=== PATIENT | male | born 1965 | race Caucasian/White ===

== ENCOUNTER 2023-09-19 08:53 | Outpatient (OUT) | payer OTHER, SELFPAY ==
--- NOTE | 2023-09-19 08:55 | XR_ITS ---
The [address] [address] Patient Name: BLANCA HAYDEN MRN: [id number] date: 1965 Sex: M Assigned Patient Location: [facility] Current Patient Location: Accession/Order Number: [id number] Exam Date: 09/19/2023 09:03 Report Date: 09/20/2023 09:55 At the request of: ELIDA KIM Procedure: XR chest 2V EXAMINATION: XR chest 2V HISTORY: Cough R05.9 COMPARISON: No relevant comparison available. FINDINGS: LUNGS: Trace amount of stranding within the right and left lung bases. VASCULATURE: No increased pulmonary vasculature. PLEURA: No pneumothorax, effusion, or pleural thickening. CARDIAC: No cardiomegaly or cardiac silhouette abnormality. MEDIASTINUM: No visible mass or adenopathy. BONES: No fracture or visible bone lesion. OTHER: Negative. XR/XR chest 2V IMPRESSION: 1. Trace amount of bibasilar infiltrates versus atelectasis. No prior studies for comparison. Electronically authenticated by: ALYSSA EASTON Date: 09/20/2023 09:55
== END 2023-09-19 08:54 | disposition home or self-care (01) ==
LOC: RAD 08:53
PROVIDERS: PCP Internal Medicine; Visit Provider Internal Medicine
DX: R05.9 Cough, unspecified (principal)
CPT/HCPCS: 71046

== ENCOUNTER 2023-11-03 14:01 | Outpatient (OUT) | payer OTHER, SELFPAY ==
--- NOTE | 2023-11-03 14:02 | CT_ITS ---
[address] [address] Patient Name: BLANCA HAYDEN MRN: [id number] date: 1965 Sex: M Assigned Patient Location: [facility] Current Patient Location: Accession/Order Number: [id number] Exam Date: 11/03/2023 14:08 Report Date: 11/07/2023 10:11 At the request of: ELIDA KIM Procedure: CT chest w con EXAMINATION: CT chest w con HISTORY: Cough, Wheezing COMPARISON: XR chest 09/19/2023 TECHNIQUE: Multi-planar CT images were obtained without and/or with IV contrast as indicated by examination type. Axial, Coronal, and Sagittal images. Dose reduction techniques were achieved by using automated exposure control and/or adjustment of mA and/or kV according to patient size and/or use of iterative reconstruction technique. FINDINGS: LUNGS: 4 mm nodule within anterior segment of left upper lobe. Calcified granuloma within left posterior costophrenic angle. A few tiny nonspecific nodules scattered within the lungs. No acute infiltrates. PLEURA: No mass, effusion, or pneumothorax. VASCULATURE: No abnormality. DENIS: Multiple calcified left hilar lymph nodes suggestive chronic granulomatous disease. MEDIASTINUM: No mass or adenopathy. CARDIAC: No enlargement or pericardial thickening.. Coronary artery calcifications: AORTA: No aneurysm or dissection. CHEST WALL: No mass or axillary adenopathy. BONES: No bone lesion or fracture. LIMITED ABDOMEN: Multiple stones within noninflamed gallbladder. Limited images of the upper abdomen. OTHER: Negative. CT/CT chest w con IMPRESSION: 1. No pulmonary infiltrates or acute/suspicious findings to account for patient's symptoms. 2. A few tiny calcified and noncalcified nodules; nonspecific but conjunction with calcified hilar lymph nodes favouring chronic granulomatous disease. Electronically authenticated by: ALYSSA EASTON Date: 11/07/2023 10:11
[2023-11-03] MEDS: ALBUTEROL SULFATE 2.5 MG/3 ML VIAL NEB IH (14:33)
--- NOTE | 2023-11-03 14:34 | RESP.RT ---
PFT done. Pt had a syncopal episode during FVC maneuver and during last DLCO maneuver. Only one FVC done, pt did not fall and recovered without incident. Pt went to [facility] scan without incident and returned to [facility]. Pt's physician was called, episode reported, and agreed to not doing any post testing procedures. When pt returned to [facility], he was a little dyspneic so HHN was given without post testing. Pt dyspnea was relieved and he went home.
--- NOTE | 2023-11-03 14:47 | RT_ITS ---
The [facility] Test Date: 2023-11-03 Pat Name: BLANCA HAYDEN Department: Room: - Gender: Male [employer] Operator: Varinder Fuentes RRT : 1965 Requested By: ELIDA KIM Order Number: [id number] Reading MD: ELIDA KIM Interpretive Statements The FVC, FEV1, FEV1/FVC ratio and NBH25-92% are reduced indicating airway obstruction. It is impossible to adequately evaluate the flow volume loop due to excessive variablity such as might be produced by coughing. The MVV is reduced. The FVC is reduced relative to the SVC indicating air trapping. The increased airway resistance and decreased specific conductance indicate a central airway disease. The TLC, RV, FRC and RV/TLC ratio are all increased indicating overinflation and air trapping. The diffusing capacity is high for the measured volume. Maldistribution of ventilation is indicated by the difference between the alveolar volume and the total lung capacity. Spirometry: FVC decreased - 41% FEV1 decreased - 25% FEV1/FVC decreased - 46 (actual) FEF 25-75 decreased - 8% MVV decreased - 33% Volumes: TLC increased - 127% RV/TLC - increased DLCO - normal Impression: Severe obstructive defect present. Increased lung volumes and RV/TLC consistent with hyperinflation. Testing was not performed after bronchodilator due to patient adverse symptoms when performing test. Flow Volume loop consistent with airflow limitations. Electronically Signed On 11-03-2023 18:46:42 EDT by ELIDA KIM
== END 2023-11-03 14:02 | disposition home or self-care (01) ==
LOC: CARD 14:01
PROVIDERS: PCP Internal Medicine; Visit Provider Internal Medicine
DX: R05.9 Cough, unspecified (principal); R06.2 Wheezing; R06.09 Other forms of dyspnea
CPT/HCPCS: 71260; 94060; 94726; 94729; Q9967

== ENCOUNTER 2024-05-15 07:34 | Outpatient (RCR) | payer OTHER, SELFPAY ==
[2024-05-07 12:41] LABS: Basophils Percent Auto 0.4 % (0.2-2.0); Eosinophils Absolute Auto 0.1 10^3/uL (0.0-0.7); Eosinophils Percent Auto 2.6 % (0.9-7.0); Hemoglobin 19.6 g/dL (14.0-18.0); Immature Granulocytes Abs Auto 0.02 10^3/uL (0.00-0.03); Immature Granulocytes Pct Auto 0.4 % (0.0-0.5); Lymphocytes Absolute Auto 1.2 10^3/uL (1.2-3.8); Lymphocytes Percent Auto 25.8 % (20.5-60.0); Mean Corpuscular HGB Conc 33.8 g/dL (29.9-35.2); Mean Corpuscular Volume 94.8 fL (80.0-94.0); Mean Platelet Volume 9.6 fL (9.5-13.5); Monocytes Absolute Auto 0.9 10^3/uL (0.3-0.8); Neutrophils Absolute Auto 2.4 10^3/uL (1.4-6.5); Neutrophils Percent Auto 50.8 % (43.0-75.0); Platelet Count 125 10^3/uL (150-450); Red Blood Count 6.12 10^6/uL (4.70-6.10); Red Cell Distribution Width 13.4 % (11.0-15.0); White Blood Count 4.7 10^3/uL (4.0-11.0)
[2024-05-07 12:52] LABS: Alanine Aminotransferase 41 U/L (16-63); Albumin Globulin Ratio 0.9; Albumin Level 3.4 g/dL (3.4-5.0); Alkaline Phosphatase 61 U/L (46-116); Anion Gap 7.4; Aspartate Amino Transferase 31 U/L (15-37); BUN Creatinine Ratio 9.9; Bilirubin Total 0.7 mg/dL (0.2-1.0); Calcium 8.9 mg/dL (8.5-10.1); Carbon Dioxide 32.7 mmol/L (21.0-32.0); Chloride 102 mmol/L (98-107); Estimated GFR (African America >60 (>=60 mL/min/1.73m^2); Estimated GFR (Non-African Ame 56 (>=60 mL/min/1.73m^2); Globulin 3.9 g/dL; Glucose 83 mg/dL (74-106); Potassium 4.1 mmol/L (3.5-5.1); Sodium 138 mmol/L (136-145); Total Protein 7.3 g/dL (6.4-8.2)
[2024-05-07 12:57] LABS: Percent Iron Saturation 20.1 %
[2024-05-08 15:08] LABS: Erythropoietin (EPO), Serum 8.8 mIU/mL (2.6-18.5)
[2024-05-15 08:02] VITALS: BP 138/79; PULSE 96; TEMP 36.6; O2SAT 96
--- NOTE | 2024-05-15 08:18 | PC.NURSE ---
0800 Arrival amb for therapeutic phlebotomy. procedure explained to patient, verbalizes understanding, vs obtained. #16 ga catheter inserted RACF, excellent blood return, connected to dry collection bag with Zola blood collection monitor in use. 0805 Tolerating phelbotomy without any issues, drinking liquids. 0815 500 ml removed. Catheter removed, pressure applied followed by cotton ball and coban, tolerated well. vs obtained. denies any light headedness.
[2024-05-15 08:22] VITALS: BP 126/76; PULSE 111; TEMP 36.6; O2SAT 94
[2024-05-15 08:28] VITALS: BP 129/76; PULSE 108; TEMP 36.6; O2SAT 94
--- NOTE | 2024-05-15 08:30 | PC.NURSE ---
0828 patient up ambulated around department, denies lightheadedness or any other complaints - otherthdagmar has a head cold and he took cold and cough medicationn this morning. Released ambulatory
== END 2024-05-15 13:24 | disposition home or self-care (01) ==
LOC: HEMC 07:34
PROVIDERS: PCP Internal Medicine; Visit Provider Internal Medicine Hematology & Oncology
DX: D45 Polycythemia vera (principal)
CPT/HCPCS: 36415; 80053; 82668; 82728; 83540; 83550; 85025; 99195; G0463

== ENCOUNTER 2024-05-16 08:45 | Outpatient (OUT) | payer OTHER, SELFPAY ==
--- NOTE | 2024-05-16 | ECG_ITS ---
The [facility] Test Date: 2024-05-16 Pat Name: BLANCA HAYDEN Department: Room: - Gender: Male [employer]: : 1965 Requested By: ELIDA KIM Order Number: [id number] Reading MD: ELIDA KIM Measurements Intervals Loyal Rate: 107 P: 59 RI: 140 QRS: 25 QRSD: 100 T: 0 QT: 328 QTc: 438 Interpretive Statements SINUS TACHYCARDIA NONSPECIFIC T-WAVE ABNORMALITY ABNORMAL RHYTHM ECG No previous ECG available for comparison Electronically Signed On 05-16-2024 18:01:22 EST by ELIDA KIM
--- OUTSIDE RECORDS SUMMARY | 2024-05-16 08:48 | XMS_ITS | CCD ---
Author Organization [facility] CliniSyct Care Team Providers Care Secretary Book Keeper Name Role Phone VAN KIM Primary Care Physician Sami ANDERSON Attending Unavailable Van Kim Unavailable DR VAN KIM Consulting Unavailable JUDY, DR MARRERO Primary Care Unavailable REQUEST, NONE LISTED Attending Unavaila ble REQUEST, NONE LISTED Admitting Unavaila ble Allergies Allergy Classification Reported Allergen(s) Allergy Type Date of Onset Reaction(s) Facility (1 source) No Known Medication Allergies; Translations: [No Known Medication Allergies] Propensity to adverse reactions (disorder) [facility] Repository (1 source) patient allergy list reviewed by nurse or physicia Propensity to adverse reactions 7 Comment:Done [employer] Other Medications Current Medications Medication Drug Class(es) Dates Sig (Normalized) Sig (Original) albuterol 0.83 mg/ml inhalation solution (10 sources) beta2-Adrenergic Agonist Start: 04-17-2024 take 1 puff(s) by inhalation every six hours as needed for wheezing Albuterol Sulfate 90 mcg/actuation HFA aerosol inhaler Active 2 PUFF INHALATION Every 6 hours as needed for shortness of breath or wheezing 8.5 April 17, 2024 9:43am Start: 11-07-2023 End: 04-17-2024 take 2.5 mg by inhalation every six hours as needed for wheezing Albuterol Sulfate 2.5 mg /3 mL (0.083 %) solution for nebulization Active 2.5 MG INHALATION Every 6 hours as needed for shortness of breath or wheezing 75 April 17, 2024 9:44am Start: 10-12-2023 End: 04-17-2024 take 2 puff(s) by inhalation four times daily as needed for wheezing Albuterol Sulfate 90 mcg/actuation HFA aerosol inhaler Discontinued 0 .ROUTE .COMPLEX 8.5 October 12, 2023 6:04am April 17, 2024 9:44am INHALE 2 PUFFS 4 TIMES DAILY NEEDED FOR SHORTNESS OF BREATH OR WHEEZING FOR 30 DAYS Start: 09-20-2023 End: 10-12-2023 take 1 puff(s) by inhalation four times daily as needed for wheezing Albuterol Sulfate 90 mcg/actuation HFA aerosol inhaler Discontinued 2 PUFF INHALATION Four times daily as needed for shortness of breath or wheezing 8.5 September 19, 2023 11:00pm October 12, 2023 6:04am 120 actuat budesonide 0.16 mg/actuat / formoterol fumarate 0.0045 mg/actuat metered dose inhaler (1 source) Corticosteroid, beta2-Adrenergic Agonist Start: 04-17-2024 take 1 puff(s) by inhalation every twelve hours Budesonide-Formoterol 160-4.5 mcg/actuation HFA aerosol inhaler Active 2 PUFF INHALATION Every 12 hours 10.2 April 17, 2024 12:00am hydrocortisone 25 mg/ml topical cream (6 sources) Corticosteroid Start: 07-28-2022 Hydrocortisone 2.5 % 1 application Externally twice daily for 10 days July, Active Hydrocortisone A cetate 25 MG 1 suppository Rectal twice daily for 12 days Active Inhalational Spacing Device (Aerochamber Mv) spacer (3 sources) Start: 09-20-2023 Inhalational S pacing Device (Aerochamber Mv) spacer Active 0 .Route September 19, 2023 11:00pm Use with MDI Start: 09-20-2023 Inhalational S pacing Device (Aerochamber Mv) spacer Active 0 .Route September 20, 2023 12:00am Use with MDI [place] (No Known Home Meds) (1 source) Start: 09-18-2023 [place] (No Kn own Home Meds) Active September 18, 2023 12:00am Completed/Discontinued Medications Medication Drug Class(es) Dates Sig (Normalized) Sig (Original) azithromycin 250 mg oral tablet (6 sources) Macrolide Antimicrobial Start: 05-29-2023 End: 09-18-2023 Azithromycin 250 mg tablet Discontinued 250 MG PO As Directed 6 May 28, 2023 11:00pm September 18, 2023 1:28pm Start: 02-20-2023 Azithromycin 2 50 MG as directed Orally daily for 5 days Feb, Active doxycycline hyclate 100 mg oral capsule (8 sources) Tetracycline-class Drug Start: 09-20-2023 End: 04-17-2024 take 1 capsule by mouth twice daily Doxycycline Hyclate 100 mg capsule Discontinued 100 MG PO Twice daily September 19, 2023 11:00pm April 17, 2024 9:21am Start: 06-20-2023 End: 09-18-2023 take 1 capsule by mouth twice daily Doxycycline Hyclate 100 mg capsule Discontinued 100 MG PO Twice daily 14 June 19, 2023 11:00pm September 18, 2023 1:28pm Fluticasone Propion-Salmeterol (2 sources) Corticosteroid, beta2-Adrenergic Agonist Start: 11-03-2023 End: 04-17-2024 Fluticasone Propion-Salmeterol (Wixela Inhub) 500-50 mcg/dose blister with device Discontinued 1 INH INHALATION Every 12 hours 60 November 03, 2023 5:31pm April 17, 2024 9:21am Start: 11-03-2023 Fluticasone Pr opion-Salmeterol (Wixela Inhub) 500-50 mcg/dose blister with device Active 1 INH INHALATION Every 12 hours 60 November 03, 2023 6:31pm Fluticasone Propion-Salmeter ol (Wixela Inhub) 500-50 mcg/dose blister with device (2 sources) Start: 11-03-2023 End: 11-03-2023 Fluticasone Propion-Salmeter ol (Wixela Inhub) 500-50 mcg/dose blister with device Discontinued 1 INH INHALATION Every 12 hours 60 November 02, 2023 11:00pm November 03, 2023 5:31pm Start: 11-03-2023 End: 11-03-2023 Fluticasone Propion-Salmeter ol (Wixela Inhub) 500-50 mcg/dose blister with device Discontinued 1 INH INHALATION Every 12 hours 60 November 03, 2023 12:00am November 03, 2023 6:31pm Problems Active Problems Problem Classification Problem Date Documented Da te Episodic/Chronic Acute bronchitis (4 sources) Acute bronchitis due to other specified organisms; Translations: [Acute bronchitis] Episodic Calculus of urinary tract (2 sources) Kidney stone; Translations: [Ureteric stone] 06-21-2021 Episodic Chronic obstructive pulmonary disease and bronchiectasis (4 sources) Acute exacerbation of chronic obstructive airways disease; Translations: [Chronic obstructive pulmonary disease with (acute) exacerbation] 11-05-2023 Chronic Genitourinary symptoms and ill-defined conditions (1 source) Nocturia Episodic Hemorrhoids (2 sources) Perianal venous thrombosis; Translations: [Residual hemorrhoidal skin tags] Episodic Hyperplasia of prostate (16 sources) Benign prostatic hypertrophy with outflow obstruction; Translations: [Lower urinary tract symptoms due to benign prostatic hypertrophy] Onset: 02-13-2017 06-21-2021 Chronic Other hematologic conditions (2 sources) Erythrocytosis; Translations: [Secondary polycythemia] 11-05-2023 Episodic Other hematologic conditions (2 sources) Secondary polycythemia; 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 vera] 11-07-2023 Episodic Other lower respiratory disease (8 sources) Cough; Translations: [Cough] 09-18-2023 Episodic Other lower respiratory disease (2 sources) Dyspnea on exertion; Translations: [Other forms of dyspnea] 10-20-2023 Episodic Other lower respiratory disease (2 sources) Wheezing; Translations: [Wheezing] 10-20-2023 Episodic Other lower respiratory disease (2 sources) Other forms of dyspnea; Translations: [Other respiratory abnormalities] 10-20-2023 Episodic Other lower respiratory disease (2 sources) Wheezing; Translations: [Wheezing] 10-20-2023 Episodic Other nutritional; endocrine; and metabolic disorders (3 sources) Simple obesity ; Translations: [Other obesity due to excess calories] Chronic Other nutritional; endocrine; and metabolic disorders (8 sources) Obesity; Translations: [Other obesity due to excess calories] 05-29-2023 Chronic Other nutritional; endocrine; and metabolic disorders (4 sources) Body mass index 30+ - obesity; Translations: [Body mass index (BMI) 31.0-31.9, adult] Onset: 02-13-2017 Chronic Other nutritional; endocrine; and metabolic disorders (1 source) Other obesity due to excess calories Chronic Other nutritional; endocrine; and metabolic disorders (1 source) Body mass index (BMI) 31.0-31.9, adult Chronic Other nutritional; endocrine; and metabolic disorders (1 source) Obesity caused by energy imbalance; Translations: [Other obesity due to excess calories] 05-29-2023 Chronic Other nutritional; endocrine; and metabolic disorders (5 sources) Obesity, unspecified; Translations: [Obesity, unspecified] 05-29-2023 Chronic Other screening for suspected conditions (not mental disorders or infectious disease) (11 sources) Encounter for screening for malignant neoplasm of prostate; Translations: [Patient encounter status] Episodic Syncope (1 source) Syncope; Translations: [Syncope and collapse] 11-07-2023 Episodic Past or Other Problems Problem Classification Problem Date Documented Da te Episodic/Chronic Other connective tissue disease (6 sources) Plantar fascial fibromatosis; Translations: [Plantar fascial fibromatosis] Onset: 03-25-2015 05-29-2023 Episodic Other hematologic conditions (1 source) Secondary polycythemia; Translations: [Secondary polycythemia] Onset: 02-13-2017 Resolved: 06-23-2021 Episodic Results Test Name Value Interpretation Reference Range Facil ity CBC AUTO DIFFon 08-02-2022 BASO # 0.1 103/ul Normal 0.0-0.1 [facility] Comment on above: Performed By: #### D ATCBC #### [facility] [address] [place] [address] Dr. Henok Aleman Basophils/100 WBC (Bld) 1.3 % Normal 0.2-2.0 [facility] Comment on above: Performed By: #### D ATCBC #### [facility] [address] [place] [address] Dr. Henok Aleman EO # 0.4 103/ul Normal 0.0-0.7 [facility] Comment on above: Performed By: #### D ATCBC #### [facility] [address] [place] [address] Dr. Henok Aleman Eosinophils/100 WBC (Bld) 5.9 % Normal 0.9-7.0 [facility] Comment on above: Performed By: #### D ATCBC #### [facility] [address] [place] [address] Dr. Henok Aleman Erythrocyte distribution width (RBC) [Ratio] 13.3 % Normal 11.0-15.0 [facility] Comment on above: Performed By: #### D ATCBC #### [facility] [address] [place] [address] Dr. Henok Aleman Hematocrit (Bld) [Volume fraction] 55.3 % Critically high 42.0-54.0 [facility] Comment on above: Performed By: #### D ATCBC #### [facility] [address] [place] [address] Dr. Henok Aleman Hemoglobin (Bld) [Mass/Vol] 18.5 g/dL Critically high 14.0-18.0 [facility] Comment on above: Performed By: #### D ATCBC #### [facility] [address] [place] [address] Dr. Henok Aleman IG # 0.08 10e3/ul Critically high 0.00-0.03 [facility] Comment on above: Performed By: #### D ATCBC #### [facility] [address] [place] [address] Dr. Henok Aleman IG % 1.3 % Critically high 0.0-0.5 [facility] Comment on above: Performed By: #### D ATCBC #### [facility] [address] [place] [address] Dr. Henok Aleman LYMPH # 2.4 103/ul Normal 1.2-3.8 [facility] Comment on above: Performed By: #### D ATCBC #### [facility] [address] [place] [address] Dr. Henok Aleman Lymphocytes/100 WBC (Bld) 36.7 % Normal 20.5-60.0 [facility] Comment on above: Performed By: #### D ATCBC #### [facility] [address] [place] [address] Dr. Henok Aleman MCH (RBC) [Entitic mass] 31.3 pg Normal 25.9-34.0 [facility] Comment on above: Performed By: #### D ATCBC #### [facility] [address] [place] [address] Dr. Henok Aleman MCHC (RBC) [Mass/Vol] 33.5 g/dL Normal 29.9-35.2 [facility] Comment on above: Performed By: #### D ATCBC #### [facility] [address] [place] [address] Dr. Henok Aleman MCV (RBC) [Entitic vol] 93.4 fL Normal 80.0-94.0 [facility] Comment on above: Performed By: #### D ATCBC #### [facility] [address] [place] [address] Dr. Henok Aleman MONO # 0.6 103/ul Normal 0.3-0.8 [facility] Comment on above: Performed By: #### D ATCBC #### [facility] [address] [place] [address] Dr. Henok Aleman Monocytes/100 WBC (Bld) 9.8 % Normal 1.7-12.0 [facility] Comment on above: Performed By: #### D ATCBC #### [facility] [address] [place] [address] Dr. Henok Aleman NEUT # 2.9 103/ul Normal 1.4-6.5 [facility] Comment on above: Performed By: #### D ATCBC #### [facility] [address] [place] [address] Dr. Henok Aleman Neutrophils/100 WBC (Bld) 45.0 % Normal 43.0-75.0 [facility] Comment on above: Performed By: #### D ATCBC #### [facility] [address] [place] [address] Dr. Henok Aleman Platelet mean volume (Bld) [Entitic vol] 9.7 fL Normal 9.5-13.5 [facility] Comment on above: Performed By: #### D ATCBC #### [facility] [address] [place] [address] Dr. Henok Aleman PLT 167 103/ul Normal 150-450 [facility] Comment on above: Performed By: #### D ATCBC #### [facility] [address] [place] [address] Dr. Henok Aleman RBC 5.92 106/ul Normal 4.70-6.10 [facility] Comment on above: Performed By: #### D ATCBC #### [facility] [address] [place] [address] Dr. Henok Aleman WBC 6.4 103/ul Normal 4.0-11.0 [facility] Comment on above: Performed By: #### D ATCBC #### [facility] [address] [place] [address] Dr. Henok Aleman DEBBI- BMP WITH LIPIDon 2022 Anion gap [Moles/Vol] 10.8 mmol/L Normal [facility] Comment on above: Performed By: #### D ATBMP, DATPSA #### [facility] [address] [place] [address] Dr. Henok Aleman Calcium [Mass/Vol] 9.1 mg/dL Normal 8.5-10.1 [facility] Comment on above: Performed By: #### D ATBMP, DATPSA #### [facility] [address] [place] [address] Dr. Henok Aleman Chloride [Moles/Vol] 104 mmol/L Normal 98-107 [facility] Comment on above: Performed By: #### D ATBMP, DATPSA #### [facility] [address] [place] [address] Dr. Henok Aleman Cholesterol [Mass/Vol] 148 mg/dL Normal <=200 [facility] Comment on above: Performed By: #### D ATBMP, DATPSA #### [facility] [address] [place] [address] Dr. Henok Aleman Cholesterol in HDL [Mass/Vol] 39 mg/dL Critically low 40-60 [facility] Comment on above: Performed By: #### D ATBMP, DATPSA #### [facility] [address] [place] [address] Dr. Henok Aleman Cholesterol in LDL [Mass/Vol] 87.2 mg/dL Normal [facility] Comment on above: Performed By: #### D ATBMP, DATPSA #### [facility] [address] [address] [address] Henok Aleman CO2 [Moles/Vol] 30.6 mmol/L Normal 21.0-32.0 [facility] Comment on above: Performed By: #### D ATBMP, DATPSA #### [facility] [address] [address] [address] Henok Aleman Creatinine [Mass/Vol] 1.08 mg/dL Normal 0.70-1.30 [facility] Comment on above: Performed By: #### D ATBMP, DATPSA #### [facility] [address] [address] [address] Henok Aleman EGFR-AF MOSOTHO >60 Normal >=60 [facility] Comment on above: Performed By: #### D ATBMP, DATPSA #### [facility] [address] [place] [address] Dr. Henok Aleman EGFR-NON AF [place] >60 Normal >=60 [facility] Comment on above: Performed By: #### D ATBMP, DATPSA #### [facility] [address] [address] [address] Henok Aleman Glucose [Mass/Vol] 97 mg/dL Normal 74-106 [facility] Comment on above: Performed By: #### D ATBMP, DATPSA #### [facility] [address] [address] [address] Henok Aleman HDL NORMAL > or = 60 mg/dl - LO W CARDIOVASCULAR RISK <40 mg/dl - HIGH CARDIOVASCULAR RISK Normal [facility] Comment on above: Performed By: #### D ATBMP, DATPSA #### [facility] [address] [address] [address] Henok Aleman LDL CALC NORMAL SEE BELOW Normal [facility] Comment on above: Result Comment: <100 mg/dl OPTIMAL 100 - 129 mg/dl NEAR OR ABOVE OPTIMAL 130 - 159 mg/dl BORDERLINE HIGH 160 - 189 mg/dl HIGH >190 mg/dl VERY HIGH Performed By: #### D ATBMP, DATPSA #### [facility] [address] [address] [address] Henok Aleman Potassium [Moles/Vol] 4.4 mmol/L Normal 3.5-5.1 [facility] Comment on above: Performed By: #### D ATP, DATPSA #### [facility] [address] [address] [address] Henok Aleman Sodium [Moles/Vol] 141 mmol/L Normal 136-145 [facility] Comment on above: Performed By: #### D ATP, DATPSA #### [facility] [address] [address] [address] Henok Aleman Triglyceride [Mass/Vol] 109 mg/dL Normal <=150 [facility] Comment on above: Performed By: #### D ATP, DATPSA #### [facility] [address] [place] [address] Dr. Henok Aleman Urea nitrogen [Mass/Vol] 14.0 mg/dL Normal 7.0-18.0 [facility] Comment on above: Performed By: #### D [facility], DATPSA #### [facility] [address] [place] [address] Dr. Henok Aleman Urea nitrogen/Creatinine [Mass ratio] 13.0 mg/mg Normal [facility] Comment on above: Performed By: #### D ATP, DATPSA #### [facility] [address] [place] [address] Dr. Henok Aleman VLDL CALC 21.8 mg/dL Normal [facility] Comment on above: Performed By: #### D [facility], DATPSA #### [facility] [address] [place] [address] Dr. Henok Aleman Coding Summary.on 07-01-2021 Coding Summary. CD:[id number] h0bWw+PGhlYWQ+YK9KEGM hT17uqMHpdS6YU5eIVP8J QIPESBWJLC8CFX0bfSB7O QjoP0ClqdCq DtbloNVfXT08NRa0OEK5y RwgHVzfqJ9uuBKbH9j8Lc ZtKY77fY49RAzqXOKeWwH 3LjZpbjsgbWFy Y4kiOdDokZQmEtr+PHRhY mxlIHdpZHRoPScxMDAlJy YjgYqpOX7xUc6ySOSbXVW vbGxhcHNlOiBj v4xzOHKyNZcnSR2yxYsgX 8PtpDF2LRSdq4w3Ou33xJ I+INAtHBU1jMkrVZtjk75 8BsHib9omBRN7 sSTaZErzJOZ1F54za0L5J KClIOIiJII7lYN9iO1umC qvieorF8ZyyRUaNjB7UXO 7pKTyrI7mrIdm logztR6iCjm+Y04GQW6YJ PPISF4VWjo7L2NqSuszaI I+IN18IYTsTG00lGWtrVV vr1tnyWt1KdUc UUVeUYW1xHieUDlje2LwC AMmC39ooPQkz6L8FKHaxO gtaVAjXrYtqQW0tT9qOJs zbxxgh2rthabr Ugcnx0ozdv28mE72E61pY VauOKAnOAR5GAFwESNdgL mirl5fqU4zZz4+GXccs5v et3zuvVj0KgJq JFYarbJmnIrkWAC1x8ZjM u23D2ZazQczm2FvQwd1wj 38pXYqs4D7dVZ7VDofNAU iaJ1lUScxWsF8 YDUzAiOreM10iJFaCKsqO v0ydPhanVlfVE6wOZNtpt lrUPCtpS5zGKDzeZSktUv jUA1yKXPksquw h233CoBhIFO7ZLXkbJIgO 0JitH5vJxXkSYQiXWWvX6 UheUHdDPrtA997VBhqWvU 7IOEvlaZyH7Km JAEcfLayLiR9d3U8Oc8Uv 7FijxogGAD3GGjeJBU0Mj D4LdPwFlJ9M9VmDjy2KRG usMkfJW2cO7Yl MNNdzctwtjlrgCN9XUCgU NMqgC02mQRuFDlhPu2gq9 E7u480CLTbOSYarM98Dw8 udDogMTBwdCBU jQ0antzkx9dugqeyZlBaR WQxHVr9DFe7ZFIpeYuxQf OeWAC9UlE7JHO7rSLuxY4 blLiaqftbdI4k Oyc+Q07ftJ0kSBL3XJV1m izvGYYcmcImJX10MD98M4 RyPjwvdGFibGU+PGRpdiB amBgzJG7aBzOz y0rxq8AgSMggG9ZjRJSzP PvcPnt9YMZiLJD7lDK2xQ 8tFCZfZZabs5M0gGG7I5E vjuHptq0hp2ux ZNHuPPmhX60lwZFmr1K6X WQdcRX4REDplEnoGcCfbB 93Oyc+RSQqjVibe1OwWws xv3ixf7xqyDs9 OlKdGXMdfxNltTsdBVO3z 2NxZg57H75eVBdeIKCrNO RzLRKjAQHygFfcjt9lqM0 wIi8+PGNvbCB3 fRY8sK3zMLLyVmH6XHpeV 479ExHerAVlEipmq1uyd9 zrnAa1AsXyGIYesvSjiGd rGFS2f9IhGh45 T62eAAjhPYEmGFSsCBWuC JZrqBcnuw7zlX3wEp5+PC 1dn1yfcb58wG45cCY+PHR hQGR1lEjoHDjp HQQwxL1qYVeoGkD6MYUpE vSeaP97qGXyLVcjLn4kaT xkuWywSN7sONVyrmkyu56 0MzRqd3ltJQDm hSYtRVeuTHD8J90pf8D1T PFzTAZeAHM8xCF0fL5yrD lnbjogbGVmdDsgdmVydGl mGMfxOKkxC188 IHRvcDsnPlBhdGllbnQgT jQzNDz2T1KjYsz5VOMjgD ilQH1wqWPfRZwjMf6ifFp lqDqdLS6bJOZe slxxs288BrNmr4jtYLZrt XGmZNleDPO3H04hm5N1JN QuUUAmQFE4dLV2qD4syDg nbjogbGVmdDsg upJotGzhEQfsDUyeS379K HRvcDsnPkJpcnRoIERhdG X0BI29AM79wOHnm7D6jOP 1R8CaTNEizrli oclmyQM2VNPvEYAxpT91I n4qqUndTo5cGRRwIYI2PD XcjKSwJ1RczC7eVtUzOKU tQGBdX7PppNHb VRfyL938JBocWeP5YVMxw xGaW6KdLDTfkFdhIgI6e9 E2Xa4KH9C6RG98XV41tDP bv5H8dEN0T2Ci RKAjdwulhzffpRH2BNQkE KKnyE79Ir4faOtpOw9iGE XcCMX7DVVjbYPrG3ZdjL7 yOiAjMDAwMDAw P4AcmKVjWKroK729YXzoR rN3SBFdlqMyX3FqNMNnfC glFwU7l4S5Et4MEGi9MI8 8GJ61kVSmt4H8 iNX7B4FjYXByspwwfhjol SG1UJYsCTNxpH98Mp1oqW rtUp6iTHLvNOO6CHGjtJR kS3GsqY1sWzQy JQOwEBScP2AvlXNeHUjvE 874XYbiTnE8KXGrnzAsY2 LdFLBcmDcyMvE3g1W9Yx7 VXBSsGL06YZA0 nLC9RI92YJ73D6CqVzbrk GFibGU+PHRhYmxlIHdpZH RoPScxMDAlJyBzdHlsZT0 tMc2bPHDyLXSk hGclmCBkRhAmu9ugBGKhI RqfBV2cbDemQ8CnfAZ7ER Pgq8j4Af99E25aL4YypZW +WEFsoNM1wAH2 wJ2wUtNyYaR8VOjoQ954Y pChwIRfBzjzs2lbd7wwcA f4UzJ7NOZlvfRpxJasUUX 5c2KkMn85N02v IHdpZHRoPSIxNSUiIHZhb Wdvts1iqZ0nKz3+PGNvbC N9oZK8bQ2tNxSpDxO5FTn yX423LvBmdUFp Zjzhw9caj1trcBa9AcXlH KIasvEtuNxiDLM0a7BwWi 69L4CqvMyse4BlHgf9kp7 6xQCbp0K9fZV2 Z8GrHLWgzrybyBJhpClpP C3jGSKcfelcUXYtkT0dWL PqF5z7KzQaOxF7URppC2H iohP9DKUndGPc QTjlHVF0E71tu0B0TOZlE LDfDQI2lVZ5wS0boVbahj ogbGVmdDsgdmVydGljYWw pWLkhX398CNMm cIpoGBYipR4aTQLfmNHml EoeQY2pPQIytuysSi3CA4 NMRVIsIEdFUkFSRCBTPC9 7BB35wTOcg0W0 iND1W8UxLCElzjxxymqfk WE0LTUaIGFsaR74gSGnBX szUc5uw2I6a199ZXHaGDE acO95Be6uvNaf WZRduEICrK6dzsgwv0hkq dxpGoOgXWHwLRw1QZv1TJ WmuVgmXeUqOPT0DzN2OIM 4aMZzgY8fuEkj framuC5nFkf+MDIvMTYvM Ce4JnjtmFH+ETBqBWL6zE tqBLqoFXYhkN7zVMSnQ8s 8HvTvZxS9HMzo Z7XqTZCczoiuLi66bF0qK dOuFqQ4CAseU2UmlvN5UD ZluATsOStyWZX2D26qe3U 8GKEaSDXqCGN3 qDA0hL6nkJmuiihlpWXfr DsgdmVydGljYWwtYWxpZ2 87IHJngKgkBsR0XErdIAO jIE82WI34sQHb w0G8hXI9F9DtVLBoucugx nxurBU4FNIlOOGgmM15dT GtHYftSh1nm6S2y761ROX jZBZipC94Xu3l cJfjMNYdqFFBvR5digmtb 6gtmhvnFyFyVCKlPGr0RM g4INRugPbiKrElGWF5MyR 0POC7rMZkgJ6q xXverniquJ7qHdh+TWFsZ TwvdGQ+MRWjQTW3jTvdTG qxIXPwyB7eOGSsS2b2PyB dIxP7DCzbS2Zw XFZznlgwPg07gW8tApQbJ eQ9TIuyS1UvabR7NNNzcU TwJGhiBKM9N62zl8C0PZS tXAQeXKC2uZY3 eK3gmYffkqfqkVScuTfdl wJecPgnHSwsGAipV519NV YavZleJcjdJhCPic2aNU1 mZjwvdGQ+PC90 kg43L0VhKwfiGmi5NXPsY ML5tME1lU2pMSGcKYksm9 R2lKL1B1TlxbLkir9lc8y fPJSqBOoxV07d mAWbl2I7HNLmvAW9ZUEcl DzwLzQcrV89Ven+PGNvbG krq6ObKgtju8wge0cyaDa 9IjMwJSIgdmFs nZcnUXB6v6DjIo06M23aN HdpZHRoPSIzMCUiIHZhbG kaum6gqS0eOm8+PGNvbCB 5bSN1gH6zAnJx UdP5WZinO129ItIhpITzH cpsq2gdy0fjrOy4IhFhEG XplcKwuFrxAOC0c3MuTq9 3C3MnzLgpd8Ry Dyd2iu70yLJhz6E6vKW1R 3BhZGRpbmctbGVmdDogMC 3tHLRzuhwcHLTueC9jYEH dZ2h2QdDjDnW2 TZymI3KajeA4DVMupLYoL QVugPTSqA3xjitxk4fygu qzWvRkQKDlHNf2QPw4YWD saWduOiBsZWZ0 FlH9NAD7zXNzmL1beBeds mflgN5zXwl+KGd4k2zxlD AxRU9rmQM5CB13EX25jNI hg7S0aBI4B1Wv MCIsdhwcvdzyaGF5SQPjP LOqxD48Nw0xlPjrLc1qIA IhFYF6WZBrzQCjE6TggK4 yOiAjMDAwMDAw O7PrpSNtITapG363LPlnF oD7RJOwczImE6XlOLGamM aiMuJ9q2J1Qh4MOB39KA0 0VM99kFKda8U8 eMG0G3ZuTHAafcllontet UZ8YPMvDRNpkA49Lm5awA iuYo7nDOWtBPM4NWImpGD eU1KxtK8mZuYc ECFeMXApS7HsvLNkWPtmA 027PRsiTrF6PVTwxzYuM4 MoCTKoyZhgRaO1c2W7Ly5 XIu11TG34GL83 vWHdq0G7oOS2E7RkJLHjk efzbuajaOW8RHHdWVIshX 76Ux0ttUydZa6fVRNbKQI 6VHBndOPhW4Do wY8oZeZgEDJaVMFcL4Drg FViYZtjM092LOghSaO4HT JiarTeD7GtRPPmvKvmMwT 5d7N3Ag3FPHuu dwb4D7CaEojvkAD+PC90Y WBrKO13cAFqiGGce1eijE c4CkFmMLEqPUR4lPkqPUx bv9KgRLTwX83d bGFw (more content not included)... Normal [facility] Vital Signs Date Time Vital Sign Value Performing Clinician Facility 04-17-2024 09:21-0500 Body height 175.26 cm [facility] 04-17-2024 09:21-0500 Body mass index (BMI) [Ratio] 30.4 kg/m2 [facility] 04-17-2024 09:21-0500 Body weight 93.66 kg [facility] 04-17-2024 09:21-0500 Diastolic blood pressure 86 mm[Hg] [facility] 04-17-2024 09:21-0500 Heart rate 109 /min [facility] 04-17-2024 09:21-0500 Respiratory rate 12 /min [facility] 04-17-2024 09:21-0500 Systolic blood pressure 136 mm[Hg] [facility] 11-07-2023 14:18-0400 Body height 175.26 cm [facility] 11-07-2023 14:18-0400 Body mass index (BMI) [Ratio] 30.6 kg/m2 [facility] 11-07-2023 14:18-0400 Body weight 94.06 kg [facility] 11-07-2023 14:18-0400 Diastolic blood pressure 86 mm[Hg] [facility] 11-07-2023 14:18-0400 Heart rate 105 /min [facility] 11-07-2023 14:18-0400 Respiratory rate 12 /min [facility] 11-07-2023 14:18-0400 Systolic blood pressure 132 mm[Hg] [facility] 10-20-2023 10:41-0400 Body height 175.26 cm [facility] 10-20-2023 10:41-0400 Body mass index (BMI) [Ratio] 30.2 kg/m2 [facility] 10-20-2023 10:41-0400 Body weight 93.04 kg [facility] 10-20-2023 10:41-0400 Diastolic blood pressure 90 mm[Hg] [facility] 10-20-2023 10:41-0400 Heart rate 99 /min [facility] 10-20-2023 10:41-0400 Respiratory rate 12 /min [facility] 10-20-2023 10:41-0400 Systolic blood pressure 156 mm[Hg] [facility] 09-18-2023 14:31-0400 Body height 175.26 cm [facility] 09-18-2023 14:31-0400 Body mass index (BMI) [Ratio] 31.3 kg/m2 [facility] 09-18-2023 14:31-0400 Body weight 96.27 kg [facility] 09-18-2023 14:31-0400 Diastolic blood pressure 87 mm[Hg] [facility] 09-18-2023 14:31-0400 Heart rate 81 /min [facility] 09-18-2023 14:31-0400 Respiratory rate 12 /min [facility] 09-18-2023 14:31-0400 Systolic blood pressure 139 mm[Hg] [facility] 05-29-2023 12:57-0400 Body height 175.26 cm [facility] 05-29-2023 12:57-0400 Body mass index (BMI) [Ratio] 31 kg/m2 [facility] 05-29-2023 12:57-0400 Body weight 95.25 kg [facility] 09-14-2022 11:00-0400 Body height 175.26 cm Van Ball Other [facility] [employer] Other 09-14-2022 11:00-0400 Body mass index (BMI) [Ratio] 31.16 kg/m2 Van Ball Other [employer] [facility] [employer] Other 09-14-2022 11:00-0400 Body weight 95.71 kg Van Ball Other [employer] [facility] [employer] Other 09-14-2022 11:00-0400 Diastolic blood pressure 84 mm[Hg] Van Ball Other [employer] [facility] [employer] Other 09-14-2022 11:00-0400 Respiratory rate 12 /min Van Ball Other [employer] Other 09-14-2022 11:00-0400 Systolic blood pressure 113 mm[Hg] Van Ball Other [employer] Other 07-28-2022 11:45-0400 Body height 175.26 cm Van Ball Other [employer] Other 07-28-2022 11:45-0400 Body mass index (BMI) [Ratio] 31.13 kg/m2 Van Ball Other [employer] Other 07-28-2022 11:45-0400 Body weight 95.62 kg Van Ball Other [employer] Other 07-28-2022 11:45-0400 Diastolic blood pressure 92 mm[Hg] Van Ball Other [employer] Other 07-28-2022 11:45-0400 Respiratory rate 12 /min Van Ball Other [employer] Other 07-28-2022 11:45-0400 Systolic blood pressure 131 mm[Hg] Van Ball Other [employer] Other Encounters Encounter Date Encounter Type Care Provider Facility Start: 04-17-2024 End: 04-17-[address] [facility] Work Phone: Start: 04-17-2024 End: 04-17-2024 Patient encounter procedure [facility] Work Phone: Start: 11-07-2023 End: 11-07-[address] [facility] Work Phone: Start: 11-07-2023 End: 11-07-2023 Patient encounter procedure [facility] Work Phone: Start: 10-20-2023 End: 10-20-[address] [facility] Work Phone: Start: 10-20-2023 End: 10-20-2023 Patient encounter procedure [facility] Work Phone: Start: 09-18-2023 End: 09-18-[address] [facility] Work Phone: Start: 09-18-2023 End: 09-18-2023 Encounter for general adult medical examination without abnormal findings [facility] Start: 09-18-2023 End: 09-18-2023 Patient encounter procedure [facility] Work Phone: Start: 06-20-2023 End: 06-20-[address] [facility] Work Phone: Start: 06-20-2023 End: 06-20-2023 Patient encounter procedure [facility] Work Phone: Start: 05-29-2023 End: 05-29-2023 Patient encounter procedure [facility] Work Phone: Start: 02-20-2023 End: 02-20-2023 ambulatory Van Kim Other [employer] Other Start: 02-20-2023 Office outpatient vi sit 15 minutes Van Kim [facility] Start: 09-14-2022 End: 09-14-2022 ambulatory Van Kim Other [employer] Other Start: 09-14-2022 Encounter for genera l adult medical examination without abnormal findings Van Kim [facility] Start: 09-14-2022 Periodic preventive med est patient 40-64yrs Van Kim [facility] Start: 08-02-2022 End: 08-03-[address] VAN KIM Facility:[facility] Start: 07-28-2022 End: 07-28-2022 ambulatory Van Kim Other [employer] Other Start: 07-28-2022 Office outpatient vi sit 15 minutes Van Kim [facility] Start: 06-24-2022 End: 06-25-2022 ambulatory Sami ANDERSON Facility:[facility] Start: 06-24-2022 End: 06-24-2022 Patient encounter procedure Sami ANDERSON [facility] Start: 05-07-2019 Adult health examination Van Kim Other [employer] Other Procedures Date Procedure Procedure Detail Performing Clinician Start: 08-02-[address] LICEA [place] Comment on above: Performed By: #### D ATBMP, DATPSA #### [facility] [address] [place] [address] Dr. Henok Aleman Start: 02-07-2020 Cystoscopy Sami HUNT Start: 05-06-2016 General examination of patient Van Kim Other Start: 05-06-2016 Screening for malign ant neoplasm of colon Van Kim Other Plan of Treatment Date Care Activity Detail Author Comprehensive metabo lic 2000 panel - Serum or Plasma [facility] enter CT Chest W contrast IV [facility] Erythropoietin (EPO) [Units/volume] in Serum or Plasma [facility] enter XR Chest 2 Views [facility] Immunizations Immunization Date Immunization Notes Care Provider Fa umair 01-27-2016 tetanus and diphther ia toxoids, adsorbed, preservative free, for adult use (5 Lf of tetanus toxoid and 2 Lf of diphtheria toxoid) Van Kim Other [facility] NEGATED: Highlighted row has not occurred!01-10-2020 influenza virus vaccine, unspecified formulation Sami ANDERSON [facility] Payers Date Payer Category Payer Unknown [id number] 1965 Unknown [id number] 1958 Self-pay Unknown [id number] Unknown [id number] Social History Date Type Detail Facility Start: 01-10-2020 Tobacco smoking status Never s moked tobacco (finding) [facility] Tobacco smoking status Never [facility] Sex Assigned At Male [facility] Start: 1965 Sex Assigned At Male [facility] Tobacco smoking stat [facility] Unknown if ever smoked [facility] Work Phone: Start: 04-17-2024 Sex Male (finding) [facility] Clinical Notes 07-28-2022 to 02-20-2023 Note Date & Type Note Facility 02-20-2023 Evaluation note Encounter Date Diagnosis Assessment Notes Feb, Acute bronchitis due to other specified organisms (ICD-10 - J20.8) Instructed to use Robitussin or Mucinex for cough, saline or Flonase NS for congestion, Tylenol for pain and fever. [employer] Other 06-28-2023 Evaluation note* Encounter Date Diagnosis Assessment Notes Treatment Notes Treatment Clinical Notes Aug, Wellness examination (ICD-10 - Z00.00) Healthy diet and exercise. Reviewed age-appropriate preventive testing recommended. Aug, Screening PSA (prostate specific antigen) (ICD-10 - Z12.5) Aug, Nocturia (ICD-10 - R35.1) Aug, Benign prostatic hyperplasia with lower urinary tract symptoms (ICD-10 - N40.1) Symptoms tolerable Yearly DANNI and PSA Aug, Bleeding external hemorrhoids (ICD-10 - K64.4) Symptoms/bleeding has resolved. High fiber diet, avoid straining [employer] Other 05-11-2023 Evaluation note* Encounter Date Diagnosis Assessment Notes Treatment Notes Treatment Clinical Notes July, Thrombosed external hemorrhoid (ICD-10 - K64.5) Soak in warm water daily. AVoid straining, increase fiber/fluids in diet. Start Anusol HC supp/cream Recheck in week w/ CBC July, Other obesity due to excess calories (ICD-10 - E66.09) This patient has been instructed on a low-fat, high-fiber diet. They are instructed to reduce calories, portion sizes and snacks. It is recommended that they exercise for 30 minutes, 3-5 times weekly. July, Body mass index [BMI] 31.0-31.9, adult (ICD-10 - Z68.31) [employer] Other Evaluation + Plan note No data available for this section [facility] evaluation note* Diagnosis Onset Date Resolution Status Obesity acute Acute bronchitis due to other specified organisms noneactive Acute bronchitis due to other specified organisms noneactive [facility] Work Phone: Evaluation note* Diagnosis Onset Date Resolution Status Acute bronchitis due to other specified organisms noneactive Benign prostatic hyperplasia with lower urinary tract symptoms acute Coughing acute Screening for colon cancer a cute Screening PSA (prostate specific antigen) noneactive Wellness examination noneact dixie [facility] Work Phone: Evaluation note* Diagnosis Onset Date Resolution Status Benign prostatic hyperplasia with lower urinary tract symptoms acute Coughing acute Obesity acute Screening for colon cancer a cute Screening PSA (prostate specific antigen) noneactive Wellness examination noneact dixie Obesity acute [facility] Work Phone: Evaluation note* Diagnosis Onset Date Resolution Status Benign prostatic hyperplasia with lower urinary tract symptoms acute Coughing acute Obesity acute Screening for colon cancer a cute Screening PSA (prostate specific antigen) noneactive Wellness examination noneact dixie Coughing acute HURST (dyspnea on exertion) ac junito Obesity acute Wheezing acute Chronic obstructive pulmonar y disease with (acute) exacerbation acute Polycythemia acute [facility] Work Phone: Evaluation note* Diagnosis Onset Date Resolution Status Admit Date Chronic obstructive pulmonar y disease with (acute) exacerbation acute April 17 9:10am HURST (dyspnea on exertion) acute April 17, 2024 9:10am Polycythemia acute March 9:10am Wheezing acute April 17, 2024 9:10am [facility] Work Phone: History general Narrative - Reported* Type Description Date Medical History Benign prostatic hyp erplasia with lower urinary tract symptoms Medical History Obesity due to excess calories Surgical History Open reduction and i nternal fixation (ORIF) - right ankle Hospitalization History see surgical history [employer] Other Hospital Discharge instructions No data available for this section [facility] progress note No data available for this section [facility] Summary Purpose Family History Relationship Condition Age at Onset Recorded Date/T jared father Diabetes mellitus Unknown Advance Directives Advance Directive Response Recorded Date/ Time Advance Directives No April 13, 2023 4:39pm Advance Directive Response Recorded Date/ Time Advance Directives No April 13, 2023 3:39pm Chief Complaint and Reason for Visit Chief Complaint productive cough, co ngestion - COVID NEGATIVE [phone] chest cold COVID - Reason for Visit Obesity Acute bronchitis due to other specified organisms Acute bronchitis due to other specified organisms Chief Complaint [phone] chest c old COVID - Wellness Reason for Visit Acute bronchitis due to other specified organisms Benign prostatic hyperplasia with lower urinary tract symptoms Coughing Screening for colon cancer Screening PSA (prostate specific antigen) Wellness examination Chief Complaint Wellness recheck blood pressure Reason for Visit Benign prostatic hyp erplasia with lower urinary tract symptoms Coughing Obesity Screening for colon cancer Screening PSA (prostate specific antigen) Wellness examination Obesity Chief Complaint Wellness recheck blood pressure follow up Reason for Visit Benign prostatic hyp erplasia with lower urinary tract symptoms Coughing Obesity Screening for colon cancer Screening PSA (prostate specific antigen) Wellness examination Coughing HURST (dyspnea on exertion) Obesity Wheezing Chronic obstructive pulmonary disease with (acute) exacerbation Polycythemia Chief Complaint Admit Date wheezing April 17, 2024 9 :10am Reason for Visit Admit Date Chronic obstructive pulmonar y disease with (acute) exacerbation April 17, 2024 9:10am HURST (dyspnea on exertion) April 17, 2024 9:10am Polycythemia April 17, 2024 9 :10am Wheezing April 17, 2024 9 :10am Additional Source Comments Patient Care team informatio n (unrecognized section and content) Team Status: Active Member Role Status Dates Van Kim , DO Primary Care Provider Active Team Status: Inactive Member Role Status Dates Van Judy , DO Primary Care Provide r, Attending Provider Active Start: May 29, 2023 End: May 29, 2023 Team Status: Inactive Member Role Status Dates Van Judy , DO Primary Care Provide r, Attending Provider Active Start: June 20, 2023 End: June 20, 2023 Team Status: Inactive Member Role Status Dates Van Judy , DO Primary Care Provide r, Attending Provider Active Start: September 18, 2023 End: September 18, 2023 Team Status: Inactive Member Role Status Dates Van Judy , DO Primary Care Provide r, Attending Provider Active Start: October 20, 2023 End: October 20, 2023 Team Status: Inactive Member Role Status Dates Van Judy , DO Primary Care Provide r, Attending Provider Active Start: November 07, 2023 End: November 07, 2023 Team Status: Inactive Member Role Status Dates Van Kim , DO Primary Care Provide r, Attending Provider Active Start: April 17, 2024 End: April 17, 2024 (unrecognized sect ion and content) No Status Records FoundNo Status Records Found INFORMATION SOURCE (unrecogn ized section and content) DATE CREATED AUTHOR 06/26/2022 [facility] DATE CREATED AUTHOR AUTHOR'S ORGANIZ ATION 08/03/2022 [facility] REASON FOR VISIT (unrecogniz ed section and content) [facility] [phone] Goals (unrecognized section and content) Goals may be documented in a n alternate section FOR RECORDS PERTAINING TO PATIENTS WHO ARE OR HAVE BEEN ENROLLED IN A CHEMICAL DEPENDENCY/SUBSTANCEABUSE PROGRAM, SOME INFORMATION MAY BE OMITTED. This clinical summary was aggregated from multiple sources. Caution should be exercised in using it in the provision of clinical care. This summary normalizes information from multiple sources, and as a consequence, information in this document may materially change the coding, format and clinical context of patient data. In addition, data may be omitted in some cases. CLINICAL DECISIONS SHOULD BE BASED ON THE PRIMARY CLINICAL RECORDS. [facility] [employer] [facility]. provides no warranty or guarantee of the accuracy or completeness of information in this document.
--- NOTE | 2024-05-16 09:00 | CA_ITS ---
Patient Name: BLANCA HAYDEN MR#: [id number] : 1965 Exam Date: 05/16/2024 Ordering Doctor: DR Van Méndez D.O. ECHOCARDIOGRAM REPORT PROCEDURE: CA ECHO W/ CON INDICATIONS: Dyspnea on exertion, syncope, polycythemia COMPARISON: None. DESCRIPTION: COMPLETE ECHOCARDIOGRAM Real-time transthoracic echocardiography with 2D, M-mode, spectral and color flow Doppler performed. QUALITY: Technical quality was good. LEFT VENTRICLE: Normal chamber size. Normal left ventricular wall thickness. LV EF: Global left ventricular systolic function is hyperdynamic; visually estimated ejection fraction 65 to 70%. No significant wall motion abnormalities. DIASTOLIC: Grade I diastolic dysfunction. ATRIAL SEPTUM: The interatrial septum appears hypermobile; visually appears intact. LEFT ATRIUM: Normal chamber size. RIGHT ATRIUM: Normal chamber size. RIGHT VENTRICLE: Normal chamber size. Normal right ventricular systolic function. TRICUSPID VALVE: Normal mobility and thickness. No stenosis with no regurgitation. Unable to assess right-sided pressures due to lack of measurable tricuspid regurgitation. MITRAL VALVE: Normal mobility and thickness. No evidence of mitral valve stenosis. There is no mitral annular calcification. No mitral regurgitation. AORTIC VALVE: Normal trileaflet appearance. No visible sclerosis. Normal leaflet mobility. No evidence of aortic valve stenosis. No aortic regurgitation. AORTIC ROOT: Normal diameter and appearance. Ascending aorta is normal in size. PULMONIC VALVE: Normal thickness and mobility. No stenosis. No regurgitation. PERICARDIUM: No evidence of pericardial effusion. IVC: Collapses with inspirations. IVC is normal in size. CONCLUSION: 1. Global left ventricular systolic function is hyperdynamic; visually estimated ejection fraction 65 to 70% 2. Normal right ventricular size and systolic function 3. Normal diastolic function 4. The left atrium is normal in size 5. Unable to assess right-sided pressures due to lack of measurable tricuspid regurgitation 6. No significant valvular abnormalities Adult Echocardiography Procedure Report Left Ventricle LVEDD (3.7 - 5.6 cm): 4.50 cm LVESD (2.2 - 4.0 cm): 3.18 cm LVIVS thickness (0.6 - 1.2 cm): 1.21 cm LVPW thickness (0.5 - 1.0 cm): 1.03 cm e': 0.12 m/s E - e': 2.94 LVOT Max Gradient: 4.81 mm[Hg] LVOT Area (cm2): 1.10 m/s Peak Velocity (LVOT): 1.10 m/s Mean Velocity (LVOT): 0.68 m/s LVOT Diameter 2.16 cm Left Atrium LA Volume Index (2D A2C): 35.05 ml/m2 Left Atrium Systolic Dimension: 3.79 cm Mitral Valve MV E to A Ratio: 0.42 Mitral Valve A-Wave Peak Velocity: 0.86 m/s Mitral Valve E-Wave Peak Velocity: 0.36 m/s Right Ventricle Aorta AO Root Diam: 3.95 cm Ascending Ao Diam: 3.15 cm Aortic Valve AoV Area (Peak Mao): 3.16 cm2, 3.16 cm2 AoV Area (VTI): 3.28 cm2, 3.28 cm2 Peak Velocity(Antegrade Flow): 1.27 m/s Peak Gradient(Antegrade Flow): 6.49 mm[Hg] Mean Velocity(Antegrade Flow): 0.83 m/s Mean Gradient(Antegrade Flow): 3.33 mm[Hg] Velocity Time Integral: 22.17 cm Tricuspid Valve Pulmonic Valve Mean Gradient: 2.16 mm[Hg] Mean Velocity: 0.67 m/s Peak Velocity: 1.11 m/s, 0.94 m/s Peak Gradient: 3.50 mm[Hg], 4.93 mm[Hg] Right Atrium Right Atrium Systolic Pressure: 66.65 ml, 66.65 ml Dictated by: Eda Gay M.D. on 05/16/2024 at 13:37 Approved by: Eda Gay M.D. on 05/16/2024 at 13:40
[2024-05-16] MEDS: SULFUR HEXAFLUORIDE MICROSPHR 25 MG/5 ML VIAL 15 MG IV (10:44)
== END 2024-05-16 08:46 | disposition home or self-care (01) ==
LOC: CARD 08:45
PROVIDERS: PCP Internal Medicine; Visit Provider Internal Medicine
DX: R06.09 Other forms of dyspnea (principal); R55 Syncope and collapse; D75.1 Secondary polycythemia; R01.1 Cardiac murmur, unspecified; R00.0 Tachycardia, unspecified
CPT/HCPCS: 93005; C8929; Q9950

== ENCOUNTER 2024-05-28 07:41 | Outpatient (RCR) | payer OTHER, SELFPAY ==
--- OUTSIDE RECORDS SUMMARY | 2024-05-29 10:58 | XMS_ITS | CCD ---
Author Organization [facility] CliniSypr Care Team Providers Care [employer] Supervisor Name Role Phone VAN KIM Primary Care [...] Medication Allergies] Propensity to adverse reactions (disorder) [facility] (1 source) patient allergy list reviewed by nurse or physicia Propensity to adverse reactions 7 Comment:Done [employer] Other Medications Current Medications Medication Drug Class(es) [...] September 20, 2023 12:00am Use with [facility] Durbin (No Known Home Meds) (1 source) Start: 09-18-2023 [place]in (No Kn own Home Meds) Active September [...] 08-02-2022 BASO # 0.1 103/ul Normal 0.0-0.1 [facility] Comment on above: Performed By: #### D ATCBC #### [facility] [address] [place] [address] Dr. Henok Aleman Basophils/100 WBC (Bld) 1.3 % Normal 0.2-2.0 [facility] Comment on above: Performed By: #### D ATCBC #### [facility] [address] [place] [address] Dr. Henok Aleman EO # 0.4 103/ul Normal 0.0-0.7 [facility] Comment on above: Performed By: #### D ATCBC #### [facility] [address] [place] [address] Dr. Henok Aleman Eosinophils/100 WBC (Bld) 5.9 % Normal 0.9-7.0 [facility] Comment on above: Performed By: #### D ATCBC #### [facility] [address] [place] [address] Dr. Henok Aleman Erythrocyte distribution width (RBC) [Ratio] 13.3 % Normal 11.0-15.0 [facility] Comment on above: Performed By: #### D ATCBC #### [facility] [address] [place] [address] Dr. Henok Aleman Hematocrit (Bld) [Volume fraction] 55.3 % Critically high 42.0-54.0 [facility] Comment on above: Performed By: #### D ATCBC #### [facility] [address] [place] [address] Dr. Henok Aleman Hemoglobin (Bld) [Mass/Vol] 18.5 g/dL Critically high 14.0-18.0 [facility] Comment on above: Performed By: #### D ATCBC #### [facility] [address] [place] [address] Dr. Henok Almean IG # 0.08 10e3/ul Critically high 0.00-0.03 [facility] Comment on above: Performed By: #### D ATCBC #### [facility] [address] [place] [address] Dr. Henok Aleman IG % 1.3 % Critically high 0.0-0.5 [facility] Comment on above: Performed By: #### D ATCBC #### [facility] [address] [place] [address] Dr. Henok Aleman LYMPH # 2.4 103/ul Normal 1.2-3.8 [facility] Comment on above: Performed By: #### D ATCBC #### [facility] [address] [place] [address] Dr. Henok Aleman Lymphocytes/100 WBC (Bld) 36.7 % Normal 20.5-60.0 [facility] Comment on above: Performed By: #### D ATCBC #### [facility] [address] [place] [address] Dr. Henok Aleman MCH (RBC) [Entitic mass] 31.3 pg Normal 25.9-34.0 [facility] Comment on above: Performed By: #### D ATCBC #### [facility] [address] [place] [address] Dr. Henok Aleman MCHC (RBC) [Mass/Vol] 33.5 g/dL Normal 29.9-35.2 [facility] Comment on above: Performed By: #### D ATCBC #### [facility] [address] [place] [address] Dr. Henok Aleman MCV (RBC) [Entitic vol] 93.4 fL Normal 80.0-94.0 [facility] Comment on above: Performed By: #### D ATCBC #### [facility] [address] [place] [address] Dr. Henok Aleman MONO # 0.6 103/ul Normal 0.3-0.8 [facility] Comment on above: Performed By: #### D ATCBC #### [facility] [address] [place] [address] Dr. Henok Aleman Monocytes/100 WBC (Bld) 9.8 % Normal 1.7-12.0 [facility] Comment on above: Performed By: #### D ATCBC #### [facility] [address] [place] [address] Dr. Henok Aleman NEUT # 2.9 103/ul Normal 1.4-6.5 [facility] Comment on above: Performed By: #### D ATCBC #### [facility] [address] [place] [address] Dr. Henok Aleman Neutrophils/100 WBC (Bld) 45.0 % Normal 43.0-75.0 [facility] Comment on above: Performed By: #### D ATCBC #### [facility] [address] [place] [address] Dr. Henok Aleman Platelet mean volume (Bld) [Entitic vol] 9.7 fL Normal 9.5-13.5 [facility] Comment on above: Performed By: #### D ATCBC #### [facility] [address] [place] [address] Dr. Henok Aleman PLT 167 103/ul Normal 150-450 [facility] Comment on above: Performed By: #### D ATCBC #### [facility] [address] [place] [address] Dr. Henok Aleman RBC 5.92 106/ul Normal 4.70-6.10 [facility] Comment on above: Performed By: #### D ATCBC #### [facility] [address] [place] [address] Dr. Henok Aleman WBC 6.4 103/ul Normal 4.0-11.0 [facility] Comment on above: Performed By: #### D ATCBC #### [facility] [address] [place] [address] Dr. Henok Aleman DEBBI- BMP WITH LIPIDon 2022 Anion gap [Moles/Vol] 10.8 mmol/L Normal [facility] Comment on above: Performed By: #### D ATBMP, DATPSA #### [facility] [address] [place] [address] Dr. Henok Aleman Calcium [Mass/Vol] 9.1 mg/dL Normal 8.5-10.1 [facility] Comment on above: Performed By: #### D ATBMP, DATPSA #### [facility] [address] [place] [address] Dr. Henok Aleman Chloride [Moles/Vol] 104 mmol/L Normal 98-107 [facility] Comment on above: Performed By: #### D ATBMP, DATPSA #### [facility] [address] [place] [address] Dr. Henok Aleman Cholesterol [Mass/Vol] 148 mg/dL Normal <=200 [facility] Comment on above: Performed By: #### D ATBMP, DATPSA #### [facility] [address] [place] [address] Dr. Henok Aleman Cholesterol in HDL [Mass/Vol] 39 mg/dL Critically low 40-60 [facility] Comment on above: Performed By: #### D ATBMP, DATPSA #### [facility] [address] [place] [address] Dr. Henok Aleman Cholesterol in LDL [Mass/Vol] 87.2 mg/dL Normal [facility] Comment on above: Performed By: #### D ATBMP, DATPSA #### [facility] [address] [address] [address] Henok Aleman CO2 [Moles/Vol] 30.6 mmol/L Normal 21.0-32.0 [facility] Comment on above: Performed By: #### D ATBMP, DATPSA #### [facility] [address] [address] [address] Henok Aleman Creatinine [Mass/Vol] 1.08 mg/dL Normal 0.70-1.30 [facility] Comment on above: Performed By: #### D ATBMP, DATPSA #### [facility] [address] [address] [address] Henok Aleman EGFR-AF SINGAPOREAN >60 Normal >=60 [facility] Comment on above: Performed By: #### D ATBMP, DATPSA #### [facility] [address] [place] [address] Dr. Henok Aleman EGFR-NON AF SINGAPOREAN >60 Normal >=60 [facility] Comment on above: Performed By: #### D ATBMP, DATPSA #### [facility] [address] [address] [address] Henok Aleman Glucose [Mass/Vol] 97 mg/dL Normal 74-106 [facility] Comment on above: Performed By: #### D ATBMP, DATPSA #### [facility] [address] [address] [address] Henok Aleman HDL NORMAL > or = 60 mg/dl - LO W CARDIOVASCULAR RISK <40 mg/dl - HIGH CARDIOVASCULAR RISK Normal [facility] Comment on above: Performed By: #### D ATBMP, DATPSA #### [facility] [address] [address] [address] Henok Aleman LDL CALC NORMAL SEE BELOW Normal [facility] Comment on above: Result Comment: <100 mg/dl OPTIMAL 100 - 129 mg/dl NEAR OR ABOVE OPTIMAL 130 - 159 mg/dl BORDERLINE HIGH 160 - 189 mg/dl HIGH >190 mg/dl VERY HIGH Performed By: #### D ATBMP, DATPSA #### [facility] [address] [address] [address] Henok Aleman Potassium [Moles/Vol] 4.4 mmol/L Normal 3.5-5.1 [facility] Comment on above: Performed By: #### D ATP, DATPSA #### [facility] [address] [address] [address] Henok Aleman Sodium [Moles/Vol] 141 mmol/L Normal 136-145 [facility] Comment on above: Performed By: #### D ATP, DATPSA #### [facility] [address] [address] [address] Henok Aleman Triglyceride [Mass/Vol] 109 mg/dL Normal <=150 [facility] Comment on above: Performed By: #### D ATP, DATPSA #### [facility] [address] [place] [address] Dr. Henok Aleman Urea nitrogen [Mass/Vol] 14.0 mg/dL Normal 7.0-18.0 [facility] Comment on above: Performed By: #### [facility] DAT[facility] #### [facility] [address] [place] [address] Dr. Henok Aleman Urea nitrogen/Creatinine [Mass ratio] 13.0 mg/mg Normal [facility] Comment on above: Performed By: #### D ATP, DATPSA #### [facility] [address] [place] [address] Dr. Henok Aleman VLDL CALC 21.8 mg/dL Normal [facility] Comment on above: Performed By: #### D [facility] DAT[facility] #### [facility] [address] [place] [address] Dr. Henok Aleman Coding Summary.on 07-01-2021 Coding Summary. CD:[id number] h0bWw+PGhlYWQ+PZ7AXZP fX03duOSswJ7PV8iEOY5I UWCVTBHTNX5FDQ7icML6L JsnM0DmujBj DsgxyXOxRB01QQq1WVL3k FhqYOsbrX9loSIeT6n8Wh KsVI75tZ29XBziQLQpWcU 3LjZpbjsgbWFy Q4fsFuJtxBPrJes+PHRhY mxlIHdpZHRoPScxMDAlJy ImuNskDB6gOi8dNCOnZSO vbGxhcHNlOiBj z7hpVUXfBUeyGE9jqSrjO 5SugUS9KEDex8z9Eu11zV I+ECWoEEP7kPapHUtwj83 4GpRjg9moITV8 uNNvMGxqFOZ3T90aa4I3X CEuINFbMFC9gNC8uE7qrD ceetrnR5YjmHXeWhH4TJV 4bJOwiN0axAax ynwwqR3hApu+E36AIH9HM GJRDP0IMsg4X3LfJugtrL I+OR24EKGuOB93jUZiuRG fv3eajAk4AiZu STOgKFY6sRhjKVdgs9CcT GWlC90ljKDgo6S3OMVaiY rgdILtGuJzxZS0nR7sULq azlkls2yqbast Whxbo8vhgn80kZ59P34kQ KqzPVIjUPY1ZOAaZLJajZ fcnv8wrJ4xSd9+CYaxw3d jf8riaCk1EdJk JSWqgsNpvNlsPKI7j6AaH u07G3BxeKrex5ZaQnb4dw 03dRUuz3S2jOR5ZWbmOSH uuQ9bQJzfJrU7 CQEwVdUzkX09tRTfIKrqO r6qzXpqwEekQL9gGOPkgs hxUGFkeF5nVPPpaRKjnUq xYK1uTGJndtks r469ZnXoHCL4JXQqeTAsK 4MqhX6nKeFwFMPoOVEcK9 UcnPZbBDtjI749YCjpDjR 1GAFtxgEpS2Lu LIAxtUixLeP9t4R1Da6Nn 1FykkotUNR2RLikFFB9Jk Z5TbMgLoL3Y2SyVzq0ZVW arPbpIE3aH1Ah ZSAagyoihhirkPL5TFFfL UJbwR18aUFzAJpdBv0na0 N4b658ZJKoVGXexU34Gs1 udDogMTBwdCBU sW3ofslqj8zbrmbjJeWoH GChWCr1AEt1MHMxeKsnOy VrDCK9HgF0KDJ0aOKxrD7 lzHzdllfnaX4h Oyc+X02uvT2hZYH9PGX7j yurBFHsjbFxMT86KH71L8 RyPjwvdGFibGU+PGRpdiB ekFnbLM1vIjPz m6dpv3EiXYpaW3CkKMJyL BfjZfs2FAJgNMD1nJG8oY 8zNQHiPGvcr5G2vLI0A5D xdhDyuj0ub5sa OAYrWXxiL09gaSLlf0J1N LGkcHP4XQWrwVqcXfFlzW 93Oyc+ZNCrcMyqi8HyMyz ky1mha0itvSv8 MqDuHCFvrdRaiPlrJIJ5q 0HcAy16L26jQWvxPMIeUC AlXFKwQVPooBndkz6ffC1 wIi8+PGNvbCB3 yLW8xG9pQQEwHaE4FXzoP 653GuIoiLXjJxayr2zko5 sztWs1QfHqFHZaxyVnyLe nHBQ7l9MtUp48 T83sTBcqNQRbYBCjTAZcI EMbjQjjkl2vlF8kCm1+PC 3cj4ptvx93oN88wYC+PHR jSXL4dVusEOcp TDHjqF6ySEuvZhC0RNKoY wSgnA63tLHrCSyyJh5iiC nuhGmpUN0oAZBvbbhur44 3NmAzw7kmJFIc iCQxBXnlAZP3P13yc8I3X HQgLCSmZQQ4eIS9hH1yhP lnbjogbGVmdDsgdmVydGl bZCgcYOjkL952 IHRvcDsnPlBhdGllbnQgT pUiCGe6V3PjWyj3GZMdzT qzBZ9qeZQfYYcqLl2loCn kuXsoQM7iTIYv cposb570HcDcl6jlZGHdy LPfKXssPFX8N46ou2O1PT TpMLNpAWV4pGV6tX8olNs nbjogbGVmdDsg tvPgwTxeCHlpERltR047I HRvcDsnPkJpcnRoIERhdG C8LF63FY43oLGec4P8tMF 7U5ZuJCKpqbul awtgjKJ0TARkLZOmoB95C v7flGtxXi8iBELgOMX5EJ PsvOVaG2KbzE9aUpAjAJD mKDQeM8LgyIOx PGtdZ184MWniRdI2FQMes rXmL4MkCLUtmPhrNvH1s4 L3Mp7DK2H1KH80KD90cZO qm4U7qYB9P2Ow CMEoxosvfkspqQT5KDTlF SRprX72Zp3erHciBp8yEU MqMGA2UHTjnYTfI5OolH1 yOiAjMDAwMDAw M4LmrEEwLVoqU940BZorX mZ9WWSzjvHgG2FwWCQfdN sjEoA4h9S9Uu9TQMb8FA7 7UF09fBZdr7W6 wGE7L6FpFMQloeevchxxx IC1OQWcWNNnxE49Bf2asQ rrHq9cZIZlVLX5ODYczLX lP1QuiG5yBvRv MPKnBVNpD8JbiTGuHJlcQ 939GNouMaS8LSKsauCtL5 DzLHNjwEfrBqO9p5G6Qd3 KFQHnFS97ZMD4 gYJ5EE33GP19E4SvHziue GFibGU+PHRhYmxlIHdpZH RoPScxMDAlJyBzdHlsZT0 wSh5wKIZiEWOd gMvkrCUaHzSsm8lgIPTqM BuvRQ8fwNquD1FyxUB3LX Olk9h9Xt40Y60iA1SczHF +SXXqoOP7cQF2 yD2hToIgVhA3SKkuC289L fBenQOtQcfen4bxb0wjwH p8OwW6NXDfgnOevDuuTLA 0v7GgUm55O71v IHdpZHRoPSIxNSUiIHZhb Pemzz0izD4eAf7+PGNvbC B7rTK9bV6bRoGcNuP7TRt rK505DgWjlWGq Omora5zab0eauVm3TxAdV VCztgJbwOblERR4t6UjMo 34S3StvWtst3LtLoe2ga1 5tMMfw4D6mDA9 Y6PfXEOhjupjxCRueNlcG D3jPMSyrozuLFNxpD4wHM HnJ0v1MsRgTyL1BGwbI8A aziP2JWQzfSSa TKlnEVQ1Y41ag3B5NOLfO ERsHFV8vBI4eV2bzVdkao ogbGVmdDsgdmVydGljYWw xLLiaO796VJDw tGfzAZOwoO7zBSPusHOjl YtpXX9gTSLvtdpbPx6XN8 NMRVIsIEdFUkFSRCBTPC9 1WO83hCFyx7B4 cDG7T6PzHFVdeeibdntfs DW1TIAaHJYpyX64tCAjJH zwRq7uu2J1c429XEMfYXU joX65Zh6xbArz MNEupFEFhA1wejbxs5bmf grdEvBtSQBxZCc8GOn7QH DbtVtfLvPlCVK3QmU1ARM 5uXEczV1edZkt ipjggD5sKhw+MDIvMTYvM Jj4VdiuyMF+HRZyISV4mO bbYDmqEQNlzX8zABEvZ2s 3HmPgUpE9MJfm E1YeNVFnklxtDm66qM7xV nDfRuC3USbyP2GifwO3NT RczPWxHKlqUTH1M23dg7L 2DTQyKWUaWIM7 jNK8bM0bdWffapcdyIRar DsgdmVydGljYWwtYWxpZ2 37PSBecLqkLoZ0PIjuYMZ aTQ49OF38zQCl d9S7dBC3W5FkVPUzrimos skiwYH5RWDxFUHzkO30wW FhHTycAp2pb9V8t355HZD hRRDfgR33Tw1g uPffGVNlqXPPyS1ivujqy 9exdtenNdNpHMHuQZm5VZ w1XGPihAliPbQuSRG3CmC 9XTC1lDTxwJ2u dFizsfqwzO8tUzv+TWFsZ TwvdGQ+DVBlJLH9hKahXM qbLAZvuD5dYAPrL6d2PiP rGiR7PAfdI0Fz MKOimpkfQk42jI0fIeRpM lX4TXbyE0VaaaZ9HVTwaC FbDCzwXGO9D51wk5O1RVS tJWYbWCU8kRT3 wB0qcReryjitpLBkxGwhu mEtaTbxNElxVDmzB924EZ WcrLgsDqyeSqWWao9lSE1 mZjwvdGQ+PC90 jm58H8VwHgkkJrd3PEQhP TK2bUW7nM2aLZAwGRgjq7 B7jPD1T3CkwrSnkb5lq8h kFECaUIubB88u pAEtk9H0QTBcyAA6MFIml ZywJbQehZ78Gci+PGNvbG lzh3EwIssvu3ozn8cosBq 9IjMwJSIgdmFs wIgiHFW2x3KfGz43C81wW HdpZHRoPSIzMCUiIHZhbG doxn4hcZ6yRg7+PGNvbCB 7fNP1jH4hSyJm CbV4KSypJ642CvAxgUVnQ yirm8ngh4hnqJa2QfRqIZ SfufNfmQtxXRJ7r6NgAc2 8Y7GvuRauu9Ty Cgr4jn85ePJsi6O7zPB6V 3BhZGRpbmctbGVmdDogMC 2yGPJtbbzdROUhjF6kRSW eK4o6ReLaLhE1 HQwgK0AccwR2PAIrkDFmW FRurWSIzD5cvlkqk4ibqm hoArRiKQNkHAj1QDh9GYL saWduOiBsZWZ0 HoV8HLH2wKRsjV8ncKjcs duggD0oEkc+QBj1n2fbbE KoMY8gnIX1KG10LI85kMO lb3W2aXY6R9Zi SZSyqzmtirhmbNM0XYNzO FVqxI09Uj0xiEnoEq5vPX NqRSC0SHJaaRBpZ3KueK4 yOiAjMDAwMDAw H3SdnNDaULxdA887QVudQ uN8SZNjzoCxC8QbPNMinX pqAhK4m2C7Yv9YCL99HO8 8FJ56qVHeh7J6 uUW0S0ErVJCdgdcoovagf IN4BCPbKZNsxU56Ua7stT kuZb8lVOEoMPV0PHFqsVW yK1CioC8vQpFb IJVzPCVnT8JuhIDnVMhxA 304LFgoXkY6SJVxedQcU3 CwWKBnkZxaHcF1y4S9Qg6 BCf40SU39YN01 dCOkp0E5rPD7V0RuDDMgf glokukkjTE1NUGjKDYcuA 76Jj3puOcuSq7kNKQdARH 8SRBexLNoT2Eb xF5ySnJiGYHpMFKyV4Bzv HKuCFflQ349NNfeWzC8ZQ NeulXhS3DaVFMdpYrrNbC 3y6I8Go6UQUca xkw6T0XtJlwxwJY+PC90Y YRjSQ67dQIigTTca4cjtA f3LyUdFJNwTKQ1iTsmQYt cs6QvRMVrP83h bGFw (more content not included)... Normal [facility] Vital Signs Date Time Vital Sign Value Performing Clinician Facility 04-17-2024 09:21-0500 Body height 175.26 cm [facility] 04-17-2024 09:21-0500 Body mass index (BMI) [Ratio] 30.4 kg/m2 [facility] 04-17-2024 09:21-0500 Body weight 93.66 kg [facility] 04-17-2024 09:21-0500 Diastolic blood pressure 86 mm[Hg] [facility] 04-17-2024 09:21-0500 Heart rate 109 /min [facility] 04-17-2024 09:21-0500 Respiratory rate 12 /min [facility] 04-17-2024 09:21-0500 Systolic blood pressure 136 mm[Hg] [facility] 11-07-2023 14:18-0400 Body height 175.26 cm [facility] 11-07-2023 14:18-0400 Body mass index (BMI) [Ratio] 30.6 kg/m2 [facility] 11-07-2023 14:18-0400 Body weight 94.06 kg [facility] 11-07-2023 14:18-0400 Diastolic blood pressure 86 mm[Hg] [facility] 11-07-2023 14:18-0400 Heart rate 105 /min [facility] 11-07-2023 14:18-0400 Respiratory rate 12 /min [facility] 11-07-2023 14:18-0400 Systolic blood pressure 132 mm[Hg] [facility] 10-20-2023 10:41-0400 Body height 175.26 cm [facility] 10-20-2023 10:41-0400 Body mass index (BMI) [Ratio] 30.2 kg/m2 [facility] 10-20-2023 10:41-0400 Body weight 93.04 kg [facility] 10-20-2023 10:41-0400 Diastolic blood pressure 90 mm[Hg] [facility] 10-20-2023 10:41-0400 Heart rate 99 /min [facility] 10-20-2023 10:41-0400 Respiratory rate 12 /min [facility] 10-20-2023 10:41-0400 Systolic blood pressure 156 mm[Hg] [facility] 09-18-2023 14:31-0400 Body height 175.26 cm [facility] 09-18-2023 14:31-0400 Body mass index (BMI) [Ratio] 31.3 kg/m2 [facility] 09-18-2023 14:31-0400 Body weight 96.27 kg [facility] 09-18-2023 14:31-0400 Diastolic blood pressure 87 mm[Hg] [facility] 09-18-2023 14:31-0400 Heart rate 81 /min [facility] 09-18-2023 14:31-0400 Respiratory rate 12 /min [facility] 09-18-2023 14:31-0400 Systolic blood pressure 139 mm[Hg] [facility] 05-29-2023 12:57-0400 Body height 175.26 cm [facility] 05-29-2023 12:57-0400 Body mass index (BMI) [Ratio] 31 kg/m2 [facility] 05-29-2023 12:57-0400 Body weight 95.25 kg [facility] 09-14-2022 11:00-0400 Body height 175.26 cm Van Ball Other [facility] [employer] Other 09-14-2022 11:00-0400 Body mass index (BMI) [Ratio] 31.16 kg/m2 Van Ball Other [facility] [employer] Other 09-14-2022 11:00-0400 Body weight 95.71 kg Van Ball Other [facility] [employer] Other 09-14-2022 11:00-0400 Diastolic blood pressure 84 mm[Hg] Van Ball Other [facility] [employer] Other 09-14-2022 11:00-0400 Respiratory rate 12 /min Van Ball Other [employer] Other 09-14-2022 11:00-0400 Systolic blood pressure 113 mm[Hg] Van Ball Other [employer] Other 07-28-2022 11:45-0400 Body height 175.26 cm Van Ball Other [employer] Other 07-28-2022 11:45-0400 Body mass index (BMI) [Ratio] 31.13 kg/m2 Van Ball Other [employer] Other 07-28-2022 11:45-0400 Body weight 95.62 kg Van Ball Other [employer] Other 07-28-2022 11:45-0400 Diastolic blood pressure 92 mm[Hg] Van Ball Other [employer] Other 07-28-2022 11:45-0400 Respiratory rate 12 /min Van Ball Other [employer] Other 07-28-2022 11:45-0400 Systolic blood pressure 131 mm[Hg] Van Ball Other [employer] Other Encounters Encounter Date Encounter Type Care Provider Facility Start: 04-17-2024 End: 04-17-[address] [facility] Work Phone: Start: 04-17-2024 End: 04-17-2024 Patient encounter procedure [facility] Work Phone: Start: 11-07-2023 End: 11-07-[address] [facility] Work Phone: Start: 11-07-2023 End: 11-07-2023 Patient encounter procedure [facility] Work Phone: Start: 10-20-2023 End: 10-20-[address] [facility] Work Phone: Start: 10-20-2023 End: 10-20-2023 Patient encounter procedure [facility] Work Phone: Start: 09-18-2023 End: 09-18-[address] [facility] Work Phone: Start: 09-18-2023 End: 09-18-2023 Encounter for general adult medical examination without abnormal findings [facility] Start: 09-18-2023 End: 09-18-2023 Patient encounter procedure [facility] Work Phone: Start: 06-20-2023 End: 06-20-[address] [facility] Work Phone: Start: 06-20-2023 End: 06-20-2023 Patient encounter procedure [facility] Work Phone: Start: 05-29-2023 End: 05-29-2023 Patient encounter procedure [facility] Work Phone: Start: 02-20-2023 End: 02-20-2023 ambulatory Van Kim Other [employer] Other Start: 02-20-2023 Office outpatient vi sit 15 minutes Van Kim [facility] Start: 09-14-2022 End: 09-14-2022 ambulatory Van Kim Other [employer] Other Start: 09-14-2022 Encounter for genera l adult medical examination without abnormal findings Van Kim [facility] Start: 09-14-2022 Periodic preventive med est patient 40-64yrs Van Kim [facility] Start: 08-02-2022 End: 08-03-[address] VAN KIM Facility:[facility] Start: 07-28-2022 End: 07-28-2022 ambulatory Van Kim Other [employer] Other Start: 07-28-2022 Office outpatient vi sit 15 minutes Van [facility] Start: 06-24-2022 End: 06-25-2022 ambulatory Sami ANDERSON Facility:[facility] Start: 06-24-2022 End: 06-24-2022 Patient encounter procedure Sami ANDERSON [facility] Start: 05-07-2019 Adult health examination Van Kim Other [employer] Other Procedures Date Procedure Procedure Detail Performing Clinician Start: 08-02-[address] LICEA IN [place] Comment on above: Performed By: #### D ATBMP, DATPSA #### [facility] [address] [place] [address] Dr. Henok Aleman Start: 02-07-2020 Cystoscopy Sami HUNT Start: 05-06-2016 General examination of patient Van Kim Other Start: 05-06-2016 Screening for malign ant neoplasm of colon Van Kim Other Plan of Treatment Date Care Activity Detail Author Comprehensive metabo lic 2000 panel - Serum or Plasma [facility] enter CT Chest W contrast IV [facility] Erythropoietin (EPO) [Units/volume] in Serum or Plasma [facility] enter XR Chest 2 Views [facility] Immunizations Immunization Date Immunization Notes Care Provider Fa umair 01-27-2016 tetanus and diphther ia toxoids, adsorbed, preservative free, for adult use (5 Lf of tetanus toxoid and 2 Lf of diphtheria toxoid) Van Kim Other [facility] NEGATED: Highlighted row has not occurred!01-10-2020 influenza virus vaccine, unspecified formulation Sami ANDERSON [facility] Payers Date Payer Category Payer Unknown [id number] 1965 Unknown [id number] 1958 Self-pay Unknown [id number] [id number] Unknown [id number] Social History Date Type Detail Facility Start: 01-10-2020 Tobacco smoking status Never s moked tobacco (finding) [facility] Tobacco smoking status Never [facility] Sex Assigned At Male [facility] Start: 1965 Sex Assigned At Male [facility] Tobacco smoking stat [facility] Unknown if ever smoked [facility] Work Phone: Start: 04-17-2024 Sex Male (finding) [facility] Clinical Notes 07-28-2022 to 02-20-2023 Note Date & Type Note Facility 02-20-2023 Evaluation note Encounter Date Diagnosis Assessment Notes Feb, Acute bronchitis due to other specified organisms (ICD-10 - J20.8) Instructed to use Robitussin or Mucinex for cough, saline or Flonase NS for congestion, Tylenol for pain and fever. [employer] Other 06-28-2023 Evaluation note* Encounter Date Diagnosis [...] has resolved. High fiber diet, avoid straining [employer] Other 05-11-2023 Evaluation note* Encounter Date Diagnosis [...] index [BMI] 31.0-31.9, adult (ICD-10 - Z68.31) [employer] Other Evaluation + Plan note No data available for this section [facility] evaluation note* Diagnosis Onset Date Resolution Status Obesity acute Acute bronchitis due to other specified organisms noneactive Acute bronchitis due to other specified organisms noneactive [facility] Work Phone: Evaluation note* Diagnosis Onset Date Resolution Status Acute bronchitis due to other specified organisms noneactive Benign prostatic hyperplasia with lower urinary tract symptoms acute Coughing acute Screening for colon cancer a cute Screening PSA (prostate specific antigen) noneactive Wellness examination noneact dixie [facility] Work Phone: Evaluation note* Diagnosis Onset Date Resolution Status Benign prostatic hyperplasia with lower urinary tract symptoms acute Coughing acute Obesity acute Screening for colon cancer a cute Screening PSA (prostate specific antigen) noneactive Wellness examination noneact dixie Obesity acute [facility] Work Phone: Evaluation note* Diagnosis Onset Date Resolution Status Benign prostatic hyperplasia with lower urinary tract symptoms acute Coughing acute Obesity acute Screening for colon cancer a cute Screening PSA (prostate specific antigen) noneactive Wellness examination noneact dixie Coughing acute HURST (dyspnea on exertion) ac [place]incon Obesity acute Wheezing acute Chronic obstructive pulmonar y disease with (acute) exacerbation acute Polycythemia acute [facility] Work Phone: Evaluation note* Diagnosis Onset Date Resolution Status Admit Date Chronic obstructive pulmonar y disease with (acute) exacerbation acute April 17 9:10am HURST (dyspnea on exertion) acute April 17, 2024 9:10am Polycythemia acute March 9:10am Wheezing acute April 17, 2024 9:10am [facility] Work Phone: History general Narrative - Reported* Type Description Date Medical History Benign prostatic hyp erplasia with lower urinary tract symptoms Medical History Obesity due to excess calories Surgical History Open reduction and i nternal fixation (ORIF) - right ankle Hospitalization History see surgical history [employer] Other Hospital Discharge instructions No data available for this section [facility] progress note No data available for this section [facility] Summary Purpose Family History Relationship Condition Age at Onset Recorded Date/T jared father Diabetes mellitus Unknown Advance Directives Advance Directive Response Recorded Date/ Time Advance Directives No April 13, 2023 4:39pm Advance Directive Response Recorded Date/ Time Advance Directives No April 13, 2023 3:39pm Chief Complaint and Reason for Visit Chief Complaint productive cough, co ngestion - COVID NEGATIVE [phone] chest cold COVID - Reason for Visit Obesity Acute bronchitis due to other specified organisms Acute bronchitis due to other specified organisms Chief Complaint [phone] chest c old COVID - Wellness Reason [...] and content) DATE CREATED AUTHOR 06/26/2022 [facility] DATE CREATED AUTHOR AUTHOR'S ORGANIZ ATION 08/03/2022 [facility] REASON FOR VISIT (unrecogniz ed section and content) [facility] [phone] Goals (unrecognized section and content) Goals may [...] BE BASED ON THE PRIMARY CLINICAL RECORDS. [facility] provides no warranty or guarantee of the accuracy or completeness of information in this document.
--- OUTSIDE RECORDS SUMMARY | 2024-05-29 11:00 | XMS_ITS | CCD ---
Author Organization [facility] Care Team Providers Care Biomedical Field Service Engineer Name Role Phone VAN KIM Primary Care [...] Medication Allergies] Propensity to adverse reactions (disorder) [facility] Repository (1 source) patient allergy list reviewed by nurse or physicia Propensity to adverse reactions 7 Comment:Done [employer] Other Medications Current Medications Medication Drug Class(es) [...] September 20, 2023 12:00am Use with MDI Dumas (No Known Home Meds) (1 source) Start: 09-18-2023 Dumas (No Kn own Home Meds) Active September [...] 08-02-2022 BASO # 0.1 103/ul Normal 0.0-0.1 [facility] Comment on above: Performed By: #### D ATCBC #### [facility] [address] [place] [address] Dr. Henok Aleman Basophils/100 WBC (Bld) 1.3 % Normal 0.2-2.0 [facility] Comment on above: Performed By: #### D ATCBC #### [facility] [address] [place] [address] Dr. Henok Aleman EO # 0.4 103/ul Normal 0.0-0.7 [facility] Comment on above: Performed By: #### D ATCBC #### [facility] [address] [place] [address] Dr. Henok Aleman Eosinophils/100 WBC (Bld) 5.9 % Normal 0.9-7.0 [facility] Comment on above: Performed By: #### D ATCBC #### [facility] [address] [place] [address] Dr. Henok Aleman Erythrocyte distribution width (RBC) [Ratio] 13.3 % Normal 11.0-15.0 [facility] Comment on above: Performed By: #### D ATCBC #### [facility] [address] [place] [address] Dr. Henok Aleman Hematocrit (Bld) [Volume fraction] 55.3 % Critically high 42.0-54.0 [facility] Comment on above: Performed By: #### D ATCBC #### [facility] [address] [place] [address] Dr. Henok Aleman Hemoglobin (Bld) [Mass/Vol] 18.5 g/dL Critically high 14.0-18.0 [facility] Comment on above: Performed By: #### D ATCBC #### [facility] [address] [place] [address] Dr. Henok Aleman IG # 0.08 10e3/ul Critically high 0.00-0.03 [facility] Comment on above: Performed By: #### D ATCBC #### [facility] [address] [place] [address] Dr. Henok Aleman IG % 1.3 % Critically high 0.0-0.5 [facility] Comment on above: Performed By: #### D ATCBC #### [facility] [address] [place] [address] Dr. Henok Aleman LYMPH # 2.4 103/ul Normal 1.2-3.8 [facility] Comment on above: Performed By: #### D ATCBC #### [facility] [address] [place] [address] Dr. Henok Aleman Lymphocytes/100 WBC (Bld) 36.7 % Normal 20.5-60.0 [facility] Comment on above: Performed By: #### D ATCBC #### [facility] [address] [place] [address] Dr. Henok Aleman MCH (RBC) [Entitic mass] 31.3 pg Normal 25.9-34.0 [facility] Comment on above: Performed By: #### D ATCBC #### [facility] [address] [place] [address] Dr. Henok Aleman MCHC (RBC) [Mass/Vol] 33.5 g/dL Normal 29.9-35.2 [facility] Comment on above: Performed By: #### D ATCBC #### [facility] [address] [place] [address] Dr. Henok Aleman MCV (RBC) [Entitic vol] 93.4 fL Normal 80.0-94.0 [facility] Comment on above: Performed By: #### D ATCBC #### [facility] [address] [place] [address] Dr. Henok Aleman MONO # 0.6 103/ul Normal 0.3-0.8 [facility] Comment on above: Performed By: #### D ATCBC #### [facility] [address] [place] [address] Dr. Henok Aleman Monocytes/100 WBC (Bld) 9.8 % Normal 1.7-12.0 [facility] Comment on above: Performed By: #### D ATCBC #### [facility] [address] [place] [address] Dr. Henok Aleman NEUT # 2.9 103/ul Normal 1.4-6.5 [facility] Comment on above: Performed By: #### D ATCBC #### [facility] [address] [place] [address] Dr. Henok Aleman Neutrophils/100 WBC (Bld) 45.0 % Normal 43.0-75.0 [facility] Comment on above: Performed By: #### D ATCBC #### [facility] [address] [place] [address] Dr. Henok Aleman Platelet mean volume (Bld) [Entitic vol] 9.7 fL Normal 9.5-13.5 [facility] Comment on above: Performed By: #### D ATCBC #### [facility] [address] [place] [address] Dr. Henok Aleman PLT 167 103/ul Normal 150-450 [facility] Comment on above: Performed By: #### D ATCBC #### [facility] [address] [place] [address] Dr. Henok Aleman RBC 5.92 106/ul Normal 4.70-6.10 [facility] Comment on above: Performed By: #### D ATCBC #### [facility] [address] [place] [address] Dr. Henok Aleman WBC 6.4 103/ul Normal 4.0-11.0 [facility] Comment on above: Performed By: #### D ATCBC #### [facility] [address] [place] [address] Dr. Henok Aleman DEBBI- BMP WITH LIPIDon 2022 Anion gap [Moles/Vol] 10.8 mmol/L Normal [facility] Comment on above: Performed By: #### D ATBMP, DATPSA #### [facility] [address] [place] [address] Dr. Henok Aleman Calcium [Mass/Vol] 9.1 mg/dL Normal 8.5-10.1 [facility] Comment on above: Performed By: #### D ATBMP, DATPSA #### [facility] [address] [place] [address] Dr. Henok Aleman Chloride [Moles/Vol] 104 mmol/L Normal 98-107 [facility] Comment on above: Performed By: #### D ATBMP, DATPSA #### [facility] [address] [place] [address] Dr. Henok Aleman Cholesterol [Mass/Vol] 148 mg/dL Normal <=200 [facility] Comment on above: Performed By: #### D ATBMP, DATPSA #### [facility] [address] [place] [address] Dr. Henok Aleman Cholesterol in HDL [Mass/Vol] 39 mg/dL Critically low 40-60 [facility] Comment on above: Performed By: #### D ATBMP, DATPSA #### [facility] [address] [place] [address] Dr. Henok Aleman Cholesterol in LDL [Mass/Vol] 87.2 mg/dL Normal [facility] Comment on above: Performed By: #### D ATBMP, DATPSA #### [facility] [address] [address] [address] Henok Aleman CO2 [Moles/Vol] 30.6 mmol/L Normal 21.0-32.0 [facility] Comment on above: Performed By: #### D ATBMP, DATPSA #### [facility] [address] [address] [address] Henok Aleman Creatinine [Mass/Vol] 1.08 mg/dL Normal 0.70-1.30 [facility] Comment on above: Performed By: #### D ATBMP, DATPSA #### [facility] [address] [address] [address] Henok Aleman EGFR-AF [place]LANDER >60 Normal >=60 [facility] Comment on above: Performed By: #### D ATBMP, DATPSA #### [facility] [address] [place] [address] Dr. Henok Aleman EGFR-NON AF [place]ER >60 Normal >=60 [facility] Comment on above: Performed By: #### D ATBMP, DATPSA #### [facility] [address] [address] [address] Henok Aleman Glucose [Mass/Vol] 97 mg/dL Normal 74-106 [facility] Comment on above: Performed By: #### D ATBMP, DATPSA #### [facility] [address] [address] [address] Henok Aleman HDL NORMAL > or = 60 mg/dl - LO W CARDIOVASCULAR RISK <40 mg/dl - HIGH CARDIOVASCULAR RISK Normal [facility] Comment on above: Performed By: #### D ATBMP, DATPSA #### [facility] [address] [address] [address] Henok Aleman LDL CALC NORMAL SEE BELOW Normal [facility] Comment on above: Result Comment: <100 mg/dl OPTIMAL 100 - 129 mg/dl NEAR OR ABOVE OPTIMAL 130 - 159 mg/dl BORDERLINE HIGH 160 - 189 mg/dl HIGH >190 mg/dl VERY HIGH Performed By: #### D ATBMP, DATPSA #### [facility] [address] [address] [address] Henok Aleman Potassium [Moles/Vol] 4.4 mmol/L Normal 3.5-5.1 [facility] Comment on above: Performed By: #### D ATP, DATPSA #### [facility] [address] [address] [address] Henok Aleman Sodium [Moles/Vol] 141 mmol/L Normal 136-145 [facility] Comment on above: Performed By: #### D ATP, DATPSA #### [facility] [address] [address] [address] Henok Aleman Triglyceride [Mass/Vol] 109 mg/dL Normal <=150 [facility] Comment on above: Performed By: #### D ATP, DATPSA #### [facility] [address] [place] [address] Dr. Henok Aleman Urea nitrogen [Mass/Vol] 14.0 mg/dL Normal 7.0-18.0 [facility] Comment on above: Performed By: #### [facility] #### [facility] [address] [place] [address] Dr. Henok Aleman Urea nitrogen/Creatinine [Mass ratio] 13.0 mg/mg Normal [facility] Comment on above: Performed By: #### D ATP, DATPSA #### [facility] [address] [place] [address] Dr. Henok Aleman VLDL CALC 21.8 mg/dL Normal [facility] Comment on above: Performed By: #### [facility] #### [facility] [address] [place] [address] Dr. Henok Aleman Coding Summary.on 07-01-2021 Coding Summary. CD:[id number] G h0bWw+PGhlYWQ+QA6ISMG vM11ztATyrJ1LO2mAXG1V FWDYWHSYWI3QEA0xcJA8X QmwX8FyfcIh OjapvMSqCZ86IBc1PUA5h LyiKJubqZ1moRTbJ7v7Pa AcTZ05uA93WXkqVRPjEqI 3LjZpbjsgbWFy J0rsXtBrcZCfUyh+PHRhY mxlIHdpZHRoPScxMDAlJy RrxQdeYQ6tPx9zIRYqOLR vbGxhcHNlOiBj t9zoHSZfWRxdRJ7bkVwyW 1HbhKJ4HIPyk6m6Wg67vJ I+TACtNWS5uSvtHLyjq98 9AmXgs4nvZPH6 dYEfCVqdKTP3W13rr7E9V JFfMMSuPYU5nSO6mQ0rcB hjiugcC3FmmAUnTgA5PBQ 2wEWzgJ8nhIll ydhurJ1nPgv+Q38KCQ9UN CGKRA7OLvs3H4TuIekdgN I+QY17DPNpAE96uTAioPY wy7fzrQa4RyTp LPIkPKM9xHsuCFgju3OtI VRxE68cmDHoc5I1AMXsoP htcDMpIrUcxRW7dF3aZIm sbaigp6qaudrg Vvkos0vxqq84uS85U06zP OkwFKXaKNM1PRDrSGDqjT fzns2noH3gHy1+ABdiw4x ub3uupRm9OeVa GAXbgjSjnKsdTVJ3d9HjO s99O8UzsUvbz8ZqNkt3vf 34iCBhe7J0bQE1SBjsKVG gnB4nFBkiRdL4 IYCpOvMzrG72bEQsLQrqS t8boOvefCseQQ8hAFLgmx ewSEYypG4rWATruKBggYj vPW1rQJJupmkv h725GcLaZFW5BLMswCXsI 3GqxJ2dKaTnLFQtSMNcF9 LshZYbBJreQ007BPfdBjE 0GXKkplGuK9Ow IFQaqPzlZrN9f4C7Kk8By 3KxkiwhHES1HFarUFT1Zp F1WcMkGjN4U1NcVjl7CWG lmZydAQ8xQ5Iv IKOdujiwrgmsmXZ6XILjY IFvoH41bIFrHVphIk8xh9 N9h752WVGqFVWsyO54Yg9 udDogMTBwdCBU iX7wyejjq8cinfsfUhOuY TCcRUv0BMq2PKTswKxdUv VxYVO9FvY3RDX6jXRhsG6 dlCukojgnnM7o Oyc+I15ypF1sSUP4HDB9c izqUPYmblUqBW30IJ86A4 RyPjwvdGFibGU+PGRpdiB xkHfoJO9kHnYh v9yks3IaXRosV3VeOWSiE UjeQnn0NJTmSWJ6tHG4rQ 5lXBXdQZxnr5F6zJS5A6P kvdTbug5pn8ma PWPqQAaoW44bvQPwy8A1X LAerME9QUWxfGbsGgWtnS 93Oyc+VJQjcLuck3BwVmi cg7nlh8ukrUu6 WrCiIGUwegBtnKqaQNI4x 0ZwKh65P27iZYvhXYNoDL VuZOQaHYUrfXwbzm6afD4 wIi8+PGNvbCB3 pYA0fZ0uQLLfBtJ4GBukO 732TgOjhIDbOtwfw4fwd7 teuDg2ZtNnRZMecpTtsJd ePTB6l5PiCh77 Q05zSSwnXWQiUQNgVVBdM SNhlSwzvd4yrD2uVj6+PC 7kp2onvz29cC29tZC+PHR bHHN4tFlhKOkl GNLheD3nNJqfErJ3TXXvU sCtoW98dJMdPRgxVa5jzQ jilMgsRW3aSMBfukyen33 4WhHtz7tiVCYz hJOmFCegRKE9W98ed6N8B MDiGVHePCX6sLE1gI2txR lnbjogbGVmdDsgdmVydGl qIVgwRUhoG922 IHRvcDsnPlBhdGllbnQgT mZvCLs5F4EnPxh5EWHvzR viOI1yvMSiGYriDx6ptRa haChiNT0gIHDr qslxh061CoHta1ibHAYyr DJvJVkfWHE4I03hl4U6EN MeOOLxBLK0aMD0dB5swUa nbjogbGVmdDsg wmOhzOzvFDxnANjmC743D HRvcDsnPkJpcnRoIERhdG U7TV31SY35wGWwr6Q2dXR 8H0VgLLPjceok rqkbuVV8FUQwESBnlZ54Q s9koXmdRh9qPFVoEES3TH EhzXTmJ6HawC5lWpOlEHQ zRCPaB6LaqPQb OMqbI823WVfoDnW2UVGcl tDsY3XvEUOqvUuvRrE1r2 E0Kw8LA4T5YW53KE02kUV cv5E6eBX2W9Aa ZJOboimpzgysuFI7BHAcA TSaoQ66Wo3muQepAu3cBE ZzEDP6THVghZZvB2RqxO4 yOiAjMDAwMDAw R4LpjIEbRIajP685WUlaH mH4VYUbaqMgD1PtBXJfbT avOzI1j0Y9Xx5OAOg7HQ6 0UB42zVQjc3P8 xEM9R9DgCROcixsdcsnqy IN1WQIxBESctF24Ew1zzS dmZh3eUIMpGDV7ETSloGC mF4EzaM9xJwNk ZBXiLUZkX4XbnXKeXKebH 027KSxsUzC7ZZFjeeOaC9 HmJJPlaWrpTlI3v1I9Jk8 QFQIySS78FMS2 zMC6IG82OC89V2IhBmyic GFibGU+PHRhYmxlIHdpZH RoPScxMDAlJyBzdHlsZT0 zRy6bOXZeIVJf xIzbiCMnPnQeo1haZWHmC WflBK2chRnwT3YzmEK4DH Yqo1z9St08T46nP2WhgWD +AZEcnUR8nKC3 rC8zDqHgRtU1UGjiY577C aNfjEBqVmrfv7svj3ssdF k4ThZ1GWAytxTxfWrjOKJ 9s5OtLf73C25q IHdpZHRoPSIxNSUiIHZhb Zrhsx5eyO6qJa2+PGNvbC B5rYW6uN9hKtYcHkC4VOp yF522TqLnpCBb Wkvjk5yge5fwuHv7VjIqB TLeiiYfvIbtDIT5l6ZqWb 16S0HzbKilf6QcJby7qk6 3ySGln7Q1iLG4 W5QpACOzglqetOSkpLgiE J0iYSStkarnZZLidU0dRG YgE2u1DfBoKtL3BBxlQ4M frjL7BYRssOQn HEtiJHH3M92gr4W8NJPoS HLrIRT8hKT4cS8wtWphjg ogbGVmdDsgdmVydGljYWw wVYlsB898WHMn bNzhFKBypZ8vZOEndWKcm OldZI8mJJBzsmxiFy0QL8 NMRVIsIEdFUkFSRCBTPC9 0QL36jQVxi1B5 yAO3H2XyNAGuryjmmtkqo DS8OQKhBTCeeW52gWUyKX ntXp4lf9P2b597QBYlDAG usL21Np1jsLou GSEryHNDyQ3yyvltp0jyu tgyXmBiSUQoCOx0EUa5YS NzmNlsBxBcSEM6BrN7IKA 2aOElkX6yaJdc gcghtQ3lIat+MDIvMTYvM Jx1AjboaJG+VGJcPXI1tS twBFfrXZIfvN9eIJItY8r 6MiWuKjV9OIuj J3UzQXIqsapmQh52uM2jX iEzPpR2JAkuI6LdndS3JG NsxSTkNBycGSQ7S25ww0W 5NRZfDFKvGTT8 kMX6bV6xmRnaifwfcSByc DsgdmVydGljYWwtYWxpZ2 50OOHbwTxjOeL6EYidKLM oOX10SZ34xZAq e2D4gVJ5D8AqEEKfotzbc sndgWL7WVPlPLIjpR63cX FgTDnbZi8uy2Z8g600SEP aQOMtuQ89Or9k mYajNUZknALEwR7pcvhpk 1owjgspKmRlYLToSYl3EY k3URWksGyhZyGmWDB3PrU 6KPU5uRXlnA3o jJthrxeqzO7sLrn+TWFsZ TwvdGQ+IWLkXVZ7dXhjUC szDWZxsC6vWCDqY5e0FkB wYeF9DRwpB4Ei BFGodeygEt71rT1eIhNyB lS5GSfhI0VpwnB5PZMxlM AwWAgfGDO9A68ex4D0YWL bQCWlHJT3jQT1 rR1yrFtxfrskkCLhuPdzp cFvuYthOYvfOAykN518DJ XvjPmpOwyyOiKSqy8qAI9 mZjwvdGQ+PC90 od29G1UsDgmyGct5BTMdW SM0iWF6lD1xFMUgPRipq8 E4kRG3T1PzcvKnea6he7x zLSCqCCbfU73n yXZts6Y5YXBjwBF5DLLnu LnwGaWicI26Wyq+PGNvbG mit3YyGoyts1pje4pzhKj 9IjMwJSIgdmFs oMqsMJX3a6CuZp81Q04eU HdpZHRoPSIzMCUiIHZhbG idsf0tdQ1xGw6+PGNvbCB 8iMZ8qC5mBeRt VeJ9UFqjT407AbPptMRuU ihow9rfs2wcqPe0FfSuBC QgwgHreNsbCQP2d6DgJx1 4L4HzdXbim5Zn Pao6wa32vVJzi7R6mTO4G 3BhZGRpbmctbGVmdDogMC 3eIOAgorbcOWOyqE4hZIN gS8l8AmNhHwS4 LRczE7IvugY6TZYvaOYlZ SAwcVZYyA2agtiiy7mewf trZjAkMJUmLKg3OSr9PTZ saWduOiBsZWZ0 JaQ2UMQ3kNQxyC5dbXsla dnsiE2jCtk+BVu7y7ixlI TfTK5trUC2XD36HH98tDU kc0H2rWF5O0Ad EXAaigaiuyzleLD4PNNfJ BOafQ76Uq8ioLqlIq4uTJ FmWYG2QWHlbGRvP4DznG3 yOiAjMDAwMDAw O9JidBRiQSowN545PBjvS cM9QRMmguIkF8EnBFBdrY raWyR3k4L2Oq6BCH26FL3 0DX51iYPat4I4 dUI0K6WoJMVxiihetoerp HK6YVNsPRSudP77Mb7zmF uqQt4tUHBcHLC9INAufYT rY9AlaR9uPpNo OSElUAVgG6VkjHLhOQapZ 609EXmoLdK2LWGkvnPiG0 VnZDMvwIorVtF1p9M8Ap4 XUs32HY64NG31 aVEbk4U6pAV2V2FrJAFik ifjrzhefQZ4KVCeNLXdbW 49Qv6llVppNk6jMFFqUQS 1XVXvpDBxG8Rq sF7wGsLcPMCkTARvN8Mgq GUjMSeeK440BHhsSfW1AT RkonPcG2LxVVKiyXtxLgV 3e1H1Cr4GDJoq aqu3S1SsXysypBI+PC90Y SMkNW44gYDtcIPzg5rzbS d6HuImIMIqFHO3kIkdXWv sy3IbDYTcT34x bGFw (more content not included)... Normal [facility] Vital Signs Date Time Vital Sign Value Performing Clinician Facility 04-17-2024 09:21-0500 Body height 175.26 cm [facility] 04-17-2024 09:21-0500 Body mass index (BMI) [Ratio] 30.4 kg/m2 [facility] 04-17-2024 09:21-0500 Body weight 93.66 kg [facility] 04-17-2024 09:21-0500 Diastolic blood pressure 86 mm[Hg] [facility] 04-17-2024 09:21-0500 Heart rate 109 /min [facility] 04-17-2024 09:21-0500 Respiratory rate 12 /min [facility] 04-17-2024 09:21-0500 Systolic blood pressure 136 mm[Hg] [facility] 11-07-2023 14:18-0400 Body height 175.26 cm [facility] 11-07-2023 14:18-0400 Body mass index (BMI) [Ratio] 30.6 kg/m2 [facility] 11-07-2023 14:18-0400 Body weight 94.06 kg [facility] 11-07-2023 14:18-0400 Diastolic blood pressure 86 mm[Hg] [facility] 11-07-2023 14:18-0400 Heart rate 105 /min [facility] 11-07-2023 14:18-0400 Respiratory rate 12 /min [facility] 11-07-2023 14:18-0400 Systolic blood pressure 132 mm[Hg] [facility] 10-20-2023 10:41-0400 Body height 175.26 cm [facility] 10-20-2023 10:41-0400 Body mass index (BMI) [Ratio] 30.2 kg/m2 [facility] 10-20-2023 10:41-0400 Body weight 93.04 kg [facility] 10-20-2023 10:41-0400 Diastolic blood pressure 90 mm[Hg] [facility] 10-20-2023 10:41-0400 Heart rate 99 /min [facility] 10-20-2023 10:41-0400 Respiratory rate 12 /min [facility] 10-20-2023 10:41-0400 Systolic blood pressure 156 mm[Hg] [facility] 09-18-2023 14:31-0400 Body height 175.26 cm [facility] 09-18-2023 14:31-0400 Body mass index (BMI) [Ratio] 31.3 kg/m2 [facility] 09-18-2023 14:31-0400 Body weight 96.27 kg [facility] 09-18-2023 14:31-0400 Diastolic blood pressure 87 mm[Hg] [facility] 09-18-2023 14:31-0400 Heart rate 81 /min [facility] 09-18-2023 14:31-0400 Respiratory rate 12 /min [facility] 09-18-2023 14:31-0400 Systolic blood pressure 139 mm[Hg] [facility] 05-29-2023 12:57-0400 Body height 175.26 cm [facility] 05-29-2023 12:57-0400 Body mass index (BMI) [Ratio] 31 kg/m2 [facility] 05-29-2023 12:57-0400 Body weight 95.25 kg [facility] 09-14-2022 11:00-0400 Body height 175.26 cm [facility] Other [facility] Other 09-14-2022 11:00-0400 Body mass index (BMI) [Ratio] 31.16 kg/m2 [facility] Ball Other [facility] Other 09-14-2022 11:00-0400 Body weight 95.71 kg Van Ball Other [facility] Other 09-14-2022 11:00-0400 Diastolic blood pressure 84 mm[Hg] [facility] Ball Other [facility] Other 09-14-2022 11:00-0400 Respiratory rate 12 /min Van Ball Other [facility] Other 09-14-2022 11:00-0400 Systolic blood pressure 113 mm[Hg] Van Ball Other [facility] Other 07-28-2022 11:45-0400 Body height 175.26 cm Van Ball Other [facility] Other 07-28-2022 11:45-0400 Body mass index (BMI) [Ratio] 31.13 kg/m2 Van Ball Other [facility] Other 07-28-2022 11:45-0400 Body weight 95.62 kg Van Ball Other [facility] Other 07-28-2022 11:45-0400 Diastolic blood pressure 92 mm[Hg] Van Ball Other [facility] Other 07-28-2022 11:45-0400 Respiratory rate 12 /min Van Ball Other [facility] Other 07-28-2022 11:45-0400 Systolic blood pressure 131 mm[Hg] Van Ball Other [facility] Other Encounters Encounter Date Encounter Type Care Provider Facility Start: 04-17-2024 End: 04-17-2024 ambulatory [facility] Work Phone: Start: 04-17-2024 End: 04-17-2024 Patient encounter procedure [facility] Work Phone: Start: 11-07-2023 End: 11-07-2023 ambulatory [facility] Work Phone: Start: 11-07-2023 End: 11-07-2023 Patient encounter procedure [facility] Work Phone: Start: 10-20-2023 End: 10-20-2023 ambulatory [facility] Work Phone: Start: 10-20-2023 End: 10-20-2023 Patient encounter procedure [facility] Work Phone: Start: 09-18-2023 End: 09-18-2023 ambulatory [facility] Work Phone: Start: 09-18-2023 End: 09-18-2023 Encounter for general adult medical examination without abnormal findings [facility] Start: 09-18-2023 End: 09-18-2023 Patient encounter procedure [facility] Work Phone: Start: 06-20-2023 End: 06-20-2023 ambulatory [facility] Work Phone: Start: 06-20-2023 End: 06-20-2023 Patient encounter procedure [facility] Work Phone: Start: 05-29-2023 End: 05-29-2023 Patient encounter procedure [facility] Work Phone: Start: 02-20-2023 End: 02-20-2023 ambulatory Van Kim Other [facility] Other Start: 02-20-2023 Office outpatient vi sit 15 minutes Van Kim [facility] Start: 09-14-2022 End: 09-14-2022 ambulatory Van Kim Other [facility] Other Start: 09-14-2022 Encounter for genera l adult medical examination without abnormal findings Van Kim [facility] Start: 09-14-2022 Periodic preventive med est patient 40-64yrs Van Kim [facility] Start: 08-02-2022 End: 08-03-[address] VAN KIM Facility:[facility] Start: 07-28-2022 End: 07-28-2022 ambulatory Van Kim Other [facility] Other Start: 07-28-2022 Office outpatient vi sit 15 minutes Van Kim [facility] Start: 06-24-2022 End: 06-25-2022 ambulatory Sami ANDERSON Facility:[facility] Start: 06-24-2022 End: 06-24-2022 Patient encounter procedure Sami ANDERSON [facility] Start: 05-07-2019 Adult health examination Van Kim Other [facility] Other Procedures Date Procedure Procedure Detail Performing Clinician Start: 08-02-[address] LICEA IN [place] Comment on above: Performed By: #### D ATBMP, DATPSA #### [facility] [address] [place] [address] Dr. Henok Aleman Start: 02-07-2020 Cystoscopy Sami HUNT Start: 05-06-2016 General examination of patient Van Kim Other Start: 05-06-2016 Screening for malign ant neoplasm of colon Van Kim Other Plan of Treatment Date Care Activity Detail Author Comprehensive metabo lic 2000 panel - Serum or Plasma [facility] enter CT Chest W contrast IV [facility] Erythropoietin (EPO) [Units/volume] in Serum or Plasma [facility] enter XR Chest [address] [facility] Immunizations Immunization Date Immunization Notes Care Provider Fa umair 01-27-2016 tetanus and diphther ia toxoids, adsorbed, preservative free, for adult use (5 Lf of tetanus toxoid and 2 Lf of diphtheria toxoid) Van Kim Other [facility] NEGATED: Highlighted row has not occurred!01-10-2020 influenza virus vaccine, unspecified formulation Sami ANDERSON [facility] Payers Date Payer Category Payer Unknown [id number] 1965 Unknown [id number] 1958 Self-pay Unknown [id number] Unknown [id number] Social History Date Type Detail Facility Start: 01-10-2020 Tobacco smoking status Never s moked tobacco (finding) [facility] Tobacco smoking status Never [facility] Sex Assigned At Male [facility] Start: 1965 Sex Assigned At Male [facility] Tobacco smoking stat [facility] Unknown if ever smoked [facility] Work Phone: Start: 04-17-2024 Sex Male (finding) [facility] Clinical Notes 07-28-2022 to 02-20-2023 Note Date & Type Note Facility 02-20-2023 Evaluation note Encounter Date Diagnosis Assessment Notes Feb, Acute bronchitis due to other specified organisms (ICD-10 - J20.8) Instructed to use Robitussin or Mucinex for cough, saline or Flonase NS for congestion, Tylenol for pain and fever. [facility] Other 06-28-2023 Evaluation note* Encounter Date Diagnosis [...] has resolved. High fiber diet, avoid straining [facility] Other 05-11-2023 Evaluation note* Encounter Date Diagnosis [...] index [BMI] 31.0-31.9, adult (ICD-10 - Z68.31) [facility] Other Evaluation + Plan note No data available for this section [facility] evaluation note* Diagnosis Onset Date Resolution Status Obesity acute Acute bronchitis due to other specified organisms noneactive Acute bronchitis due to other specified organisms noneactive [facility] Work Phone: Evaluation note* Diagnosis Onset Date Resolution Status Acute bronchitis due to other specified organisms noneactive Benign prostatic hyperplasia with lower urinary tract symptoms acute Coughing acute Screening for colon cancer a cute Screening PSA (prostate specific antigen) noneactive Wellness examination noneact dixie [facility] Work Phone: Evaluation note* Diagnosis Onset Date Resolution Status Benign prostatic hyperplasia with lower urinary tract symptoms acute Coughing acute Obesity acute Screening for colon cancer a cute Screening PSA (prostate specific antigen) noneactive Wellness examination noneact dixie Obesity acute [facility] Work Phone: Evaluation note* Diagnosis Onset Date Resolution Status Benign prostatic hyperplasia with lower urinary tract symptoms acute Coughing acute Obesity acute Screening for colon cancer a cute Screening PSA (prostate specific antigen) noneactive Wellness examination noneact dixie Coughing acute HURST (dyspnea on exertion) [place] Obesity acute Wheezing acute Chronic obstructive pulmonar y disease with (acute) exacerbation acute Polycythemia acute [facility] Work Phone: Evaluation note* Diagnosis Onset Date Resolution Status Admit Date Chronic obstructive pulmonar y disease with (acute) exacerbation acute April 17 9:10am HURST (dyspnea on exertion) acute April 17, 2024 9:10am Polycythemia acute March 9:10am Wheezing acute April 17, 2024 9:10am [facility] Work Phone: History general Narrative - Reported* Type Description Date Medical History Benign prostatic hyp erplasia with lower urinary tract symptoms Medical History Obesity due to excess calories Surgical History Open reduction and i nternal fixation (ORIF) - right ankle Hospitalization History see surgical history [facility] Discharge instructions No data available for this section [facility] progress note No data available for this section [facility] Summary Purpose Family History Relationship Condition Age at Onset Recorded Date/T jared father Diabetes mellitus Unknown Advance Directives Advance Directive Response Recorded Date/ Time Advance Directives No April 13, 2023 4:39pm Advance Directive Response Recorded Date/ Time Advance Directives No April 13, 2023 3:39pm Chief Complaint and Reason for Visit Chief Complaint productive cough, co ngestion - COVID NEGATIVE [phone] chest cold COVID - Reason for Visit Obesity Acute bronchitis due to other specified organisms Acute bronchitis due to other specified organisms Chief Complaint [phone] chest c old COVID - Wellness Reason [...] and content) DATE CREATED AUTHOR 06/26/2022 [facility] DATE CREATED AUTHOR AUTHOR'S ORGANIZ ATION 08/03/2022 [facility] REASON FOR VISIT (unrecogniz ed section and content) [facility] [phone] Goals (unrecognized section and content) Goals may [...] BE BASED ON THE PRIMARY CLINICAL RECORDS. [facility] provides no warranty or guarantee of the accuracy or completeness of information in this document.
== END 2024-06-17 23:59 | disposition home or self-care (01) ==
LOC: HEMC 07:41
PROVIDERS: PCP Internal Medicine; Visit Provider Internal Medicine Hematology & Oncology
DX: D45 Polycythemia vera (principal); J45.909 Unspecified asthma, uncomplicated
CPT/HCPCS: G0463

== ENCOUNTER 2024-06-03 13:32 | Outpatient (OUT) | payer OTHER, SELFPAY ==
--- OUTSIDE RECORDS SUMMARY | 2024-06-03 13:44 | XMS_ITS | CCD ---
Author Organization [facility] CliniSyil Care Team Providers Care Information Technology Data Analyst Name Role Phone VAN KIM Primary Care [...] Medication Allergies] Propensity to adverse reactions (disorder) [facility] Repository (1 source) patient allergy list reviewed by nurse or physicia Propensity to adverse reactions 7 Comment:Done [employer] Other Medications Current Medications Medication Drug Class(es) [...] September 20, 2023 12:00am Use with MDI Marvell (No Known Home Meds) (1 source) Start: 09-18-2023 Marvell (No Kn own Home Meds) Active September [...] 08-02-2022 BASO # 0.1 103/ul Normal 0.0-0.1 [facility] Comment on above: Performed By: #### D ATCBC #### [facility] [address] [place] [address] Dr. Henok Aleman Basophils/100 WBC (Bld) 1.3 % Normal 0.2-2.0 [facility] Comment on above: Performed By: #### D ATCBC #### [facility] [address] [place] [address] Dr. Henok Aleman EO # 0.4 103/ul Normal 0.0-0.7 [facility] Comment on above: Performed By: #### D ATCBC #### [facility] [address] [place] [address] Dr. Henok Aleman Eosinophils/100 WBC (Bld) 5.9 % Normal 0.9-7.0 [facility] Comment on above: Performed By: #### D ATCBC #### [facility] [address] [place] [address] Dr. Henok Aleman Erythrocyte distribution width (RBC) [Ratio] 13.3 % Normal 11.0-15.0 [facility] Comment on above: Performed By: #### D ATCBC #### [facility] [address] [place] [address] Dr. Henok Aleman Hematocrit (Bld) [Volume fraction] 55.3 % Critically high 42.0-54.0 [facility] Comment on above: Performed By: #### D ATCBC #### [facility] [address] [place] [address] Dr. Henok Aleman Hemoglobin (Bld) [Mass/Vol] 18.5 g/dL Critically high 14.0-18.0 [facility] Comment on above: Performed By: #### D ATCBC #### [facility] [address] [place] [address] Dr. Henok Aleman IG # 0.08 10e3/ul Critically high 0.00-0.03 [facility] Comment on above: Performed By: #### D ATCBC #### [facility] [address] [place] [address] Dr. Henok Aleman IG % 1.3 % Critically high 0.0-0.[address] [facility] Comment on above: Performed By: #### D ATCBC #### [facility] [address] [place] [address] Dr. Henok Aleman LYMPH # 2.4 103/ul Normal 1.2-3.8 [facility] Comment on above: Performed By: #### D ATCBC #### [facility] [address] [place] [address] Dr. Henok Aleman Lymphocytes/100 WBC (Bld) 36.7 % Normal 20.5-60.0 [facility] Comment on above: Performed By: #### D ATCBC #### [facility] [address] [place] [address] Dr. Henok Aleman MCH (RBC) [Entitic mass] 31.3 pg Normal 25.9-34.0 [facility] Comment on above: Performed By: #### D ATCBC #### [facility] [address] [place] [address] Dr. Henok Aleman MCHC (RBC) [Mass/Vol] 33.5 g/dL Normal 29.9-35.2 [facility] Comment on above: Performed By: #### D ATCBC #### [facility] [address] [place] [address] Dr. Henok Aleman MCV (RBC) [Entitic vol] 93.4 fL Normal 80.0-94.0 [facility] Comment on above: Performed By: #### D ATCBC #### [facility] [address] [place] [address] Dr. Henok Aleman MONO # 0.6 103/ul Normal 0.3-0.8 [facility] Comment on above: Performed By: #### D ATCBC #### [facility] [address] [place] [address] Dr. Henok Aleman Monocytes/100 WBC (Bld) 9.8 % Normal 1.7-12.0 [facility] Comment on above: Performed By: #### D ATCBC #### [facility] [address] [place] [address] Dr. Henok Aleman NEUT # 2.9 103/ul Normal 1.4-6.5 [facility] Comment on above: Performed By: #### D ATCBC #### [facility] [address] [place] [address] Dr. Henok Aleman Neutrophils/100 WBC (Bld) 45.0 % Normal 43.0-75.0 [facility] Comment on above: Performed By: #### D ATCBC #### [facility] [address] [place] [address] Dr. Henok Aleman Platelet mean volume (Bld) [Entitic vol] 9.7 fL Normal 9.5-13.5 [facility] Comment on above: Performed By: #### D ATCBC #### [facility] [address] [place] [address] Dr. Henok Aleman PLT 167 103/ul Normal 150-450 [facility] Comment on above: Performed By: #### D ATCBC #### [facility] [address] [place] [address] Dr. Henok Aleman RBC 5.92 106/ul Normal 4.70-6.10 [facility] Comment on above: Performed By: #### D ATCBC #### [facility] [address] [place] [address] Dr. Henok Aleman WBC 6.4 103/ul Normal 4.0-11.0 [facility] Comment on above: Performed By: #### D ATCBC #### [facility] [address] [place] [address] Dr. Henok Aleman DEBBI- BMP WITH LIPIDon 2022 Anion gap [Moles/Vol] 10.8 mmol/L Normal [facility] Comment on above: Performed By: #### D ATBMP, DATPSA #### [facility] [address] [place] [address] Dr. Henok Aleman Calcium [Mass/Vol] 9.1 mg/dL Normal 8.5-10.1 [facility] Comment on above: Performed By: #### D ATBMP, DATPSA #### [facility] [address] [place] [address] Dr. Henok Aleman Chloride [Moles/Vol] 104 mmol/L Normal 98-107 [facility] Comment on above: Performed By: #### D ATBMP, DATPSA #### [facility] [address] [place] [address] Dr. Henok Aleman Cholesterol [Mass/Vol] 148 mg/dL Normal <=200 [facility] Comment on above: Performed By: #### D ATBMP, DATPSA #### [facility] [address] [place] [address] Dr. Henok Aleman Cholesterol in HDL [Mass/Vol] 39 mg/dL Critically low 40-60 [facility] Comment on above: Performed By: #### D ATBMP, DATPSA #### [facility] [address] [place] [address] Dr. eHnok Aleman Cholesterol in LDL [Mass/Vol] 87.2 mg/dL Normal [facility] Comment on above: Performed By: #### D ATBMP, DATPSA #### [facility] [address] [address] [address] Henok Aleman CO2 [Moles/Vol] 30.6 mmol/L Normal 21.0-32.0 [facility] Comment on above: Performed By: #### D ATBMP, DATPSA #### [facility] [address] [address] [address] Henok Aleman Creatinine [Mass/Vol] 1.08 mg/dL Normal 0.70-1.30 [facility] Comment on above: Performed By: #### D ATBMP, DATPSA #### [facility] [address] [address] [address] Henok Aleman EGFR-AF BELARUSIAN >60 Normal >=60 [facility] Comment on above: Performed By: #### D ATBMP, DATPSA #### [facility] [address] [place] [address] Dr. Henok Aleman EGFR-NON AF BELARUSIAN >60 Normal >=60 [facility] Comment on above: Performed By: #### D ATBMP, DATPSA #### [facility] [address] [address] [address] Henok Aleman Glucose [Mass/Vol] 97 mg/dL Normal 74-106 [facility] Comment on above: Performed By: #### D ATBMP, DATPSA #### [facility] [address] [address] [address] Henok Aleman HDL NORMAL > or = 60 mg/dl - LO W CARDIOVASCULAR RISK <40 mg/dl - HIGH CARDIOVASCULAR RISK Normal [facility] Comment on above: Performed By: #### D ATBMP, DATPSA #### [facility] [address] [address] [address] Henok Aleman LDL CALC NORMAL SEE BELOW Normal [facility] Comment on above: Result Comment: <100 mg/dl OPTIMAL 100 - 129 mg/dl NEAR OR ABOVE OPTIMAL 130 - 159 mg/dl BORDERLINE HIGH 160 - 189 mg/dl HIGH >190 mg/dl VERY HIGH Performed By: #### D ATBMP, DATPSA #### [facility] [address] [address] [address] Henok Aleman Potassium [Moles/Vol] 4.4 mmol/L Normal 3.5-5.1 [facility] Comment on above: Performed By: #### D ATP, DATPSA #### [facility] [address] [address] [address] Henok Aleman Sodium [Moles/Vol] 141 mmol/L Normal 136-145 [facility] Comment on above: Performed By: #### D ATP, DATPSA #### [facility] [address] [address] [address] Henok Aleman Triglyceride [Mass/Vol] 109 mg/dL Normal <=150 [facility] Comment on above: Performed By: #### D ATP, DATPSA #### [facility] [address] [place] [address] Dr. Henok Aleman Urea nitrogen [Mass/Vol] 14.0 mg/dL Normal 7.0-18.0 [facility] Comment on above: Performed By: #### [facility] #### [facility] [address] [place] [address] Dr. Henok Aleman Urea nitrogen/Creatinine [Mass ratio] 13.0 mg/mg Normal [facility] Comment on above: Performed By: #### D ATP, DATPSA #### [facility] [address] [place] [address] Dr. Henok Aleman VLDL CALC 21.8 mg/dL Normal [facility] Comment on above: Performed By: #### [facility] #### [facility] [address] [place] [address] Dr. Henok Aleman Coding Summary.on 07-01-2021 Coding Summary. CD:[id number] G h0bWw+PGhlYWQ+WS4QVCD tZ56bdXOqnL3ST1rJZF1P WSYAKHCBDQ2AWF3ixSC0P DotK9VubbIx XvnshNNrYX86JPu4TYD9z RgmMCghrU9tvFDdV9t8Hl CuEM99xQ94PQiiYZXaBqA 3LjZpbjsgbWFy W4jhIeBhjVEfPuv+PHRhY mxlIHdpZHRoPScxMDAlJy WqgPubYZ7bQf0yVPNnHXT vbGxhcHNlOiBj t1asKCZbOWvoRZ3alSpnW 6HbzRO7FMBto4i2Mt14aI I+QRAuNXN5cHbcGOtya65 6EoVpu2shMVC8 vYShTQadTHW7K29kk2Z3V VXvJSMeREJ0zEP7jZ3kzG nbmfyeP3FddYRoUgA8SXS 3tGAerY4hkTrq kocmuL8gTnd+X01FKO2IB JPCKF8BDkt2I1PeIxxcrM I+BM97CIRqHJ13jTHupMD zv2nqwVs8JgOc ZBZdRZO5bSckGFjjd1UjH RQpW07xaRGnz5O0IRStuY jjrIGxYtFmtKE2wY0qVGv rabblu1lzmzrr Ghtew8hvls56nK57D26bK SumRCGwFBP9IQIrUFNinR gihc0lsU8fIp4+OZurd6x xa8nbvSv7ZlXf KLWfjtRcdQgeQUA8a7OwF g30V5MnxIogd8WwLyo1rd 37lYEwx8B1dEO0HLidFRL xkI8hXAmgRyB5 BJWlJcTkfK38rVXsMTpnZ h1vfXwqoYawCD7nWSDknw jsDNXtvA1cKOTgiKGatPi jEJ7uGPDmduld r951PqMmSDM0BOComADvJ 8PvaY6nDpFaTVQfPIXsE0 SohHYhRGohV986AOxjNsK 5HOErzrIhZ1Av MLEpnXdaCqK2u9Y7Nz4Xa 1AyoorfBQS5VKknKPV6Rt N5AwGtYaI8W4VsUlv0XWY khJvsVC9nC2Py GLSatwhbhqyurUK8BJTvN VEhzL32iDEnUGwaPq3zu6 N7t315EUZzNEJzsM16Qg6 udDogMTBwdCBU fV7ufttdw8vcqiquPgStO WUxPCh3HTw9VZEhkKlrEz QhPJD6HfJ1HNT5eZBpgY6 scUeirgagyX3d Oyc+U52pqS9cWQU5VKL8t jdqAAVdvtNhNN24HF17C6 RyPjwvdGFibGU+PGRpdiB nvYiiKE5cZpLn x3xul9YxWIljX2TaXHAaV DpnTlg1DREdTJT7dMS3nR 1iTQUbPZltp9S2rVN7Q3T gasRacs4dq8cx REOfDLpyT12zySWcz9U8Z CSdoJZ4SBFzzJxzHnEfkG 93Oyc+QWCxsFugq0OaDtp dj6rpp7ktbEa2 FbInEWWgfyGqsEcvEXU7y 3HyFf24Z64wJAluQVQfFY ShKPKkSQEttHamqw2mpS4 wIi8+PGNvbCB3 rHR4iN5gCXXcGpU6KBtoJ 074ObRhvPAcNdjzl1fdx1 fwrMp9FoKwUTRdkzHavUe eLGY6m1WpBh16 V27eMCmdQSBxNXDzDLBaK PRopOszxw0hlJ8yYv5+PC 8lg3ozrz37hG42fCF+PHR uQOQ7yFszSIng ZTDppU2iKLndVeJ3JDByL nBiaE21sNBfHLxcQu9lqF jegZxnZZ7xNLEnixqfr49 5JmRjd3ceRNAo zJCsLRcsYRJ0H80cx2G1Q USqHIBuKGV0pXZ7gT8cyN lnbjogbGVmdDsgdmVydGl jMZatRShbE603 IHRvcDsnPlBhdGllbnQgT zKyRDo8D6HwQoy4FJYghF neBV8jdGCuJMdwIa0szMf tbOphUY4sRDWn yfoup626NyMjf8ugFPLal ZWmGNrkTVC2Z07wi6K2JB VrAJGtUNL0lAV1zS1fmXi nbjogbGVmdDsg qtXrqTkkMNumIXcwX455Q HRvcDsnPkJpcnRoIERhdG B5FO71GW22tYEev9D9pOS 2Z4EsFHXulahx qefpqPW2ZHQpDTIfkS80H x7hcGsbXu0kJUDpMSY0BX RvpNMoD3MngV0lZeDkNFR cAAGuT2XvrQEg LAskB123OLljEmQ7WJSsm dVlB5ZbKAMexTkoRoC9a3 E8Dk4VM8B3JS32ZD81cES hv4Y7kLC6K1Bt OXGmhcnuyfrrePL4FNLjD WLgeL34Gg9ghQhlGh1gXO NdRGF6RFFqqGRwP8SlpR7 yOiAjMDAwMDAw H8RiwBSrIJfuQ636EAukX jF8TUMbcrVwS6TkMSGkkN kcOqP7o3N8Dz1BMTl4DO1 2HG41wXKrs0F1 cHN3K0TfELWyckvsokcwx WM8IBGvJGMwrO98Tr9aoH jfYr7uYRNrDHO1FYQzxYM wY4RvvZ3pMoFb MVKlVEWdX9FewLCdZPtnA 916UKmaWxS0LHPdbvOqY6 ZsAJPrcFxzJeI0h6Q7Iz1 MLXPkAT71FXW7 zLU3HH51MV31Z3PdXyhbl GFibGU+PHRhYmxlIHdpZH RoPScxMDAlJyBzdHlsZT0 aEq9nKBYkYVNh kHrqtOYdDaNeb4urFFAgI SwsAC3rmSwiZ3WleJJ4UE Fbh1p5Po83E15uO9EabHT +IYUswOD2vIS3 lN0xJqQbXnW8HNyaW934Q iXmwLEcClyvh3rnu7vfyV v6YcJ9OVUacrEfoVlyHQG 7u8OoBx33K45z IHdpZHRoPSIxNSUiIHZhb Ownuy5swL2zIt6+PGNvbC G5kJY0fS8dWyVdVnB9XOt jJ905EyFegWGy Sapqp6cjp9mgjDe2LaOyB MZkjcPyhJgsXHN3m3TgNf 96S3VosHhcm6TdUxt7et6 8mWIyy1V5uHN8 T8IsBNZxgfiwvCEaoDxbR A3xDMNhrgzdSMUvuJ6yUI RnU0n2ByBgSvF2BOboA8M eagW6KPClzSYu PMpwFNA2P19cv1H4MMFlY SFbVFU2gJV8uJ3fqBadzc ogbGVmdDsgdmVydGljYWw cCZecM447UPKm xItiBMPogO9lZWDonEXzy OoeEQ5nASUzuyjwOa3CN6 NMRVIsIEdFUkFSRCBTPC9 6FE22wRAcc0O9 sHQ6B7QrDNNwgsjdttbwk WT7QEXsQMWqtC05mFHuVG dwYz7ia5X8v376ICNaLTX ykQ00Yn7rrHvj PNIgbFBVxB1klniur4ztf uoyBoAuOWFlVEm2YKx2FS DojPivFpHhQXU2RaV8HSR 4mHXloW3ntIni jrvwzC7vKok+MDIvMTYvM Sm5EtjywEN+PAMbEGW4uN fsVPcjDNQraD1dOQIyL5a 9QyKvTsR2GJrk S5NlQZKqtfgoAz28qQ3nT gDmGzY1QHcqD2EwrrP5MR TggDNcXMoaLIE4L50us9J 9OCEtROSuRZT2 rPA1nA8vtAkirsnjrULna DsgdmVydGljYWwtYWxpZ2 32GDIkcSpoVtF6FRfsSGG lLK23GK58iIIr a3W0uQC9X9GjWMKbyecyg ilnuNM2DBBdRREqgM56dP WwLTluWh9vu1G6g103IQQ yNKHjaI39Ww0r jTdsDUDxhOEZeC8wepbbl 8cvnoigFkAiIHIiNLc7NK t8GDTgwUkbAzAzVPA6DuI 7HAI8yBHbzL2f eJupnywceM1wIjq+TWFsZ TwvdGQ+TVRtWAV0yNyhJL thLYIzyO3eUYDhJ0y4MeL tBfF4OHpvP3Ud TUQdqrrhPx78lL0xXtYaQ iM7BCqqV6TvoeY7DSNwxN YcAFlrBMR4A32uv5O4ZSF bAKDsFRC8cMF7 dG1enPzxffwogHPvgGgms dBrzTdwBFzbAGwpU342YZ AxjQgfUukmTsGHcw8qXI9 mZjwvdGQ+PC90 zq70W6RgQhqaIaa3TJWjJ HZ4vOX2yK0jOWMfDTxim5 T2qJZ6A6RoobUqzx9ik4t cCAUaOPloJ48f cEQfy8M8OFTwbCT2MESmc WrtSoMtrO08Opq+PGNvbG irk2QqAwnyc4fiw5adbRw 9IjMwJSIgdmFs gAneWAI7w9GlSo87R78vU HdpZHRoPSIzMCUiIHZhbG qqmi3ypZ2jVm7+PGNvbCB 9jRD1iM9dFiYa HkC7EXgxN912FsLsaYJyB jwyf5syf8iytTr7BpCqPI NuefVglKogZEJ9c7AiLt8 1N0TtwQesa0Ed Bcd8tb97aKNxw5A8nZV2Q 3BhZGRpbmctbGVmdDogMC 8tUYXustuqLEOoxF5bZRF kX8u2ZzKnEgF9 XLexX0YihbA5IRGytIGmA ZBerQPSfS6bjkiub4pyni pjKwKpUMXkBUo7LVe1LRB saWduOiBsZWZ0 MoU7NGK2gPUmdH5flEety bzctH1tOcl+SEp6f9bovV QfRK6vfRY1CL78OM18pME qa4R0jTJ7Q7Uy MFIjyikoobreqDB9UEOxO POdzC38Xx3rgDzhMu7fKQ BzCWS1WDTjoSOcE6UvpW9 yOiAjMDAwMDAw E3FelSUbFHpiF164PTzhU tY1RKFsosUtZ0UrNJDndW myDhS7c4Q0Jw8KXA09PT9 1XL42aSImj2V4 xSE4I2HwUTNazrrldsqux QV8SLXzWQYhpO66Tq1onI zyJk0hYDCtCJP9NYOjtFL wE5CzsC0qAsCo CXGgQNWmK5VkrPNsXKguR 567TRfoAhM0WKLvedKcQ6 QtLFVwrGkfYwG8c5P2Kw6 FMo42HJ77KV56 tYNto8K9oWJ9H1SgDKMqh dfpfroonJZ0FEIpMVCtqM 20Rn8kuHyyVl2pNJTiRDU 8XGQowESuL9Hy lW8nTfEtUJZgCPDmD0Bpd DKcLUbwJ166RKtaYzY7VJ QdrlMrN2UuRHKnpAenVqQ 5k1T5Ov1XZKpp csr4B4MnGzfujXP+PC90Y ZWtLE38iCXtoZTiw6bruT h1QjBwDOYlCFZ6kIbrRFm pm2ZpMKPeP45h bGFw (more content not included)... Normal [facility] Vital Signs Date Time Vital Sign Value Performing Clinician Facility 04-17-2024 09:21-0500 Body height 175.26 cm [facility] 04-17-2024 09:21-0500 Body mass index (BMI) [Ratio] 30.4 kg/m2 [facility] 04-17-2024 09:21-0500 Body weight 93.66 kg [facility] 04-17-2024 09:21-0500 Diastolic blood pressure 86 mm[Hg] [facility] 04-17-2024 09:21-0500 Heart rate 109 /min [facility] 04-17-2024 09:21-0500 Respiratory rate 12 /min [facility] 04-17-2024 09:21-0500 Systolic blood pressure 136 mm[Hg] [facility] 11-07-2023 14:18-0400 Body height 175.26 cm [facility] 11-07-2023 14:18-0400 Body mass index (BMI) [Ratio] 30.6 kg/m2 [facility] 11-07-2023 14:18-0400 Body weight 94.06 kg [facility] 11-07-2023 14:18-0400 Diastolic blood pressure 86 mm[Hg] [facility] 11-07-2023 14:18-0400 Heart rate 105 /min [facility] 11-07-2023 14:18-0400 Respiratory rate 12 /min [facility] 11-07-2023 14:18-0400 Systolic blood pressure 132 mm[Hg] [facility] 10-20-2023 10:41-0400 Body height 175.26 cm [facility] 10-20-2023 10:41-0400 Body mass index (BMI) [Ratio] 30.2 kg/m2 [facility] 10-20-2023 10:41-0400 Body weight 93.04 kg [facility] 10-20-2023 10:41-0400 Diastolic blood pressure 90 mm[Hg] [facility] 10-20-2023 10:41-0400 Heart rate 99 /min [facility] 10-20-2023 10:41-0400 Respiratory rate 12 /min [facility] 10-20-2023 10:41-0400 Systolic blood pressure 156 mm[Hg] [facility] 09-18-2023 14:31-0400 Body height 175.26 cm [facility] 09-18-2023 14:31-0400 Body mass index (BMI) [Ratio] 31.3 kg/m2 [facility] 09-18-2023 14:31-0400 Body weight 96.27 kg [facility] 09-18-2023 14:31-0400 Diastolic blood pressure 87 mm[Hg] [facility] 09-18-2023 14:31-0400 Heart rate 81 /min [facility] 09-18-2023 14:31-0400 Respiratory rate 12 /min [facility] 09-18-2023 14:31-0400 Systolic blood pressure 139 mm[Hg] [facility] 05-29-2023 12:57-0400 Body height 175.26 cm [facility] 05-29-2023 12:57-0400 Body mass index (BMI) [Ratio] 31 kg/m2 [facility] 05-29-2023 12:57-0400 Body weight 95.25 kg [facility] 09-14-2022 11:00-0400 Body height 175.26 cm Van Ball Other [facility] Other 09-14-2022 11:00-0400 Body mass index (BMI) [Ratio] 31.16 kg/m2 Van Ball Other [facility] [employer] Other 09-14-2022 11:00-0400 Body weight 95.71 kg Van Ball Other [facility] [employer] Other 09-14-2022 11:00-0400 Diastolic blood pressure 84 mm[Hg] Van Ball Other [facility] [employer] Other 09-14-2022 11:00-0400 Respiratory rate 12 /min Van Ball Other [facility] Other 09-14-2022 11:00-0400 Systolic blood pressure 113 mm[Hg] Van Ball Other [facility] Other 07-28-2022 11:45-0400 Body height 175.26 cm Van Ball Other [facility] Other 07-28-2022 11:45-0400 Body mass index (BMI) [Ratio] 31.13 kg/m2 Van Ball Other [facility] Other 07-28-2022 11:45-0400 Body weight 95.62 kg Van Ball Other [facility] Other 07-28-2022 11:45-0400 Diastolic blood pressure 92 mm[Hg] Van Ball Other [facility] Other 07-28-2022 11:45-0400 Respiratory rate 12 /min Van Ball Other [employer] Other 07-28-2022 11:45-0400 Systolic blood pressure 131 mm[Hg] Van Ball Other [employer] Other Encounters Encounter Date Encounter Type Care Provider Facility Start: 04-17-2024 End: 04-17-2024 ambulatory [facility] Work Phone: Start: 04-17-2024 End: 04-17-2024 Patient encounter procedure [facility] Work Phone: Start: 11-07-2023 End: 11-07-2023 ambulatory [facility] Work Phone: Start: 11-07-2023 End: 11-07-2023 Patient encounter procedure [facility] Work Phone: Start: 10-20-2023 End: 10-20-2023 ambulatory [facility] Work Phone: Start: 10-20-2023 End: 10-20-2023 Patient encounter procedure [facility] Work Phone: Start: 09-18-2023 End: 09-18-2023 ambulatory [facility] Work Phone: Start: 09-18-2023 End: 09-18-2023 Encounter for general adult medical examination without abnormal findings [facility] Start: 09-18-2023 End: 09-18-2023 Patient encounter procedure [facility] Work Phone: Start: 06-20-2023 End: 06-20-2023 ambulatory [facility] Work Phone: Start: 06-20-2023 End: 06-20-2023 Patient encounter procedure [facility] Work Phone: Start: 05-29-2023 End: 05-29-2023 Patient encounter procedure [facility] Work Phone: Start: 02-20-2023 End: 02-20-2023 ambulatory Van Kim Other [facility] Other Start: 02-20-2023 Office outpatient vi sit 15 minutes Van Kim [facility] Start: 09-14-2022 End: 09-14-2022 ambulatory Van Kim Other [facility] Other Start: 09-14-2022 Encounter for genera l adult medical examination without abnormal findings Van Kim [facility] Start: 09-14-2022 Periodic preventive med est patient 40-64yrs Van Kim [facility] Start: 08-02-2022 End: 08-03-[address] VAN KIM Facility:[facility] Start: 07-28-2022 End: 07-28-2022 ambulatory Van Kim Other [facility] Other Start: 07-28-2022 Office outpatient vi sit 15 minutes Van [facility] Start: 06-24-2022 End: 06-25-2022 ambulatory Sami ANDERSON Facility:[facility] Start: 06-24-2022 End: 06-24-2022 Patient encounter procedure Sami ANDERSON [facility] Start: 05-07-2019 Adult health examination Van Kim Other [facility] Other Procedures Date Procedure Procedure Detail Performing Clinician Start: 08-02-[address] LICEA [place] Comment on above: Performed By: #### D ATBMP, DATPSA #### [facility] [address] [place] [address] Dr. Henok Aleman Start: 02-07-2020 Cystoscopy Sami HUNT Start: 05-06-2016 General examination of patient Van Kim Other Start: 05-06-2016 Screening for malign ant neoplasm of colon Van Kim Other Plan of Treatment Date Care Activity Detail Author Comprehensive metabo lic 2000 panel - Serum or Plasma [facility] enter CT Chest W contrast IV [place] Erythropoietin (EPO) [Units/volume] in Serum or Plasma [facility] enter XR Chest 2 Views [facility] [place] Immunizations Immunization Date Immunization Notes Care Provider Fa umair 01-27-2016 tetanus and diphther ia toxoids, adsorbed, preservative free, for adult use (5 Lf of tetanus toxoid and 2 Lf of diphtheria toxoid) Van Kim Other [facility] NEGATED: Highlighted row has not occurred!01-10-2020 influenza virus vaccine, unspecified formulation Sami ANDERSON [facility] Payers Date Payer Category Payer Unknown [id number] 1965 Unknown [id number] 1958 Self-pay Unknown [id number] Unknown [id number] Social History Date Type Detail Facility Start: 01-10-2020 Tobacco smoking status Never s moked tobacco (finding) [facility] Tobacco smoking status Never [facility] Sex Assigned At Male [facility] Start: 1965 Sex Assigned At Male [facility] Tobacco smoking stat [facility] Unknown if ever smoked [facility] Work Phone: Start: 04-17-2024 Sex Male (finding) [facility] Clinical Notes 07-28-2022 to 02-20-2023 Note Date & Type Note Facility 02-20-2023 Evaluation note Encounter Date Diagnosis Assessment Notes Feb, Acute bronchitis due to other specified organisms (ICD-10 - J20.8) Instructed to use Robitussin or Mucinex for cough, saline or Flonase NS for congestion, Tylenol for pain and fever. [facility] Other 06-28-2023 Evaluation note* Encounter Date Diagnosis [...] has resolved. High fiber diet, avoid straining [facility] Other 05-11-2023 Evaluation note* Encounter Date Diagnosis [...] index [BMI] 31.0-31.9, adult (ICD-10 - Z68.31) [facility] Other Evaluation + Plan note No data available for this section [facility] evaluation note* Diagnosis Onset Date Resolution Status Obesity acute Acute bronchitis due to other specified organisms noneactive Acute bronchitis due to other specified organisms noneactive [facility] Work Phone: Evaluation note* Diagnosis Onset Date Resolution Status Acute bronchitis due to other specified organisms noneactive Benign prostatic hyperplasia with lower urinary tract symptoms acute Coughing acute Screening for colon cancer a cute Screening PSA (prostate specific antigen) noneactive Wellness examination noneact dix[facility] [facility] Work Phone: Evaluation note* Diagnosis Onset Date Resolution Status Benign prostatic hyperplasia with lower urinary tract symptoms acute Coughing acute Obesity acute Screening for colon cancer a cute Screening PSA (prostate specific antigen) noneactive Wellness examination noneact dixie Obesity acute [facility] Work Phone: Evaluation note* Diagnosis Onset Date Resolution Status Benign prostatic hyperplasia with lower urinary tract symptoms acute Coughing acute Obesity acute Screening for colon cancer a cute Screening PSA (prostate specific antigen) noneactive Wellness examination noneact dixie Coughing acute HURST (dyspnea on exertion) ac [place] Obesity acute Wheezing acute Chronic obstructive pulmonar y disease with (acute) exacerbation acute Polycythemia acute [facility] Work Phone: Evaluation note* Diagnosis Onset Date Resolution Status Admit Date Chronic obstructive pulmonar y disease with (acute) exacerbation acute April 17 9:10am UHRST (dyspnea on exertion) acute April 17, 2024 9:10am Polycythemia acute March 9:10am Wheezing acute April 17, 2024 9:10am [facility] Work Phone: History general Narrative - Reported* Type Description Date Medical History Benign prostatic hyp erplasia with lower urinary tract symptoms Medical History Obesity due to excess calories Surgical History Open reduction and i nternal fixation (ORIF) - right ankle Hospitalization History see surgical history [place] [facility] Discharge instructions No data available for this section [facility] progress note No data available for this section [facility] Summary Purpose Family History Relationship Condition Age at Onset Recorded Date/T jared father Diabetes mellitus Unknown Advance Directives Advance Directive Response Recorded Date/ Time Advance Directives No April 13, 2023 4:39pm Advance Directive Response Recorded Date/ Time Advance Directives No April 13, 2023 3:39pm Chief Complaint and Reason for Visit Chief Complaint productive cough, co ngestion - COVID NEGATIVE [phone] chest cold COVID - Reason for Visit Obesity Acute bronchitis due to other specified organisms Acute bronchitis due to other specified organisms Chief Complaint [phone] chest c old COVID - Wellness Reason [...] and content) DATE CREATED AUTHOR 06/26/2022 [facility] DATE CREATED AUTHOR AUTHOR'S ORGANIZ ATION 08/03/2022 [facility] REASON FOR VISIT (unrecogniz ed section and content) [facility] [phone] Goals (unrecognized section and content) Goals may [...] BE BASED ON THE PRIMARY CLINICAL RECORDS. [facility]. provides no warranty or guarantee of the accuracy or completeness of information in this document.
== END 2024-06-03 13:33 | disposition home or self-care (01) ==
LOC: LAB 13:33
PROVIDERS: PCP Internal Medicine; Visit Provider Internal Medicine Hematology & Oncology
DX: D45 Polycythemia vera (principal)
CPT/HCPCS: 36415

== ENCOUNTER 2024-06-24 07:32 | Outpatient (RCR) | payer OTHER, SELFPAY ==
[2024-06-18 10:59] LABS: Basophils Absolute Auto 0.1 10^3/uL (0.0-0.1); Basophils Percent Auto 0.8 % (0.2-2.0); Eosinophils Absolute Auto 0.3 10^3/uL (0.0-0.7); Hematocrit 55.7 % (42.0-54.0); Hemoglobin 18.9 g/dL (14.0-18.0); Immature Granulocytes Abs Auto 0.06 10^3/uL (0.00-0.03); Immature Granulocytes Pct Auto 0.9 % (0.0-0.5); Lymphocytes Absolute Auto 2.2 10^3/uL (1.2-3.8); Lymphocytes Percent Auto 33.6 % (20.5-60.0); Mean Corpuscular HGB Conc 33.9 g/dL (29.9-35.2); Mean Corpuscular Hemoglobin 32.2 pg (25.9-34.0); Mean Corpuscular Volume 94.9 fL (80.0-94.0); Mean Platelet Volume 9.7 fL (9.5-13.5); Monocytes Absolute Auto 0.6 10^3/uL (0.3-0.8); Monocytes Percent Auto 8.4 % (1.7-12.0); Neutrophils Absolute Auto 3.4 10^3/uL (1.4-6.5); Neutrophils Percent Auto 52.3 % (43.0-75.0); Platelet Count 168 10^3/uL (150-450); Red Blood Count 5.87 10^6/uL (4.70-6.10); Red Cell Distribution Width 13.5 % (11.0-15.0); White Blood Count 6.5 10^3/uL (4.0-11.0)
[2024-06-18 11:15] LABS: Alanine Aminotransferase 30 U/L (16-63); Albumin Globulin Ratio 0.9; Albumin Level 3.6 g/dL (3.4-5.0); Alkaline Phosphatase 66 U/L (46-116); Anion Gap 11.1; Aspartate Amino Transferase 16 U/L (15-37); BUN Creatinine Ratio 10.9; Bilirubin Total 0.9 mg/dL (0.2-1.0); C Reactive Protein <0.50 mg/dL (<=0.50); Calcium 9.4 mg/dL (8.5-10.1); Carbon Dioxide 32.3 mmol/L (21.0-32.0); Chloride 101 mmol/L (98-107); Estimated GFR (African America >60 (>=60 mL/min/1.73m^2); Estimated GFR (Non-African Ame >60 (>=60 mL/min/1.73m^2); Globulin 3.9 g/dL; Glucose 105 mg/dL (74-106); Potassium 4.4 mmol/L (3.5-5.1); Sodium 140 mmol/L (136-145); Total Protein 7.5 g/dL (6.4-8.2)
[2024-06-19 15:08] LABS: Erythropoietin (EPO), Serum 9.3 mIU/mL (2.6-18.5)
[2024-06-24 09:00] VITALS: BP 132/78; PULSE 67; TEMP 35.8; O2SAT 97
[2024-06-24 09:27] VITALS: BP 132/87; PULSE 84; TEMP 36.4; O2SAT 94
--- NOTE | 2024-06-24 09:27 | PC.NURSE ---
09 Explained Therapeutic Phlebotomy, patient verbalizes understanding. 904 LACF vein accessed with #14 Guage IV catheter, Therapeutic Phlebotomy began, tolerated venipuncture well. 914 500 ml of blood removed, tolerated well. Phlebotomy terminated, cotton ball applied, pressure held x 5 mins, coban applied to venipunture site, instructed to remove once he arrives home. VS obtained at end of phlebotomy, Given fluids to drink and ate pop tarts. 30 drank 325 ml of fluid ate pop tarts. denies any light headedness or any other symptoms. Had patient get up and ambulate around, denies light headedness, dizzyness or any other symptoms. 0935 Released ambulatory
== END 2024-07-17 23:59 | disposition home or self-care (01) ==
LOC: HEMC 07:32
PROVIDERS: PCP Internal Medicine; Visit Provider Internal Medicine Hematology & Oncology
DX: D45 Polycythemia vera (principal)
CPT/HCPCS: 36415; 80053; 82668; 82728; 83540; 83550; 85025; 85652; 86140; 99195; G0463

== ENCOUNTER 2024-07-02 08:31 | Outpatient (OUT) | payer OTHER, SELFPAY ==
--- NOTE | 2024-07-02 08:33 | CT_ITS ---
The [address] [address] Patient Name: BLANCA HAYDEN MRN: [id number] date: 1965 Sex: M Assigned Patient Location: CT Current Patient Location: CT Accession/Order Number: [id number] Exam Date: 07/02/2024 10:41 Report Date: 07/02/2024 10:55 At the request of: TOMER BYNUM MD Procedure: CT abdomen pelvis w con CT ABDOMEN AND PELVIS WITH CONTRAST CLINICAL DATA: Polycythemia vera. COMPARISON: 12/17/2020 Spiral images were obtained through the abdomen and pelvis following 100 mL of Omnipaque 300. This CT exam was performed using one or more following dose reduction techniques: Automated exposure control, adjustment of the mA and/or kV according to patient size, or use of iterative reconstruction technique. Limited cuts through the lung bases show atelectasis and/or scarring. There is a left lower lobe calcified granuloma. There is also a 5 mm nodule at the posterior lateral left costophrenic angle. This was also seen previously. There is decreased attenuation of the hepatic parenchyma which may be fatty infiltration. There are no intrahepatic masses. There are multiple stones within the gallbladder lumen. No biliary dilatation is seen. There are calcified splenic granulomas. The spleen is otherwise normal in size and attenuation. The pancreas and adrenal glands are within normal limits. There are symmetric bilateral renal nephrograms, without hydronephrosis. The abdominal aorta is normal caliber. There are few small lymph nodes. No ascites is seen. There is no dilated small bowel. There is mild stool along the colon. A tiny umbilical hernia is present containing a knuckle of nondistended small bowel. Subtle levoscoliotic curvature and degenerative changes are seen at the spine, greatest at the lumbosacral junction. Images through the pelvis show no dilated small bowel. No appendiceal inflammation is seen. There is stool at the distal colon. No diverticular disease is noted. The prostate is borderline prominent. The urinary bladder is not well-distended however no obvious abnormalities are seen. There are mildly patulous inguinal rings containing fat. There are small benign inguinal lymph nodes. No ascites is visualized. CT/CT abdomen pelvis w con IMPRESSION: CHOLELITHIASIS. FATTY LIVER. GRANULOMATOUS CHANGES. NO BOWEL OR URINARY TRACT OBSTRUCTION. UMBILICAL HERNIA CONTAINING A KNUCKLE OF NONDISTENDED SMALL BOWEL. NO OTHER ABNORMALITIES. Impression dictated by: Deepa Harris M.D.07/02/2024 10:55 AM Dictation Location: [place] [address] Electronically authenticated by: [id number] Date: 07/02/2024 10:55
--- OUTSIDE RECORDS SUMMARY | 2024-07-02 08:34 | XMS_ITS | CCD ---
Author Organization [facility] CliniSyde Care Team Providers Care Floor Care Specialist Name Role Phone VAN KIM Primary Care [...] Medication Allergies] Propensity to adverse reactions (disorder) [facility] Repository (1 source) patient allergy list reviewed by nurse or physicia Propensity to adverse reactions 7 Comment:Done [employer] Other Medications Current Medications Medication Drug Class(es) Dates Sig (Normalized) Sig (Original) albuterol 0.83 mg/ml inhalation solution (15 sources) beta2-Adrenergic Agonist Start: 04-17-2024 take 1 puff(s) by inhalation every six hours as needed for wheezing Albuterol Sulfate 90 mcg/actuation HFA aerosol inhaler Active 2 PUFF INHALATION Every 6 hours as needed for shortness of breath or wheezing 8.5 April 17, 2024 10:43am Start: 11-07-2023 End: 04-17-2024 take 2.5 mg by inhalation every six hours as needed for wheezing Albuterol Sulfate 2.5 mg /3 mL (0.083 %) solution for nebulization Active 2.5 MG INHALATION Every 6 hours as needed for shortness of breath or wheezing 75 April 17, 2024 10:44am Start: 10-12-2023 End: 04-17-2024 take 2 puff(s) by inhalation four times daily as needed for wheezing Albuterol Sulfate 90 mcg/actuation HFA aerosol inhaler Discontinued 0 .ROUTE .COMPLEX 8.5 October 12, 2023 7:04am April 17, 2024 10:44am INHALE 2 PUFFS 4 TIMES DAILY NEEDED FOR SHORTNESS OF BREATH OR WHEEZING FOR 30 DAYS Start: 09-20-2023 End: 10-12-2023 take 1 puff(s) by inhalation four times daily as needed for wheezing Albuterol Sulfate 90 mcg/actuation HFA aerosol inhaler Discontinued 2 PUFF INHALATION Four times daily as needed for shortness of breath or wheezing 8.5 September 20, 2023 12:00am October 12, 2023 7:04am 120 actuat budesonide 0.16 mg/actuat / formoterol fumarate 0.0045 mg/actuat metered dose inhaler (2 sources) Corticosteroid, beta2-Adrenergic Agonist Start: 04-17-2024 take 1 puff(s) by inhalation every twelve hours Budesonide-Formoterol 160-4.5 mcg/actuation HFA aerosol inhaler Active 2 PUFF INHALATION Every 12 hours 10.2 April 17, 2024 1:00am 24 hr dilTIAZem hydrochloride 120 mg extended release oral capsule (2 sources) Calcium Channel Ken Start: 05-16-2024 End: 05-28-2024 take 1 capsule by mouth once daily Diltiazem Hcl 120 mg capsule,extended release 24hr Active 120 MG PO Daily May 28, 2024 5:27pm hydrocortisone 25 mg/ml topical cream (6 sources) Corticosteroid Start: 07-28-2022 Hydrocortisone 2.5 % 1 application Externally twice daily for 10 days July, Active Hydrocortisone A cetate 25 MG 1 suppository Rectal twice daily for 12 days Active Inhalational Spacing Device (Aerochamber Mv) spacer (4 sources) Start: 09-20-2023 Inhalational S pacing Device (Aerochamber Mv) spacer Active 0 .Route September 19, 2023 11:00pm Use with MDI Start: 09-20-2023 Inhalational S pacing Device (Aerochamber Mv) spacer Active 0 .Route September 20, 2023 12:00am Use with MDI [place] (No Known Home Meds) (1 source) Start: 09-18-2023 [place] (No Kn own Home Meds) Active September 18, 2023 12:00am Completed/Discontinued Medications Medication Drug Class(es) Dates Sig (Normalized) Sig (Original) azithromycin 250 mg oral tablet (7 sources) Macrolide Antimicrobial Start: 05-29-2023 End: 09-18-2023 Azithromycin 250 mg tablet Discontinued 250 MG PO As Directed 6 May 29, 2023 12:00am September 18, 2023 2:28pm Start: 02-20-2023 Azithromycin 2 50 MG as directed Orally daily for 5 days Feb, Active doxycycline hyclate 100 mg oral capsule (10 sources) Tetracycline-class Drug Start: 09-20-2023 End: 04-17-2024 take 1 capsule by mouth twice daily Doxycycline Hyclate 100 mg capsule Discontinued 100 MG PO Twice daily September 20, 2023 12:00am April 17, 2024 10:21am Start: 06-20-2023 End: 09-18-2023 take 1 capsule by mouth twice daily Doxycycline Hyclate 100 mg capsule Discontinued 100 MG PO Twice daily 14 June 20, 2023 12:00am September 18, 2023 2:28pm Fluticasone Propion-Salmeterol (3 sources) Corticosteroid, beta2-Adrenergic Agonist Start: 11-03-2023 End: 04-17-2024 Fluticasone Propion-Salmeterol (Wixela Inhub) 500-50 mcg/dose blister with device Discontinued 1 INH INHALATION Every 12 hours 60 November 03, 2023 6:31pm April 17, 2024 10:21am Start: 11-03-2023 End: 04-17-2024 Fluticasone Propion-Salmeter ol (Wixela Inhub) 500-50 mcg/dose blister with device Discontinued 1 INH INHALATION Every 12 hours 60 November 03, 2023 5:31pm April 17, 2024 9:21am Start: 11-03-2023 Fluticasone Pr opion-Salmeterol (Wixela Inhub) 500-50 mcg/dose blister with device Active 1 INH INHALATION Every 12 hours 60 November 03, 2023 6:31pm Fluticasone Propion-Salmeter ol (Wixela Inhub) 500-50 mcg/dose blister with device (3 sources) Start: 11-03-2023 End: 11-03-2023 Fluticasone Propion-Salmeter ol (Wixela Inhub) 500-50 mcg/dose blister with device Discontinued 1 INH INHALATION Every 12 hours 60 30 November 02, 2023 11:00pm November 03, 2023 5:31pm Start: 11-03-2023 End: 11-03-2023 Fluticasone Propion-Salmeter ol (Wixela Inhub) 500-50 mcg/dose blister with device Discontinued 1 INH INHALATION Every 12 hours 60 30 November 03, 2023 12:00am November 03, 2023 6:31pm Problems Active Problems Problem Classification Problem Date Documented Da te Episodic/Chronic Acute bronchitis (4 sources) Acute bronchitis due to other specified organisms; Translations: [Acute bronchitis] Episodic Asthma (2 sources) Asthma; Translations: [Unspecified asthma, uncomplicated] 04-17-2024 Chronic Comment on above: PFT: FEV1 (25%), FVC (41%), FEV1/FVC 46, TLC 127%, DLCO normal - 10/2023 Calculus of urinary tract (2 sources) Kidney stone; Translations: [Ureteric stone] 06-21-2021 Episodic Cardiac dysrhythmias (2 sources) Tachycardia; Translations: [Tachycardia, unspecified] 05-16-2024 Episodic Comment on above: Echo: LVEF 65%, norm al RV size/function - 04/2024 Chronic obstructive pulmonary disease and bronchiectasis (4 sources) Acute exacerbation of chronic obstructive airways disease; Translations: [Chronic obstructive pulmonary disease with (acute) exacerbation] 11-05-2023 Chronic Genitourinary symptoms and ill-defined conditions (1 source) Nocturia Episodic Hemorrhoids (2 sources) Perianal venous thrombosis; Translations: [Residual hemorrhoidal skin tags] Episodic Hyperplasia of prostate (17 sources) Benign prostatic hypertrophy with outflow obstruction; Translations: [Lower urinary tract symptoms due to benign prostatic hypertrophy] Onset: 02-13-2017 06-21-2021 Chronic Other hematologic conditions (3 sources) Erythrocytosis; Translations: [Secondary polycythemia] 11-05-2023 Episodic Other hematologic conditions (4 sources) Secondary polycythemia; 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 vera] 11-07-2023 Episodic Other lower respiratory disease (8 sources) Cough; Translations: [Cough] 09-18-2023 Episodic Other lower respiratory disease (3 sources) Dyspnea on exertion; Translations: [Other forms of dyspnea] 10-20-2023 Episodic Other lower respiratory disease (3 sources) Wheezing; Translations: [Wheezing] 10-20-2023 Episodic Other lower respiratory disease (4 sources) Other forms of dyspnea; Translations: [Other respiratory abnormalities] 10-20-2023 Episodic Other lower respiratory disease (3 sources) Wheezing; Translations: [Wheezing] 10-20-2023 Episodic Other nutritional; endocrine; and metabolic disorders (3 sources) Simple obesity ; Translations: [Other obesity due to excess calories] Chronic Other nutritional; endocrine; and metabolic disorders (9 sources) Obesity; Translations: [Other obesity due to [...] Chronic Other nutritional; endocrine; and metabolic disorders (7 sources) Obesity, unspecified; Translations: [Obesity, unspecified] 05-29-2023 Chronic Other screening for suspected conditions (not mental disorders or infectious disease) (12 sources) Encounter for screening for malignant neoplasm of prostate; Translations: [Patient encounter status] Episodic Syncope (4 sources) Syncope; Translations: [Syncope and collapse] 11-07-2023 Episodic Past or Other Problems Problem Classification Problem Date Documented Da te Episodic/Chronic Other connective tissue disease (7 sources) Plantar fascial fibromatosis; Translations: [Plantar fascial fibromatosis] Onset: 03-25-2015 05-29-2023 Episodic Other hematologic conditions (1 source) Secondary polycythemia; Translations: [Secondary polycythemia] Onset: 02-13-2017 Resolved: 06-23-2021 Episodic Results Test Name Value Interpretation Reference Range Facility No Panel Informationon 06-03 Miscellaneous Test COMMENT . [facility] Comment on above: Test Ordered: [id number] Hered.Hemochromatosis, DNAHereditary Hemochromatosis Comment TG Reference Range: .Result:c.845G>A (p.Vxq468Chf) - Not Detectedc.187C>G (p.Bbv94Yix) - Not Detectedc.193A>T (p.Sry25Veo) - Not DetectedNot associated with increased risk to develop clinicalsymptoms of Hereditary Hemochromatosis. In symptomaticindividuals, other causes of iron overload should beevaluated. See Additional Information and Comments.Additional Clinical Information:Hereditary hemochromatosis (HFE related) is an autosomalrecessive iron storage disorder. Patients may have agenetic diagnosis of hereditary hemochromatosis and nevershow clinical symptoms. Clinical symptoms typically appearbetween 40 to 60 years in males and after menopause infemales. Signs and symptoms may include organ damage,primarily in the liver, risk for hepatocellularcarcinoma, diabetes, and heart disease due to ironaccumulation. Life expectancy may be decreased inindividuals who develop cirrhosis. Treatment forclinically symptomatic individuals may includetherapeutic phlebotomy. Liver transplant may be used totreat end stage liver failure. For preventive care,monitoring for iron overload is recommended for patientswho are homozygous for c.845G>A (p.Sfb908Ria) and have yetto experience clinical symptoms.Comments:The most common HFE variants associated with hereditaryhemochromatosis are c.845G>A (p.Yig069Gbc), c.187C>G(p.Kcp64Gxu), c.193A>T (p.Crr94Wjh). While patientshomozygous for c.845G>A (p.Gsz650Owl) are the most likelyto present clinical symptoms, less than 10% developclinically significant iron overload with tissue and organdamage.Genetic counseling is recommended to discuss the potentialclinical implications of positive results, as well asrecommendations for testing family members.Genetic Coordinators are available for health careproviders to discuss results at [phone] ([phone]).Test Details:Three variants analyzed:c.845G>A (p.Oeg202Jwz), commonly referred to as C282Yc.187C>G (p.Uwc66Njs), commonly referred to as H63Dc.193A>T (p.Kkv96Nmw), commonly referred to as M05IDcwzrre/Limitations:DNA Analysis of the HFE gene (NM_[id number]) was performedby PCR amplification followed by restriction enzymedigestion analyses. Results must be combined with clinicalinformation for the most accurate interpretation. Molecular-based testing is highly accurate, but as in any laboratorytest, diagnostic errors may occur. False positive or falsenegative results may occur for reasons that include geneticvariants, blood transfusions, bone marrow transplantation,somatic or tissue-specific mosaicism, mislabeled samples,or erroneous representation of family relationships.This test was developed and its performancecharacteristics determined by [employer]. It has not beencleared or approved by the Food and Drug Administration.References:Ike BR, Norman PC, Chapincito KV, Karthikeyan LW, Jamil ;[employer] for the [employer] Liver Diseases.Diagnosis and management of hemochromatosis: 2011 practiceguideline by the [place] Association for the Study ofLiver Diseases. Hepatology. 2011 Sep;54(1):328-43. doi:10.1002/hep.99400. PMID: 07281784; PMCID: [id number].Nory G, Sp P, Aruna DW, Rema H, Kimberly O,Diego S, Fernando I, David M, Raul S. [facility] best practiceguidelines for the molecular genetic diagnosis ofhereditary hemochromatosis (HH). Eur J Hum More. 2016Apr;24(4):479-95. doi: 10.1038/ejhg.2015.128. Epub 2014. PMID: 97233696; PMCID: FKA4540864.Reviewed by: [facility] TG Reference Range: .Technical Component performed at [employer] RTPProfessional Component performed by:[employer] Myra Gonzales, Ph.D., FACMGDirector, Molecular [address] MOHAMUD [id number] at: TG - [facility] [id number] [place], [place] [id number] Director: Bekah Curran [facility], Phone: [phone] at: - [facility] [id number] [place], [place] [id number] Director: Yaw Neal PhD, Phone: [phone] Basophils Auto (Bld) [#/Vol] on 05-07-2024 Basophils (Bld) [#/Vol] Automated basophil count 0.0-0.1 [facility] Basophils/100 WBC Auto (Bld) on 05-07-2024 Basophils/100 WBC (Bld) Automated basophil % 0.2-2.0 [facility] Eosinophils/100 WBC Auto (Bl d)on 05-07-2024 Eosinophils/100 WBC (Bld) Automated eosinophil % 0.9-7.0 [facility] Erythrocyte distribution wid th Auto (RBC) [Ratio]on 05-07-2024 Erythrocyte distribution width (RBC) [Ratio] Erythrocyte distribution width [Ratio] by Automated count 11.0-15.0 [facility] Estimated glomerular filtrat ion rate (GFR) non- Americanon 05-07-2024 GFR/1.73 sq M.predicted among non-blacks MDRD (S/P/Bld) [Vol rate/Area] Estimated glomerular filtration rate (GFR) non- Low >=60 mL/min/1.73 m 2 [facility] Globulin Calc (S) [Mass/Vol] on 05-07-2024 Globulin (S) [Mass/Vol] Serum globulin measurement by calculation (mass/volume) [facility] Hematocrit Auto (Bld) [Volum e fraction]on 05-07-2024 Hematocrit (Bld) [Volume fraction] Hematocrit [Volume Fraction] of Blood by Automated count High 42.0-54.0 [facility] Hemoglobin [Mass/volume] in Bloodon 05-07-2024 Hemoglobin (Bld) [Mass/Vol] Hemoglobin [Mass/volume] in Blood High 14.0-18.0 [facility] Iron binding capacity [Mass/ volume] in Serum or Plasmaon 05-07-2024 Iron binding capacity [Mass/Vol] Iron binding capacity [Mass/volume] in Serum or Plasma 250.0-450.0 [facility] Iron saturation [Mass Fracti on] in Serum or Plasmaon 05-07-2024 Iron saturation [Mass fraction] Iron saturation [Mass Fraction] in Serum or Plasma [facility] Laboratory - Chemistry and C hemistry - challengeon 05-07-2024 Albumin [Mass/Vol] 3.4 g/dL 3.4-5.0 [facility] ALP [Catalytic activity/Vol] 61 U/L 46-116 [facility] ALT [Catalytic activity/Vol] 41 U/L 16-63 [facility] AST [Catalytic activity/Vol] 31 U/L 15-37 [facility] Bilirubin [Mass/Vol] 0.7 mg/dL 0.2-1.0 [facility] Calcium [Mass/Vol] 8.9 mg/dL 8.5-10.1 [facility] Chloride [Moles/Vol] 102 mmol/L 98-107 [facility] CO2 [Moles/Vol] 32.7 mmol/L High 21.0-32.0 [facility] Creatinine [Mass/Vol] 1.31 mg/dL High 0.70-1.30 [facility] Ferritin [Mass/Vol] 569.0 ng/mL High 26.0-388.0 [facility] GFR/1.73 sq M.predicted MDRD (S/P/Bld) [Vol rate/Area] mL/min/{1.73_m2} >=60 mL/min/1.73 m 2 [facility] Glucose [Mass/Vol] 83 mg/dL 74-106 [facility] Iron [Mass/Vol] 57.0 ug/dL Low 65.0-175.0 [facility] Potassium [Moles/Vol] 4.1 mmol/L 3.5-5.1 [facility] Protein [Mass/Vol] 7.3 g/dL 6.4-8.2 [facility] Sodium [Moles/Vol] 138 mmol/L 136-145 [facility] Urea nitrogen [Mass/Vol] 13.0 mg/dL 7.0-18.0 [facility] Urea nitrogen/Creatinin e [Mass ratio] 9.9 mg/mg [facility] Laboratory - Hematology and Cell countson 05-07-2024 Immature granulocytes/100 WBC (Bld) 0.4 % 0.0-0.5 [facility] Leukocytes [#/volume] correc red for nucleated erythrocytes in Blood by Automated counon 05-07-2024 WBC corrected for nucl RBC Auto (Bld) [#/Vol] Leukocytes [#/volume] corrected for nucleated erythrocytes in Blood by Automated coun 4.0-11.0 [facility] Lymphocytes Auto (Bld) [#/Vo l]on 05-07-2024 Lymphocytes (Bld) [#/Vol] Lymphocytes [#/volume] in Blood by Automated count 1.2-3.8 [facility] Lymphocytes/100 WBC Auto (Bl d)on 05-07-2024 Lymphocytes/100 WBC (Bld) Lymphocytes/100 leukocytes in Blood by Automated count 20.5-60.0 [facility] MCH Auto (RBC) [Entitic mass ]on 05-07-2024 MCH (RBC) [Entitic mass] MCH [Entitic mass] by Automated count 25.9-34.0 [facility] MCHC Auto (RBC) [Mass/Vol]on 05-07-2024 MCHC (RBC) [Mass/Vol] MCHC [Mass/volume] by Automated count 29.9-35.2 [facility] MCV Auto (RBC) [Entitic vol] on 05-07-2024 MCV (RBC) [Entitic vol] MCV [Entitic volume] by Automated count High 80.0-94.0 [facility] Monocytes Auto (Bld) [#/Vol] on 05-07-2024 Monocytes (Bld) [#/Vol] Automated blood monocyte count High 0.3-0.8 [facility] Monocytes/100 WBC Auto (Bld) on 05-07-2024 Monocytes/100 WBC (Bld) Automated monocyte % High 1.7-12.0 [facility] Neutrophils Auto (Bld) [#/Vo l]on 05-07-2024 Neutrophils (Bld) [#/Vol] Neutrophils [#/volume] in Blood by Automated count 1.4-6.5 [facility] Neutrophils/100 WBC Auto (Bl d)on 05-07-2024 Neutrophils/100 WBC (Bld) Automated neutrophil % 43.0-75.0 [facility] No Panel Informationon 05-07 Eosinophils # (Auto) 0.1 10 3/uL 0.0-0.7 [facility] Immature Granulocyte # (Auto) 0.02 10 3/uL 0.00-0.03 [facility] Platelet mean volume Auto (B ld) [Entitic vol]on 05-07-2024 Platelet mean volume (Bld) [Entitic vol] Platelet mean volume [Entitic volume] in Blood by Automated count 9.5-13.5 [facility] Platelets Auto (Bld) [#/Vol] on 05-07-2024 Platelets (Bld) [#/Vol] Platelets [#/volume] in Blood by Automated count Low 150-450 [facility] RBC Auto (Bld) [#/Vol]on RBC (Bld) [#/Vol] Erythrocytes [#/volu me] in Blood by Automated count High 4.70-6.10 [facility] Serum or plasma albumin/glob ulin mass ratioon 05-07-2024 Albumin/Globulin [Mass ratio] Serum or plasma albumin/globulin mass ratio [facility] Serum or plasma anion gap de terminationon 05-07-2024 Anion gap [Moles/Vol] Serum or plasma anion gap determination [facility] Serum or plasma erythropoiet in (EPO) measurement (units/volume)on 05-07-2024 Erythropoietin (EPO) Qn Serum or plasma erythropoietin (EPO) measurement (units/volume) 2.6-18.5 [facility] Comment on above: SAIC UniC el DxI 800 Immunoassay SystemValues obtained with different assay methods or kits cannotbe used interchangeably. Results cannot be interpreted asabsolute evidence of the presence or absence of malignantdisease.Performed at: [address] [id number] Director: Yaw Neal PhD, Phone: [phone] Basophils Auto (Bld) [#/Vol] on 04-18-2024 Basophils (Bld) [#/Vol] Automated basophil count 0.0-0.1 [facility] Basophils/100 WBC Auto (Bld) on 04-18-2024 Basophils/100 WBC (Bld) Automated basophil % 0.2-2.0 [facility] Cholesterol in LDL Calc [Mas s/Vol]on 04-18-2024 Cholesterol in LDL [Mass/Vol] Cholesterol in LDL [Mass/volume] in Serum or Plasma by calculation [facility] Comment on above: <100 mg/dl [id number] 0-129 mg/dl NEAR OR ABOVE [id number] mg/dl BORDERLINE [id number] mg/dl HIGH>190 mg/dl VERY HIGH Cholesterol in VLDL Calc [Ma ss/Vol]on 04-18-2024 Cholesterol in VLDL [Mass/Vol] Cholesterol in VLDL [Mass/volume] in Serum or Plasma by calculation [facility] Eosinophils/100 WBC Auto (Bl d)on 04-18-2024 Eosinophils/100 WBC (Bld) Automated eosinophil % 0.9-7.0 [facility] Erythrocyte distribution wid th Auto (RBC) [Ratio]on 04-18-2024 Erythrocyte distribution width (RBC) [Ratio] Erythrocyte distribution width [Ratio] by Automated count 11.0-15.0 [facility] Estimated glomerular filtrat ion rate (GFR) non- Americanon 04-18-2024 GFR/1.73 sq M.predicted among non-blacks MDRD (S/P/Bld) [Vol rate/Area] Estimated glomerular filtration rate (GFR) non- >=60 mL/min/1.73 m 2 [facility] Globulin Calc (S) [Mass/Vol] on 04-18-2024 Globulin (S) [Mass/Vol] Serum globulin measurement by calculation (mass/volume) [facility] Hematocrit Auto (Bld) [Volum e fraction]on 04-18-2024 Hematocrit (Bld) [Volume fraction] Hematocrit [Volume Fraction] of Blood by Automated count High 42.0-54.0 [facility] Hemoglobin [Mass/volume] in Bloodon 04-18-2024 Hemoglobin (Bld) [Mass/Vol] Hemoglobin [Mass/volume] in Blood High 14.0-18.0 [facility] Laboratory - Chemistry and C hemistry - challengeon 04-18-2024 Albumin [Mass/Vol] 3.8 g/dL 3.4-5.0 [facility] ALP [Catalytic activity/Vol] 60 U/L 46-116 [facility] ALT [Catalytic activity/Vol] 26 U/L 16-63 [facility] AST [Catalytic activity/Vol] 20 U/L 15-37 [facility] Bilirubin [Mass/Vol] 1.2 mg/dL High 0.2-1.0 [facility] Calcium [Mass/Vol] 8.9 mg/dL 8.5-10.1 [facility] Chloride [Moles/Vol] 104 mmol/L 98-107 [facility] Cholesterol [Mass/Vol] 153 mg/dL <=200 [facility] Cholesterol in HDL [Mass/Vol] 42 mg/dL 40-60 [facility] Comment on above: > or =60 mg/dl - LOW CARDIOVASCULAR RISK<40 mg/dl - HIGH CARDIOVASCULAR RISK CO2 [Moles/Vol] 31.6 mmol/L 21.0-32.0 [facility] Creatinine [Mass/Vol] 1.24 mg/dL 0.70-1.30 [facility] GFR/1.73 sq M.predicted MDRD (S/P/Bld) [Vol rate/Area] mL/min/{1.73_m2} >=60 mL/min/1.73 m 2 [facility] Glucose [Mass/Vol] 99 mg/dL 74-106 [facility] Potassium [Moles/Vol] 4.3 mmol/L 3.5-5.1 [facility] Protein [Mass/Vol] 7.2 g/dL 6.4-8.2 [facility] Sodium [Moles/Vol] 141 mmol/L 136-145 [facility] Triglyceride [Mass/Vol] 125 mg/dL <=150 [facility] Urea nitrogen [Mass/Vol] 11.0 mg/dL 7.0-18.0 [facility] Urea nitrogen/Creatinin e [Mass ratio] 8.9 mg/mg [facility] Laboratory - Hematology and Cell countson 04-18-2024 Immature granulocytes/100 WBC (Bld) 0.7 % High 0.0-0.5 [facility] Leukocytes [#/volume] correc red for nucleated erythrocytes in Blood by Automated counon 04-18-2024 WBC corrected for nucl RBC Auto (Bld) [#/Vol] Leukocytes [#/volume] corrected for nucleated erythrocytes in Blood by Automated coun 4.0-11.0 [facility] Lymphocytes Auto (Bld) [#/Vo l]on 04-18-2024 Lymphocytes (Bld) [#/Vol] Lymphocytes [#/volume] in Blood by Automated count 1.2-3.8 [facility] Lymphocytes/100 WBC Auto (Bl d)on 04-18-2024 Lymphocytes/100 WBC (Bld) Lymphocytes/100 leukocytes in Blood by Automated count 20.5-60.0 [facility] MCH Auto (RBC) [Entitic mass ]on 04-18-2024 MCH (RBC) [Entitic mass] MCH [Entitic mass] by Automated count 25.9-34.0 [facility] MCHC Auto (RBC) [Mass/Vol]on 04-18-2024 MCHC (RBC) [Mass/Vol] MCHC [Mass/volume] by Automated count 29.9-35.2 [facility] MCV Auto (RBC) [Entitic vol] on 04-18-2024 MCV (RBC) [Entitic vol] MCV [Entitic volume] by Automated count High 80.0-94.0 [facility] Monocytes Auto (Bld) [#/Vol] on 04-18-2024 Monocytes (Bld) [#/Vol] Automated blood monocyte count 0.3-0.8 [facility] Monocytes/100 WBC Auto (Bld) on 04-18-2024 Monocytes/100 WBC (Bld) Automated monocyte % 1.7-12.0 [facility] Neutrophils Auto (Bld) [#/Vo l]on 04-18-2024 Neutrophils (Bld) [#/Vol] Neutrophils [#/volume] in Blood by Automated count 1.4-6.5 [facility] Neutrophils/100 WBC Auto (Bl d)on 04-18-2024 Neutrophils/100 WBC (Bld) Automated neutrophil % Low 43.0-75.0 [facility] No Panel Informationon 04-18 Eosinophils # (Auto) 0.5 10 3/uL 0.0-0.7 [facility] Immature Granulocyte # (Auto) 0.05 10 3/uL High 0.00-0.03 [facility] Nucleated Red Blood Cells/100 WBC 0 [facility] Platelet mean volume Auto (B ld) [Entitic vol]on 04-18-2024 Platelet mean volume (Bld) [Entitic vol] Platelet mean volume [Entitic volume] in Blood by Automated count 9.5-13.5 [facility] Platelets Auto (Bld) [#/Vol] on 04-18-2024 Platelets (Bld) [#/Vol] Platelets [#/volume] in Blood by Automated count 150-450 [facility] RBC Auto (Bld) [#/Vol]on RBC (Bld) [#/Vol] Erythrocytes [#/volu me] in Blood by Automated count High 4.70-6.10 [facility] Serum or plasma albumin/glob ulin mass ratioon 04-18-2024 Albumin/Globulin [Mass ratio] Serum or plasma albumin/globulin mass ratio [facility] Serum or plasma anion gap de terminationon 04-18-2024 Anion gap [Moles/Vol] Serum or plasma anion gap determination [facility] Serum or plasma total choles terol/high density lipoprotein (HDL) cholesterol mass jeromy 04-18-2024 Cholesterol.total/ Cholesterol in HDL [Mass ratio] Serum or plasma total cholesterol/high density lipoprotein (HDL) cholesterol mass rat [facility] Comment on above: 3.3 - 4.4 LOW RISK4. 4 - 7.1 AVERAGE RISK7.1 - 11.0 MODERATE RISK>11.0 HIGH RISK CBC AUTO DIFFon 08-02-2022 BASO # 0.1 103/ul Normal 0.0-0.1 [facility] Comment on above: Performed By: #### D ATCBC #### [facility] [address] [address] [address] Henok Aleman Basophils/100 WBC (Bld) 1.3 % Normal 0.2-2.0 [facility] Comment on above: Performed By: #### D ATCBC #### [facility] [address] [address] [address] Henok Aleman EO # 0.4 103/ul Normal 0.0-0.7 [facility] Comment on above: Performed By: #### D ATCBC #### [facility] [address] [place] [address] Dr. Henok Aleman Eosinophils/100 WBC (Bld) 5.9 % Normal 0.9-7.0 [facility] Comment on above: Performed By: #### D ATCBC #### [facility] [address] [place] [address] Dr. Henok Aleman Erythrocyte distribution width (RBC) [Ratio] 13.3 % Normal 11.0-15.0 [facility] Comment on above: Performed By: #### D ATCBC #### [facility] [address] [place] [address] Dr. Henok Aleman Hematocrit (Bld) [Volume fraction] 55.3 % Critically high 42.0-54.0 [facility] Comment on above: Performed By: #### D ATCBC #### [facility] [address] [place] [address] Dr. Henok Aleman Hemoglobin (Bld) [Mass/Vol] 18.5 g/dL Critically high 14.0-18.0 [facility] Comment on above: Performed By: #### D ATCBC #### [facility] [address] [place] [address] Dr. Henok Aleman IG # 0.08 10e3/ul Critically high 0.00-0.03 [facility] Comment on above: Performed By: #### D ATCBC #### [facility] [address] [place] [address] Dr. Henok Aleman IG % 1.3 % Critically high 0.0-0.5 [facility] Comment on above: Performed By: #### D ATCBC #### [facility] [address] [place] [address] Dr. Henok Aleman LYMPH # 2.4 103/ul Normal 1.2-3.8 [facility] Comment on above: Performed By: #### D ATCBC #### [facility] [address] [place] [address] Dr. Henok Aleman Lymphocytes/100 WBC (Bld) 36.7 % Normal 20.5-60.0 [facility] Comment on above: Performed By: #### D ATCBC #### [facility] [address] [place] [address] Dr. Henok Aleman MCH (RBC) [Entitic mass] 31.3 pg Normal 25.9-34.0 [facility] Comment on above: Performed By: #### D ATCBC #### [facility] [address] [place] [address] Dr. Henok Aleman MCHC (RBC) [Mass/Vol] 33.5 g/dL Normal 29.9-35.2 [facility] Comment on above: Performed By: #### D ATCBC #### [facility] [address] [place] [address] Dr. Henok Aleman MCV (RBC) [Entitic vol] 93.4 fL Normal 80.0-94.0 [facility] Comment on above: Performed By: #### D ATCBC #### [facility] [address] [place] [address] Dr. Henok Aleman MONO # 0.6 103/ul Normal 0.3-0.8 [facility] Comment on above: Performed By: #### D ATCBC #### [facility] [address] [place] [address] Dr. Henok Aleman Monocytes/100 WBC (Bld) 9.8 % Normal 1.7-12.0 [facility] Comment on above: Performed By: #### D ATCBC #### [facility] [address] [place] [address] Dr. Henok Aleman NEUT # 2.9 103/ul Normal 1.4-6.5 [facility] Comment on above: Performed By: #### D ATCBC #### [facility] [address] [place] [address] Dr. Henok Aleman Neutrophils/100 WBC (Bld) 45.0 % Normal 43.0-75.0 [facility] Comment on above: Performed By: #### D ATCBC #### [facility] [address] [place] [address] Dr. Henok Aleman Platelet mean volume (Bld) [Entitic vol] 9.7 fL Normal 9.5-13.5 [facility] Comment on above: Performed By: #### D ATCBC #### [facility] [address] [place] [address] Dr. Henok Aleman PLT 167 103/ul Normal 150-450 [facility] Comment on above: Performed By: #### D ATCBC #### [facility] [address] [place] [address] Dr. Henok Aleman RBC 5.92 106/ul Normal 4.70-6.10 [facility] Comment on above: Performed By: #### D ATCBC #### [facility] [address] [place] [address] Dr. Henok Aleman WBC 6.4 103/ul Normal 4.0-11.0 [facility] Comment on above: Performed By: #### D ATCBC #### [facility] [address] [place] [address] Dr. Henok Aleman DEBBI- BMP WITH LIPIDon 2022 Anion gap [Moles/Vol] 10.8 mmol/L Normal [facility] Comment on above: Performed By: #### D ATBMMerline DATPSA #### [facility] [address] [place] [address] Dr. Henok Aleman Calcium [Mass/Vol] 9.1 mg/dL Normal 8.5-10.1 [facility] Comment on above: Performed By: #### D ATBMP DATPSA #### [facility] [address] [place] [address] Dr. Henok Aleman Chloride [Moles/Vol] 104 mmol/L Normal 98-107 [facility] Comment on above: Performed By: #### D ATBMMerline DATPSA #### [facility] [address] [place] [address] Dr. Henok Aleman Cholesterol [Mass/Vol] 148 mg/dL Normal <=200 [facility] Comment on above: Performed By: #### D ATBMP DATPSA #### [facility] [address] [address] [address] Henok Aleman Cholesterol in HDL [Mass/Vol] 39 mg/dL Critically low 40-60 [facility] Comment on above: Performed By: #### D ATBMP, DATPSA #### [facility] [address] [place] [address] Dr. Henok Aleman Cholesterol in LDL [Mass/Vol] 87.2 mg/dL Normal [facility] Comment on above: Performed By: #### D ATBMP, DATPSA #### [facility] [address] [place] [address] Dr. Henok Aleman CO2 [Moles/Vol] 30.6 mmol/L Normal 21.0-32.0 [facility] Comment on above: Performed By: #### D ATBMP, DATPSA #### [facility] [address] [place] [address] Dr. Henok Aleman Creatinine [Mass/Vol] 1.08 mg/dL Normal 0.70-1.30 [facility] Comment on above: Performed By: #### D ATP, DATPSA #### [facility] [address] [place] [address] Dr. Henok Aleman EGFR-AF ARMENIAN >60 Normal >=60 [facility] Comment on above: Performed By: #### D ATP, DATPSA #### [facility] [address] [place] [address] Dr. Henok Aleman EGFR-NON AF ARMENIAN >60 Normal >=60 [facility] Comment on above: Performed By: #### D ATBMP, DATPSA #### [facility] [address] [place] [address] Dr. Henok Aleman Glucose [Mass/Vol] 97 mg/dL Normal 74-106 [facility] Comment on above: Performed By: #### D ATBMP, DATPSA #### [facility] [address] [place] [address] Dr. Henok Aleman HDL NORMAL > or = 60 mg/dl - LO W CARDIOVASCULAR RISK <40 mg/dl - HIGH CARDIOVASCULAR RISK Normal [facility] Comment on above: Performed By: #### D ATP, DATPSA #### [facility] [address] [address] [address] Henok Aleman LDL CALC NORMAL SEE BELOW Normal [facility] Comment on above: Result Comment: <100 mg/dl OPTIMAL 100 - 129 mg/dl NEAR OR ABOVE OPTIMAL 130 - 159 mg/dl BORDERLINE HIGH 160 - 189 mg/dl HIGH >190 mg/dl VERY HIGH Performed By: #### D ATP, DATPSA #### [facility] [address] [address] [address] Henok Aleman Potassium [Moles/Vol] 4.4 mmol/L Normal 3.5-5.1 [facility] Comment on above: Performed By: #### D [facility] DATPSA #### [facility] [address] [place] [address] Dr. Henok Aleman Sodium [Moles/Vol] 141 mmol/L Normal 136-145 [facility] Comment on above: Performed By: #### D ATMerline DATPSA #### [facility] [address] [place] [address] Dr. Henok Aleman Triglyceride [Mass/Vol] 109 mg/dL Normal <=150 [facility] Comment on above: Performed By: #### D [facility] DATPSA #### [facility] [address] [place] [address] Dr. Henok Aleman Urea nitrogen [Mass/Vol] 14.0 mg/dL Normal 7.0-18.0 [facility] Comment on above: Performed By: #### D ATMerline, DATPSA #### [facility] [address] [place] [address] Dr. Henok Aleman Urea nitrogen/Creatinin e [Mass ratio] 13.0 mg/mg Normal [facility] Comment on above: Performed By: #### D ATMerline, DATPSA #### [facility] [address] [place] [address] Dr. Henok Aleman VLDL CALC 21.8 mg/dL Normal [facility] Comment on above: Performed By: #### D ATP, DATPSA #### [facility] [address] [place] [address] Dr. Henok Aleman Coding Summary.on 07-01-2021 Coding Summary. CD:[id number] Gh0bWw+PG hlYWQ+[id number] SUI8CHHIRMXWBKV9YIZ9vxIN0VBkr J1HdajAw JmtuiNLoES91ITb0WHZ6lSrkMJbtv U2crZWhN3z8TsUfNK02vL46DFszES WdLmD9CbJdndftrWEc S6ugDiBzlGDpLfp+PHRhYmxlIHdpZ UAdYGytSLEoZbTioMskXC1uFt5bGQ VyLWNvbGxhcHNlOiBj g7npLROoBQhoKG1bxOyuW8KriTI1U PEnj7t9Gi78nGI+VBJvMCP6lZtpVK jqk257RbVgw4vbGYU0 nXMwSDwpRPU5Q31ae0K9CPIeFZDfB QH5aEX3bT2hkIqcvcsoJ1MmfFFnEy L2GFP4dYVcaF4okMlp rcofsE9vSwr+I70AGR8BLPKPCS4GA pr2Z1QhLbisfBZ+GC70QMXdPX04oY YmfVMhg8ktmGn2AlIw WTZtICM5nJqtIGftl7UrZTEaV85go ESus2V2IWNstYewiIItBpNpqQU6yQ 3aTAbjgrrhp0ljjzvw Lkmxr2inge41oE21Q90eXKjjWFHaF WT9CLPaHIRtiDkiwl6lyX2xHg4+ID tdk9wpm4ubxBu7AiBc NRPwatXznGetJKB9i5LcEr83W3Mie Ttrh9MtMpr8po08kJFlp4X3nZE2IY kjAMMopM8uWYnfYsI4 EDQzZlNccD72zDVeUKoaQl0fmWuct GddWD1dVLZpttkfEXYmhH0yUANbfS VuxGdiCG1aVBNnwrhj i443IrXfJUI7AQSrzMKhI4XiwJ2nT bYlSFHbDHSxG6EmkIVhHAvbZ145WK gdEcR7ENGoafRwU8Zu SNGqiLrsGsI5w0D5Ze8Yg9OjtbaiA XM2TZmlNJP1AbA2QmSuJhF2U7BrMk g0XOFdjShdTU4tP4Xj HGUsrozftqfiaQJ4WRRfBVWewG64z IVsFIomUh3qp1R6c702XJBvPKFsxH 25Cp2wwIriJIXbbHXS jU4kpqquq7fygtzaKpSjBUOuNNa2W Ml6DVSdlZziUlUzIGW3CeD2MFZ0pN QizS5bqGsqeuzsaR6b Oyc+Z94qvS7mXFR0APP9wopwMZDzw sKiQD44SD14O0JmIzirtIZatKD+PG KpycEywSbzQC6cMrNb y8zhx1ErQCdhB1SlNHLoKXfzQgo2X NTdXMY5oKS5uU7qAOIlGNnkr8Z3oX R7Z8BxxeOzxg2hx2je FBZaBAwxS79tuBGnc3T9JGFjqVN3K SKrkVadUzGmwQ09Qmw+PGNvbGdyb3 VnDyeri1uuj2blnDx9 IxEkYYIzwtBbiVczXIJ1l6GsCr99S 29sIHdpZHRoPSIxNSUiIHZhbGlnbj 3fbY5nGr0+PGNvbCB3 jTO4iO6uUGFjWvF2IZvmF289FcWdu WYcAmjky9zve9nsoFu8PgVbTNItll QwgHeeAFA6o9CwZq45 K66zQPrtCHGyLESvAKCaADSgoFznt k7obJ2kTa1+BG9yq7lmoy74cT08sK I+QFKoBVE9zQehUWwb TWYkkJ6bTKjfKsX2PTVyVjIqvS56i HDzUSbcLz9suAusyJhqRC4tBDHgyo lfc056HxHbv4gmEHLi mOAjPZgsJQB7I37ik4D3XZDxRQHpM QA4uTO7qD8tjPabahwkjPXvnHsmtd QbyAftWShrLMrqB658 KUBdoMosUgJxgHivcqDoNwStWPb3A 8YlMbf5PATlzJbeWN7mbKRuXUsnJu 2pjEntwQrdZK5gJSIj zmirw851TsChr5vtEQXdgRXrQHzuO ZZ5W58nl5D4DKIqAKUxJYJ6eTQ4eU 1hbGlnbjogbGVmdDsg sgHpfNllSAfqOZkkS695RWNtuCmsA eBdbyHuWGKnbOQ7QQ34SY04bXBba3 V0vPP1Z8NvXZWfygva qlofmKV3JBDmMOUekZ19Fi9anMqwK d7iTPBfEOQ1CRHouZMoF7QutG0nFd VtXJKqOYEyV0AlfWOt FVbfK072ZSfvCdM5TCEtitJpE3FvI TGpoMhpCkH7j5M7Kp0MZ9E5RN98XT 40aSFoj0F4eCY8D4Ti KJMaevbabqmcqWP4WUAdNTXkmO73J k7fxKgvAh2yKXByYKA3YSHuhPAiA0 FlqD9qVmXnOBVbJMLg E7EmoLLgKNneQ520PBxgVrR7YQKth jTtU2XwPQSuaKvdZhJ8s7X5La8JBS a3GA10VP77rLAjv1C6 xJQ4W0EtOBQyqcmuubntcES6MKPeO ENyaC55Ec9ftBhaHx2jDKLoEAE2LH WnkYQnD7SksM1fPjDe JRJsVRXhA5VjfYEkDEojY251GDzlE wI8PWDhxbCnP6DgQWZnxVmsLrE0g9 D8Iz3VDUUrEQ82ZNU5 oYP6FI53IR83Y5AaAaguqLNueBN+P HRhYmxlIHdpZHRoPScxMDAlJyBzdH fpVC6bDz8tGEQoJNIf bQhpmRBnJwKpa3goJFFcMDctIG1pt KvdU9TnhBH6EZJzv8a3Bg21E45dH1 JvdXA+ICFuhHG0zMV1 oM2zEkXnRwK2HAoxA606XtKbrLUjR wjoc0kvj7kfyPb8ArW7ORQtjgIhnV frTQE9y7OlCx00P93p VZegZZWtWFXwSZMnGYZrmMedka8pn G9wIi8+OPHhaLW9jGD7pJ8kKcPyUf K7GYzpZ698GsQyyFXe Pkorb2rxx3skgJq2RrXdRZEonsYqf OabTAD4s4FhVv94L0TkzWusa2ExFg e9wn09yRUmh2C7mTK2 J9IrXZQuyswqqDXkqYtwTZ3pNWRyz sfsSOLlaH4uXKOeX4w6BvZgBwI9QV wxC2EdxrM1LRVcjILf RAlzOPM8H93yr1Q3MXSdSJZlSQB3c WN9pT8yoIzgcsucaJHfcYtvgfJryN tdISyjZMypR236LAWq qZvjPUVazK1fRWKjsZXadYniKH3iV RJmmibfWd3GS3KMTCNiRUtCIiTBKH UJPV91BV18pYJik2N4 pZL5Y1KlUJGuorbgragpbJD1JRIoN FEfuI71yEFoZUkmSv9uu4Q2q157PH OeOKNesH40Ry6jpFlp FQTbgVTIbV1bgykdb3hkmekiDrYcS HRmJHl4AXx9HKWoqOolIzZyDUV7Qb O1LBB4aRGuvD5slQgb rdsnzB4zPzr+XAFbXTFxWIc5Kisce GQ+IPWuPTJ0tEnrIIgaFGTftZ8dSZ NuP7w2HeEaLkS3ISyn I9OpGYMreeovSn01hR8qZdMlVhY3Q KmwL5HsmwJ4CQSmbTFnZIynXFF2T7 5uv3X4JGMsKTUkLJU9 ySS1cA1pxDhfrtbkdGXjjByiwzAgw OjlOVgkNIogO554PFUcvZhrUrM9YW ztWFUkEV42IH25jWSs c8N1iLE9N0KmBSMjispnhcazjOL7W UAlXWIbaJ52xWWgZMvaVq2dd5N6b2 59MXPmNYQszM04Fd4v eGlbTNPkhLXHyR7vavyfi8avmfteZ qQaYYRrNIy5UTn6ARMjxUuhPsSwOE Q9EoR3XMT6yDPpwJ2k tXelwenlfR8uImd+TWFsZTwvdGQ+P PPoQVO0pMevGXfpKGLbtJ1sWLAoL0 b8HqFaIvC3VTlmZ9Ux PJDbvpheNm23cE2sQaKnHdJ8LVgbL 1VvteA1KFRvyLJfBRcsFWE2Z79cn9 Q4FOPkJYPqRWR6gBU3 qV1kzKreasamdZGrpCqacuMjxTpuZ UqpRTtwU625RVBayMmlNwikDiPIpt 1bGQ5eCpodbDT+PC90 si79O1WwCkakTvi7QRTkKLY4dSZ0l A6zNMGuBEltf5J5eKU2X7HdxqXqmw 7gl7jlETCiDSnvP49s rQUpx6B5KAAnrTN5YLMckXuvBhEdt G93Oyc+PHPdpJmdn8YuTplmv5tsi8 bspNa4VwLbQZJtivNy hDozHEA4a6WzYe11T44zMJyfUSAmI LWhFBKqUAXseTrmnf3anR5eSf2+PG DznDZ2jZE5xQ7tBjXw YbQ1GIhmZ338RuUkeKLdVuswj7kjk 2mrpTz2EpDvJEXewhPpxAhpTSZ6z0 OyJd24V6XgsTnoz4Nv Cxf3kz82rXBdv6L8xMS6S4QvSWHrr hauwNJtsXnvEJ7hTXJbysnaXCOsnI 2lZSKbZ9l4ZuDgTfL9 ZNlrP3LiziM4ZCQazGUwEFUtsDALt N5zaziqh6wonmupXuQvZCVyZLr9PU b8JWNumNckPrCyPFL8 SpX3WUF9gAVvkB7nxQoyhywzaB7dF yc+AFg1i1fowXXxAR8hjLW4BC54UB 61sNLcb0U0dKK4W0Lh SDUibglkoipidSN3RKJoDJRroR65O h8abQcdMl5qJJFwAIF1CWRwyQJdC0 QxgO3rGqPhCRRdCZPu M7InxKCrTPsdG469UAmiNeR7DGObi kIbD0FxEGDgkTkyEfO5v1P5Wy0OQE 47WJ48WP34hGOcz2W8 vXS4D2NdYXTczzjmnnysbEH7PFOwX XBsqP94Wt7ykQyoVf5yXJJaMNH8XQ FoqZFfG7CqdF6kFnYo OOYrXJTkO9FdsWPzPGnsD183QTowY iN9FAQdshVzI7ToJIFveLztQuG5u5 G5Lo6BOj00UU19TD65 tZPsa3Z3uSC8L4AsZFNlideoqmlid US4MZZjSXEbqI55Hw4wuKahFa0vFJ WhGMZ3FJSorRQoT5Mf fE5nZoBpUSVgZZOcK6ZltPOpLStpV 074HJtuSgC6IFNpbmUlO8FpPXYoqH woVrH9y1A4Wf0UQVya tbt2C1TlJcycbLZ+IO37RBHwPK37l IEhpSLif6vjhHq4EtEzSNUhSAO5dD peBIvki9IiOWOrZ00w bGFw (more content not included)... Normal [facility] Vital Signs Date Time Vital Sign Value Performing Clinician Facility 06-14-2024 09:15-0400 Body height 175.26 cm [facility] 06-14-2024 09:15-0400 Body mass index (BMI) [Ratio] 31.1 kg/m2 [facility] 06-14-2024 09:15-0400 Body weight 95.76 kg [facility] 06-14-2024 09:15-0400 Diastolic blood pressure 83 mm[Hg] [facility] 06-14-2024 09:15-0400 Heart rate 75 /min [facility] 06-14-2024 09:15-0400 Respiratory rate 12 /min [facility] 06-14-2024 09:15-0400 Systolic blood pressure 144 mm[Hg] [facility] 04-17-2024 09:21-0500 Body height 175.26 cm [facility] 04-17-2024 09:21-0500 Body mass index (BMI) [Ratio] 30.4 kg/m2 [facility] 04-17-2024 09:21-0500 Body weight 93.66 kg [facility] 04-17-2024 09:21-0500 Diastolic blood pressure 86 mm[Hg] [facility] 04-17-2024 09:21-0500 Heart rate 109 /min [facility] 04-17-2024 09:21-0500 Respiratory rate 12 /min [facility] 04-17-2024 09:21-0500 Systolic blood pressure 136 mm[Hg] [facility] 11-07-2023 14:18-0400 Body height 175.26 cm [facility] 11-07-2023 14:18-0400 Body mass index (BMI) [Ratio] 30.6 kg/m2 [facility] 11-07-2023 14:18-0400 Body weight 94.06 kg [facility] 11-07-2023 14:18-0400 Diastolic blood pressure 86 mm[Hg] [facility] 11-07-2023 14:18-0400 Heart rate 105 /min [facility] 11-07-2023 14:18-0400 Respiratory rate 12 /min [facility] 11-07-2023 14:18-0400 Systolic blood pressure 132 mm[Hg] [facility] 10-20-2023 10:41-0400 Body height 175.26 cm [facility] 10-20-2023 10:41-0400 Body mass index (BMI) [Ratio] 30.2 kg/m2 [facility] 10-20-2023 10:41-0400 Body weight 93.04 kg [facility] 10-20-2023 10:41-0400 Diastolic blood pressure 90 mm[Hg] [facility] 10-20-2023 10:41-0400 Heart rate 99 /min [facility] 10-20-2023 10:41-0400 Respiratory rate 12 /min [facility] 10-20-2023 10:41-0400 Systolic blood pressure 156 mm[Hg] [facility] 09-18-2023 14:31-0400 Body height 175.26 cm [facility] 09-18-2023 14:31-0400 Body mass index (BMI) [Ratio] 31.3 kg/m2 [facility] 09-18-2023 14:31-0400 Body weight 96.27 kg [facility] 09-18-2023 14:31-0400 Diastolic blood pressure 87 mm[Hg] [facility] 09-18-2023 14:31-0400 Heart rate 81 /min [facility] 09-18-2023 14:31-0400 Respiratory rate 12 /min [facility] 09-18-2023 14:31-0400 Systolic blood pressure 139 mm[Hg] [facility] 05-29-2023 12:57-0400 Body height 175.26 cm [facility] 05-29-2023 12:57-0400 Body mass index (BMI) [Ratio] 31 kg/m2 [facility] 05-29-2023 12:57-0400 Body weight 95.25 kg [facility] 09-14-2022 11:00-0400 Body height 175.26 cm Van Ball Other [facility] [employer] Other 09-14-2022 11:00-0400 Body mass index (BMI) [Ratio] 31.16 kg/m2 Van Ball Other [employer] Other 09-14-2022 11:00-0400 Body weight 95.71 kg Van Ball Other [employer] Other 09-14-2022 11:00-0400 Diastolic blood pressure 84 mm[Hg] Van Ball Other [employer] Other 09-14-2022 11:00-0400 Respiratory rate 12 /min Van Ball Other [employer] Other 09-14-2022 11:00-0400 Systolic blood pressure 113 mm[Hg] Van Ball Other [employer] Other 07-28-2022 11:45-0400 Body height 175.26 cm Van Ball Other [employer] Other 07-28-2022 11:45-0400 Body mass index (BMI) [Ratio] 31.13 kg/m2 Van Ball Other [employer] Other 07-28-2022 11:45-0400 Body weight 95.62 kg Van Ball Other [employer] Other 07-28-2022 11:45-0400 Diastolic blood pressure 92 mm[Hg] Van Kim Other [facility] [employer] Other 07-28-2022 11:45-0400 Respiratory rate 12 /min Van Kim Other [employer] Other 07-28-2022 11:45-0400 Systolic blood pressure 131 mm[Hg] Van Kim Other [facility] [employer] Other Encounters Encounter Date Encounter Type Care Provider Facility Start: 06-14-2024 End: 06-14-2024 ambulatory [facility] Work Phone: Start: 06-14-2024 End: 06-14-2024 Patient encounter procedure [facility] Physician [facility] Work Phone: Start: 06-03-2024 Non-patient / Non-visit [facility] Work Phone: Start: 05-16-2024 Non-patient / Non-visit [facility] Work Phone: Start: 05-07-2024 Non-patient / Non-visit [facility] Work Phone: Start: 04-18-2024 Non-patient / Non-visit [facility] Work Phone: Start: 04-17-2024 End: 04-17-2024 ambulatory [facility] Work Phone: Start: 04-17-2024 End: 04-17-2024 Patient encounter procedure [facility] Physician [facility] Work Phone: Start: 11-07-2023 End: 11-07-2023 ambulatory [facility] Work Phone: Start: 11-07-2023 End: 11-07-2023 Patient encounter procedure [facility] Physician [facility] Work Phone: Start: 10-20-2023 End: 10-20-2023 ambulatory [facility] Work Phone: Start: 10-20-2023 End: 10-20-2023 Patient encounter procedure [facility] Work Phone: Start: 09-18-2023 End: 09-18-2023 ambulatory [facility] Work Phone: Start: 09-18-2023 End: 09-18-2023 Encounter for general adult medical examination without abnormal findings [facility] Start: 09-18-2023 End: 09-18-2023 Patient encounter procedure [facility] Physician [facility] Work Phone: Start: 06-20-2023 End: 06-20-2023 ambulatory [facility] Work Phone: Start: 06-20-2023 End: 06-20-2023 Patient encounter procedure [facility] Physician [facility] Work Phone: Start: 05-29-2023 End: 05-29-2023 Patient encounter procedure [facility] Physician [facility] Work Phone: Start: 02-20-2023 End: 02-20-2023 ambulatory Van Kim Other [employer] Other Start: 02-20-2023 Office outpatient vi sit 15 minutes Van Kim [facility] Start: 09-14-2022 End: 09-14-2022 ambulatory Van Kim Other [employer] Other Start: 09-14-2022 Encounter for genera l adult medical examination without abnormal findings Van Kim [facility] Start: 09-14-2022 Periodic preventive med est patient 40-64yrs Van Kim [facility] Start: 08-02-2022 End: 08-03-[address] VAN KIM Facility:[facility] Start: 07-28-2022 End: 07-28-2022 ambulatory Van Kim Other [employer] Other Start: 07-28-2022 Office outpatient vi sit 15 minutes [facility] Start: 06-24-2022 End: 06-25-2022 ambulatory Sami ANDERSON Facility:[facility] Start: 06-24-2022 End: 06-24-2022 Patient encounter procedure Sami ANDERSON [facility] Start: 05-07-2019 Adult health examination Van Kim Other [employer] Other Procedures Date Procedure Procedure Detail Performing Clinician Start: 08-02-[address] LICEA [place] Comment on above: Performed By: #### D ATBMP, DATPSA #### [facility] [address] [place] [address] Dr. Henok Aleman Start: 02-07-2020 Cystoscopy Sami HUNT Start: 05-06-2016 General examination of patient Van Kim Other Start: 05-06-2016 Screening for malign ant neoplasm of colon Van Kim Other Plan of Treatment Date Care Activity Detail Author Comprehensive metabo lic 2000 panel - Serum or Plasma [facility] enter CT Chest W contrast IV [facility] EKG 12 channel panel [facility] Erythropoietin (EPO) [Units/volume] in Serum or Plasma [facility] enter XR Chest 2 Views [facility] Immunizations Immunization Date Immunization Notes Care Provider Hayden block 01-27-2016 tetanus and diphther ia toxoids, adsorbed, preservative free, for adult use (5 Lf of tetanus toxoid and 2 Lf of diphtheria toxoid) Van Kim Other [facility] NEGATED: Highlighted row has not occurred!01-10-2020 influenza virus vaccine, unspecified formulation Sami ANDERSON [facility] Payers Date Payer Category Payer Unknown [id number] 1965 Unknown [id number] 1958 Self-pay Unknown [id number] Unknown [id number] Social History Date Type Detail Facility Start: 01-10-2020 Tobacco smoking status Never s moked tobacco (finding) [facility] Tobacco smoking status Never [facility] Sex Assigned At Male [facility] Start: 1965 Sex Assigned At Male F [facility] if ever [facility] Work Phone: Start: 04-17-2024 End: 06-14-2024 Sex Male (finding) [facility] Clinical Notes 07-28-2022 to 04-17-2024 Note Date & Type Note Facility 04-17-2024 Evaluation note Diagnosis Onset Date Resolution HURST (dyspnea on exertion) acute April 17 9:10am Obesity acute April 17, 2024 9:10am Polycythemia acute March 9:10am Syncope acute April 17, 2024 9:10am Tachycardia acute April 17, 2024 9:10am Wheezing acute April 17, 2024 9:10am Asthma deleted April 17, 2024 9:10am HURST (dyspnea on exertion) acute June 14, 2024 8:58am Obesity acute June 14 8:58am Polycythemia acute June 14, 2024 8:58am Syncope acute June 14 8:58am [facility] Work Phone: [phone] 544-639212-04-2023 Evaluation note* Encounter Date Diagnosis Assessment Notes Treatment Notes Treatment Clinical Notes Feb, Acute bronchitis due to other specified organisms (ICD-10 - J20.8) Instructed to use Robitussin or Mucinex for cough, saline or Flonase NS for congestion, Tylenol for pain and fever. [employer] Other 06-28-2023 Evaluation note* Encounter Date Diagnosis [...] has resolved. High fiber diet, avoid straining [employer] Other 05-11-2023 Evaluation note* Encounter Date Diagnosis [...] index [BMI] 31.0-31.9, adult (ICD-10 - Z68.31) [employer] Other Evaluation + Plan note No data available for this section [facility] evaluation note* Diagnosis Onset Date Resolution Status Obesity acute Acute bronchitis due to other specified organisms noneactive Acute bronchitis due to other specified organisms noneactive [facility] Work Phone: Evaluation note* Diagnosis Onset Date Resolution Status Acute bronchitis due to other specified organisms noneactive Benign prostatic hyperplasia with lower urinary tract symptoms acute Coughing acute Screening for colon cancer a cute Screening PSA (prostate specific antigen) noneactive Wellness examination noneact dixie [facility] Work Phone: Evaluation note* Diagnosis Onset Date Resolution Status Benign prostatic hyperplasia with lower urinary tract symptoms acute Coughing acute Obesity acute Screening for colon cancer a cute Screening PSA (prostate specific antigen) noneactive Wellness examination noneact dixie Obesity acute [facility] Work Phone: Evaluation note* Diagnosis Onset Date Resolution Status Benign prostatic hyperplasia with lower urinary tract symptoms acute Coughing acute Obesity acute Screening for colon cancer a cute Screening PSA (prostate specific antigen) noneactive Wellness examination noneact dixie Coughing acute HURST (dyspnea on exertion) [place] Obesity acute Wheezing acute Chronic obstructive pulmonar y disease with (acute) exacerbation acute Polycythemia acute [facility] Work Phone: Evaluation note* Diagnosis Onset Date Resolution Status Admit Date Chronic obstructive pulmonar y disease with (acute) exacerbation acute April 17 9:10am HURST (dyspnea on exertion) acute April 17, 2024 9:10am Polycythemia acute March 9:10am Wheezing acute April 17, 2024 9:10am [facility] Work Phone: History general Narrative - Reported* Type Description Date Medical History Benign prostatic hyp erplasia with lower urinary tract symptoms Medical History Obesity due to excess calories Surgical History Open reduction and i nternal fixation (ORIF) - right ankle Hospitalization History see surgical history [employer] Other Hospital Discharge instructions No data available for this section [facility] progress note No data available for this section [facility] Summary Purpose Family History Relationship Condition Age at Onset Recorded Date/T jared father Diabetes mellitus Unknown Advance Directives Advance Directive Response Recorded Date/ Time Advance Directives No April 13, 2023 4:39pm Advance Directive Response Recorded Date/ Time Advance Directives No April 13, 2023 3:39pm Chief Complaint and Reason for Visit Chief Complaint productive cough, co ngestion - COVID NEGATIVE [phone] chest cold COVID - Reason for Visit Obesity Acute bronchitis due to other specified organisms Acute bronchitis due to other specified organisms Chief Complaint [phone] chest c old COVID - Wellness Reason [...] :10am Wheezing April 17, 2024 9 :10am Chief Complaint Admit Date wheezing April 17, 2024 9 :10am 1 mo f/u med change June 14, 2024 8:5 8am Reason for Visit Admit Date HURST (dyspnea on exertion) April 17, 2024 9:10am Obesity April 17, 2024 9 :10am Polycythemia April 17, 2024 9 :10am Syncope April 17, 2024 9 :10am Tachycardia April 17, 2024 9 :10am Wheezing April 17, 2024 9 :10am Asthma April 17, 2024 9 :10am HURST (dyspnea on exertion) June 14 8:58am Obesity June 14, 2024 8:5 8am Polycythemia June 14, 2024 8:5 8am Syncope June 14, 2024 8:5 8am Additional Source Comments Patient Care team informatio n (unrecognized section and content) Team Status: Active Member Role Status Dates Van Kim DO Primary Care Provider Active Team Status: Inactive Member Role Status Dates Van Kim DO Primary Care Provide r, Attending Provider [...] April 17, 2024 End: April 17, 2024 Team Status: Active Member Role Status Dates Van Kim , DO Primary Care Provide r, Attending Provider Active Start: April 18, 2024 Team Status: Active Member Role Status Dates Van Kim , DO Primary Care Provide r, Attending Provider Active Start: May 07, 2024 Team Status: Active Member Role Status Dates Van Kim , DO Primary Care Provide r, Attending Provider Active Start: May 16, 2024 Team Status: Active Member Role Status Dates Van Kim , DO Primary Care Provider Active Start: June 03, 2024 Bri Tay MD Attending Provider Active St art: June 03, 2024 Team Status: Inactive Member Role Status Dates Van Kim , DO Primary Care Provide r, Attending Provider Active Start: June 14, 2024 End: June 14, 2024 (unrecognized sect ion and content) No Status Records FoundNo Status Records Found INFORMATION SOURCE (unrecogn ized section and content) DATE CREATED AUTHOR 06/26/2022 [facility] DATE CREATED AUTHOR AUTHOR'S ORGANIZ ATION 08/03/2022 [facility] REASON FOR VISIT (unrecogniz ed section and content) [facility] [phone] Goals (unrecognized section and content) Goals may [...] BE BASED ON THE PRIMARY CLINICAL RECORDS. [employer] [facility]. provides no warranty or guarantee of the accuracy or completeness of information in this document.
== END 2024-07-02 08:32 | disposition home or self-care (01) ==
LOC: CT 08:31
PROVIDERS: PCP Internal Medicine; Visit Provider Internal Medicine Hematology & Oncology
DX: D45 Polycythemia vera (principal); K80.20 Calculus of gallbladder without cholecystitis without obstruction; K76.0 Fatty (change of) liver, not elsewhere classified; K42.9 Umbilical hernia without obstruction or gangrene
CPT/HCPCS: 74177; Q9967

== ENCOUNTER 2024-07-04 09:37 | Outpatient (OUT) | payer OTHER, SELFPAY ==
--- OUTSIDE RECORDS SUMMARY | 2024-07-04 09:43 | XMS_ITS | CCD ---
Author Organization [facility] CliniSyaz Care Team Providers Care Bridge Operator Name Role Phone VAN KIM Primary Care [...] Medication Allergies] Propensity to adverse reactions (disorder) [facility] Repository (1 source) patient allergy list reviewed by nurse or physicia Propensity to adverse reactions 7 Comment:Done ikeGPS Other Medications Current Medications Medication Drug Class(es) [...] September 20, 2023 12:00am Use with MDI [place] (No Known Home Meds) (1 source) Start: 09-18-2023 [place] (No Kn own Home Meds) Active September [...] Panel Informationon 06-03 Miscellaneous Test COMMENT . [facility] Comment on above: Test Ordered: [id number] Hered.Hemochromatosis, DNAHereditary Hemochromatosis Comment TG Reference Range: .Result:c.845G>A (p.Zee656Vfx) - Not Detectedc.187C>G (p.Yki14Gnj) - Not Detectedc.193A>T (p.Exp00Seu) - Not DetectedNot associated with increased risk [...] recommended for patientswho are homozygous for c.845G>A (p.Sie835Jgl) and have yetto experience clinical symptoms.Comments:The most common HFE variants associated with hereditaryhemochromatosis are c.845G>A (p.Hkf390Igj), c.187C>G(p.Vfd08Vtx), c.193A>T (p.Yzb90Lkn). While patientshomozygous for c.845G>A (p.Rfj686Ktn) are the most likelyto present clinical symptoms, less than 10% developclinically significant iron overload with tissue and organdamage.Genetic counseling is recommended to discuss the potentialclinical implications of positive results, as well asrecommendations for testing family members.Genetic Coordinators are available for health careproviders to discuss results at [phone] Details:Three variants analyzed:c.845G>A (p.Qae808Vdu), commonly referred to as C282Yc.187C>G (p.Vvb56Xcn), commonly referred to as H63Dc.193A>T (p.Inl90Yeq), commonly referred to as V18MWctfjfg/Limitations:DNA Analysis of the HFE gene (NM_[id number]) was [...] was developed and its performancecharacteristics determined by [employer]. It has not beencleared or approved by the Food and Drug Administration.References:Ike BR, Norman PC, [place] KV, Karthikeyan LW, Jamil ;[employer] [employer] Liver [employer].Diagnosis and management of hemochromatosis: 2011 practiceguideline by the [place] Association for the Study ofLiver Diseases. Hepatology. 2011 Sep;54(1):328-43. doi:10.1002/hep.26507. PMID: 12799898; PMCID: [id number].Nory G, Sp P, Aruna DW, Rema H, Kimberly O,Diego S, Fernando I, David M, Raul S. [facility] best practiceguidelines for the molecular genetic diagnosis ofhereditary hemochromatosis (HH). Eur J Hum More. 2016Apr;24(4):479-95. doi: 10.1038/ejhg.2015.128. Epub 2014. PMID: 23140766; PMCID: [id number].Reviewed by: [facility] TG Reference Range: .Technical Component performed at [facility] RTPProfessional Component performed by:Authy Myra Gonzales, Ph.D., FACMGDirector, Molecular Jswiloww818 Isiah MOHAMUD [id number] at: TG - [facility] [id number] [place], [place] [id number] Director: Bekah Curran [facility], Phone: [phone] at: - [facility] [id number] [place], [place] [id number] Director: Yaw Neal PhD, Phone: [phone] Basophils Auto (Bld) [#/Vol] on 05-07-2024 Basophils (Bld) [#/Vol] Automated basophil count 0.0-0.1 [facility] Basophils/100 WBC Auto (Bld) on 05-07-2024 Basophils/100 WBC (Bld) Automated basophil % 0.2-2.0 [facility] Eosinophils/100 WBC Auto (Bl d)on 05-07-2024 Eosinophils/100 WBC (Bld) Automated eosinophil % 0.9-7.0 [facility] Erythrocyte distribution wid th Auto (RBC) [Ratio]on 05-07-2024 Erythrocyte distribution width (RBC) [Ratio] Erythrocyte distribution width [Ratio] by Automated count 11.0-15.0 [facility] Estimated glomerular filtrat ion rate (GFR) non- Americanon 05-07-2024 GFR/1.73 sq M.predicted among non-blacks MDRD (S/P/Bld) [Vol rate/Area] Estimated glomerular filtration rate (GFR) non- Low >=60 mL/min/1.73 m 2 [facility] Globulin Calc (S) [Mass/Vol] on 05-07-2024 Globulin (S) [Mass/Vol] Serum globulin measurement by calculation (mass/volume) [facility] Hematocrit Auto (Bld) [Volum e fraction]on 05-07-2024 Hematocrit (Bld) [Volume fraction] Hematocrit [Volume Fraction] of Blood by Automated count High 42.0-54.0 [facility] Hemoglobin [Mass/volume] in Bloodon 05-07-2024 Hemoglobin (Bld) [Mass/Vol] Hemoglobin [Mass/volume] in Blood High 14.0-18.0 [facility] Iron binding capacity [Mass/ volume] in Serum or Plasmaon 05-07-2024 Iron binding capacity [Mass/Vol] Iron binding capacity [Mass/volume] in Serum or Plasma 250.0-450.0 [facility] Iron saturation [Mass Fracti on] in Serum or Plasmaon 05-07-2024 Iron saturation [Mass fraction] Iron saturation [Mass Fraction] in Serum or Plasma [facility] Laboratory - Chemistry and C hemistry - challengeon 05-07-2024 Albumin [Mass/Vol] 3.4 g/dL 3.4-5.0 [facility] ALP [Catalytic activity/Vol] 61 U/L 46-116 [facility] ALT [Catalytic activity/Vol] 41 U/L 16-63 [facility] AST [Catalytic activity/Vol] 31 U/L 15-37 [facility] Bilirubin [Mass/Vol] 0.7 mg/dL 0.2-1.0 [facility] Calcium [Mass/Vol] 8.9 mg/dL 8.5-10.1 [facility] Chloride [Moles/Vol] 102 mmol/L 98-107 [facility] CO2 [Moles/Vol] 32.7 mmol/L High 21.0-32.0 [facility] Creatinine [Mass/Vol] 1.31 mg/dL High 0.70-1.30 [facility] Ferritin [Mass/Vol] 569.0 ng/mL High 26.0-388.0 [facility] GFR/1.73 sq M.predicted MDRD (S/P/Bld) [Vol rate/Area] mL/min/{1.73_m2} >=60 mL/min/1.73 m 2 [facility] Glucose [Mass/Vol] 83 mg/dL 74-106 [facility] Iron [Mass/Vol] 57.0 ug/dL Low 65.0-175.0 [facility] Potassium [Moles/Vol] 4.1 mmol/L 3.5-5.1 [facility] Protein [Mass/Vol] 7.3 g/dL 6.4-8.2 [facility] Sodium [Moles/Vol] 138 mmol/L 136-145 [facility] Urea nitrogen [Mass/Vol] 13.0 mg/dL 7.0-18.0 [facility] Urea nitrogen/Creatinin e [Mass ratio] 9.9 mg/mg [facility] Laboratory - Hematology and Cell countson 05-07-2024 Immature granulocytes/100 WBC (Bld) 0.4 % 0.0-0.5 [facility] Leukocytes [#/volume] correc red for nucleated erythrocytes in Blood by Automated counon 05-07-2024 WBC corrected for nucl RBC Auto (Bld) [#/Vol] Leukocytes [#/volume] corrected for nucleated erythrocytes in Blood by Automated coun 4.0-11.0 [facility] Lymphocytes Auto (Bld) [#/Vo l]on 05-07-2024 Lymphocytes (Bld) [#/Vol] Lymphocytes [#/volume] in Blood by Automated count 1.2-3.8 [facility] Lymphocytes/100 WBC Auto (Bl d)on 05-07-2024 Lymphocytes/100 WBC (Bld) Lymphocytes/100 leukocytes in Blood by Automated count 20.5-60.0 [facility] MCH Auto (RBC) [Entitic mass ]on 05-07-2024 MCH (RBC) [Entitic mass] MCH [Entitic mass] by Automated count 25.9-34.0 [facility] MCHC Auto (RBC) [Mass/Vol]on 05-07-2024 MCHC (RBC) [Mass/Vol] MCHC [Mass/volume] by Automated count 29.9-35.2 [facility] MCV Auto (RBC) [Entitic vol] on 05-07-2024 MCV (RBC) [Entitic vol] MCV [Entitic volume] by Automated count High 80.0-94.0 [facility] Monocytes Auto (Bld) [#/Vol] on 05-07-2024 Monocytes (Bld) [#/Vol] Automated blood monocyte count High 0.3-0.8 [facility] Monocytes/100 WBC Auto (Bld) on 05-07-2024 Monocytes/100 WBC (Bld) Automated monocyte % High 1.7-12.0 [facility] Neutrophils Auto (Bld) [#/Vo l]on 05-07-2024 Neutrophils (Bld) [#/Vol] Neutrophils [#/volume] in Blood by Automated count 1.4-6.5 [facility] Neutrophils/100 WBC Auto (Bl d)on 05-07-2024 Neutrophils/100 WBC (Bld) Automated neutrophil % 43.0-75.0 [facility] No Panel Informationon 05-07 Eosinophils # (Auto) 0.1 10 3/uL 0.0-0.7 [facility] Immature Granulocyte # (Auto) 0.02 10 3/uL 0.00-0.03 [facility] Platelet mean volume Auto (B ld) [Entitic vol]on 05-07-2024 Platelet mean volume (Bld) [Entitic vol] Platelet mean volume [Entitic volume] in Blood by Automated count 9.5-13.5 [facility] Platelets Auto (Bld) [#/Vol] on 05-07-2024 Platelets (Bld) [#/Vol] Platelets [#/volume] in Blood by Automated count Low 150-450 [facility] RBC Auto (Bld) [#/Vol]on RBC (Bld) [#/Vol] Erythrocytes [#/volu me] in Blood by Automated count High 4.70-6.10 [facility] Serum or plasma albumin/glob ulin mass ratioon 05-07-2024 Albumin/Globulin [Mass ratio] Serum or plasma albumin/globulin mass ratio [facility] Serum or plasma anion gap de terminationon 05-07-2024 Anion gap [Moles/Vol] Serum or plasma anion gap determination [facility] Serum or plasma erythropoiet in (EPO) measurement (units/volume)on 05-07-2024 Erythropoietin (EPO) Qn Serum or plasma erythropoietin (EPO) measurement (units/volume) 2.6-18.5 [facility] Comment on above: [employer] DxI 800 Immunoassay SystemValues obtained with different assay methods or kits cannotbe used interchangeably. Results cannot be interpreted asabsolute evidence of the presence or absence of malignantdisease.Performed at: [address] [id number] Director: Yaw Neal PhD, Phone: [phone] Basophils Auto (Bld) [#/Vol] on 04-18-2024 Basophils (Bld) [#/Vol] Automated basophil count 0.0-0.1 [facility] Basophils/100 WBC Auto (Bld) on 04-18-2024 Basophils/100 WBC (Bld) Automated basophil % 0.2-2.0 [facility] Cholesterol in LDL Calc [Mas s/Vol]on 04-18-2024 Cholesterol in LDL [Mass/Vol] Cholesterol in LDL [Mass/volume] in Serum or Plasma by calculation [facility] Comment on above: <100 mg/dl [id number] 0-129 mg/dl NEAR OR ABOVE [id number] mg/dl BORDERLINE [id number] mg/dl HIGH>190 mg/dl VERY HIGH Cholesterol in VLDL Calc [Ma ss/Vol]on 04-18-2024 Cholesterol in VLDL [Mass/Vol] Cholesterol in VLDL [Mass/volume] in Serum or Plasma by calculation [facility] Eosinophils/100 WBC Auto (Bl d)on 04-18-2024 Eosinophils/100 WBC (Bld) Automated eosinophil % 0.9-7.0 [facility] Erythrocyte distribution wid th Auto (RBC) [Ratio]on 04-18-2024 Erythrocyte distribution width (RBC) [Ratio] Erythrocyte distribution width [Ratio] by Automated count 11.0-15.0 [facility] Estimated glomerular filtrat ion rate (GFR) non- Americanon 04-18-2024 GFR/1.73 sq M.predicted among non-blacks MDRD (S/P/Bld) [Vol rate/Area] Estimated glomerular filtration rate (GFR) non- >=60 mL/min/1.73 m 2 [facility] Globulin Calc (S) [Mass/Vol] on 04-18-2024 Globulin (S) [Mass/Vol] Serum globulin measurement by calculation (mass/volume) [facility] Hematocrit Auto (Bld) [Volum e fraction]on 04-18-2024 Hematocrit (Bld) [Volume fraction] Hematocrit [Volume Fraction] of Blood by Automated count High 42.0-54.0 [facility] Hemoglobin [Mass/volume] in Bloodon 04-18-2024 Hemoglobin (Bld) [Mass/Vol] Hemoglobin [Mass/volume] in Blood High 14.0-18.0 [facility] Laboratory - Chemistry and C hemistry - challengeon 04-18-2024 Albumin [Mass/Vol] 3.8 g/dL 3.4-5.0 [facility] ALP [Catalytic activity/Vol] 60 U/L 46-116 [facility] ALT [Catalytic activity/Vol] 26 U/L 16-63 [facility] AST [Catalytic activity/Vol] 20 U/L 15-37 [facility] Bilirubin [Mass/Vol] 1.2 mg/dL High 0.2-1.0 [facility] Calcium [Mass/Vol] 8.9 mg/dL 8.5-10.1 [facility] Chloride [Moles/Vol] 104 mmol/L 98-107 [facility] Cholesterol [Mass/Vol] 153 mg/dL <=200 [facility] Cholesterol in HDL [Mass/Vol] 42 mg/dL 40-60 [facility] Comment on above: > or =60 mg/dl - LOW CARDIOVASCULAR RISK<40 mg/dl - HIGH CARDIOVASCULAR RISK CO2 [Moles/Vol] 31.6 mmol/L 21.0-32.0 [facility] Creatinine [Mass/Vol] 1.24 mg/dL 0.70-1.30 [facility] GFR/1.73 sq M.predicted MDRD (S/P/Bld) [Vol rate/Area] mL/min/{1.73_m2} >=60 mL/min/1.73 m 2 [facility] Glucose [Mass/Vol] 99 mg/dL 74-106 [facility] Potassium [Moles/Vol] 4.3 mmol/L 3.5-5.1 [facility] Protein [Mass/Vol] 7.2 g/dL 6.4-8.2 [facility] Sodium [Moles/Vol] 141 mmol/L 136-145 [facility] Triglyceride [Mass/Vol] 125 mg/dL <=150 [facility] Urea nitrogen [Mass/Vol] 11.0 mg/dL 7.0-18.0 [facility] Urea nitrogen/Creatinin e [Mass ratio] 8.9 mg/mg [facility] Laboratory - Hematology and Cell countson 04-18-2024 Immature granulocytes/100 WBC (Bld) 0.7 % High 0.0-0.5 [facility] Leukocytes [#/volume] correc red for nucleated erythrocytes in Blood by Automated counon 04-18-2024 WBC corrected for nucl RBC Auto (Bld) [#/Vol] Leukocytes [#/volume] corrected for nucleated erythrocytes in Blood by Automated coun 4.0-11.0 [facility] Lymphocytes Auto (Bld) [#/Vo l]on 04-18-2024 Lymphocytes (Bld) [#/Vol] Lymphocytes [#/volume] in Blood by Automated count 1.2-3.8 [facility] Lymphocytes/100 WBC Auto (Bl d)on 04-18-2024 Lymphocytes/100 WBC (Bld) Lymphocytes/100 leukocytes in Blood by Automated count 20.5-60.0 [facility] MCH Auto (RBC) [Entitic mass ]on 04-18-2024 MCH (RBC) [Entitic mass] MCH [Entitic mass] by Automated count 25.9-34.0 [facility] MCHC Auto (RBC) [Mass/Vol]on 04-18-2024 MCHC (RBC) [Mass/Vol] MCHC [Mass/volume] by Automated count 29.9-35.2 [facility] MCV Auto (RBC) [Entitic vol] on 04-18-2024 MCV (RBC) [Entitic vol] MCV [Entitic volume] by Automated count High 80.0-94.0 [facility] Monocytes Auto (Bld) [#/Vol] on 04-18-2024 Monocytes (Bld) [#/Vol] Automated blood monocyte count 0.3-0.8 [facility] Monocytes/100 WBC Auto (Bld) on 04-18-2024 Monocytes/100 WBC (Bld) Automated monocyte % 1.7-12.0 [facility] Neutrophils Auto (Bld) [#/Vo l]on 04-18-2024 Neutrophils (Bld) [#/Vol] Neutrophils [#/volume] in Blood by Automated count 1.4-6.5 [facility] Neutrophils/100 WBC Auto (Bl d)on 04-18-2024 Neutrophils/100 WBC (Bld) Automated neutrophil % Low 43.0-75.0 [facility] No Panel Informationon 04-18 Eosinophils # (Auto) 0.5 10 3/uL 0.0-0.7 [facility] Immature Granulocyte # (Auto) 0.05 10 3/uL High 0.00-0.03 [facility] Nucleated Red Blood Cells/100 WBC 0 [facility] Platelet mean volume Auto (B ld) [Entitic vol]on 04-18-2024 Platelet mean volume (Bld) [Entitic vol] Platelet mean volume [Entitic volume] in Blood by Automated count 9.5-13.5 [facility] Platelets Auto (Bld) [#/Vol] on 04-18-2024 Platelets (Bld) [#/Vol] Platelets [#/volume] in Blood by Automated count 150-450 [facility] RBC Auto (Bld) [#/Vol]on RBC (Bld) [#/Vol] Erythrocytes [#/volu me] in Blood by Automated count High 4.70-6.10 [facility] Serum or plasma albumin/glob ulin mass ratioon 04-18-2024 Albumin/Globulin [Mass ratio] Serum or plasma albumin/globulin mass ratio [facility] Serum or plasma anion gap de terminationon 04-18-2024 Anion gap [Moles/Vol] Serum or plasma anion gap determination [facility] Serum or plasma total choles terol/high density lipoprotein (HDL) cholesterol mass jeromy 04-18-2024 Cholesterol.total/ Cholesterol in HDL [Mass ratio] Serum or plasma total cholesterol/high density lipoprotein (HDL) cholesterol mass rat [facility] Comment on above: 3.3 - 4.4 LOW RISK4. 4 - 7.1 AVERAGE RISK7.1 - 11.0 MODERATE RISK>11.0 HIGH RISK CBC AUTO DIFFon 08-02-2022 BASO # 0.1 103/ul Normal 0.0-0.1 [facility] Comment on above: Performed By: #### D ATCBC #### [facility] [address] [address] [address] Henok Aleman Basophils/100 WBC (Bld) 1.3 % Normal 0.2-2.0 [facility] Comment on above: Performed By: #### D ATCBC #### [facility] [address] [address] [address] Henok Aleman EO # 0.4 103/ul Normal 0.0-0.7 [facility] Comment on above: Performed By: #### D ATCBC #### [facility] [address] [place] [address] Dr. Henok Aleman Eosinophils/100 WBC (Bld) 5.9 % Normal 0.9-7.0 [facility] Comment on above: Performed By: #### D ATCBC #### [facility] [address] [place] [address] Dr. Henok Aleman Erythrocyte distribution width (RBC) [Ratio] 13.3 % Normal 11.0-15.0 [facility] Comment on above: Performed By: #### D ATCBC #### [facility] [address] [place] [address] Dr. Henok Aleman Hematocrit (Bld) [Volume fraction] 55.3 % Critically high 42.0-54.0 [facility] Comment on above: Performed By: #### D ATCBC #### [facility] [address] [place] [address] Dr. Henok Aleman Hemoglobin (Bld) [Mass/Vol] 18.5 g/dL Critically high 14.0-18.0 [facility] Comment on above: Performed By: #### D ATCBC #### [facility] [address] [place] [address] Dr. Henok Aleman IG # 0.08 10e3/ul Critically high 0.00-0.03 [facility] Comment on above: Performed By: #### D ATCBC #### [facility] [address] [place] [address] Dr. Henok Aleman IG % 1.3 % Critically high 0.0-0.5 [facility] Comment on above: Performed By: #### D ATCBC #### [facility] [address] [place] [address] Dr. Henok Aleman LYMPH # 2.4 103/ul Normal 1.2-3.8 [facility] Comment on above: Performed By: #### D ATCBC #### [facility] [address] [place] [address] Dr. Henok Aleman Lymphocytes/100 WBC (Bld) 36.7 % Normal 20.5-60.0 [facility] Comment on above: Performed By: #### D ATCBC #### [facility] [address] [place] [address] Dr. Henok Aleman MCH (RBC) [Entitic mass] 31.3 pg Normal 25.9-34.0 [facility] Comment on above: Performed By: #### D ATCBC #### [facility] [address] [place] [address] Dr. Henok Aleman MCHC (RBC) [Mass/Vol] 33.5 g/dL Normal 29.9-35.2 [facility] Comment on above: Performed By: #### D ATCBC #### [facility] [address] [place] [address] Dr. Henok Aleman MCV (RBC) [Entitic vol] 93.4 fL Normal 80.0-94.0 [facility] Comment on above: Performed By: #### D ATCBC #### [facility] [address] [place] [address] Dr. Henok Aleman MONO # 0.6 103/ul Normal 0.3-0.8 [facility] Comment on above: Performed By: #### D ATCBC #### [facility] [address] [place] [address] Dr. Henok Aleman Monocytes/100 WBC (Bld) 9.8 % Normal 1.7-12.0 [facility] Comment on above: Performed By: #### D ATCBC #### [facility] [address] [place] [address] Dr. Henok Aleman NEUT # 2.9 103/ul Normal 1.4-6.5 [facility] Comment on above: Performed By: #### D ATCBC #### [facility] [address] [place] [address] Dr. Henok Aleman Neutrophils/100 WBC (Bld) 45.0 % Normal 43.0-75.0 [facility] Comment on above: Performed By: #### D ATCBC #### [facility] [address] [place] [address] Dr. Henok Aleman Platelet mean volume (Bld) [Entitic vol] 9.7 fL Normal 9.5-13.5 [facility] Comment on above: Performed By: #### D ATCBC #### [facility] [address] [place] [address] Dr. Henok Aleman PLT 167 103/ul Normal 150-450 [facility] Comment on above: Performed By: #### D ATCBC #### [facility] [address] [place] [address] Dr. Henok Aleman RBC 5.92 106/ul Normal 4.70-6.10 [facility] Comment on above: Performed By: #### D ATCBC #### [facility] [address] [place] [address] Dr. Henok Aleman WBC 6.4 103/ul Normal 4.0-11.0 [facility] Comment on above: Performed By: #### D ATCBC #### [facility] [address] [place] [address] Dr. Henok Aleman DEBBI- BMP WITH LIPIDon 2022 Anion gap [Moles/Vol] 10.8 mmol/L Normal [facility] Comment on above: Performed By: #### D ATBMMerline DATPSA #### [facility] [address] [place] [address] Dr. Henok Aleman Calcium [Mass/Vol] 9.1 mg/dL Normal 8.5-10.1 [facility] Comment on above: Performed By: #### D ATBMP DATPSA #### [facility] [address] [place] [address] Dr. Henok Aleman Chloride [Moles/Vol] 104 mmol/L Normal 98-107 [facility] Comment on above: Performed By: #### D ATBMMerline DATPSA #### [facility] [address] [place] [address] Dr. Henok Aleman Cholesterol [Mass/Vol] 148 mg/dL Normal <=200 [facility] Comment on above: Performed By: #### D ATBMP DATPSA #### [facility] [address] [address] [address] Henok Aleman Cholesterol in HDL [Mass/Vol] 39 mg/dL Critically low 40-60 [facility] Comment on above: Performed By: #### D ATBMP, DATPSA #### [facility] [address] [place] [address] Dr. Henok Aleman Cholesterol in LDL [Mass/Vol] 87.2 mg/dL Normal [facility] Comment on above: Performed By: #### D ATBMP, DATPSA #### [facility] [address] [place] [address] Dr. Henok Aleman CO2 [Moles/Vol] 30.6 mmol/L Normal 21.0-32.0 [facility] Comment on above: Performed By: #### D ATBMP, DATPSA #### [facility] [address] [place] [address] Dr. Henok Aleman Creatinine [Mass/Vol] 1.08 mg/dL Normal 0.70-1.30 [facility] Comment on above: Performed By: #### D ATP, DATPSA #### [facility] [address] [place] [address] Dr. Henok Aleman EGFR-AF SUDANESE >60 Normal >=60 [facility] Comment on above: Performed By: #### D ATP, DATPSA #### [facility] [address] [place] [address] Dr. Henok Aleman EGFR-NON AF SUDANESE >60 Normal >=60 [facility] Comment on above: Performed By: #### D ATBMP, DATPSA #### [facility] [address] [place] [address] Dr. Henok Aleman Glucose [Mass/Vol] 97 mg/dL Normal 74-106 [facility] Comment on above: Performed By: #### D ATBMP, DATPSA #### [facility] [address] [place] [address] Dr. Henok Aleman HDL NORMAL > or = 60 mg/dl - LO W CARDIOVASCULAR RISK <40 mg/dl - HIGH CARDIOVASCULAR RISK Normal [facility] Comment on above: Performed By: #### D ATP, DATPSA #### [facility] [address] [address] [address] Henok Aleman LDL CALC NORMAL SEE BELOW Normal [facility] Comment on above: Result Comment: <100 mg/dl OPTIMAL 100 - 129 mg/dl NEAR OR ABOVE OPTIMAL 130 - 159 mg/dl BORDERLINE HIGH 160 - 189 mg/dl HIGH >190 mg/dl VERY HIGH Performed By: #### D ATP, DATPSA #### [facility] [address] [address] [address] Henok Aleman Potassium [Moles/Vol] 4.4 mmol/L Normal 3.5-5.1 [facility] Comment on above: Performed By: #### D [facility] DATPSA #### [facility] [address] [place] [address] Dr. Henok Aleman Sodium [Moles/Vol] 141 mmol/L Normal 136-145 [facility] Comment on above: Performed By: #### D ATMerline DATPSA #### [facility] [address] [place] [address] Dr. Henok Aleman Triglyceride [Mass/Vol] 109 mg/dL Normal <=150 [facility] Comment on above: Performed By: #### D [facility] DATPSA #### [facility] [address] [place] [address] Dr. Henok Aleman Urea nitrogen [Mass/Vol] 14.0 mg/dL Normal 7.0-18.0 [facility] Comment on above: Performed By: #### D ATMerline, DATPSA #### [facility] [address] [place] [address] Dr. Henok Aleman Urea nitrogen/Creatinin e [Mass ratio] 13.0 mg/mg Normal [facility] Comment on above: Performed By: #### D ATMerline, DATPSA #### [facility] [address] [place] [address] Dr. Henok Aleman VLDL CALC 21.8 mg/dL Normal [facility] Comment on above: Performed By: #### D ATP, DATPSA #### [facility] [address] [place] [address] Dr. Henok Aleman Coding Summary.on 07-01-2021 Coding Summary. [id number] Gh0bWw+PG hlYWQ+AQ2SJGJbC65wuJUbuA9BD5e UAY1UMBJHBQIHGF3QGM9uzHC9RTuz G0IfavHg YbbbgSFyNG63DEr1BVL7zWkzAWrnz Q4poEDeR0u6EoNdZW08pJ34COezFJ CyTqC4SlIlexjvoWXa Q5kiEfLshDYqUdq+PHRhYmxlIHdpZ TLzZAslAWAqWrSybEvqWR8gEz1rFZ VyLWNvbGxhcHNlOiBj d5dpVUIpNSgaVT6agYqcD1HeePJ8B TWgt1m7Ow96dZT+BWSmBKS7cOagEQ zdj752WyHux7efOBX0 bMHnOSmtKPD5O77lt5B2ITOdVUJdM AB2iNT9iH7tpZlunqvcN0AqdGRvCn C6VJR3eOStuN5esCtc esmdqG1bIun+Y32RQT5OCHQPGA0NW sf2K7PqSjvboJK+MM61XXNrOK88gS GvqYTta2lqoHb1MjYj WAHdTTC5dHcxHCrgw0UpEZTcC20tq LCbq5B9DSNwmTtamXJoRjGzvNI6vM 0aGKqejoabu8ymoswp Rgcrs7mlro28qN49A05aGJbaXGWzN XR6QIQaORGzqCdyca0iwG8tVz7+ID leg3eza6wusEy4WtHh SABpdyJnqEshRQB5f4ZgUh18E7Ztv Kmeq7KdLir1op03pIQaw9M4wXM3HP tqFILohA0eKNirBxJ4 RWRqIvYbwC98fIQdXBznCd1zkUdan HzmSX5pFPRfzudzPEFgkR0uOQMnlP FczGqtTY8gXMIlhzkm c460NoKyBMV6MXIrlOZjU4AscA3gR nZtZEHaNGQmY5IhfGGaTFxoM324RW beInV2EFStqtKnB6Py GZOrfSdhXmD1r5J3Gb8Qp4OzmcblJ VB4PMidSCC1WgR7BkRsDhQ7K4ElNl c2OOEuuKfqKZ0dM6Hl KMLzmkfdicbbpOX7KLIpWINmgI27m XTxFPteUk8cu5X6k924ECUpRDCtpP 64Ia2ygLdfOURhiINV bE8rnmjte2fqnmzoEzIkJQFcLFt0V Up7EGNsfWueBdRxFUL7HkY7FUI4hO JrbU0iiTvldhmbsI2u Oyc+P89fzM1zCCA2NVK2tnwiQGIjy oUfPG58QW96W4GxYdqckQRxjBL+PG JlwbJuyXxgZF5lDzQd j5bus2XaLAhxQ6ZmFMFpEXfiEfz1G WAxKKV4uDA9uL5hVXQrQFpjd8U1qC O3W0VufkVzog1ei6uc LOFjZLjtI84yjWXqc4R8LJUztFB2E FLprEpuHiQkbL90Wms+PGNvbGdyb3 XuTquzv7fce7etnBc1 LeVhVEDfjvRbbXngWTG1s2UrGj24R 29sIHdpZHRoPSIxNSUiIHZhbGlnbj 5qgB5dUi8+PGNvbCB3 mDP2uY4gRDPeFzD2UCzkS011PeCto WHqZyrqn3bqy4zjhSd0QlTbDUPzkx EbcNrnIAC8y7IeQf48 D66oMUjdZWCvJGPlSDAuXRPhtBdku f8cpA1wTt6+QJ7jd9zarq04cM34wB I+FHKtXDT6yIlxGGif DIMpqH4gRLgfRsC1GDGzNfEbkV78g SKoXGhzPg5weKqxzEbiLZ4pLTIegd zlh138AyZps7uxFVLk xOBqIFfwONT9D56eh1I3CQDnXUIyO UO7oBG4eY8vxPqtbeizlZCsuWrcsq NlxFdbXBooOQjaB697 TNWepYvjRyFauFsgnaLbBxMkYEl6C 0ZjSaa5RGOkhArgVH2dyMCsCImuCf 5uqCytrQqsMM1fQDVt zmzjd216IbPkr7daKNJsiPJoACjjJ SN1J19vj1J6ZUZvPHViIAG4gXX1sW 1hbGlnbjogbGVmdDsg mgZpeBteCFxnXKdpL312RZSdrMsoA iNzsfUbYOLndRM0UA42FX01vXUsf5 D2gDP0B6YtTVRxqibg kbzetIO7WLAjIJWboA11Uk9coImtP b6cHTIoVSL9DITpiTLxU2TaeD3rEo QfZUGuYOHnI8CgbLXw OHhiV025VWqcDkN4GRYjpsYlE9VwE LCccQyfDzD5r5R5Fd5UZ4T6CE07TI 05eNNzs3U8rOE4Y0Hs HLQcbthmlxcwuZG7YZVjEKZybQ22H y0fiDdwQc1eODOiVVE4IDRzuNUcU1 JveC0dYeKpXURwVCWo N6JtdIBfXFmiF316ICmtZpN4UKRcm lKkQ9WzXQUezZmoIlO6u5N0Pl3GFK s2LL51TF18bTXbe3F2 eCK3F8BvLQRsmwvfejvriRD6QMRgW QWttF09Uy2jfYheWx8kNSIpSZW0RD GwzGQjJ7KroK4uKwCr XAUaDVErB5EmsBQwWJleH458RQlcG kN4WGLhpmNyX9JdVLAkcPpyRmT0d2 H8Kx7ELNNpKA49YLY9 oNL9SD31EH10Z5BhEuxpbVCzzKX+P HRhYmxlIHdpZHRoPScxMDAlJyBzdH drML0xQg8pIPEfPOOk zDfdxLBfXiZuv5wzZDTbEAzpRW0rf KswO5MxpKZ4ZFXip6d4Kq18X69sL3 JvdXA+KNFyoHI2oOU9 zD3ySkEaTrL9NIhfN089NtGhsZIsQ byya9uvi8itgWi5CvU5XLVnmmAfwG iiSWU7o1VhBu34U84b USkzPBObGNGxWQXvZTYofZuzgk7is G9wIi8+ATQyyVT7vOR6vR4hSyBoQt W4ZSjkQ967GbXtrLRn Dkqos7wsb7rlyIg2XsPeQRJwdmKjo SktMCM9y9ZvRq99R3FaxOiqf5RqPu b0pa70nCEfu3O6tMQ2 A9AqVJWwlpifsQAgkVrnXX7fHSXfh aktUNFqnG1nAOCgH4j3LmXxBdK4CY woC3LcqjG6YARphJLp LWsoJMQ4W92lz4Y2RZTxGMAbRWJ2m TW8oW7apEwmyctvfZCraMlokjVeqV ztIVowHZjtZ214PBFl mGbtQDFwdR2oNORhkYOhtMuqTU9lB DGckgsbJe8WV2XMHFMhYXgIAwMTUV GKQN25CH30tTRcy7A4 pNO1C5CbVVBgfnnbbdsqdZT1AEIuJ DLbnM22mRPnFPlhOx0kq6E9u865HO FaVCNuxT24Qc6xlYwm TEEqbPIOtT8ouimmx6lwhjnxRyGyT UQxQXv3TCf5DWOdxAzwXxQqQYZ4Gw B4XYC6fPLxfC0qyNue rnrddM5eFce+ZXLuBZViVZc1Xigig GQ+FEBwLEE9lAxcPJgvWFUecC4iRF RnZ2g4QmNeSqU8HSpt V1AkOCAcfpipEx81xS7wAwNwMsA1C MzdZ5WluoE6HHXrdABtSYuhQCQ4E9 0sl6A1VPIwFZBmUXQ1 zND3hZ4goQmgrrrciPZokZxyrcCua LiwIVdoTThqQ430PXEroNilWrO7FT ulFLArJC96LM50mNIb c7V3oKP4V3FuIKZhusyslfihyNS9W SHyNNLkuN20wOBdCRtnPs8mw8V5h3 04KKZaVZHspU87Hh4j bRwpJTZdxZYTbO3omwacf1xfosfmN qWwHCTxMFy1AYs6EHZfjPsiLxHoMO C7EjF3CFY2gFLpvE5e uUeowyyspW9lSzw+TWFsZTwvdGQ+P LNoCNK6dSyfPVazDJEtkH8kZTJgV9 x9AbZqLcG1HWfcO4Vy UGPeydusOe86jS5vAiWkFaE3TQcaD 7IxneO7ORBfcXWzBZzuHHB4D57rg0 O9GRRoBGMuASV0cWP1 oB2puXpouueooFBnzSpfboXbiNmhC RexYIodL437FKNcuZerDdjcXkOHqu 6xNN2xTwtxbME+PC90 wx92B6IrLwxyMee9SMFjNCU7sEO8f X1oYNSbSMhmz3Y1vYT8L3NlalIpdz 4hf6jmEFOuLBciB93z cZGhz3Z8PTVbeON5NRVpiGpcOzXos G93Oyc+EYXxzUkma1EuEovwd3xto2 nnlLc5IzAsMSHdbkOu wIyeGCR0l5SrSe52T82xYBlpLZDnQ WJpFXLaGJLseQrynm6jcP2pPn7+PG BlhPY1gBF2zS5jFxUj TgG0QBflO246MvBjsWJjKvnuq6ksd 2dwbPq4MpKoZFYngqRenTnyNGI0u1 YzZu45K8HuvFosy8Zp Wld3xt49yBCjv9B1zPW3R2FsNQIfb jyyxXTuwDahSG6lSPPfgmmoTPMabH 4vLIGtZ6l1AjQwHoT0 RVtdL7MyteK5IUMupYLdAUQqsWFSz E5yjvtew9wwdaznIuNwXKYjTEi5QF k2YGUhiGmvTyApDRV9 IqZ6WNI6oBMcmE2ubHmwkmchpW5mB yc+EIm7f3oppLQpGX9ulKI5SX12OL 08gKUty1K4fVT6R1Hs VZEnrhizacqtsNO4ETGnJKWgoR83W z8scXitAs9uJVUwMAS0RPFmlEGdF1 VsoG3gQvFcHKPsEBHe T5IaaVPuEFbbQ445WZrdNhH0OOIhd mOgY7RsEOOxeUyoSvG2g1G1Dw0WYD 32XB60GG62gPKcy2U3 sCP0V7LiLKUhxkfpztffmKS2VGTjQ VFsrL00Rf4osGwsPy5pJAXpBPE8NB ReaMIhX5CkdT3xSiZt PMAzFHFtP0CawJPsRMzjI639ZGhzH dI4MVEflvZfX1PlMMRvsTcyMtV5h9 B7Es4PYp29KX72TD36 oRHoz5A1rOH7R6QzRHVdwnrtycrlp LI5UNHlTUPwyM97Dq7wgBtjBz2qDK WhYCV3IZRydNIkF7Bv lD5iGyFlVAIlMDSkL5LsfFIsXFbeF 431HJqhNpJ1EXWolnIkP6LjIMIxhS peOgM8a3B7Me1XIJof xkk1P0OkBzkynBY+KJ97SGIhYJ18e CZltMGij7gvwOu5CjCqZCLtQEF3eZ qmZNwre4UiKJLrM06n bGFw (more content not included)... Normal [facility] Vital Signs Date Time Vital Sign Value Performing Clinician Facility 06-14-2024 09:15-0400 Body height 175.26 cm [facility] 06-14-2024 09:15-0400 Body mass index (BMI) [Ratio] 31.1 kg/m2 [facility] 06-14-2024 09:15-0400 Body weight 95.76 kg [facility] 06-14-2024 09:15-0400 Diastolic blood pressure 83 mm[Hg] [facility] 06-14-2024 09:15-0400 Heart rate 75 /min [facility] 06-14-2024 09:15-0400 Respiratory rate 12 /min [facility] 06-14-2024 09:15-0400 Systolic blood pressure 144 mm[Hg] [facility] 04-17-2024 09:21-0500 Body height 175.26 cm [facility] 04-17-2024 09:21-0500 Body mass index (BMI) [Ratio] 30.4 kg/m2 [facility] 04-17-2024 09:21-0500 Body weight 93.66 kg [facility] 04-17-2024 09:21-0500 Diastolic blood pressure 86 mm[Hg] [facility] 04-17-2024 09:21-0500 Heart rate 109 /min [facility] 04-17-2024 09:21-0500 Respiratory rate 12 /min [facility] 04-17-2024 09:21-0500 Systolic blood pressure 136 mm[Hg] [facility] 11-07-2023 14:18-0400 Body height 175.26 cm [facility] 11-07-2023 14:18-0400 Body mass index (BMI) [Ratio] 30.6 kg/m2 [facility] 11-07-2023 14:18-0400 Body weight 94.06 kg [facility] 11-07-2023 14:18-0400 Diastolic blood pressure 86 mm[Hg] [facility] 11-07-2023 14:18-0400 Heart rate 105 /min [facility] 11-07-2023 14:18-0400 Respiratory rate 12 /min [facility] 11-07-2023 14:18-0400 Systolic blood pressure 132 mm[Hg] [facility] 10-20-2023 10:41-0400 Body height 175.26 cm [facility] 10-20-2023 10:41-0400 Body mass index (BMI) [Ratio] 30.2 kg/m2 [facility] 10-20-2023 10:41-0400 Body weight 93.04 kg [facility] 10-20-2023 10:41-0400 Diastolic blood pressure 90 mm[Hg] [facility] 10-20-2023 10:41-0400 Heart rate 99 /min [facility] 10-20-2023 10:41-0400 Respiratory rate 12 /min [facility] 10-20-2023 10:41-0400 Systolic blood pressure 156 mm[Hg] [facility] 09-18-2023 14:31-0400 Body height 175.26 cm [facility] 09-18-2023 14:31-0400 Body mass index (BMI) [Ratio] 31.3 kg/m2 [facility] 09-18-2023 14:31-0400 Body weight 96.27 kg [facility] 09-18-2023 14:31-0400 Diastolic blood pressure 87 mm[Hg] [facility] 09-18-2023 14:31-0400 Heart rate 81 /min [facility] 09-18-2023 14:31-0400 Respiratory rate 12 /min [facility] 09-18-2023 14:31-0400 Systolic blood pressure 139 mm[Hg] [facility] 05-29-2023 12:57-0400 Body height 175.26 cm [facility] 05-29-2023 12:57-0400 Body mass index (BMI) [Ratio] 31 kg/m2 [facility] 05-29-2023 12:57-0400 Body weight 95.25 kg [facility] 09-14-2022 11:00-0400 Body height 175.26 cm Van [facility] Other [facility] Other 09-14-2022 11:00-0400 Body mass index (BMI) [Ratio] 31.16 kg/m2 Van Ball Other [facility] Other 09-14-2022 11:00-0400 Body weight 95.71 kg Van Ball Other [facility] Other 09-14-2022 11:00-0400 Diastolic blood pressure 84 mm[Hg] Van Ball Other [facility] Other 09-14-2022 11:00-0400 Respiratory rate 12 /min Van Ball Other [facility] Other 09-14-2022 11:00-0400 Systolic blood pressure 113 mm[Hg] Van Ball Other [facility] Other 07-28-2022 11:45-0400 Body height 175.26 cm Van Ball Other [facility] Other 07-28-2022 11:45-0400 Body mass index (BMI) [Ratio] 31.13 kg/m2 Van Ball Other [facility] Other 07-28-2022 11:45-0400 Body weight 95.62 kg Van Ball Other [facility] Other 07-28-2022 11:45-0400 Diastolic blood pressure 92 mm[Hg] Van Kim Other [facility] Other 07-28-2022 11:45-0400 Respiratory rate 12 /min Van Kim Other [place] [employer] Other 07-28-2022 11:45-0400 Systolic blood pressure 131 mm[Hg] Van Kim Other [facility] Other Encounters Encounter Date Encounter Type Care Provider Facility Start: 06-14-2024 End: 06-14-2024 ambulatory [facility] Work Phone: Start: 06-14-2024 End: 06-14-2024 Patient encounter procedure [facility] Work Phone: Start: 06-03-2024 Non-patient / Non-visit [facility] Work Phone: Start: 05-16-2024 Non-patient / Non-visit [facility] Work Phone: Start: 05-07-2024 Non-patient / Non-visit [facility] Work Phone: Start: 04-18-2024 Non-patient / Non-visit [facility] Work Phone: Start: 04-17-2024 End: 04-17-2024 ambulatory [facility] Work Phone: Start: 04-17-2024 End: 04-17-2024 Patient encounter procedure [facility] Work Phone: Start: 11-07-2023 End: 11-07-2023 ambulatory [facility] Work Phone: Start: 11-07-2023 End: 11-07-2023 Patient encounter procedure [facility] Work Phone: Start: 10-20-2023 End: 10-20-2023 ambulatory [facility] Work Phone: Start: 10-20-2023 End: 10-20-2023 Patient encounter procedure [facility] Work Phone: Start: 09-18-2023 End: 09-18-2023 ambulatory [facility] Work Phone: Start: 09-18-2023 End: 09-18-2023 Encounter for general adult medical examination without abnormal findings [facility] Start: 09-18-2023 End: 09-18-2023 Patient encounter procedure [facility] Work Phone: Start: 06-20-2023 End: 06-20-2023 ambulatory [facility] Work Phone: Start: 06-20-2023 End: 06-20-2023 Patient encounter procedure [facility] Work Phone: Start: 05-29-2023 End: 05-29-2023 Patient encounter procedure [facility] Work Phone: Start: 02-20-2023 End: 02-20-2023 ambulatory Van Kim Other [facility] Other Start: 02-20-2023 Office outpatient vi sit 15 minutes Van Kim [facility] Start: 09-14-2022 End: 09-14-2022 ambulatory Van Kim Other [facility] Other Start: 09-14-2022 Encounter for genera l adult medical examination without abnormal findings Van Kim [facility] Start: 09-14-2022 Periodic preventive med est patient 40-64yrs Van Kim [facility] Start: 08-02-2022 End: 08-03-[address] VAN KIM Facility:[facility] Start: 07-28-2022 End: 07-28-2022 ambulatory Van Kim Other [facility] Other Start: 07-28-2022 Office outpatient vi sit 15 minutes [facility] Start: 06-24-2022 End: 06-25-2022 ambulatory Sami ANDERSON Facility:[facility] Start: 06-24-2022 End: 06-24-2022 Patient encounter procedure Sami ANDERSON [facility] Start: 05-07-2019 Adult health examination Van Kim Other [facility] Other Procedures Date Procedure Procedure Detail Performing Clinician Start: 08-02-[address] LICEA IN [place] Comment on above: Performed By: #### D ATBMP, DATPSA #### [facility] [address] [place] [address] Dr. Henok Aleman Start: 02-07-2020 Cystoscopy Sami HUNT Start: 05-06-2016 General examination of patient Van Kim Other Start: 05-06-2016 Screening for malign ant neoplasm of colon Van Kim Other Plan of Treatment Date Care Activity Detail Author Comprehensive metabo lic 2000 panel - Serum or Plasma [facility] enter CT Chest W contrast IV [facility] EKG 12 channel panel [facility] Erythropoietin (EPO) [Units/volume] in Serum or Plasma [facility] enter XR Chest 2 Views [facility] Immunizations Immunization Date Immunization Notes Care Provider Hayden block 01-27-2016 tetanus and diphther ia toxoids, adsorbed, preservative free, for adult use (5 Lf of tetanus toxoid and 2 Lf of diphtheria toxoid) Van Kim Other [facility] NEGATED: Highlighted row has not occurred!01-10-2020 influenza virus vaccine, unspecified formulation Sami ANDERSON [facility] Payers Date Payer Category Payer Unknown [id number] 1965 Unknown [id number] 1958 Self-pay Unknown [id number] Unknown [id number] Social History Date Type Detail Facility Start: 01-10-2020 Tobacco smoking status Never s moked tobacco (finding) [facility] Tobacco smoking status Never [facility] Sex Assigned At Male [facility] Start: 1965 Sex Assigned At Male [facility] Work Phone: Start: 04-17-2024 End: 06-14-2024 Sex Male (finding) [facility] Clinical Notes 07-28-2022 to 04-17-2024 Note Date [...] 2024 8:58am Syncope acute June 14 8:58am [facility] Work Phone: [phone] 222-687012-04-2023 Evaluation note* Encounter Date Diagnosis Assessment Notes Treatment Notes Treatment Clinical Notes Feb, Acute bronchitis due to other specified organisms (ICD-10 - J20.8) Instructed to use Robitussin or Mucinex for cough, saline or Flonase NS for congestion, Tylenol for pain and fever. [facility] Other 06-28-2023 Evaluation note* Encounter Date Diagnosis [...] has resolved. High fiber diet, avoid straining [facility] Other 05-11-2023 Evaluation note* Encounter Date Diagnosis [...] index [BMI] 31.0-31.9, adult (ICD-10 - Z68.31) [facility] Other Evaluation + Plan note No data available for this section [facility] evaluation note* Diagnosis Onset Date Resolution Status Obesity acute Acute bronchitis due to other specified organisms noneactive Acute bronchitis due to other specified organisms noneactive [facility] Work Phone: Evaluation note* Diagnosis Onset Date Resolution Status Acute bronchitis due to other specified organisms noneactive Benign prostatic hyperplasia with lower urinary tract symptoms acute Coughing acute Screening for colon cancer a cute Screening PSA (prostate specific antigen) noneactive Wellness examination noneact dixie [facility] Work Phone: Evaluation note* Diagnosis Onset Date Resolution Status Benign prostatic hyperplasia with lower urinary tract symptoms acute Coughing acute Obesity acute Screening for colon cancer a cute Screening PSA (prostate specific antigen) noneactive Wellness examination noneact dixie Obesity acute [facility] Work Phone: Evaluation note* Diagnosis Onset Date Resolution Status Benign prostatic hyperplasia with lower urinary tract symptoms acute Coughing acute Obesity acute Screening for colon cancer a cute Screening PSA (prostate specific antigen) noneactive Wellness examination noneact dixie Coughing acute HURST (dyspnea on exertion) [place] Obesity acute Wheezing acute Chronic obstructive pulmonar y disease with (acute) exacerbation acute Polycythemia acute [facility] Work Phone: Evaluation note* Diagnosis Onset Date Resolution Status Admit Date Chronic obstructive pulmonar y disease with (acute) exacerbation acute April 17 9:10am HURST (dyspnea on exertion) acute April 17, 2024 9:10am Polycythemia acute March 9:10am Wheezing acute April 17, 2024 9:10am [facility] Work Phone: History general Narrative - Reported* Type Description Date Medical History Benign prostatic hyp erplasia with lower urinary tract symptoms Medical History Obesity due to excess calories Surgical History Open reduction and i nternal fixation (ORIF) - right ankle Hospitalization History see surgical history [facility] Other Hospital Discharge instructions No data available for this section [facility] progress note No data available for this section [facility] Summary Purpose Family History Relationship Condition Age at Onset Recorded Date/T jared father Diabetes mellitus Unknown Advance Directives Advance Directive Response Recorded Date/ Time Advance Directives No April 13, 2023 4:39pm Advance Directive Response Recorded Date/ Time Advance Directives No April 13, 2023 3:39pm Chief Complaint and Reason for Visit Chief Complaint productive cough, co ngestion - COVID NEGATIVE [phone] chest cold COVID - Reason for Visit Obesity Acute bronchitis due to other specified organisms Acute bronchitis due to other specified organisms Chief Complaint [phone] chest c old COVID - Wellness Reason [...] Team Status: Active Member Role Status Dates aVn Kim , DO Primary Care Provider Active [...] and content) DATE CREATED AUTHOR 06/26/2022 [facility] DATE CREATED AUTHOR AUTHOR'S ORGANIZ ATION 08/03/2022 [facility] REASON FOR VISIT (unrecogniz ed section and content) [facility] [place] [phone] Goals (unrecognized section and content) Goals may [...] BE BASED ON THE PRIMARY CLINICAL RECORDS. [employer] [facility]. provides no warranty or guarantee of the accuracy or completeness of information in this document.
== END 2024-07-04 09:38 | disposition home or self-care (01) ==
LOC: SLEEP 09:38
PROVIDERS: PCP Internal Medicine; Visit Provider Internal Medicine
DX: G47.33 Obstructive sleep apnea (adult) (pediatric) (principal)
CPT/HCPCS: 95806

== ENCOUNTER 2024-09-18 08:29 | Outpatient (OUT) | payer OTHER, SELFPAY ==
--- OUTSIDE RECORDS SUMMARY | 2024-05-28 10:00 | XMS_ITS ---
Author Organization [facility] in [place] Address [address] [place] [address] Care Team Providers Care Flatwork Folder Name Role Phone Jasvir Bri Unavailable [phone] REASON FOR VISIT MD Encounters Encounter Location Date Provider Diagnosis [facility] [address] [place] [address] 05/28/2024 Bri Tay Plan Of Treatment Next Appt Details Provider Name:Bri Tay , 09/24/2024 11:00:00 AM, [address] [place], [address], Progress Notes * Osito BORJADOB: 7 (59 yo M)Acc No.[id number]:05/28/2024 UNLOCKED PROGRESS NOTE Progress Notes Patient: Osiot CASTILLO Provider: Lizandro Tay M.D. :1965 A ge:59 Y S ex:Male Date:05/28/2024 Address:[address] [place] [address] [address] [place], [place] Subjective: * Chief Complaints: * 1 . MD. * Medical History: Objective: * Vitals: Assessment: Plan: * Treatment: * * Electronic signature of Milo Tay MD, [id number] on 09/18/2024 at 08:34 AM EDT Sign off status: Pending Visit Status: C ONFSMS (Voice) * Provider: Lizandro Tay M.D. Date: 0 05/28/2024 Generated for Garland rodriguez/Brando/Annalisa on: 0 09/18/2024 08:34 AM EDT
--- OUTSIDE RECORDS SUMMARY | 2024-05-28 10:00 | XMS_ITS ---
Author Organization [facility] in [place] Address [address] [place] [address] Care Team Providers Care Deadener Name Role Phone Jasvir, Bri Unavailable [phone] REASON FOR VISIT MD Encounters Encounter Location Date Provider Diagnosis [facility] [address] [place] [address] 05/28/2024 Bri Tay Plan Of Treatment Next Appt Details Provider Name:Bri Tay , 09/24/2024 11:00:00 AM, [address] [place], [address], Progress Notes * Osito BORJADOB: 7 (59 yo M)Acc No.[id number]:05/28/2024 UNLOCKED PROGRESS NOTE Progress Notes Patient: Osito CASTILLO Provider: Lizandro Tay M.D. :1965 A ge:59 Y S ex:Male Date:05/28/2024 Address:[address] [place] [address] [address] [place], [id number] Subjective: * Chief Complaints: * 1 . MD. * Medical History: Objective: * Vitals: Assessment: Plan: * Treatment: * * Electronic signature of Milo Tay MD, [id number] on 09/18/2024 at 08:33 AM EDT Sign off status: Pending Visit Status: C ANC (Cancelled) * Provider: Lizandro Tay M.D. Date: 0 05/28/2024 Generated for Garland rodriguez/Brando/Annalisa on: 0 09/18/2024 08:33 AM EDT
--- OUTSIDE RECORDS SUMMARY | 2024-06-18 06:30 | XMS_ITS ---
Author Organization [facility] [place] Address [address] [place] [address] Care Team Providers Care Inspector Air [employer] Name Role Phone Jasvir Bri Unavailable [phone] REASON FOR VISIT MD Encounters Encounter Location Date Provider Diagnosis [facility] [address] [place] [address] 06/18/2024 Bri Tay Plan Of Treatment Next Appt Details Provider Name:Bri Tay , 09/24/2024 11:00:00 AM, [address] [place], [address], Progress Notes * Osito BORJADOB: 7 (59 yo M)Acc No.[id number]:06/18/2024 UNLOCKED PROGRESS NOTE Progress Notes Patient: Osito CASTILLO Provider: Lizandro Tay M.D. :1965 A ge:59 Y S ex:Male Date:06/18/2024 Address:[address] [place] [address] [address] [place], [place] Subjective: * Chief Complaints: * 1 . MD. * Medical History: Objective: * Vitals: Assessment: Plan: * Treatment: * * Electronic signature of Milo Tay MD, [id number] on 09/18/2024 at 08:34 AM EDT Sign off status: Pending Visit Status: C ONFSMS (Voice) * Provider: Lizandro Tay M.D. Date: 0 06/18/2024 Generated for Garland rodriguez/Brando/Annalisa on: 0 09/18/2024 08:34 AM EDT
--- OUTSIDE RECORDS SUMMARY | 2024-09-18 08:34 | XMS_ITS | Patient Health Record ---
Author Organization [facility] [place] Address [address] [place] [address] Care Team Providers Care Fisher Hoop Net Name Role Phone Tomer Tay Unavailable [phone] Results Component Value Reference Range Notes CBC AUTO DIFF (Not yet revie wed by provider) Interpretation: Performing Lab: Notes/Report: [facility] , White Blood Count 4.7 4.0-11.0 10 3/uL Red Blood Count 6.12 4.70-6.10 10 6/uL Hemoglobin 19.6 14.0-18.0 g/dL Hematocrit 58.0 42.0-54.0 % Mean Corpuscular Volume 94.8 80.0-94.0 fL Mean Corpuscular Hemoglobin 32.0 25.9-34.0 pg Mean Corpuscular HGB Conc 33.8 29.9-35.2 g/dL Red Cell Distribution Width 13.4 11.0-15.0 % Platelet Count 125 150-450 10 3/uL Mean Platelet Volume 9.6 9.5-13.5 fL Neutrophils Percent Auto 50.8 43.0-75.0 % Lymphocytes Percent Auto 25.8 20.5-60.0 % Monocytes Percent Auto 20.0 1.7-12.0 % Eosinophils Percent Auto 2.6 0.9-7.0 % Basophils Percent Auto 0.4 0.2-2.0 % Immature Granulocytes Pct Auto 0.4 0.0-0.5 % Neutrophils Absolute Auto 2.4 1.4-6.5 10 3/uL Lymphocytes Absolute Auto 1.2 1.2-3.8 10 3/uL Monocytes Absolute Auto 0.9 0.3-0.8 10 3/uL Eosinophils Absolute Auto 0.1 0.0-0.7 10 3/uL Basophils Absolute Auto 0.0 0.0-0.1 10 3/uL Immature Granulocytes Abs Auto 0.02 0.00-0.03 10 3/uL Performing Lab: see note ML - [facility] LB Erythropoietin (EPO), Serum (Not yet reviewed by provider) Interpretation: Performing Lab: Notes/Report: [facility] , Erythropoietin (EPO), Serum 8.8 2.6-18.5 mIU/mL be used interchangeably. Results cannot be interpreted as absolute evidence of the presence or absence of malignant [address] [place] [phone] [place] [email or web address] Application DxI 800 Immunoassay System disease. Values obtained with different assay methods or kits cannot Sample Driller: Yaw Neal PhD, Phone: [phone] Performed at: - [facility] Performing Lab: see note LC - [facility] LB FERRITIN (Not yet reviewed b y provider) Interpretation: Performing Lab: Notes/Report: [facility] , Ferritin 300.0 26.0-388.0 ng/mL Performing Lab: see note ML - [facility] LB CRP (Not yet reviewed by pro vider) Interpretation: Performing Lab: Notes/Report: [facility] , C Reactive Protein <0.50 <=0.50 mg/dL Performing Lab: see note ML - [facility] LB CBC AUTO DIFF (Not yet revie wed by provider) Interpretation: Performing Lab: Notes/Report: [facility] , White Blood Count 6.5 4.0-11.0 10 3/uL Red Blood Count 5.87 4.70-6.10 10 6/uL Hemoglobin 18.9 14.0-18.0 g/dL Hematocrit 55.7 42.0-54.0 % Mean Corpuscular Volume 94.9 80.0-94.0 fL Mean Corpuscular Hemoglobin 32.2 25.9-34.0 pg Mean Corpuscular HGB Conc 33.9 29.9-35.2 g/dL Red Cell Distribution Width 13.5 11.0-15.0 % Platelet Count 168 150-450 10 3/uL Mean Platelet Volume 9.7 9.5-13.5 fL Neutrophils Percent Auto 52.3 43.0-75.0 % Lymphocytes Percent Auto 33.6 20.5-60.0 % Monocytes Percent Auto 8.4 1.7-12.0 % Eosinophils Percent Auto 4.0 0.9-7.0 % Basophils Percent Auto 0.8 0.2-2.0 % Immature Granulocytes Pct Auto 0.9 0.0-0.5 % Neutrophils Absolute Auto 3.4 1.4-6.5 10 3/uL Lymphocytes Absolute Auto 2.2 1.2-3.8 10 3/uL Monocytes Absolute Auto 0.6 0.3-0.8 10 3/uL Eosinophils Absolute Auto 0.3 0.0-0.7 10 3/uL Basophils Absolute Auto 0.1 0.0-0.1 10 3/uL Immature Granulocytes Abs Auto 0.06 0.00-0.03 10 3/uL Performing Lab: see note ML - [facility] LB LAB TESTING (Not yet reviewe d by provider) Interpretation: Performing Lab: Notes/Report: [id number] Hereditary Hemochromatosis, DNA Analysis [facility] , Miscellaneous Test COMMENT . Result: to present clinical symptoms, less than 10% develop Methods/Limitations: c.193A>T (p.Dhz37Ore) - Not Detected primarily in the liver, risk for hepatocellular This test was developed and its performance c.845G>A (p.Glo947Sax), commonly referred to as C282Y Director, Molecular Genetics (p.Spr56Lgu), c.193A>T (p.Qyh22Iwf). While patients Test Ordered: [id number] Hered.Hemochromatosis, DNA [facility] negative results may occur for reasons that include genetic Performed at: - [facility] monitoring for iron overload is recommended for patients evaluated. See Additional Information and Comments. Nory G, Sp P, Aruna DW, Rema H, Kimberly O, recessive iron storage disorder. Patients may have a hereditary hemochromatosis (HH). Eur J Hum More. 2016 providers to discuss results at [phone] (7253). guideline by the [place] [employer] for the Study of Comments: Test Details: Additional Clinical Information: The most common HFE variants associated with hereditary variants, blood transfusions, bone marrow transplantation, genetic diagnosis of hereditary hemochromatosis and never who are homozygous for c.845G>A (p.Vao523Htw) and have yet Sample Driller: Bekah Curran [facility], Phone: [phone] Hereditary Hemochromatosis Comment TG Liver Diseases. Hepatology. 2010;54(1):328-43. doi: Sample Driller: Yaw Neal PhD, Phone: [phone] c.187C>G (p.Xmx87Rro), commonly referred to as H63D 8. PMID: 85333988; PMCID: HQU0817059. Professional Component performed by: based testing is highly accurate, but as in any laboratory individuals who develop cirrhosis. Treatment for Genetic Coordinators are available for health care References: by PCR amplification followed by restriction enzyme Genetic counseling is recommended to discuss the potential symptoms of Hereditary Hemochromatosis. In symptomatic Diagnosis and management of hemochromatosis: 2011 practice guidelines for the molecular genetic diagnosis of digestion analyses. Results must be combined with clinical clinical implications of positive results, as well as Diego Zamora, Fernando I, David M, Raul S. EMQN best practice 10.1002/hep.09748. PMID: 23862739; PMCID: RDQ3197259. Apr;24(4):479-56. doi: 10.1038/[facility].2015.128. Epub 2014 clinically symptomatic individuals may include somatic or tissue-specific mosaicism, mislabeled samples, individuals, other causes of iron overload should be to experience clinical symptoms. test, diagnostic errors may occur. False positive or false Hereditary hemochromatosis (HFE related) is an autosomal treat end stage liver failure. For preventive care, Not associated with increased risk to develop clinical carcinoma, diabetes, and heart disease due to iron [facility] [address] characteristics determined by [employer]. It has not been clinically significant iron overload with tissue and organ Ike BR, Norman PC, Chapincito KV, Karthikeyan LW, Jamil ; DNA Analysis of the HFE gene (NM_000410.4) was performed Technical Component performed at [facility] RTP c.845G>A (p.Tem762Ojn) - Not Detected Katherine Gonzales, Ph.D., FACMG between 40 to 60 years in males and after menopause in cleared or approved by the Food and Drug Administration. Reference Range: . therapeutic phlebotomy. Liver transplant may be used to [facility] [employer] [place] [employer] for the Study of Liver Diseases. information for the most accurate interpretation. Molecular- recommendations for testing family members. c.187C>G (p.Ggr61Tal) - Not Detected damage. females. Signs and symptoms may include organ damage, homozygous for c.845G>A (p.Gaz512Trk) are the most likely Reviewed by: Comment TG accumulation. Life expectancy may be decreased in c.193A>T (p.Ytq91Oum), commonly referred to as S65C show clinical symptoms. Clinical symptoms typically appear Three variants analyzed: Reference Range: . hemochromatosis are c.845G>A (p.Uda561Dnc), c.187C>G [address] [facility] [place], [place] [id number] or erroneous representation of family relationships. [address] [place], [place] [phone] Performing Lab: see note LC - [facility] LB PROF 14(COMP METB) (Not yet reviewed by provider) Interpretation: Performing Lab: Notes/Report: [facility] , Sodium 138 136-145 mmol/L Potassium 4.1 3.5-5.1 mmol/L Chloride 102 98-107 mmol/L Carbon Dioxide 32.7 21.0-32.0 mmol/L Anion Gap 7.4 Glucose 83 74-106 mg/dL Blood Urea Nitrogen 13.0 7.0-18.0 mg/dL Creatinine 1.31 0.70-1.30 mg/dL Estimated GFR ( Rosanne >60 >=60 mL/min/1.73m 2 Estimated GFR (Non- Malka 56 >=60 mL/min/1.73m 2 BUN Creatinine Ratio 9.9 Calcium 8.9 8.5-10.1 mg/dL Bilirubin Total 0.7 0.2-1.0 mg/dL Aspartate Amino Transferase 31 15-37 U/L Alanine Aminotransferase 41 16-63 U/L Alkaline Phosphatase 61 46-116 U/L Total Protein 7.3 6.4-8.2 g/dL Albumin Level 3.4 3.4-5.0 g/dL Globulin 3.9 Albumin Globulin Ratio 0.9 Performing Lab: see note ML - [facility] LB IRON AND TIBC (Not yet revie wed by provider) Interpretation: Performing Lab: Notes/Report: [facility] , Iron 57.0 65.0-175.0 ug/dL Total Iron Binding Capacity 283.0 250.0-450.0 ug/dL Percent Iron Saturation 20.1 Performing Lab: see note ML - [facility] LB FERRITIN (Not yet reviewed b y provider) Interpretation: Performing Lab: Notes/Report: [facility] , Ferritin 569.0 26.0-388.0 ng/mL Performing Lab: see note ML - [facility] LB CT abdomen pelvis w con (Not yet reviewed by provider) Interpretation: Performing Lab: Notes/Report: Source Facility: [facility] [place] [address] [place] [address] CT Scan Report Signed Patient: OSITO HAYDEN MR#: [id number] : 1965 Acct:[id number] Age/Sex: 59 / M ADM Date: 07/02/24 Loc: CT Attending Dr: Tomer Tay M.D. Ordering Physician: Tomer Tay M.D. Date of Service: 07/02/24 Procedure(s): CT abdomen pelvis w con Accession Number(s): [id number] cc: Van Méndez D.O. [facility] [place] [address] Patient Name: OSITO HAYDEN MRN: [id number] date: 1965 Sex: M Assigned Patient Location: CT Current Patient Location: CT Accession/Order Number: [id number] Exam Date: 07/02/2024 10:41 Report Date: 07/02/2024 10:55 At the request of: TOMER TAY MD Procedure: CT abdomen pelvis w con CT ABDOMEN AND PELVIS WITH CONTRAST CLINICAL DATA: Polycythemia vera. COMPARISON: 12/17/2020 Spiral images were obtained through the abdomen and pelvis following 100 mL of Omnipaque 300. This CT exam was performed using one or more following dose reduction techniques: Automated exposure control, adjustment of the mA and/or kV according to patient size, or use of iterative reconstruction technique. Limited cuts through the lung bases show atelectasis and/or scarring. There is a left lower lobe calcified granuloma. There is also a 5 mm nodule at the posterior lateral left costophrenic angle. This was also seen previously. There is decreased attenuation of the hepatic parenchyma which may be fatty infiltration. There are no intrahepatic masses. There are multiple stones within the gallbladder lumen. No biliary dilatation is seen. There are calcified splenic granulomas. The spleen is otherwise normal in size and attenuation. The pancreas and adrenal glands are within normal limits. There are symmetric bilateral renal nephrograms, without hydronephrosis. The abdominal aorta is normal caliber. There are few small lymph nodes. No ascites is seen. There is no dilated small bowel. There is mild stool along the colon. A tiny umbilical hernia is present containing a knuckle of nondistended small bowel. Subtle levoscoliotic curvature and degenerative changes are seen at the spine, greatest at the lumbosacral junction. Images through the pelvis show no dilated small bowel. No appendiceal inflammation is seen. There is stool at the distal colon. No diverticular disease is noted. The prostate is borderline prominent. The urinary bladder is not well-distended however no obvious abnormalities are seen. There are mildly patulous inguinal rings containing fat. There are small benign inguinal lymph nodes. No ascites is visualized. CT/CT abdomen pelvis w con IMPRESSION: CHOLELITHIASIS. FATTY LIVER. GRANULOMATOUS CHANGES. NO BOWEL OR URINARY TRACT OBSTRUCTION. UMBILICAL HERNIA CONTAINING A KNUCKLE OF NONDISTENDED SMALL BOWEL. NO OTHER ABNORMALITIES. Impression dictated by: Deepa Harris M.D.07/02/2024 10:55 AM Dictation Location: [place] [address] Electronically authenticated by: [id number] Y Date: 07/02/2024 10:55 Dictated By: Deepa Harris M.D. Signed By: 07/02/24 1057 DD/ 1055 TD/TT: Manager Contracting: [place] [address] CT Scan Report Signed Patient: OSITO HAYDEN MR#: [id number] : 1965 Acct:[id number] Age/Sex: 59 / M ADM Date: 07/02/24 Loc: CT Attending Dr: Reji Tay M.D. Ordering Physician: Tomer Tay M.D. Date of Service: 07/02/24 Procedure(s): CT abdomen pelvis w con Accession Number(s): [id number] cc: Van Méndez D.O. [address] [address] Patient Name: OSITO HAYDEN MRN: [facility]:[id number] date: 1965 Sex: M Assigned Patient Location: CT Current Patient Location: CT Accession/Order Number: [id number] Exam Date: 07/02/2024 10:41 Report Date: 07/02/2024 10:55 At the request of: TOMER TAY MD Procedure: CT abdome n pelvis w con CT ABDOMEN AND PELVI S WITH CONTRAST CLINICAL DATA: Polycythemia vera. COMPARISON: 12/17/2020 Spiral images were obtained through the abdomen and pelvis following 100 mL of Omnipaque 300. This CT exam was performed using one or more following dose reduction techniques : Automated exposure control, adjustment of the mA and/or kV according to patient size, or use of iterative reconstruction technique. Limited cuts through the lung bases show atelectasis and/or scarring. There is a left lower lobe calcified granuloma. There is also a 5 mm nodule at the posterior lateral le ft costophrenic angle. This was also seen previously. There is decreased attenuation of the hepatic parenchyma which may be fatty infiltration. There are no intrahepatic masses. There are multiple stones within the gallbladd er lumen. No biliary dilatation is seen. There are calcified splenic granulomas. The spleen is otherwise normal in size and attenuation. The pancreas and adrenal glands are within normal limits. There are symmetric bilateral renal nephrograms, without hydronephrosis. The abdominal aorta is normal caliber. There are few small lymph nodes. No ascites is seen. The re is no dilated small bowel. There is mild stool along the colon. A tiny umbilical hernia is present containing a knuckle of nondistended small bowel. Subtle levoscoliotic curvature and degenerative changes are seen at the spine, greatest at the lumbosacral junction. Images through the pelvis show no dilated small bowel. No appendiceal inflammation is seen . There is stool at the distal colon. No diverticular disease is noted. Th e prostate is borderline prominent. The urinary bladder is not well-distende d however no obvious abnormalities are seen. There are mildly patulous inguinal rings containing fat. There are small benign inguinal lymph nodes . No ascites is visualized. CT/CT abdomen pelvis w con IMPRESSION: CHOLELITHIASIS. FATTY LIVER. GRANULOMATOUS CHANGES. NO BOWEL OR URINARY TRACT OBSTRUCTION. UMBILICAL HERNIA CONTAINING A KNUCKLE OF NONDISTENDED SMALL BOWEL. NO OTHER ABNORMALITIES. Impression dictated by: Deepa Harris M.D.07/02/2024 10:55 AM Dictation Location: [place] [address] Electronically authenticated by: [id number] Y Date: 07/02/2024 10:55 Dictated By: Deepa Harris M.D. Signed By: 07/02/247 DD/ 54 TD/TT: Manager Contracting: Erythropoietin (EPO), Serum (Not yet reviewed by provider) Interpretation: Performing Lab: Notes/Report: [facility] , Erythropoietin (EPO), Serum 9.3 2.6-18.5 mIU/mL be used interchangeably. Results cannot be interpreted as Values obtained with different assay methods or kits cannot [place] [employer] DxI 800 Immunoassay System Performed at: [facility] Sample Driller: Yaw Neal PhD, Phone: [phone] [address] [place], [place] [phone] disease. absolute evidence of the presence or absence of malignant Performing Lab: see note - [facility] LB PROF 14(COMP METB) (Not yet reviewed by provider) Interpretation: Performing Lab: Notes/Report: [facility] , Sodium 140 136-145 mmol/L Potassium 4.4 3.5-5.1 mmol/L Chloride 101 98-107 mmol/L Carbon Dioxide 32.3 21.0-32.0 mmol/L Anion Gap 11.1 Glucose 105 74-106 mg/dL Blood Urea Nitrogen 13.0 7.0-18.0 mg/dL Creatinine 1.19 0.70-1.30 mg/dL Estimated GFR ( Rosanne >60 >=60 mL/min/1.73m 2 Estimated GFR (Non- Malka >60 >=60 mL/min/1.73m 2 BUN Creatinine Ratio 10.9 Calcium 9.4 8.5-10.1 mg/dL Bilirubin Total 0.9 0.2-1.0 mg/dL Aspartate Amino Transferase 16 15-37 U/L Alanine Aminotransferase 30 16-63 U/L Alkaline Phosphatase 66 46-116 U/L Total Protein 7.5 6.4-8.2 g/dL Albumin Level 3.6 3.4-5.0 g/dL Globulin 3.9 Albumin Globulin Ratio 0.9 Performing Lab: see note - [facility] LB LAB TESTING (Not yet reviewe d by provider) Interpretation: Performing Lab: Notes/Report: [id number] Sedimentation Rate, Modified [place] [facility] , Miscellaneous Test COMMENT . Sample Driller: Yaw Neal PhD, Phone: [phone] Sedimentation Rate-[place] 3 mm/hr [address] [id number] Test Ordered: [id number] Sedimentation Rate-[place] Performed at: [facility] Reference Range: 0-30 Performing Lab: see note - [facility] LB IRON AND TIBC (Not yet revie wed by provider) Interpretation: Performing Lab: Notes/Report: [facility] , Iron 169.0 65.0-175.0 ug/dL Total Iron Binding Capacity 313.0 250.0-450.0 ug/dL Percent Iron Saturation 54.0 Performing Lab: see note - [facility] Reason For Referral No Information Encounters Encounter Location Date Provider Diagnosis [facility] [address] [place] [address] 05/07/2024 Tomer Tay [facility] [address] [place] [address] 05/28[facility]20[facility] [address] [place] [address] 06/18/2024 Tomer Tay Plan Of Treatment Pending Test Test Name Order Date CBC AUTO DIFF 05/07/2024 CBC AUTO DIFF 06/18/2024 CRP 06/18/2024 FERRITIN 05/07/2024 FERRITIN 06/18/2024 IRON AND TIBC 05/07/2024 IRON AND TIBC 06/18/2024 LAB TESTING 06/18/2024 LAB TESTING 06/03/2024 PROF 14(COMP METB) 06/18/2024 PROF 14(COMP METB) 05/07/2024 CT abdomen pelvis w con 07/02/2024 Erythropoietin (EPO), Serum 06/18/2024 Erythropoietin (EPO), Serum 05/07/2024 Next Appt Details Provider Name:Tomer Tay , 09/24/2024 11:00:00 AM, [address] [place], [address], Insurance Providers Payer Name Payer Address Payer Phone Subscriber Number Group Number Insured Name Patient Relationship to Insured Coverage Start Date Coverage End Date BILLIE LANGFORD [address] ATTN CLAIMS [place], [place] [id number] Osito Hayden Self - patient is the insured
--- OUTSIDE RECORDS SUMMARY | 2024-09-18 08:34 | XMS_ITS | Encounter Summary ---
Author Organization [facility] Address [address] [place] [address] Care Team Providers Care Clinical Nurse Name Role Phone Van Méndez DO Primary Care Provider [phone] Gianfranco Tirado DO Primary Care Provider [phone] Encounter Details Date Type Department Care Team (Late Contact Info) Description 08/06/2024 Abstract [facility] [address] [place] [address] Gianfranco Tirado DO [address] [place] [address] Social History Tobacco Use Types Packs/Day Years Used Date Smoking Tobacco: Never Assessed Sex and Gender Information Value Date Recorded Sex Assigned at Not on file Legal Sex Male 6:50 AM EDT Gender Identity Not on file Sexual Orientation Not on file documented as of this encounter Plan of Treatment Upcoming Encounters Date Type Department Care Team (Late Contact Info) Description 09/26/2024 2:30 PM EDT Consult [facility] [address] [place] [address] Amalia Valdez DO [address] [place] [address] documented as of this encounter Visit Diagnoses Not on filedocumented in this encounter Care Teams Clinical Nurse Relationship Specialty Start Date End Date Van Méndez DO [address] [place] [address] PCP - General Internal Medicine 08/09/24 08/27/24 Gianfranco Tirado DO [address] [address] PCP - General Family Medicine 08/28/24 documented as of this encounter
--- OUTSIDE RECORDS SUMMARY | 2024-09-18 08:34 | XMS_ITS | Clinical Summary ---
Author Organization [facility] Address [address] [place] [address] Care Team Providers Care Professor Computer Science Name Role Phone MatiasGianfranco sherman Primary Care Provider [phone] Allergies No known active allergies Medications dilTIAZem CD (Cardizem CD) 120 MG 24 hr capsule Take 120 mg by mouth Daily 08/18/19 25 Active budesonide-for moterol (Symbicort) 160-4.5 MCG/ACT inhaler Inhale 2 puffs in the morning and 2 puffs before bedtime. 04/17/19 25 Active albuterol (2.5 MG/3ML) 0.083% nebulizer solution Take 2.5 mg by nebulization every 6 (six) hours if needed for shortness of breath or wheezing 04/17/19 25 Active albuterol HFA 90 mcg/act inhaler Inhale 2 puffs every 6 (six) hours if needed for shortness of breath or wheezing Active Fluticasone-Sa lmeterol 500-50 MCG/ACT aerosol powder Inhale 1 puff in the morning and 1 puff before bedtime. 11/03/19 24 025 Discontinued Active Problems Problem Noted Date Diagnosed Date Umbilical hernia without obstruction and without gangrene 08/28/2024 Polycythemia 08/28/2024 Benign prostatic hyperplasia with lower urinary tract symptoms 08/27/2024 Cholelithiasis 08/27/2024 Overview (08/27/2024): CT 06/2024 Chronic obstructive lung disease 08/27/2024 HURST (dyspnea on exertion) 08/27/2024 Metabolic dysfunction-associ ated steatotic liver disease (MASLD) 08/27/2024 Paroxysmal sinus tachycardia 08/27/2024 Obesity 08/27/2024 Tachycardia 08/27/2024 Overview (08/27/2024): Echo: LVEF 65%, normal RV size/function - 04/2024 Encounters Date Type Department Care Team Description 08/28/2024 10:40 AM EDT Office Visit [facility] [address] [place] [address] Gianfranco Tirado DO Chronic obstructive pulmonary disease, unspecified COPD type (HCC) (Primary Dx); Paroxysmal sinus tachycardia (HCC); Metabolic dysfunction-associate d steatotic liver disease (MASLD); Benign prostatic hyperplasia with lower urinary tract symptoms, symptom details unspecified; Polycythemia; Lipid screening; Calculus of gallbladder without cholecystitis without obstruction; Umbilical hernia without obstruction and without gangrene 08/28/[address] [facility] [address] [facility] [address] [place] [address] Gianfranco Tirado DO 08/28/2024 Travel 08/06/[address] [facility] [address] [facility] [address] [place] [address] Hemant East DO NEW PT 08/06/[address] [facility] [facility] [address] [facility] [address] [place] [address] Gianfranco Tirado DO from Last 3 Months Immunizations Immunization Administration Dates Next Due Td (adult), 5 Lf tetanus tox oid, preservative free, adsorbed 01/27/2016 Family History Relation Name Status Comments Father Mother Social History Tobacco Use Types Packs/Day Years Used Date Smoking Tobacco: Never Passive Smoke Exposure: Never Smokeless Tobacco: Never Tobacco Cessation:Counseling Given: Not Answered Alcohol Use Standard Drinks/Week Comments Never 0 (1 standard drink = 0.6 oz pur e alcohol) PHQ-2 Answer Date Recorded Patient Health Questionnaire-2 Score 0 08/28/2024 Sex and Gender Information Value Date Recorded Sex Assigned at Not on file Legal Sex Male 6:50 AM EDT Gender Identity Not on file Sexual Orientation Not on file Last Filed Vital Signs Vital Sign Reading Time Taken Comments Blood Pressure 128/82 08/28/2024 10:33 AM EDT Pulse 75 08/28/2024 10:33 AM EDT Temperature 36.2 C (97.1 F) 08/28/2024 10:33 AM EDT Respiratory Rate - - Oxygen Saturation 94% 08/28/2024 10:33 AM EDT Inhaled Oxygen Concentration - - Weight 94.9 kg (209 lb 3.2 oz) 08/28/2024 10:33 AM EDT Height 175.3 cm (5' 9 ) 08/28/2024 10:33 AM EDT Body Mass Index 30.89 08/28/2024 10:33 AM EDT Plan of Treatment Upcoming Encounters Date Type Department Care Team (Late st Contact Info) Description 09/26/2024 2:30 PM EDT Consult [facility] [address] [place] [address] Amalia Valdez DO [address] [place] [address] Health Maintenance Due Date Last Done Comments CT Colonography 1966 Colonoscopy 1966 FIT 1966 FOBT 1966 Sigmoidoscopy 1966 Influenza Vaccine (Season Ended) 2024 Colorectal Cancer Screening 09/26/2026 FIT-DNA 09/26/2026 09/27/2023, 05/10/2019 Insurance MELISSA BARNES Care Teams Professor Computer Science Relationship Specialty Start Date End Date Gianfranco Tirado DO [address] [facility] [address] [place] [address] PCP - General Family Medicine 08/28/24
[2024-09-18 08:56] LABS: Hematocrit 55.6 % (42.0-54.0); Hemoglobin 18.4 g/dL (14.0-18.0); Immature Granulocytes Abs Auto 0.05 10^3/uL (0.00-0.03); Immature Granulocytes Pct Auto 0.9 % (0.0-0.5); Lymphocytes Absolute Auto 2.2 10^3/uL (1.2-3.8); Mean Corpuscular HGB Conc 33.1 g/dL (29.9-35.2); Mean Corpuscular Hemoglobin 31.1 pg (25.9-34.0); Mean Corpuscular Volume 94.1 fL (80.0-94.0); Platelet Count 147 10^3/uL (150-450); Red Blood Count 5.91 10^6/uL (4.70-6.10); White Blood Count 5.7 10^3/uL (4.0-11.0)
[2024-09-18 10:16] LABS: Alanine Aminotransferase 26 U/L (16-63); Albumin Globulin Ratio 1.1; Albumin Level 3.7 g/dL (3.4-5.0); Alkaline Phosphatase 64 U/L (46-116); Anion Gap 12.6; Aspartate Amino Transferase 21 U/L (15-37); Blood Urea Nitrogen 14.0 mg/dL (7.0-18.0); Calcium 8.9 mg/dL (8.5-10.1); Carbon Dioxide 28.7 mmol/L (21.0-32.0); Chloride 106 mmol/L (98-107); Estimated GFR (African America >60 (>=60 mL/min/1.73m^2); Estimated GFR (Non-African Ame >60 (>=60 mL/min/1.73m^2); Globulin 3.4 g/dL; Glucose 99 mg/dL (74-106); Potassium 4.3 mmol/L (3.5-5.1); Sodium 143 mmol/L (136-145); Total Protein 7.1 g/dL (6.4-8.2)
[2024-09-18 10:19] LABS: Cholesterol 138 mg/dL (<=200); HDL Cholesterol 45 mg/dL (40-60); Triglycerides 80 mg/dL (<=150); VLDL CHOLESTEROL 16.0 mg/dL
[2024-09-18 10:20] LABS: Thyroid Stimulating Hormone 1.651 uIU/mL (0.358-3.740)
[2024-09-19 04:07] LABS: PSA, Free 0.18 ng/mL
== END 2024-09-18 08:30 | disposition home or self-care (01) ==
LOC: LAB 08:32
PROVIDERS: PCP Family Medicine; Visit Provider Family Medicine
DX: N40.1 Benign prostatic hyperplasia with lower urinary tract symptoms (principal); Z13.220 Encounter for screening for lipoid disorders; D45 Polycythemia vera; J44.9 Chronic obstructive pulmonary disease, unspecified; I47.19 Other supraventricular tachycardia; K76.0 Fatty (change of) liver, not elsewhere classified
CPT/HCPCS: 36415; 80053; 80061; 82668; 82728; 83540; 83550; 84153; 84154; 84443; 85025

== ENCOUNTER 2024-09-18 08:34 | Outpatient (OUT) | payer OTHER, SELFPAY ==
[2024-09-18 10:37] LABS: Ferritin 98.0 ng/mL (26.0-388.0)
[2024-09-18 10:42] LABS: Iron 98.0 ug/dL (65.0-175.0); Percent Iron Saturation 27.8 %; Total Iron Binding Capacity 352.0 ug/dL (250.0-450.0)
[2024-09-19 15:08] LABS: Erythropoietin (EPO), Serum 7.5 mIU/mL (2.6-18.5)
== END 2024-09-18 08:35 | disposition home or self-care (01) ==
LOC: LAB 08:35
PROVIDERS: PCP Family Medicine; Visit Provider Internal Medicine Hematology & Oncology
DX: D45 Polycythemia vera (principal)
CPT/HCPCS: 36415; 82668; 82728; 83540; 83550

== ENCOUNTER 2024-09-24 07:41 | Outpatient (RCR) | payer OTHER, SELFPAY ==
[2024-09-24 11:50] VITALS: BP 124/76; PULSE 69; TEMP 36.4; O2SAT 94
--- NOTE | 2024-09-24 12:11 | PC.NURSE ---
1150: Pt. to [facility] amb. for therapeutic phlebotomy. Seated in recliner. VSS. Denies questions regarding procedure. 1151: Using 16 gauge IV, TP initiated at this time to left ac. Pt. tolerated without c /o. 1157: 503 ML blood withdrawn from patient. IV d/c'd, pressure to site. VSS. Pt. without c/o dizziness, n/v, or other adverse reactions. Given can of Starry soda. 1207: Pt.without c/o. No bleeding to TP site. VSS. D/c'd amb. to home.
== END 2024-09-25 08:10 | disposition home or self-care (01) ==
LOC: HEMC 07:41
PROVIDERS: PCP Family Medicine; Visit Provider Internal Medicine Hematology & Oncology
DX: D45 Polycythemia vera (principal); J45.909 Unspecified asthma, uncomplicated
CPT/HCPCS: 36592; 99195; G0463

== ENCOUNTER 2024-12-23 09:18 | Outpatient (OUT) | payer OTHER, SELFPAY ==
--- OUTSIDE RECORDS SUMMARY | 2024-12-23 09:23 | XMS_ITS | Clinical Summary ---
Author Organization [facility] Address [address] [place] [address] Care Team Providers Care Manufacturing Shift Supervisor Name Role Phone MatiasGianfranco sherman Primary Care Provider [phone] Allergies No known active allergies Medications albuterol (2.5 MG/3ML) 0.083% nebulizer solution Take 2.5 mg by nebulization every 6 (six) hours if needed for shortness of breath or wheezing 5 Active dilTIAZem CD (Cardizem CD) 120 MG 24 hr capsuleIndicati ons:Paroxysmal sinus tachycardia (HCC) Take 1 capsule (120 mg) by mouth Daily 90 capsule 3 5 Active budesonide-form oterol (Symbicort) 160-4.5 MCG/ACT inhalerIndicati ons:Chronic obstructive pulmonary disease, unspecified COPD type (HCC) Inhale 2 puffs in the morning and 2 puffs before bedtime. 1 each 3 5 Active albuterol HFA 90 mcg/act inhalerIndicati ons:Chronic obstructive pulmonary disease, unspecified COPD type (HCC) Inhale 2 puffs every 6 (six) hours if needed for shortness of breath or wheezing 18 g 3 5 Active Active Problems Problem Noted Date Diagnosed Date [...] Encounters Date Type Department Care Team Description 10/01/2024 Refill [facility] [address] [place] [address] Avtar Gray LPN Chronic obstructive pulmonary disease, unspecified COPD type (HCC); Paroxysmal sinus tachycardia (HCC) 09/26/2024 2:30 PM EDT Consult [facility] [address] [place] [address] Amalia Valdez DO Chronic obstructive pulmonary disease, unspecified COPD type (HCC) (Primary Dx); Chronic respiratory failure with hypoxia (HCC) 09/26/2024 Bamboo flowsheet [facility] [address] [place] [address] Amalia Valdez DO 09/26/2024 Travel from Last 3 Months Immunizations Immunization Administration [...] Sign Reading Time Taken Comments Blood Pressure 142/82 09/26/2024 1:00 PM EDT Pulse 84 09/26/2024 1:00 PM EDT Temperature 36.2 C (97.1 F) 08/28/2024 10:33 AM EDT Respiratory Rate - - Oxygen Saturation 94% 09/26/2024 1:00 PM EDT Inhaled Oxygen Concentration - - Weight 95.3 kg (210 lb) 09/26/2024 1:00 PM EDT Height 175.3 cm (5' 9 ) 08/28/2024 10:33 AM EDT Body Mass Index 31.01 08/28/2024 10:33 AM EDT Plan of Treatment Upcoming Encounters Date Type Department Care Team (Late st Contact Info) Description 01/02/2025 3:00 PM EDT Office Visit [facility] [address] [place] [address] Amalia Valdez DO [address] [place] [address] Health Maintenance Due Date Last Done Comments CT Colonography 1966 Colonoscopy 1966 FIT 1966 FOBT 1966 Sigmoidoscopy 1966 Influenza Vaccine (#1) 2024 Colorectal Cancer Screening 09/26/2026 FIT-DNA 09/26/2026 09/27/2023, 05/10/2019 Insurance MELISSA BARNES Care Teams Manufacturing Shift Supervisor Relationship Specialty Start Date End Date Gianfranco Tirado DO [address] [facility] [address] [place] [id number] PCP - General Family Medicine 08/28/24
--- OUTSIDE RECORDS SUMMARY | 2024-12-23 09:23 | XMS_ITS | Encounter Summary ---
Author Organization [facility] Address [address] [place] [address] Care Team Providers Care Unix Consultant Name Role Phone Gianfranco Tirado DO Primary Care Provider [phone] Encounter Details Date Type Department Care Team (Late Contact Info) Description 09/18/2024 Abstract [facility] [address] [facility] [address] [place] [address] Gianfranco Tirado DO [address] [email or web address] [address] [place] [address] Social History Tobacco Use Types Packs/Day Years Used Date Smoking Tobacco: Never Passive Smoke Exposure: Never Smokeless Tobacco: Never Alcohol Use Standard Drinks/Week Comments Never 0 [...] Department Care Team (Late Contact Info) Description 01/02/2025 3:00 PM EDT Office Visit [facility] [address] [place] [address] Amalia Valdez DO [address] [place] [address] documented as of this encounter Visit Diagnoses Not on filedocumented in this encounter Care Teams Unix Consultant Relationship Specialty Start Date End Date Gianfranco Tirado DO [address] [address] PCP - General Family Medicine 08/28/24 documented as of this encounter
--- OUTSIDE RECORDS SUMMARY | 2024-12-23 09:23 | XMS_ITS | Encounter Summary ---
Author Organization [facility] Address [address] [place] [address] Care Team Providers Care Poultry Field Service Technician Name Role Phone Van Méndez DO Primary Care Provider [phone] Gianfranco Tirado DO Primary Care Provider [phone] Encounter Details Date Type Department Care Team (Late Contact Info) Description 08/06/2024 Abstract [facility] [place] [address] [place] [address] Gianfranco Tirado DO [address] [place] [address] Social History Tobacco Use Types Packs/Day Years [...] Office Visit [facility] [address] [place] [address] Amalia Valdez DO [address] [place] [address] documented as of this encounter Visit Diagnoses Not on filedocumented in this encounter Care Teams Poultry Field Service Technician Relationship Specialty Start Date End Date Van Méndez DO [address] [place] [address] PCP - General Internal Medicine 08/09/24 08/27/24 Gianfranco Tirado DO [address] [facility] [address] [place] [address] PCP - General Family Medicine 08/28/24 documented as of this encounter
--- OUTSIDE RECORDS SUMMARY | 2024-12-23 09:38 | XMS_ITS | CCD ---
Author Organization [facility] Care Team Providers Care Elementary Art Teacher Name Role Phone VAN MÉNDEZ Primary Care Physician [phone] Sami ANDERSON Attending Unavailable Van Méndez DR AVN MÉNDEZ Consulting Mary Kay MÉNDEZ, DR MARRERO Primary Care Unavailable REQUEST, DR MONDRAGON LISTED Attending Unavaila ble REQUEST, DR MONDRAGON LISTED Admitting Unavaila ble Van Méndez DO Primary Care Provider Theresa Tirado DO Primary Care Provider THERESA TIRADO Attending Unavailable AMALIA VALDEZ Attending Unavailable VAN MÉNDEZ Referring Unavailable Allergies Allergy Classification Reported Allergen(s) Allergy Type Date of Onset Reaction(s) Facility (1 source) No Known Medication Allergies; Translations: [No Known Medication Allergies] Propensity to adverse reactions (disorder) [facility] Repository (1 source) patient allergy list reviewed by nurse or physicia Propensity to adverse reactions 7 Comment:Done [employer] Other Medications Current Medications Medication Drug Class(es) Dates Sig (Normalized) Sig (Original) albuterol 0.83 mg/ml inhalation solution (20 sources) beta2-Adrenergic Agonist Start: 04-17-2024 take 1 puff(s) by inhalation every six hours as needed for wheezing Albuterol Sulfate 90 mcg/actuation HFA aerosol inhaler Active 2 PUFF INHALATION Every 6 hours as needed for shortness of breath or wheezing 8.5 April 17, 2024 10:43am Start: 11-07-2023 End: 04-17-2024 albuterol (2.5 MG/3ML) 0.083 % nebulizer solution Take 2.5 mg by nebulization every 6 (six) hours if needed for shortness of breath or wheezing 04/17/2024 Active Start: 10-12-2023 End: 04-17-2024 take 2 puff(s) [...] 20, 2023 12:00am October 12, 2023 7:04am take 2 puff(s) by in halation every six hours for wheezing albuterol HFA 90 mcg/act inhaler Inhale 2 puffs every 6 (six) hours if needed for shortness of breath or wheezing Active 60 actuat budesonide 0.16 mg/actuat / formoterol fumarate 0.0045 mg/actuat metered dose inhaler (10 sources) Corticosteroid, beta2-Adrenergic Agonist Start: 04-17-2024 take 2 puff(s) by inhalation in the morning budesonide-formoterol (Symbicort) 160-4.5 MCG/ACT inhaler Inhale 2 puffs in the morning and 2 puffs before bedtime. 04/17/2024 Active Start: 04-17-2024 take 1 puff(s) by in halation every twelve hours Budesonide-Formoterol 160-4.5 mcg/actuation HFA aerosol inhaler Active 2 PUFF INHALATION Every 12 hours 10.2 30 April 17, 2024 1:00am 24 hr dilTIAZem hydrochloride 120 mg extended release oral capsule (14 sources) Calcium Channel Ken Start: 08-17-2024 take 1 capsule by mouth once daily, then take 1 capsule by mouth every twenty-four hours dilTIAZem CD (Cardizem CD) 120 MG 24 hr capsule Take 120 mg by mouth Daily 08/17/2024 Active Start: 05-16-2024 End: 06-24-2024 take 1 capsule by mouth once daily Diltiazem Hcl 120 mg capsule,extended release 24hr Discontinued 120 MG PO Daily 30 May 28, 2024 5:27pm June 24, 2024 9:57am hydrocortisone 25 mg/ml topical cream (6 sources) Corticosteroid Start: 07-28-2022 Hydrocortisone 2.5 % 1 application Externally twice daily for 10 days July, Active Hydrocortisone A cetate 25 MG 1 suppository Rectal twice daily for 12 days Active Inhalational Spacing Device (Aerochamber Mv) spacer (6 sources) Start: 09-20-2023 Inhalational S pacing Device (Aerochamber Mv) spacer Active 0 .Route 1 September 19, 2023 11:00pm Use with MDI Start: 09-20-2023 Inhalational S pacing Device (Aerochamber Mv) spacer Active 0 .Route September 20, 2023 12:00am Use with MDI [place] (No Known Home Meds) (1 source) Start: 09-18-2023 [place] (No Kn own Home Meds) Active September 18, 2023 12:00am Completed/Discontinued Medications Medication Drug Class(es) Dates Sig (Normalized) Sig (Original) azithromycin 250 mg oral tablet (9 sources) Macrolide Antimicrobial Start: 05-29-2023 End: 09-18-2023 Azithromycin 250 mg tablet Discontinued 250 MG PO As Directed 08 22May 29, 2023 12:00am September 18, 2023 2:28pm Start: 02-20-2023 Azithromycin 2 50 MG as directed Orally daily for 5 days Feb, Active doxycycline hyclate 100 mg oral capsule (14 sources) Tetracycline-class Drug Start: 09-20-2023 End: 04-17-2024 [...] 12:00am September 18, 2023 2:28pm Fluticasone Propion-Salmeterol (8 sources) Corticosteroid, beta2-Adrenergic Agonist Start: 11-03-2023 End: 01-29-2025 Fluticasone Propion-Salmeterol (Wixela Inhub) 500-50 mcg/dose blister [...] 12 hours 60 November 03, 2023 6:31pm Start: 11-03-2023 End: 08-28-2024 take 1 puff(s) by inhalation in the morning Fluticasone-Salmeterol 500-50 MCG/ACT aerosol powder Inhale 1 puff in the morning and 1 puff before bedtime. 11/03/2023 08/28/2024 Discontinued Fluticasone Propion-Salmeter ol (Wixela Inhub) 500-50 mcg/dose blister with device (5 sources) Start: 11-03-2023 End: 11-03-2023 Fluticasone Propion-Salmeter [...] Active Problems Problem Classification Problem Date Documented Date Episodic/Chronic Abdominal hernia (7 sources) Umbilical hernia; Translations: [Umbilical hernia without obstruction or gangrene] Onset: 08-28-2024 08-28-2024 Episodic Acute bronchitis (4 sources) Acute bronchitis due to other specified organisms; Translations: [Acute bronchitis] Episodic Asthma (4 sources) Asthma; Translations: [Unspecified asthma, uncomplicated] 04-17-2024 Chronic Comment on above: PFT: FEV1 (25%), FVC (41%), FEV1/FVC 46, TLC 127%, DLCO normal - 10/2023 Biliary tract disease (10 sources) Biliary calculus; Translations: [Calculus of gallbladder without cholecystitis without obstruction] Onset: 08-27-2024 07-03-2024 Episodic Comment on above: CT 06/2024 Calculus of urinary tract (2 sources) Kidney stone; Translations: [Ureteric stone] 06-21-2021 Episodic Cardiac dysrhythmias (14 sources) Paroxysmal tachycardia; Translations: [Paroxysmal sinus tachycardia] Onset: 08-27-2024 06-14-2024 Chronic Cardiac dysrhythmias (10 sources) Tachycardia; Translations: [Tachycardia, unspecified] Onset: 08-27-2024 05-16-2024 Episodic Comment on above: Echo: LVEF 65%, norm al RV size/function - 04/2024 Chronic obstructive pulmonary disease and bronchiectasis (15 sources) Acute exacerbation of chronic obstructive airways disease; Translations: [Chronic obstructive pulmonary disease with (acute) exacerbation] Onset: 08-27-2024 11-05-2023 Chronic Genitourinary symptoms and ill-defined conditions (1 source) Nocturia Episodic Hemorrhoids (2 sources) Perianal venous thrombosis; Translations: [Residual hemorrhoidal skin tags] Episodic Hyperplasia of prostate (20 sources) Benign prostatic hypertrophy with outflow obstruction; Translations: [Lower urinary tract symptoms due to benign prostatic hypertrophy] Onset: 02-13-2017 06-21-2021 Chronic Other connective tissue disease (1 source) Suspected respiratory disease; Translations: [Other symptoms and signs involving the nervous system] 06-14-2024 Episodic Other connective tissue disease (2 sources) Other symptoms and signs involving the nervous system; Translations: [Other symptoms involving nervous and musculoskeletal systems] 06-14-2024 Episodic Other hematologic conditions (12 sources) Erythrocytosis; Translations: [Secondary polycythemia] Onset: 08-28-2024 11-05-2023 Episodic Other hematologic conditions (8 sources) Secondary polycythemia; 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 vera] 11-07-2023 Episodic Other liver diseases (10 sources) Fatty (change of) liver, not elsewhere classified; Translations: [Metabolic dysfunction-associate d steatotic liver disease (MASLD)] Onset: 08-27-2024 07-03-2024 Chronic Other lower respiratory disease (8 sources) Cough; Translations: [Cough] 09-18-2023 Episodic Other lower respiratory disease (11 sources) Dyspnea on exertion; Translations: [Other forms of dyspnea] Onset: 08-27-2024 10-20-2023 Episodic Other lower respiratory disease (5 sources) Wheezing; Translations: [Wheezing] 10-20-2023 Episodic Other lower respiratory disease (8 sources) Other forms of dyspnea; Translations: [Other respiratory abnormalities] 10-20-2023 Episodic Other lower respiratory disease (3 sources) Wheezing; Translations: [Wheezing] 10-20-2023 Episodic Other nutritional; endocrine; and metabolic disorders (3 sources) Simple obesity ; Translations: [Other obesity due to excess calories] Chronic Other nutritional; endocrine; and metabolic disorders (17 sources) Obesity; Translations: [Other obesity due to excess calories] Onset: 08-27-2024 05-29-2023 Chronic Other nutritional; endocrine; and metabolic [...] Chronic Other nutritional; endocrine; and metabolic disorders (11 sources) Obesity, unspecified; Translations: [Obesity, unspecified] 05-29-2023 Chronic Other nutritional; endocrine; and metabolic disorders (1 source) Hemochromatosis; Translations: [Hemochromatosis, unspecified] 06-14-2024 Chronic Other nutritional; endocrine; and metabolic disorders (2 sources) Hemochromatosis, unspecified; Translations: [Other hemochromatosis] 06-14-2024 Chronic Other screening for suspected conditions (not mental disorders or infectious disease) (16 sources) Encounter for screening for malignant neoplasm of prostate; Translations: [Patient encounter status] Episodic Respiratory failure; insufficiency; arrest (adult) (1 source) Chronic hypoxemic respiratory failure; Translations: [Chronic respiratory failure with hypoxia] 09-26-2024 Chronic Syncope (10 sources) Syncope; Translations: [Syncope and collapse] 11-07-2023 Episodic Past or Other Problems Problem Classification Problem Date Documented Da te Episodic/Chronic Other connective tissue disease (9 sources) Plantar fascial fibromatosis; Translations: [Plantar fascial fibromatosis] Onset: 03-25-2015 05-29-2023 Episodic Other hematologic conditions (1 source) Secondary polycythemia; Translations: [Secondary polycythemia] Onset: 02-13-2017 Resolved: 06-23-2021 Episodic Results Test Name Value Interpretation Reference Range Facility ALL CBC WITH AUTO DIFFon BASOPHILS ABSOLUTE AUTO 0.1 [facility] Basophils/100 WBC (Bld) 0.9 % 0.2 - 2.0 % [facility] Eosinophils/100 WBC (Bld) 6 % 0.9 - 7.0 % [facility] Erythrocyte distribution width (RBC) [Ratio] 13.2 % 11.0 - 15.0 % [facility] Hematocrit (Bld) [Volume fraction] 55.6 % High 42.0 - 54.0 % [facility] Hemoglobin (Bld) [Mass/Vol] 18.4 g/dL High 14.0 - 18.0 g/dL [facility] IMMATURE GRANULOCYTES ABS AUTO 0.05 High [facility] Immature granulocytes/100 WBC (Bld) 0.9 % High 0.0 - 0.5 % [facility] Interpretation and review of laboratory results Abnormal [facility] LYMPHOCYTES ABSOLUTE AUTO 2.2 [facility] Lymphocytes/100 WBC (Bld) 37.7 % 20.5 - 60.0 % [facility] MCH (RBC) [Entitic mass] 31.1 pg 25.9 - 34.0 pg [facility] MCHC (RBC) [Mass/Vol] 33.1 g/dL 29.9 - 35.2 g/dL [facility] MCV (RBC) [Entitic vol] 94.1 fL High 80.0 - 94.0 fL [facility] MONOCYTES ABSOLUTE AUTO 0.5 [facility] Monocytes/100 WBC (Bld) 9.1 % 1.7 - 12.0 % [facility] NEUTROPHILS ABSOLUTE AUTO 2.6 [facility] Neutrophils/100 WBC (Bld) 45.4 % 43.0 - 75.0 % [facility] Platelet mean volume (Bld) [Entitic vol] 10.1 fL 9.5 - 13.5 fL [facility] TBH EO # 0.3 [facility]H PLT [address] [facility] RBC 5.91 [facility] WBC 5.7 [facility] CMP (CMP) (FOR REMOTE FH C USE)on 09-18-2024 Albumin [Mass/Vol] 3.7 g/dL 3.4 - 5.0 g/dL [facility] ALBUMIN GLOBULIN RATIO 1.1 [facility] ALP [Catalytic activity/Vol] 64 U/L 46 - 116 U/L [facility] ALT [Catalytic activity/Vol] 26 U/L 16 - 63 U/L [facility] Anion gap [Moles/Vol] 12.6 mmol/L [facility] AST [Catalytic activity/Vol] 21 U/L 15 - 37 U/L [facility] Bilirubin [Mass/Vol] 0.8 mg/dL 0.2 - 1.0 mg/dL [facility] Calcium [Mass/Vol] 8.9 mg/dL 8.5 - 10. 1 mg/dL [facility] Chloride [Moles/Vol] 106 mmol/L 98 - 107 mmol/L [facility] CO2 [Moles/Vol] 28.7 mmol/L 21.0 - 32.0 mmol/L [facility] Creatinine [Mass/Vol] 0.94 mg/dL 0.70 - 1.30 mg/dL [facility] GFR/1.73 sq M.predicted CKD-EPI (S/P/Bld) [Vol rate/Area] >60 >=60 mL/min/1.73 m 2 [facility] Globulin (S) [Mass/Vol] 3.4 g/dL [facility] Glucose [Mass/Vol] 99 mg/dL 74 - 106 mg/dL [facility] Potassium [Moles/Vol] 4.3 mmol/L 3.5 - 5.1 mmol/L [facility] Protein [Mass/Vol] 7.1 g/dL 6.4 - 8.2 g/dL [facility] Sodium [Moles/Vol] 143 mmol/L 136 - 145 mmol/L [facility] TB EGFR-NON AF COMORAN >60 >=60 mL/min/1.73 m 2 [facility] Urea nitrogen [Mass/Vol] 14 mg/dL 7.0 - 18.0 mg/dL [facility] Urea nitrogen/Creatinin e [Mass ratio] 14.9 mg/mg [facility] Basophils Auto (Bld) [#/Vol] on 06-18-2024 Basophils (Bld) [#/Vol] Automated basophil count 0.0-0.1 [facility] Basophils/100 WBC Auto (Bld) on 06-18-2024 Basophils/100 WBC (Bld) Automated basophil % 0.2-2.0 [facility] Eosinophils/100 WBC Auto (Bl d)on 06-18-2024 Eosinophils/100 WBC (Bld) Automated eosinophil % 0.9-7.0 [facility] Erythrocyte distribution wid th Auto (RBC) [Ratio]on 06-18-2024 Erythrocyte distribution width (RBC) [Ratio] Erythrocyte distribution width [Ratio] by Automated count 11.0-15.0 [facility] Estimated glomerular filtrat ion rate (GFR) non- Americanon 06-18-2024 GFR/1.73 sq M.predicted among non-blacks MDRD (S/P/Bld) [Vol rate/Area] Estimated glomerular filtration rate (GFR) non- >=60 mL/min/1.73 m 2 [facility] Globulin Calc (S) [Mass/Vol] on 06-18-2024 Globulin (S) [Mass/Vol] Serum globulin measurement by calculation (mass/volume) [facility] Hematocrit Auto (Bld) [Volum e fraction]on 06-18-2024 Hematocrit (Bld) [Volume fraction] Hematocrit [Volume Fraction] of Blood by Automated count High 42.0-54.0 [facility] Hemoglobin [Mass/volume] in Bloodon 06-18-2024 Hemoglobin (Bld) [Mass/Vol] Hemoglobin [Mass/volume] in Blood High 14.0-18.0 [facility] Iron binding capacity [Mass/ volume] in Serum or Plasmaon 06-18-2024 Iron binding capacity [Mass/Vol] Iron binding capacity [Mass/volume] in Serum or Plasma 250.0-450.0 [facility] Iron saturation [Mass Fracti on] in Serum or Plasmaon 06-18-2024 Iron saturation [Mass fraction] Iron saturation [Mass Fraction] in Serum or Plasma [facility] Laboratory - Chemistry and C hemistry - challengeon 06-18-2024 Albumin [Mass/Vol] 3.6 g/dL 3.4-5.0 [facility] ALP [Catalytic activity/Vol] 66 U/L 46-116 [facility] ALT [Catalytic activity/Vol] 30 U/L 16-63 [facility] AST [Catalytic activity/Vol] 16 U/L 15-37 [facility] Bilirubin [Mass/Vol] 0.9 mg/dL 0.2-1.0 [facility] Calcium [Mass/Vol] 9.4 mg/dL 8.5-10.1 [facility] Chloride [Moles/Vol] 101 mmol/L 98-107 [facility] CO2 [Moles/Vol] 32.3 mmol/L High 21.0-32.0 [facility] Creatinine [Mass/Vol] 1.19 mg/dL 0.70-1.30 [facility] Ferritin [Mass/Vol] 300.0 ng/mL 26.0-388.0 [facility] GFR/1.73 sq M.predicted MDRD (S/P/Bld) [Vol rate/Area] mL/min/{1.73_m2} >=60 mL/min/1.73 m 2 [facility] Glucose [Mass/Vol] 105 mg/dL 74-106 [facility] Iron [Mass/Vol] 169.0 ug/dL 65.0-175.0 [facility] Potassium [Moles/Vol] 4.4 mmol/L 3.5-5.1 [facility] Protein [Mass/Vol] 7.5 g/dL 6.4-8.2 [facility] Sodium [Moles/Vol] 140 mmol/L 136-145 [facility] Urea nitrogen [Mass/Vol] 13.0 mg/dL 7.0-18.0 [facility] Urea nitrogen/Creatinin e [Mass ratio] 10.9 mg/mg [facility] Laboratory - Hematology and Cell countson 06-18-2024 Immature granulocytes/100 WBC (Bld) 0.9 % High 0.0-0.5 [facility] Leukocytes [#/volume] correc red for nucleated erythrocytes in Blood by Automated counon 06-18-2024 WBC corrected for nucl RBC Auto (Bld) [#/Vol] Leukocytes [#/volume] corrected for nucleated erythrocytes in Blood by Automated coun 4.0-11.0 [facility] Lymphocytes Auto (Bld) [#/Vo l]on 06-18-2024 Lymphocytes (Bld) [#/Vol] Lymphocytes [#/volume] in Blood by Automated count 1.2-3.8 [facility] Lymphocytes/100 WBC Auto (Bl d)on 06-18-2024 Lymphocytes/100 WBC (Bld) Lymphocytes/100 leukocytes in Blood by Automated count 20.5-60.0 [facility] MCH Auto (RBC) [Entitic mass ]on 06-18-2024 MCH (RBC) [Entitic mass] MCH [Entitic mass] by Automated count 25.9-34.0 [facility] MCHC Auto (RBC) [Mass/Vol]on 06-18-2024 MCHC (RBC) [Mass/Vol] MCHC [Mass/volume] by Automated count 29.9-35.2 [facility] MCV Auto (RBC) [Entitic vol] on 06-18-2024 MCV (RBC) [Entitic vol] MCV [Entitic volume] by Automated count High 80.0-94.0 [facility] Monocytes Auto (Bld) [#/Vol] on 06-18-2024 Monocytes (Bld) [#/Vol] Automated blood monocyte count 0.3-0.8 [facility] Monocytes/100 WBC Auto (Bld) on 06-18-2024 Monocytes/100 WBC (Bld) Automated monocyte % 1.7-12.0 [facility] Neutrophils Auto (Bld) [#/Vo l]on 06-18-2024 Neutrophils (Bld) [#/Vol] Neutrophils [#/volume] in Blood by Automated count 1.4-6.5 [facility] Neutrophils/100 WBC Auto (Bl d)on 06-18-2024 Neutrophils/100 WBC (Bld) Automated neutrophil % 43.0-75.0 [facility] No Panel Informationon 06-18 C-Reactive Protein, Quantitative <0.50 mg/dL <=0.50 [facility] Eosinophils # (Auto) 0.3 10 3/uL 0.0-0.7 [facility] Immature Granulocyte # (Auto) 0.06 10 3/uL High 0.00-0.03 [facility] Miscellaneous Test COMMENT . [facility] Comment on above: Test Ordered: [id number] Sedimentation Rate- WestergrenSedimentation Rate-Westergren 3 mm/hr CB Reference Range: 0-30Performed at: - [facility] [address] [id number] Director: Yaw Neal PhD, Phone: [phone] Platelet mean volume Auto (B ld) [Entitic vol]on 06-18-2024 Platelet mean volume (Bld) [Entitic vol] Platelet mean volume [Entitic volume] in Blood by Automated count 9.5-13.5 [facility] Platelets Auto (Bld) [#/Vol] on 06-18-2024 Platelets (Bld) [#/Vol] Platelets [#/volume] in Blood by Automated count 150-450 [facility] RBC Auto (Bld) [#/Vol]on RBC (Bld) [#/Vol] Erythrocytes [#/volu me] in Blood by Automated count 4.70-6.10 [facility] Serum or plasma albumin/glob ulin mass ratioon 06-18-2024 Albumin/Globulin [Mass ratio] Serum or plasma albumin/globulin mass ratio [facility] Serum or plasma anion gap de terminationon 06-18-2024 Anion gap [Moles/Vol] Serum or plasma anion gap determination [facility] Serum or plasma erythropoiet in (EPO) measurement (units/volume)on 06-18-2024 Erythropoietin (EPO) Qn Serum or plasma erythropoietin (EPO) measurement (units/volume) 2.6-18.5 [facility] Comment on above: ebindle el DxI 800 Immunoassay SystemValues obtained with different assay methods or kits cannotbe used interchangeably. Results cannot be interpreted asabsolute evidence of the presence or absence of malignantdisease.Performed at: [facility] [id number] Director: Yaw Neal PhD, Phone: [phone] No Panel Informationon 06-03 Miscellaneous Test COMMENT . [facility] Comment on above: Test Ordered: [id number] Hered.Hemochromatosis, DNAHereditary Hemochromatosis Comment TG Reference Range: .Result:c.845G>A (p.Xlc250Uos) - Not Detectedc.187C>G (p.Bun37Dak) - Not Detectedc.193A>T (p.Vsu97Vcq) - Not DetectedNot associated with increased risk [...] recommended for patientswho are homozygous for c.845G>A (p.Omn203Cyk) and have yetto experience clinical symptoms.Comments:The most common HFE variants associated with hereditaryhemochromatosis are c.845G>A (p.Zuq184Dxf), c.187C>G(p.Ssb48Slz), c.193A>T (p.Eax73Eqr). While patientshomozygous for c.845G>A (p.Lkw623Jjm) are the most likelyto present clinical symptoms, less than 10% developclinically significant iron overload with tissue and organdamage.Genetic counseling is recommended to discuss the potentialclinical implications of positive results, as well asrecommendations for testing family members.Genetic Coordinators are available for health careproviders to discuss results at [phone] ([id number]).Test Details:Three variants analyzed:c.845G>A (p.Mop768Hmz), commonly referred to as C282Yc.187C>G (p.Rra51Cuk), commonly referred to as H63Dc.193A>T (p.Fgk08Kif), commonly referred to as H68QRncmjid/Limitations:DNA Analysis of the HFE gene (NM_000410.4) was [...] was developed and its performancecharacteristics determined by [employer]. It has not beencleared or approved by the Food and Drug Administration.References:Ike BR, Norman PC, Chapincito KV, Karthikeyan LW, Jamil ;[employer].Diagnosis and management of hemochromatosis: 2011 practiceguideline by the [employer] the Study ofLiver Diseases. Hepatology. 2010;54(1):328-43. doi:10.1002/hep.90914. PMID: 62358605; PMCID: RSB5475646.Nory G, Sp P, Aruna NASH, Rema H, Kimberly O,Diego S, Fernando I, David M, Raul S. [facility] best practiceguidelines for the molecular genetic diagnosis ofhereditary hemochromatosis (HH). Eur J Hum More. 2016Apr;24(4):479-95. doi: 10.1038/ejhg.2015.128. Epub 2014. PMID: 05491987; PMCID: [id number].Reviewed by: Comment TG Reference Range: .Technical Component performed at [facility] RTPProfessional Component performed by:[employer] Myra Gonzales, Ph.D., FACMGDirector, Molecular [address] [place] [place] [id number] at: TG - [facility] [id number] [place], [place] [id number] Director: Bekah Curran [facility], Phone: [phone] at: - [facility] [address] [id number] Director: Yaw Neal PhD, Phone: [phone] Basophils Auto (Bld) [#/Vol] on 05-07-2024 Basophils (Bld) [#/Vol] Automated basophil count 0.0-0.1 [facility] Basophils/100 WBC Auto (Bld) on 05-07-2024 Basophils/100 WBC (Bld) Automated basophil % 0.2-2.0 [facility] Eosinophils/100 WBC Auto (Bl d)on 05-07-2024 Eosinophils/100 WBC (Bld) Automated eosinophil % 0.9-7.0 [facility] Erythrocyte distribution wid th Auto (RBC) [Ratio]on 05-07-2024 Erythrocyte distribution width (RBC) [Ratio] Erythrocyte distribution width [Ratio] by Automated count 11.0-15.0 [facility] Estimated glomerular filtrat ion rate (GFR) non- Americanon 05-07-2024 GFR/1.73 sq M.predicted among non-blacks MDRD (S/P/Bld) [Vol rate/Area] Estimated glomerular filtration rate (GFR) non- Low >=60 mL/min/1.73 m 2 [facility] Globulin Calc (S) [Mass/Vol] on 05-07-2024 Globulin (S) [Mass/Vol] Serum globulin measurement by calculation (mass/volume) [facility] Hematocrit Auto (Bld) [Volum e fraction]on 05-07-2024 Hematocrit (Bld) [Volume fraction] Hematocrit [Volume Fraction] of Blood by Automated count High 42.0-54.0 [facility] Hemoglobin [Mass/volume] in Bloodon 05-07-2024 Hemoglobin (Bld) [Mass/Vol] Hemoglobin [Mass/volume] in Blood High 14.0-18.0 [facility] Iron binding capacity [Mass/ volume] in Serum or Plasmaon 05-07-2024 Iron binding capacity [Mass/Vol] Iron binding capacity [Mass/volume] in Serum or Plasma 250.0-450.0 [facility] Iron saturation [Mass Fracti on] in Serum or Plasmaon 05-07-2024 Iron saturation [Mass fraction] Iron saturation [Mass Fraction] in Serum or Plasma [facility] Laboratory - Chemistry and C hemistry - challengeon 05-07-2024 Albumin [Mass/Vol] 3.4 g/dL 3.4-5.0 [facility] ALP [Catalytic activity/Vol] 61 U/L 46-116 [facility] ALT [Catalytic activity/Vol] 41 U/L 16-63 [facility] AST [Catalytic activity/Vol] 31 U/L 15-37 [facility] Bilirubin [Mass/Vol] 0.7 mg/dL 0.2-1.0 [facility] Calcium [Mass/Vol] 8.9 mg/dL 8.5-10.1 [facility] Chloride [Moles/Vol] 102 mmol/L 98-107 [facility] CO2 [Moles/Vol] 32.7 mmol/L High 21.0-32.0 [facility] Creatinine [Mass/Vol] 1.31 mg/dL High 0.70-1.30 [facility] Ferritin [Mass/Vol] 569.0 ng/mL High 26.0-388.0 [facility] GFR/1.73 sq M.predicted MDRD (S/P/Bld) [Vol rate/Area] mL/min/{1.73_m2} >=60 mL/min/1.73 m 2 [facility] Glucose [Mass/Vol] 83 mg/dL 74-106 [facility] Iron [Mass/Vol] 57.0 ug/dL Low 65.0-175.0 [facility] Potassium [Moles/Vol] 4.1 mmol/L 3.5-5.1 [facility] Protein [Mass/Vol] 7.3 g/dL 6.4-8.2 [facility] Sodium [Moles/Vol] 138 mmol/L 136-145 [facility] Urea nitrogen [Mass/Vol] 13.0 mg/dL 7.0-18.0 [facility] Urea nitrogen/Creatinin e [Mass ratio] 9.9 mg/mg [facility] Laboratory - Hematology and Cell countson 05-07-2024 Immature granulocytes/100 WBC (Bld) 0.4 % 0.0-0.5 [facility] Leukocytes [#/volume] correc red for nucleated erythrocytes in Blood by Automated counon 05-07-2024 WBC corrected for nucl RBC Auto (Bld) [#/Vol] Leukocytes [#/volume] corrected for nucleated erythrocytes in Blood by Automated coun 4.0-11.0 [facility] Lymphocytes Auto (Bld) [#/Vo l]on 05-07-2024 Lymphocytes (Bld) [#/Vol] Lymphocytes [#/volume] in Blood by Automated count 1.2-3.8 [facility] Lymphocytes/100 WBC Auto (Bl d)on 05-07-2024 Lymphocytes/100 WBC (Bld) Lymphocytes/100 leukocytes in Blood by Automated count 20.5-60.0 [facility] MCH Auto (RBC) [Entitic mass ]on 05-07-2024 MCH (RBC) [Entitic mass] MCH [Entitic mass] by Automated count 25.9-34.0 [facility] MCHC Auto (RBC) [Mass/Vol]on 05-07-2024 MCHC (RBC) [Mass/Vol] MCHC [Mass/volume] by Automated count 29.9-35.2 [facility] MCV Auto (RBC) [Entitic vol] on 05-07-2024 MCV (RBC) [Entitic vol] MCV [Entitic volume] by Automated count High 80.0-94.0 [facility] Monocytes Auto (Bld) [#/Vol] on 05-07-2024 Monocytes (Bld) [#/Vol] Automated blood monocyte count High 0.3-0.8 [facility] Monocytes/100 WBC Auto (Bld) on 05-07-2024 Monocytes/100 WBC (Bld) Automated monocyte % High 1.7-12.0 [facility] Neutrophils Auto (Bld) [#/Vo l]on 05-07-2024 Neutrophils (Bld) [#/Vol] Neutrophils [#/volume] in Blood by Automated count 1.4-6.5 [facility] Neutrophils/100 WBC Auto (Bl d)on 05-07-2024 Neutrophils/100 WBC (Bld) Automated neutrophil % 43.0-75.0 [facility] No Panel Informationon 05-07 Eosinophils # (Auto) 0.1 10 3/uL 0.0-0.7 [facility] Immature Granulocyte # (Auto) 0.02 10 3/uL 0.00-0.03 [facility] Platelet mean volume Auto (B ld) [Entitic vol]on 05-07-2024 Platelet mean volume (Bld) [Entitic vol] Platelet mean volume [Entitic volume] in Blood by Automated count 9.5-13.5 [facility] Platelets Auto (Bld) [#/Vol] on 05-07-2024 Platelets (Bld) [#/Vol] Platelets [#/volume] in Blood by Automated count Low 150-450 [facility] RBC Auto (Bld) [#/Vol]on RBC (Bld) [#/Vol] Erythrocytes [#/volu me] in Blood by Automated count High 4.70-6.10 [facility] Serum or plasma albumin/glob ulin mass ratioon 05-07-2024 Albumin/Globulin [Mass ratio] Serum or plasma albumin/globulin mass ratio [facility] Serum or plasma anion gap de terminationon 05-07-2024 Anion gap [Moles/Vol] Serum or plasma anion gap determination [facility] Serum or plasma erythropoiet in (EPO) measurement (units/volume)on 05-07-2024 Erythropoietin (EPO) Qn Serum or plasma erythropoietin (EPO) measurement (units/volume) 2.6-18.5 [facility] Comment on above: ebindle el DxI 800 Immunoassay SystemValues obtained with different assay methods or kits cannotbe used interchangeably. Results cannot be interpreted asabsolute evidence of the presence or absence of malignantdisease.Performed at: [place] [id number] Director: Yaw Neal PhD, Phone: [phone] Basophils Auto (Bld) [#/Vol] on 04-18-2024 Basophils (Bld) [#/Vol] Automated basophil count 0.0-0.1 [facility] Basophils/100 WBC Auto (Bld) on 04-18-2024 Basophils/100 WBC (Bld) Automated basophil % 0.2-2.0 [facility] Cholesterol in LDL Calc [Mas s/Vol]on 04-18-2024 Cholesterol in LDL [Mass/Vol] Cholesterol in LDL [Mass/volume] in Serum or Plasma by calculation [facility] Comment on above: <100 mg/dl [id number] 0-129 mg/dl NEAR OR ABOVE BICRZPA078-467 mg/dl BORDERLINE ATDB596-311 mg/dl HIGH>190 mg/dl VERY HIGH Cholesterol in VLDL Calc [Ma ss/Vol]on 04-18-2024 Cholesterol in VLDL [Mass/Vol] Cholesterol in VLDL [Mass/volume] in Serum or Plasma by calculation [facility] Eosinophils/100 WBC Auto (Bl d)on 04-18-2024 Eosinophils/100 WBC (Bld) Automated eosinophil % 0.9-7.0 [facility] Erythrocyte distribution wid th Auto (RBC) [Ratio]on 04-18-2024 Erythrocyte distribution width (RBC) [Ratio] Erythrocyte distribution width [Ratio] by Automated count 11.0-15.0 [facility] Estimated glomerular filtrat ion rate (GFR) non- Americanon 04-18-2024 GFR/1.73 sq M.predicted among non-blacks MDRD (S/P/Bld) [Vol rate/Area] Estimated glomerular filtration rate (GFR) non- >=60 mL/min/1.73 m 2 [facility] Globulin Calc (S) [Mass/Vol] on 04-18-2024 Globulin (S) [Mass/Vol] Serum globulin measurement by calculation (mass/volume) [facility] Hematocrit Auto (Bld) [Volum e fraction]on 04-18-2024 Hematocrit (Bld) [Volume fraction] Hematocrit [Volume Fraction] of Blood by Automated count High 42.0-54.0 [facility] Hemoglobin [Mass/volume] in Bloodon 04-18-2024 Hemoglobin (Bld) [Mass/Vol] Hemoglobin [Mass/volume] in Blood High 14.0-18.0 [facility] Laboratory - Chemistry and C hemistry - challengeon 04-18-2024 Albumin [Mass/Vol] 3.8 g/dL 3.4-5.0 [facility] ALP [Catalytic activity/Vol] 60 U/L 46-116 [facility] ALT [Catalytic activity/Vol] 26 U/L 16-63 [facility] AST [Catalytic activity/Vol] 20 U/L 15-37 [facility] Bilirubin [Mass/Vol] 1.2 mg/dL High 0.2-1.0 [facility] Calcium [Mass/Vol] 8.9 mg/dL 8.5-10.1 [facility] Chloride [Moles/Vol] 104 mmol/L 98-107 [facility] Cholesterol [Mass/Vol] 153 mg/dL <=200 [facility] Cholesterol in HDL [Mass/Vol] 42 mg/dL 40-60 [facility] Comment on above: > or =60 mg/dl - LOW CARDIOVASCULAR RISK<40 mg/dl - HIGH CARDIOVASCULAR RISK CO2 [Moles/Vol] 31.6 mmol/L 21.0-32.0 [facility] Creatinine [Mass/Vol] 1.24 mg/dL 0.70-1.30 [facility] GFR/1.73 sq M.predicted MDRD (S/P/Bld) [Vol rate/Area] mL/min/{1.73_m2} >=60 mL/min/1.73 m 2 [facility] Glucose [Mass/Vol] 99 mg/dL 74-106 [facility] Potassium [Moles/Vol] 4.3 mmol/L 3.5-5.1 [facility] Protein [Mass/Vol] 7.2 g/dL 6.4-8.2 [facility] Sodium [Moles/Vol] 141 mmol/L 136-145 [facility] Triglyceride [Mass/Vol] 125 mg/dL <=150 [facility] Urea nitrogen [Mass/Vol] 11.0 mg/dL 7.0-18.0 [facility] Urea nitrogen/Creatinin e [Mass ratio] 8.9 mg/mg [facility] Laboratory - Hematology and Cell countson 04-18-2024 Immature granulocytes/100 WBC (Bld) 0.7 % High 0.0-0.5 [facility] Leukocytes [#/volume] correc red for nucleated erythrocytes in Blood by Automated counon 04-18-2024 WBC corrected for nucl RBC Auto (Bld) [#/Vol] Leukocytes [#/volume] corrected for nucleated erythrocytes in Blood by Automated coun 4.0-11.0 [facility] Lymphocytes Auto (Bld) [#/Vo l]on 04-18-2024 Lymphocytes (Bld) [#/Vol] Lymphocytes [#/volume] in Blood by Automated count 1.2-3.8 [facility] Lymphocytes/100 WBC Auto (Bl d)on 04-18-2024 Lymphocytes/100 WBC (Bld) Lymphocytes/100 leukocytes in Blood by Automated count 20.5-60.0 [facility] MCH Auto (RBC) [Entitic mass ]on 04-18-2024 MCH (RBC) [Entitic mass] MCH [Entitic mass] by Automated count 25.9-34.0 [facility] MCHC Auto (RBC) [Mass/Vol]on 04-18-2024 MCHC (RBC) [Mass/Vol] MCHC [Mass/volume] by Automated count 29.9-35.2 [facility] MCV Auto (RBC) [Entitic vol] on 04-18-2024 MCV (RBC) [Entitic vol] MCV [Entitic volume] by Automated count High 80.0-94.0 [facility] Monocytes Auto (Bld) [#/Vol] on 04-18-2024 Monocytes (Bld) [#/Vol] Automated blood monocyte count 0.3-0.8 [facility] Monocytes/100 WBC Auto (Bld) on 04-18-2024 Monocytes/100 WBC (Bld) Automated monocyte % 1.7-12.0 [facility] Neutrophils Auto (Bld) [#/Vo l]on 04-18-2024 Neutrophils (Bld) [#/Vol] Neutrophils [#/volume] in Blood by Automated count 1.4-6.5 [facility] Neutrophils/100 WBC Auto (Bl d)on 04-18-2024 Neutrophils/100 WBC (Bld) Automated neutrophil % Low 43.0-75.0 [facility] No Panel Informationon 04-18 Eosinophils # (Auto) 0.5 10 3/uL 0.0-0.7 [facility] Immature Granulocyte # (Auto) 0.05 10 3/uL High 0.00-0.03 [facility] Nucleated Red Blood Cells/100 WBC 0 [facility] Platelet mean volume Auto (B ld) [Entitic vol]on 04-18-2024 Platelet mean volume (Bld) [Entitic vol] Platelet mean volume [Entitic volume] in Blood by Automated count 9.5-13.5 [facility] Platelets Auto (Bld) [#/Vol] on 04-18-2024 Platelets (Bld) [#/Vol] Platelets [#/volume] in Blood by Automated count 150-450 [facility] RBC Auto (Bld) [#/Vol]on RBC (Bld) [#/Vol] Erythrocytes [#/volu me] in Blood by Automated count High 4.70-6.10 [facility] Serum or plasma albumin/glob ulin mass ratioon 04-18-2024 Albumin/Globulin [Mass ratio] Serum or plasma albumin/globulin mass ratio [facility] Serum or plasma anion gap de terminationon 04-18-2024 Anion gap [Moles/Vol] Serum or plasma anion gap determination [facility] Serum or plasma total choles terol/high density lipoprotein (HDL) cholesterol mass jeromy 04-18-2024 Cholesterol.total/ Cholesterol in HDL [Mass ratio] Serum or plasma total cholesterol/high density lipoprotein (HDL) cholesterol mass rat [facility] Comment on above: 3.3 - 4.4 LOW RISK4. 4 - 7.1 AVERAGE RISK7.1 - 11.0 MODERATE RISK>11.0 HIGH RISK CBC AUTO DIFFon 08-02-2022 BASO # 0.1 103/ul Normal 0.0-0.1 [facility] Comment on above: Performed By: #### D ATCBC #### [facility] [address] [place] [address] [address] Henok Aleman Basophils/100 WBC (Bld) 1.3 % Normal 0.2-2.0 [facility] Comment on above: Performed By: #### D ATCBC #### [facility] [address] [place] [address] Dr. Henok Aleman EO # 0.4 103/ul Normal 0.0-0.7 [facility] Comment on above: Performed By: #### D ATCBC #### [facility] [address] [place] [address] Dr. Henok Aleman Eosinophils/100 WBC (Bld) 5.9 % Normal 0.9-7.0 [facility] Comment on above: Performed By: #### D ATCBC #### [facility] [address] [place] [address] Dr. Henok Aleman Erythrocyte distribution width (RBC) [Ratio] 13.3 % Normal 11.0-15.0 [facility] Comment on above: Performed By: #### D ATCBC #### [facility] [address] [place] [address] Dr. Henok Aleman Hematocrit (Bld) [Volume fraction] 55.3 % Critically high 42.0-54.0 [facility] Comment on above: Performed By: #### D ATCBC #### [facility] [address] [place] [address] Dr. Henok Aleman Hemoglobin (Bld) [Mass/Vol] 18.5 g/dL Critically high 14.0-18.0 [facility] Comment on above: Performed By: #### D ATCBC #### [facility] [address] [place] [address] Dr. Henok Aleman IG # 0.08 10e3/ul Critically high 0.00-0.03 [facility] Comment on above: Performed By: #### D ATCBC #### [facility] [address] [place] [address] Dr. Henok Aleman IG % 1.3 % Critically high 0.0-0.5 [facility] Comment on above: Performed By: #### D ATCBC #### [facility] [address] [place] [address] Dr. Henok Aleman LYMPH # 2.4 103/ul Normal 1.2-3.8 [facility] Comment on above: Performed By: #### D ATCBC #### [facility] [address] [place] [address] Dr. Henok Aleman Lymphocytes/100 WBC (Bld) 36.7 % Normal 20.5-60.0 [facility] Comment on above: Performed By: #### D ATCBC #### [facility] [address] [place] [address] Dr. Henok Aleman MCH (RBC) [Entitic mass] 31.3 pg Normal 25.9-34.0 [facility] Comment on above: Performed By: #### D ATCBC #### [facility] [address] [place] [address] Dr. Henok Aleman MCHC (RBC) [Mass/Vol] 33.5 g/dL Normal 29.9-35.2 [facility] Comment on above: Performed By: #### D ATCBC #### [facility] [address] [place] [address] Dr. Henok Aleman MCV (RBC) [Entitic vol] 93.4 fL Normal 80.0-94.0 [facility] Comment on above: Performed By: #### D ATCBC #### [facility] [address] [place] [address] Dr. Henok Aleman MONO # 0.6 103/ul Normal 0.3-0.8 [facility] Comment on above: Performed By: #### D ATCBC #### [facility] [address] [place] [address] Dr. Henok Aleman Monocytes/100 WBC (Bld) 9.8 % Normal 1.7-12.0 [facility] Comment on above: Performed By: #### D ATCBC #### [facility] [address] [place] [address] Dr. Henok Aleman NEUT # 2.9 103/ul Normal 1.4-6.5 [facility] Comment on above: Performed By: #### D ATCBC #### [facility] [address] [place] [address] [address] Henok Aleman Neutrophils/100 WBC (Bld) 45.0 % Normal 43.0-75.0 [facility] Comment on above: Performed By: #### D ATCBC #### [facility] [address] [place] [address] [address] Henok Aleman Platelet mean volume (Bld) [Entitic vol] 9.7 fL Normal 9.5-13.5 [facility] Comment on above: Performed By: #### D ATCBC #### [facility] [address] [place] [address] [address] Henok Aleman PLT 167 103/ul Normal 150-450 [facility] Comment on above: Performed By: #### D ATCBC #### [facility] [address] [place] [address] Dr. Henok Aleman RBC 5.92 106/ul Normal 4.70-6.10 [facility] Comment on above: Performed By: #### D ATCBC #### [facility] [address] [place] [address] Dr. Henok Aleman WBC 6.4 103/ul Normal 4.0-11.0 [facility] Comment on above: Performed By: #### D ATCBC #### [facility] [address] [place] [address] Dr. Henok Aleman DEBBI- BMP WITH LIPIDon 2022 Anion gap [Moles/Vol] 10.8 mmol/L Normal [facility] Comment on above: Performed By: #### D ATBMP, DATPSA #### [facility] [address] [place] [address] [address] Henok Aleman Calcium [Mass/Vol] 9.1 mg/dL Normal 8.5-10.1 [facility] Comment on above: Performed By: #### D ATBMP, DATPSA #### [facility] [address] [place] [address] Dr. Henok Aleman Chloride [Moles/Vol] 104 mmol/L Normal 98-107 [facility] Comment on above: Performed By: #### D ATBMP, DATPSA #### [facility] [address] [place] [address] [address] Henok Aleman Cholesterol [Mass/Vol] 148 mg/dL Normal <=200 [facility] Comment on above: Performed By: #### D ATBMP, DATPSA #### [facility] [address] [place] [address] [address] Henok Aleman Cholesterol in HDL [Mass/Vol] 39 mg/dL Critically low 40-60 [facility] Comment on above: Performed By: #### D ATBMP, DATPSA #### [facility] [address] [place] [address] Dr. Henok Aleman Cholesterol in LDL [Mass/Vol] 87.2 mg/dL Normal [facility] Comment on above: Performed By: #### D ATBMP, DATPSA #### [facility] [address] [place] [address] Dr. Henok Aleman CO2 [Moles/Vol] 30.6 mmol/L Normal 21.0-32.0 [facility] Comment on above: Performed By: #### D ATBMP, DATPSA #### [facility] [address] [place] [address] Dr. Henok Aleman Creatinine [Mass/Vol] 1.08 mg/dL Normal 0.70-1.30 [facility] Comment on above: Performed By: #### D ATBMP, DATPSA #### [facility] [address] [place] [address] Dr. Henok Aleman EGFR-AF COMORAN >60 Normal >=60 [facility] Comment on above: Performed By: #### D ATBMP, DATPSA #### [facility] [address] [place] [address] Dr. Henok Aleman EGFR-NON AF COMORAN >60 Normal >=60 [facility] Comment on above: Performed By: #### D ATBMP, DATPSA #### [facility] [address] [place] [address] Dr. Henok Aleman Glucose [Mass/Vol] 97 mg/dL Normal 74-106 [facility] Comment on above: Performed By: #### D ATBMP, DATPSA #### [facility] [address] [place] [address] [address] Henok Aleman HDL NORMAL > or = 60 mg/dl - LO W CARDIOVASCULAR RISK <40 mg/dl - HIGH CARDIOVASCULAR RISK Normal [facility] Comment on above: Performed By: #### D ATBMP, DATPSA #### [facility] [address] [place] [address] [address] Henok Aleman LDL CALC NORMAL SEE BELOW Normal [facility] Comment on above: Result Comment: <100 mg/dl OPTIMAL 100 - 129 mg/dl NEAR OR ABOVE OPTIMAL 130 - 159 mg/dl BORDERLINE HIGH 160 - 189 mg/dl HIGH >190 mg/dl VERY HIGH Performed By: #### D ATBMP, DATPSA #### [facility] [address] [place] [address] [address] Henok Aleman Potassium [Moles/Vol] 4.4 mmol/L Normal 3.5-5.1 [facility] Comment on above: Performed By: #### D ATBMP, DATPSA #### [facility] [address] [place] [address] Dr. Henok Aleman Sodium [Moles/Vol] 141 mmol/L Normal 136-145 [facility] Comment on above: Performed By: #### D ATBMP, DATPSA #### [facility] [address] [place] [address] [address] Henok Aleman Triglyceride [Mass/Vol] 109 mg/dL Normal <=150 [facility] Comment on above: Performed By: #### D ATBMP, DATPSA #### [facility] [address] [place] [address] [address] Henok Aleman Urea nitrogen [Mass/Vol] 14.0 mg/dL Normal 7.0-18.0 [facility] Comment on above: Performed By: #### D ATBMP, DATPSA #### [facility] [address] [place] [address] Dr. Henok Aleman Urea nitrogen/Creatinin e [Mass ratio] 13.0 mg/mg Normal [facility] Comment on above: Performed By: #### D ATBMP, DATPSA #### [facility] [address] [place] [address] [address] Henok Aleman VLDL CALC 21.8 mg/dL Normal [facility] Comment on above: Performed By: #### D ATBMP, DATPSA #### [facility] [id number] Henok Aleman Coding Summary.on 07-01-2021 Coding Summary. CD:[id number] Gh0bWw+P GhlYWQ+YQ7TJRFwN99fuVPxsY8IH 7zRHB5DPPEVMKXGWL2TST0olBV9N NyrV2PhmqWj MwfueIPoXU22PMc8MAM5kUcwNBey bL8muPPdR5f9PnPcJP16pF96NSfo KSBeQbA4NlRnijucjSWv G9gmSeSohCCmThe+PHRhYmxlIHdp XFLzUDosCFJkCmYmpYttXU1gFw1e ZGVyLWNvbGxhcHNlOiBj p8alAARsANicFS8ulSjyP5LimAG8 ANTdh4y3Ri62fZF+VVCeATW0rElh OTcrg979WrXhl8btBHY2 gNWuIEjtHSI9L91je1P3WECwIOHw SDY3xZX5lU3osUvrrmoyP6SkoTLl BsM1USB0lSLqkZ3bzRac fvfooK8wMrp+T18XID5EWCXLLE0I Kpt1S2PpIytojCD+KU55XVOsEM78 uMLlgKLsq3qoqXn8PgEo PNQyNUH6eEzePPxar8LfMPRtI99f fPUeu5H0RILjfGsyfYRuSwAqfSA2 tX3eWCgaulapb9sjqfoq Gbgrl6rpdh46eR64I94yHLodAKXn WRG2FEEpDNVjxXotwp1gkF9vLk9+ AZdqu5ouu3kmnEx1CaIa OCFiwqKbrPfmOOP8i5LbWy85O3Sb gJrbs5YvFwz9wg45nHDcp4T7lJC6 WIezQIBevD5gZDcmYqI2 RQNtTbAipP03nMNrMBnjIw2oeFoa rVqzGR5nAXHozslgYHCslS4dEOSg oGKzkBigNH2cZZOhnlbg a564ZdImUEK8OKPyiRGzL3MuiS3c WwPeBKUvOJRjR8PwfXCbRZhfO263 MUrnSrM7XAMfzqEyM0Ml INKsxCijMdQ6o0G3Gq1Po2Spudce WHL7AMgaESM3SjF8SdQoBbA8A7Nj Idh0JOZgvCvrYL8bN7Rb LCAanwepviecxXT1WJLyNMRxoO04 lDHaHZwxFl2tx5S4m767TOXuIBYr xU39Ul0jzVfaFUSejRKX lN3qudygt9zoorqqWwWeFEKzTBf0 ZYc0JXQrkSguPcOiCHN6OsI3XYB9 oPLcsF0bqDdkmthxyZ5e Oyc+O83suW5bGWK8EAD5duneSJJh edIdGC67ED27D2HkYssdgGZwaHW+ UPGnuiFngWdwUN3rMiNf g8xbj9IrOYvwW6HbVKNfHSphXct8 JTSpCBG0rAT3jN9yDKKrWWqmi2Q0 lQO8Z1TuyyUrnl1yd8rw EIZePGyzN62bjZCov9C6AGCdyMV2 SCOvkFnuOtIjaQ68Cli+PGNvbGdy j5HgSdrvw9rfp2qykQz3 JrJqKYNxujYesTfbAVW6a6KjSs73 J56uODxbBJYyLWTwTNFgHECggNwd au0zfS0qLf7+PGNvbCB3 lXI2aL7jUYXyEzO2EEvzZ795SmSn gQEwRuils5iof8dvhPh5RcQtHPBc pkNxaAvaDNI5p3YwVy62 M11cNDaeTJQzAPGaGAOqWUUmjLmr ta1jgP0aOs4+JX0id1dzml54pH95 dHI+VOOwGVR5sCucHGzk LXMphC0uFPjfEjW2SQJnAuQipJ75 qOEgIFizQt3tsKosaXzqMJ2kIIOh zcwim726GfFjm3ukKWGl gMIuVXmdVLZ1B08ho0W3IJApJQPd RSJ0lNF3bY7alEugbnvhvLRnqJch inMebVwoSVdwRIlqR342 IHRvcDsnPlBhdGllbnQgTmFtZTo8 V1ZlHic6BAFntMksWY3duOHfJZml Si4idDxppIrwGQ6cSAIl wjnhl805LgBjc6nwZECreUEkFIkl BOZ7G50zh5S0BRJyWDGnUYJ8sNT7 cX7svLvqujquqBWmaSsq peSytHbaNPtjHQmuR939VEQwuIhz CdTxazOlQKYsvMI6JB04NN00bWOs g3U9bDE3D7JlIYKskcpa mgfntVW6KTUvMJTrwK14Kd4skNuj Ih3iLTZzTVE8QOCtcUStG2UcqI1s LrBlHSHzBLVeQ3KgpLZn SDwzC168WTpoWqP9JVUtlgFaG4Lh MAKorRqqPwT4m7X9Ia7LR6Y7FT17 MM41bPJir1Y7xXJ0F3Hu CPArkquqcqhvsEG2FITqDVTkzW68 Av9iqRxoFo3qTHYyXDU9KNNavENb N9RqiW1aBzLwWLEcKKQv O6HeyIFlGWsnZ602OYddIaV8RIWk ayPqP2ShPHHeyFpwSyN5f0T6Ga3P PKe2FI48QD99hIPxw5L8 cKS6Z8OrFVFsyyilxnelhNI2TUTq ZTOxcR25Wx9rsZzmVe7bVSLmKYE0 BKCjtYMoX4UulV6eEcAe KAMvNDZtV3KkrCOvMWozU378AGmp XtV2MSMdnoIrJ8QgQUPyzPzoOxJ6 m1J8Fn8YUMIiXD74XKC6 eGS3DZ18SP43E2MnSyxcpKDgxBF+ PHRhYmxlIHdpZHRoPScxMDAlJyBz rNyxNS9tDo6aGQOpAHXl aCeldXTnBwIfc3wyLORrKIajNY7y nKfhD6DftUU6TFGzb5e3Wg76M30w U8YlgFE+LJEmjYV7iYV4 vK1zPqTdScP7VRelN019IfPpvDFc Ovcoo9zhm8rxaZf0IdR3HIZvcoKx qFssFWJ4a8MxRk49S87q EIagOIBsFFIbUBUdDPNnhKhzer8v oU8eEg2+FPDagVX0lZQ8gY2tQmWq IsH7IXluE911ItAngOYm Rfwqv6mrx4whmNv1RiTzDAKeafBc lRjgPES9p9SaPo01N2DngBult0Ad Fmq3sm82lRDyu3V6vNT7 N0CbSCCaztcakWPccGrmGW1tVIBo ntjuDZQabU5fHJAgS3e7RsXbJcI3 ZJxaN4WfzfY0WDFvyPKi PFdjHDP2M84in7Y3HBJqRMXrWLV2 wGQ3tL2hwDqkwbqtjJDcwPnanoQl vYynMZbeOEinH301ZHKa fJanYHKioK8rILFlaNYvoVprSH0h WMGbmzsnRl7CY8PHOOZpRZjKSoIF ZJHKOY99IY22pAIia9L3 sBZ6W0DvPMQixdhnoqnmtQI4AXFe XODxfE11gJUhTGqwAh8oh8Q0h359 DGEfLNPkyS32Fp2wnBrd ZZNrsTVHqI8hrzwqt7zzdvxiQqYz UKLnUOv8BEs7BDHmuVwyIdWlGBP7 UaP7ZHF3iSQuaF6vaCnc vomejY1qYof+PNEnYYYgNGf9Dagy dGQ+NZKyIJQ5cVtkCTglGVTbeE7l UOXnO1v1YvCiKyU3VEsb Z4WfBFDztrzhMo60pD6cIcBwGgP1 MRzvZ4CuvzK7PCJanFCrMXlnFYP2 W61vm6Z2GMKbHWIgTJD7 aYL4tO3lgDhelkkpjJZjmTstfnSc nFdrJFhyGIodO835QCEabQhfNdQ4 GBemGLIpZP04SR63oXLx v4E2tCD5M3CvNQMiritvxevlbIO5 JXVoAVIedL56jRFtDCtpMu8ui7R8 h721HFSrBCUlmN69Ys0o bLkmRWErkYXTaZ9gxipum5jbpzva TjPbMPLyWKi8ACy5IRFalYucAbSd YNT3OsE0CON0qWAykG3i oEmblmoplK3mIxo+TWFsZTwvdGQ+ VPUfGMU9wWsxCUnwXCEvtQ6vMPKu G2u8MlZeNiN3ILdzE1Mw XOJnprneZx36mW5sTkZsJdN4IUmx Z2VqvjH6WZZfpGWwTStdWFU8R40w y1A5VNGnXSXxWZS5nBL2 wQ8mdOkuqfjtwWVyuGfllsZavTnj UMggDXydQ926VJStzOltJvkwDdAT ep0iEQ7dEauudSO+PC90 bo45H6HgJmhoGlj9CCWvYEV8dDS6 xQ3uEYBaGTqex0H5eRR9U7BrknTg xq2qj3wfSLRrVSzjD38j cDZjq8D9LIAzfUJ1TPUlcIknNcIo xA93Ihj+SRSdmHfwt0HeYjxbp6hw a9uhqQq1GjEbBQHfbpWi sZvzEGX4z1ThTw51K71dONtpOTOm QEXjCWQkHKYpxZljpa7fdB8cNl6+ LEUroKQ8qRI0mT6zHfGq NjR5RViqF041OrDerQFsQsyrq9pw s1yjnCw2ToYoUMBeeuOpfOwjLJU6 d2LtHn05U5FxmToqx0Vm Rny6ph02pGTvt9X1yUG3Q7SmQAOe xwnelEFuuXlaWG3dNZRlxnfhXEIw gN3yTDTxO9l5TkLbXwZ4 DMgsL3MtdoP6EPEamLWpXJVadHSW pW1nahkwa3gsfrkxTzDqJLBwINl9 CKl1NMXuzWdxNyIuDMD9 QqO0IYG8zIWgaU2wfObbdrngnV1a Oyc+GQk0f0iymSBmDB8qxMA4JI17 YI58wERto7B6zSQ5D2Eb ZEJskzyeuimiyCR9URIgAXEolM81 Pl4whQbjEp6aPBZtZCI1BVXloZGv P8NfbQ9jQvKgCNFkZNGk U5VzbAXrRNqbK214FHroIjD5VEVx evJzX6YvNAXxtPktErM3a7L6Uf5M SE59LZ58RR42pIWti0D6 cWT1F9QbSYLpjwcaktjyyHY8YHEl LWKczR36Ei0kaDvtEl5yTRIoJWI0 VIHmuAQqM6XpgE8oUiOm EFAwCOCvG7RbsMZpDYumL914EKoh AwH9THBuhjDzK2TlCPGegItfZdA9 i8H0Dw2HYu71VK10RZ07 kFWdf9T9iDP1T9ZfWZScegaezjav zJK2VRWzUBZytW14Rx3lqYlpUf3n RABuAQR3OUIawFJeT1Lh yX2gJxRqTDNjMKZrR3QaiVXmAHsm M392ZXsmRnC9MBAnhzLoR8BvSSAx bRqcYnY3q0Y1Yr8UQDua yhs1V1QoFwnihYF+AS02HDOkBI26 pTBwtSHpv0kmoRp8MyYeSXLfUVF5 aUkuKUpcs5IvTNFyM10i bGFw (more content not included)... Normal [facility] Vital Signs Date Time Vital Sign Value Performing Clinician Facility 09-26-2024 13:00-0400 Body mass index (BMI) [Ratio] 31.01 kg/m2 Amalia Courtney DO Work Phone: [facility] 09-26-2024 13:00-0400 Body weight 95.25 kg Amalia AAMPP DO Work Phone: [facility] 09-26-2024 13:00-0400 Diastolic blood pressure 82 mm[Hg] Amalia Courtney DO Work Phone: [facility] 09-26-2024 13:00-0400 Heart rate 84 /min Amalia Courtney DO Work Phone: [facility] 09-26-2024 13:00-0400 SaO2% (BldA) [Mass fraction] 94 % Amalia Courtney DO Work Phone: [facility] 09-26-2024 13:00-0400 Systolic blood pressure 142 mm[Hg] Amalia Courtney DO Work Phone: [facility] 08-28-2024 10:33-0400 Body height 175.3 cm Theresa Cadnida DO Work Phone: [facility] 08-28-2024 10:33-0400 Body mass index (BMI) [Ratio] 30.89 kg/m2 Theresa Tirado DO Work Phone: [facility] 08-28-2024 10:33-0400 Body temperature 97.11 [degF] Theresa Tirado DO Work Phone: [facility] 08-28-2024 10:33-0400 Body weight 94.89 kg Theresa Tirado DO Work Phone: [facility] 08-28-2024 10:33-0400 Diastolic blood pressure 82 mm[Hg] Theresa Tirado DO Work Phone: [facility] 08-28-2024 10:33-0400 Heart rate 75 /min Theresa Tirado DO Work Phone: [facility] 08-28-2024 10:33-0400 SaO2% (BldA) [Mass fraction] 94 % Theresa Tirado DO Work Phone: [facility] 08-28-2024 10:33-0400 Systolic blood pressure 128 mm[Hg] Theresa Tirado DO Work Phone: [facility] 07-24-2024 10:35-0400 Body height 175.26 cm [facility] 07-24-2024 10:35-0400 Body mass index (BMI) [Ratio] 31.1 kg/m2 [facility] 07-24-2024 10:35-0400 Body weight 95.7 kg [facility] 07-24-2024 10:35-0400 Diastolic blood pressure 78 mm[Hg] [facility] 07-24-2024 10:35-0400 Heart rate 80 /min [facility] 07-24-2024 10:35-0400 Respiratory rate 12 /min [facility] 07-24-2024 10:35-0400 Systolic blood pressure 136 mm[Hg] [facility] 06-14-2024 09:15-0400 Body height 175.26 cm [facility] 06-14-2024 09:15-0400 Body mass index (BMI) [Ratio] 31.1 kg/m2 [facility] 06-14-2024 09:15-0400 Body weight 95.76 kg [facility] 06-14-2024 09:15-0400 Diastolic blood pressure 83 mm[Hg] [facility] 06-14-2024 09:15-0400 Heart rate 75 /min [facility] 06-14-2024 09:15-0400 Respiratory rate 12 /min [facility] 06-14-2024 09:15-0400 Systolic blood pressure 144 mm[Hg] [facility] 04-17-2024 09:21-0500 Body height 175.26 cm [facility] 04-17-2024 09:21-0500 Body mass index (BMI) [Ratio] 30.4 kg/m2 [facility] 04-17-2024 09:21-0500 Body weight 93.66 kg [facility] 04-17-2024 09:21-0500 Diastolic blood pressure 86 mm[Hg] [facility] 04-17-2024 09:21-0500 Heart rate 109 /min [facility] 04-17-2024 09:21-0500 Respiratory rate 12 /min [facility] 04-17-2024 09:21-0500 Systolic blood pressure 136 mm[Hg] [facility] 11-07-2023 14:18-0400 Body height 175.26 cm [facility] 11-07-2023 14:18-0400 Body mass index (BMI) [Ratio] 30.6 kg/m2 [facility] 11-07-2023 14:18-0400 Body weight 94.06 kg [facility] 11-07-2023 14:18-0400 Diastolic blood pressure 86 mm[Hg] [facility] 11-07-2023 14:18-0400 Heart rate 105 /min [facility] 11-07-2023 14:18-0400 Respiratory rate 12 /min [facility] 11-07-2023 14:18-0400 Systolic blood pressure 132 mm[Hg] [facility] 10-20-2023 10:41-0400 Body height 175.26 cm [facility] 10-20-2023 10:41-0400 Body mass index (BMI) [Ratio] 30.2 kg/m2 [facility] 10-20-2023 10:41-0400 Body weight 93.04 kg [facility] 10-20-2023 10:41-0400 Diastolic blood pressure 90 mm[Hg] [facility] 10-20-2023 10:41-0400 Heart rate 99 /min [facility] 10-20-2023 10:41-0400 Respiratory rate 12 /min [facility] 10-20-2023 10:41-0400 Systolic blood pressure 156 mm[Hg] [facility] 09-18-2023 14:31-0400 Body height 175.26 cm [facility] 09-18-2023 14:31-0400 Body mass index (BMI) [Ratio] 31.3 kg/m2 [facility] 09-18-2023 14:31-0400 Body weight 96.27 kg [facility] 09-18-2023 14:31-0400 Diastolic blood pressure 87 mm[Hg] [facility] 09-18-2023 14:31-0400 Heart rate 81 /min [facility] 09-18-2023 14:31-0400 Respiratory rate 12 /min [facility] 09-18-2023 14:31-0400 Systolic blood pressure 139 mm[Hg] [facility] 05-29-2023 12:57-0400 Body height 175.26 cm [facility] 05-29-2023 12:57-0400 Body mass index (BMI) [Ratio] 31 kg/m2 [facility] 05-29-2023 12:57-0400 Body weight 95.25 kg [facility] 09-14-2022 11:00-0400 Body height 175.26 cm Van Ball Other [facility] Other 09-14-2022 11:00-0400 Body mass index (BMI) [Ratio] 31.16 kg/m2 [facility] Ball Other [facility] Other 09-14-2022 11:00-0400 Body weight 95.71 kg Van Ball Other [facility] Other 09-14-2022 11:00-0400 Diastolic blood pressure 84 mm[Hg] [facility] Ball Other [facility] Other 09-14-2022 11:00-0400 Respiratory rate 12 /min Van Ball Other [facility] Other 09-14-2022 11:00-0400 Systolic blood pressure 113 mm[Hg] [facility] Other [facility] Other 07-28-2022 11:45-0400 Body height 175.26 cm Van Ball Other [facility] Other 07-28-2022 11:45-0400 Body mass index (BMI) [Ratio] 31.13 kg/m2 [facility] Other [facility] Other 07-28-2022 11:45-0400 Body weight 95.62 kg Van Ball Other [facility] Other 07-28-2022 11:45-0400 Diastolic blood pressure 92 mm[Hg] [facility] Other [facility] Other 07-28-2022 11:45-0400 Respiratory rate 12 /min [facility] Other [facility] Other 07-28-2022 11:45-0400 Systolic blood pressure 131 mm[Hg] [facility] Other [facility] Other Encounters Encounter Date Encounter Type Care Provider Facility Start: 09-26-2024 End: 09-26-2024 Office outpatient new 45 minutes Amalia Johanna Courtney DO Work Phone: [facility] Comment on above: Chronic obstructive pulmonary disease, unspecified COPD type (HCC) (Primary Dx); Chronic respiratory failure with hypoxia (HCC) Start: 09-26-2024 End: 09-26-2024 ambulatory AMALIA Johanna VALDEZ Not Available Start: 09-26-2024 End: 09-26-2024 Bamboo flowsheet Amalia Johanna Courtney DO Work Phone: [facility] Start: 09-26-2024 End: 09-26-2024 Bamboo flowsheet Amalia Johanna Courtney DO Work Phone: [facility] Start: 09-18-2024 End: 09-18-2024 Clinisync Result Encounter Theresa Salceodlane DO Work Phone: [facility] Unsolicited Start: 09-18-2024 End: 09-18-2024 Clinisync Result Encounter Theresa Tirado DO Work Phone: [facility] Unsolicited Start: 08-28-2024 End: 08-28-2024 Bamboo flowsheet Theresa Johana Celestean DO Work Phone: [facility] Start: 08-28-2024 End: 08-28-2024 Bamboo flowsheet Threesa Tirado DO Work Phone: [facility] Start: 08-28-2024 End: 08-28-2024 Office outpatient new 45 minutes Theresa Johana Tirado DO Work Phone: [facility] Comment on above: Chronic obstructive pulmonary disease, unspecified COPD type (CMS/HCC) (Primary Dx); Paroxysmal sinus tachycardia (CMS/HCC); Metabolic dysfunction-associated steatotic liver disease (MASLD); Benign prostatic hyperplasia with lower urinary tract symptoms, symptom details unspecified; Polycythemia; Lipid screening; Calculus of gallbladder without cholecystitis without obstruction; Umbilical hernia without obstruction and without gangrene Start: 08-28-2024 End: 08-28-2024 ambulatory THERESA TIRADO Not Available Start: 07-24-2024 End: 07-24-2024 ambulatory [facility] Work Phone: Start: 07-24-2024 End: 07-24-2024 Patient encounter procedure [facility] Work Phone: Start: 06-18-2024 Non-patient / Non-visit [facility] [employer] Work Phone: Start: 06-14-2024 End: 06-14-2024 ambulatory [facility] Work Phone: Start: 06-14-2024 End: 06-14-2024 Patient encounter procedure [facility] Physician [facility] Work Phone: Start: 06-03-2024 Non-patient / Non-visit [facility]ician [facility] [employer] Work Phone: Start: 05-16-2024 Non-patient / Non-visit [facility] Physician [facility] Work Phone: Start: 05-07-2024 Non-patient / Non-visit [facility] Physician [facility] [employer] Work Phone: Start: 04-18-2024 Non-patient / Non-visit [facility] [employer] Work Phone: Start: 04-17-2024 End: 04-17-2024 ambulatory [facility] Work Phone: Start: 04-17-2024 End: 04-17-2024 Patient encounter procedure [facility] Work Phone: Start: 11-07-2023 End: 11-07-2023 ambulatory [facility] Work Phone: Start: 11-07-2023 End: 11-07-2023 Patient encounter procedure [facility] Work Phone: Start: 10-20-2023 End: 10-20-2023 ambulatory [facility] Work Phone: Start: 10-20-2023 End: 10-20-2023 Patient encounter procedure [facility] Work Phone: Start: 09-18-2023 End: 09-18-2023 ambulatory [facility] Work Phone: Start: 09-18-2023 End: 09-18-2023 Encounter for general adult medical examination without abnormal findings [facility] Start: 09-18-2023 End: 09-18-2023 Patient encounter procedure [facility] Work Phone: Start: 06-20-2023 End: 06-20-2023 ambulatory [facility] Work Phone: Start: 06-20-2023 End: 06-20-2023 Patient encounter procedure [facility] Work Phone: Start: 05-29-2023 End: 05-29-2023 Patient encounter procedure [facility] Work Phone: Start: 02-20-2023 End: 02-20-2023 ambulatory Van Méndez Other [facility] Other Start: 02-20-2023 Office outpatient vi sit 15 minutes Van Méndez [facility] Start: 09-14-2022 End: 09-14-2022 ambulatory Van Méndez Other [facility] Other Start: 09-14-2022 Encounter for genera l adult medical examination without abnormal findings Van Méndez [facility] Start: 09-14-2022 Periodic preventive med est patient 40-64yrs Van Méndez [facility] Start: 08-02-2022 End: 08-03-[address] VAN MÉNDEZ Facility:[facility] Start: 07-28-2022 End: 07-28-2022 ambulatory Van Méndez Other [facility] Other Start: 07-28-2022 Office outpatient vi sit 15 minutes Van M[facility]dez [facility] Start: 06-24-2022 End: 06-25-2022 ambulatory Sami ANDERSON Facility:[facility] Start: 06-24-2022 End: 06-24-2022 Patient encounter procedure Sami Vaughn JUSTIN [facility] Start: 05-07-2019 Adult health examination Chad Méndez Other [facility] Other Procedures Date Procedure Procedure Detail Performing Clinician Start: 09-18-2024 ALL CBC WITH AUTO DIFF Theresa Tirado DO Work Phone: Start: 09-18-2024 [facility] CMP (CMP) (FOR [facility] USE) Theresa Tirado DO Work Phone: Start: 08-02-[address] LICEA IN [place] Comment on above: Performed By: #### D ATBMP, DATPSA #### [facility] [address] [place] [address] Dr. Henok Aleman Start: 02-07-2020 Cystoscopy Sami NATHANIEL HUNT Start: 05-06-2016 General examination of patient [facility] Other Start: 05-06-2016 Screening for malign ant neoplasm of colon [facility] Other Plan of Treatment Date Care Activity Detail Author Start: 09-26-2026 Screening for malign ant neoplasm of colon [facility] Start: 01-02-2025 End: 01-02-2025 Patient encounter procedure 01/02/2025 3:00 PM EDT Office Visit [facility] [address] [place] [address] Amalia Valdez DO [address] [place] [address] [facility] Start: 11-18-2024 Influenza vaccination Influenza Vacc ine (#1) [facility] Start: 09-26-2024 End: 09-26-2024 Patient encounter procedure [facility] Comment on above: Arrived Start: 08-29-2024 End: 09-27-2024 CBC W Auto Differential panel - Blood CBC and differential Lab Routine Chronic obstructive pulmonary disease, unspecified COPD type (CMS/HCC) Paroxysmal sinus tachycardia (CMS/HCC) Metabolic dysfunction-associated steatotic liver disease (MASLD) Benign prostatic hyperplasia with lower urinary tract symptoms, symptom details unspecified Polycythemia Lipid screening Expected: 08/29/2024 (Approximate), Expires: 09/27/2024 [facility] Comment on above: Expected: 08/29/2024 (Approximate), Expires: 09/27/2024 Start: 08-29-2024 End: 09-27-2024 Comprehensive metabolic 2000 panel - Serum or Plasma Comprehensive metabolic panel Lab Routine Chronic obstructive pulmonary disease, unspecified COPD type (CMS/HCC) Paroxysmal sinus tachycardia (CMS/HCC) Metabolic dysfunction-associated steatotic liver disease (MASLD) Benign prostatic hyperplasia with lower urinary tract symptoms, symptom details unspecified Polycythemia Lipid screening Expected: 08/29/2024 (Approximate), Expires: 09/27/2024 [facility] Comment on above: Expected: 08/29/2024 (Approximate), Expires: 09/27/2024 Start: 08-29-2024 End: 09-27-2024 Lipid 1996 panel - Serum or Plasma Lipid panel Lab Routine Paroxysmal sinus tachycardia (CMS/HCC) Metabolic dysfunction-associated steatotic liver disease (MASLD) Expected: 08/29/2024 (Approximate), Expires: 09/27/2024 [facility] Comment on above: Expected: 08/29/2024 (Approximate), Expires: 09/27/2024 Start: 08-29-2024 End: 09-27-2024 PSA, total and free PSA, total and free Lab Routine Benign prostatic hyperplasia with lower urinary tract symptoms, symptom details unspecified Lipid screening Expected: 08/29/2024 (Approximate), Expires: 09/27/2024 [facility] Work Phone: Comment on above: Expected: 08/29/2024 (Approximate), Expires: 09/27/2024 Start: 08-29-2024 End: 09-27-2024 Thyrotropin [Units/volume] in Serum or Plasma TSH Lab Routine Paroxysmal sinus tachycardia (CMS/HCC) Expected: 08/29/2024 (Approximate), Expires: 09/27/2024 [facility] Comment on above: Expected: 08/29/2024 (Approximate), Expires: 09/27/2024 Start: 08-28-2024 End: 08-28-2024 Patient encounter procedure 08/28/2024 10:40 AM EDT Office Visit [facility] [address] [place] [address] Theresa Tirado DO [address] [place] [address] Arrived [facility] Comment on above: Arrived Start: 07-24-2024 Patient referral [facility] Work Phone: Start: 1965 Screening for malign ant neoplasm of colon [facility] Comprehensive metabo lic 2000 panel - Serum or Plasma [facility] CT Chest W contrast IV [facility] EKG 12 channel panel [facility] Erythropoietin (EPO) [Units/volume] in Serum or Plasma [facility] Patient referral [facility] Work Phone: XR Chest 2 Views [facility] Immunizations Immunization Date Immunization Notes Care Provider Hayden block 01-27-2016 tetanus and diphther ia toxoids, adsorbed, preservative free, for adult use (5 Lf of tetanus toxoid and 2 Lf of diphtheria toxoid) Van Méndez Other [facility] NEGATED: Highlighted row has not occurred!01-10-2020 influenza virus vaccine, unspecified formulation Sami ANDERSON [facility] Payers Date Payer Category Payer Private Health Insurance [id number] 2024 Unknown [id number] 2019 Unknown [id number] 1965 Unknown [id number] 1966 Unknown [id number] 1966 Unknown [id number] 1959 Self-pay Unknown [id number] Social History Date Type Detail Facility Start: 01-10-2020 End: 08-28-2024 Tobacco smoking status Never smoked tobacco (finding) [facility] Tobacco smoking status Never [facility] Start: 08-28-2024 Sex Assigned At Male [facility] Start: 1965 Sex Assigned At Male F [facility] Tobacco smoking status UTIS Unknown if ever smoked [facility] Start: 04-17-2024 End: 07-24-2024 Sex Male (finding) [facility] Start: 1965 Sex assigned at Not on file [facility] Start: 08-28-2024 Tobacco use and exposure Smokeless tobacco non-user [facility] Start: 08-28-2024 Alcoholic beverage intake Lifetime non-drinker (finding) [facility] Start: 08-28-2024 History of Social function [facility] NEGATED: Highlighted rowStart: NINF History of tobacco use Passive smoker [facility] Functional Status Date Assessment Result Facility 08-28-2024 Patient Health Quest ionnaire 2 item (PHQ-2) [Reported] [facility] Clinical Notes 07-28-2022 to 09-26-2024 Amalia Valdez, DO - 09/26/2024 2:30 PM EDTGtoney Tirado, DO - 08/28/2024 10:40 AM EDT Note Date & Type Note Facility 09-26-2024 History of Presen t illness Narrative Images from the original note were not included. Osito Day presents today for evaluation in regards to COPD and hypoxia. The patient was referred by his primary care provider. He does note some occasional shortness of breath with exertion. He states his symptoms got worse several months ago. He thought he had a upper respiratory tract infection. He was found to have polycythemia. After therapeutic phlebotomy the patient had improvement of his symptoms. He has been being followed by Hematology. He has had workup for causes of his polycythemia. He states that everything is pointed back to pulmonary origin. He did undergo a sleep study that did demonstrate hypoxia, however no apneas were noted. He did have PFTs that did demonstrate significant disease. He was recently started on Symbicort by his primary care provider. He has been on this for 3-4 months. Prior to that he states he did have some wheezing at night. This is now gone given that he is using Symbicort. He does have albuterol on an as needed basis. He does not use this very often. He does gone every 3 months or so for CBC. He has undergone phlebotomy 3 times. He denies any current complaints of chest pain, palpitations, fevers, chills, sweats, or recent unintentional weight changes. 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 He is a lifelong nonsmoker. He denies any other complaints at this time. No Known Allergies Current Outpatient Medications Medication Sig Dispense Refill albuterol (2.5 MG/3ML) 0.083% nebulizer solution Take 2.5 mg by nebulization every 6 (six) hours if needed for shortness of breath or wheezing (Patient not taking: Reported on 08/28/2024) albuterol HFA 90 mcg/act inhaler Inhale 2 puffs every 6 (six) hours if needed for shortness of breath or wheezing budesonide-formoterol (Symbicort) 160-4.5 MCG/ACT inhaler Inhale 2 puffs in the morning and 2 puffs before bedtime. dilTIAZem CD (Cardizem CD) 120 MG 24 hr capsule Take 120 mg by mouth Daily No current facility-administered medications for this visit. Past Medical History: Diagnosis Date COPD (chronic obstructive pulmonary disease) (HCC) Tachycardia Past Surgical History: Procedure Laterality Date LEG SURGERY Right 2007 lavon placed due to fx No family history on file. Social History Tobacco Use Smoking status: Never Passive exposure: Never Smokeless tobacco: Never Substance Use Topics Alcohol use: Never BP 142/82 Pulse 84 Wt 210 lb SpO2 94% BMI 31.01 kg/m Exam: Heart: regular rate Lungs: clear to auscultation bilaterally, no wheezes/rales/rhonchi, no resp distress Extremities: no edema noted, no visible rashes Neuro: alert, oriented x3 Imaging Reviewed: Home sleep study reviewed--desaturation 84 %, no evidence of significant apneas Images and report of CT chest from October 2023 reviewed--no pulmonary infiltrate or suspicious findings, a few tiny calcified and noncalcified nodules PFT's from October 2023 reviewed--FVC 1.97 L (41 %), FEV1 0.90 L (25 %), ratio 46 %, bronchodilator testing not able to be completed, hyperinflation and air trapping present, supranormal DLCO Assessment/Plan: COPD -- his PFTs do demonstrate evidence of very severe obstructive changes. He states that his symptoms have improved with use of Symbicort. He has been using this for last 3-4 months. He does have albuterol that he uses on an as needed basis. However states he does not need this very much. Given that he does have good control of his symptoms, no changes will be made. He will continue with Symbicort twice daily. Chronic hypoxic respiratory failure/nocturnal hypoxia -- he did undergo a home sleep study that did not demonstrate any significant apneas. However he did have desaturation 84 %. Given this he will be started on nocturnal oxygen. The order will be placed today to the [employer]. He will begin using oxygen 2 L nasal cannula at night. We discussed that this should help with some of his polycythemia. He will follow here in a few months time to reassess his symptoms as well as review his CBC that has been ordered by his primary care provider. Follow up in about 3 months (around 12/27/2024) for COPD. Amalia Valdez DO documented in this encounter [facility] [facility] 08-28-[facility]24 History of Presen t illness Narrative Images from the original note were not included. SUBJECTIVE: Osito Missler is a 59 y.o. male presents with chief complaint of Establishment. Pt presents to the office for establishment. Previous PCP was Dr. Van Méndez. Medical dx of COPD, tachycardia. Tachycardia: Has been on the diltiazem for approx 6 months prescribed by PCP. Pt states this has been helpful. Does follow with hematology/oncology: Dr. Tay in [place]. Pt states he has elevated iron and thick blood . COPD: Has initial appt with pulmonology in September. Currently on Symbicort daily and albuterol inhaler prn. Review of Systems: Review of Systems Problem List: Patient Active Problem List Diagnosis Benign prostatic hyperplasia with lower urinary tract symptoms Cholelithiasis Chronic obstructive lung disease (CMS/HCC) HURST (dyspnea on exertion) Metabolic dysfunction-associated steatotic liver disease (MASLD) Paroxysmal sinus tachycardia (CMS/HCC) Obesity Tachycardia Past Medical History: No past medical history on file. Family History: No family history on file. Allergies: Not on File Surgical History: No past surgical history on file. Social History: Social Drivers of Health Tobacco Use: Not on file Alcohol Use: Not on file Financial Resource Strain: Not on file Food Insecurity: Not on file Transportation Needs: Not on file Physical Activity: Not on file Stress: Not on file Social Connections: Not on file Intimate Partner Violence: Not on file Depression: Not on file Housing Stability: Not on file Health Literacy: Not on file OBJECTIVE: There were no vitals taken for this visit. Physical Exam Vitals and nursing note reviewed. Constitutional: Appearance: Normal appearance. HENT: Head: Normocephalic and atraumatic. Right Ear: Tympanic membrane, ear canal and external ear normal. Left Ear: Tympanic membrane, ear canal and external ear normal. Nose: Nose normal. Mouth/Throat: Mouth: Mucous membranes are moist. Pharynx: Oropharynx is clear. Eyes: Extraocular Movements: Extraocular movements intact. Conjunctiva/sclera: Conjunctivae normal. Pupils: Pupils are equal, round, and reactive to light. Neck: Vascular: No carotid bruit. Cardiovascular: Rate and Rhythm: Normal rate and regular rhythm. Pulses: Normal pulses. Heart sounds: Normal heart sounds. No murmur heard. Pulmonary: Effort: Pulmonary effort is normal. Breath sounds: Normal breath sounds. No wheezing, rhonchi or rales. Abdominal: General: Abdomen is flat. Bowel sounds are normal. There is no distension. Palpations: Abdomen is soft. Hernia: A hernia is present. Comments: Nontender easily reducble umbilical hernia Musculoskeletal: General: Normal range of motion. Cervical back: Neck supple. No tenderness. Right lower leg: No edema. Left lower leg: No edema. Skin: General: Skin is warm and dry. Neurological: General: No focal deficit present. Mental Status: He is alert and oriented to person, place, and time. Motor: No weakness. Psychiatric: Mood and Affect: Mood normal. Behavior: Behavior normal. No results found for this or any previous visit (from the past 4 weeks). ASSESSMENT AND PLAN: Assessment/Plan Diagnoses and all orders for this visit: Chronic obstructive pulmonary disease, unspecified COPD type (CMS/HCC) improved significantly, continue current treatment Patient advised to return if symptoms worsen and/or persist despite treatment. - CBC and differential; Future - Comprehensive metabolic panel; Future Paroxysmal sinus tachycardia (CMS/HCC) Problem is stable, will continue with current treatment plan. Call or return to clinic if any changes occur - Lipid panel; Future - CBC and differential; Future - Comprehensive metabolic panel; Future - TSH; Future Metabolic dysfunction-associated steatotic liver disease (MASLD) Labs ordered today, will follow up when results available - Lipid panel; Future - CBC and differential; Future - Comprehensive metabolic panel; Future Benign prostatic hyperplasia with lower urinary tract symptoms, symptom details unspecified Labs ordered today, will follow up when results available - PSA, total and free; Future - CBC and differential; Future - Comprehensive metabolic panel; Future Polycythemia Labs ordered today, will follow up when results available - CBC and differential; Future - Comprehensive metabolic panel; Future Lipid screening - PSA, total and free; Future - CBC and differential; Future - Comprehensive metabolic panel; Future Calculus of gallbladder without cholecystitis without obstruction Problem is stable, will continue with current treatment plan. Call or return to clinic if any changes occur. Did discuss removal vs obs. Discussed low fat diet as well Umbilical hernia without obstruction and without gangrene Patient advised to return if symptoms worsen. Advised benign in nature unless painful Updated Medications: I have reviewed and reconciled the history and medication list with the patient today. Current Outpatient Medications: albuterol (2.5 MG/3ML) 0.083% nebulizer solution, Take 2.5 mg by nebulization every 6 (six) hours if needed for shortness of breath or wheezing, Disp: , Rfl: budesonide-formoterol (Symbicort) 160-4.5 MCG/ACT inhaler, Inhale 2 puffs in the morning and 2 puffs before bedtime., Disp: , Rfl: dilTIAZem CD (Cardizem CD) 120 MG 24 hr capsule, Take 120 mg by mouth Daily, Disp: , Rfl: Fluticasone-Salmeterol 500-50 MCG/ACT aerosol powder , Inhale 1 puff in the morning and 1 puff before bedtime., Disp: , Rfl: albuterol HFA 90 mcg/act inhaler, Inhale 2 puffs every 6 (six) hours if needed for shortness of breath or wheezing, Disp: , Rfl: documented in this encounter [facility] 06-14-2024 Evaluation note Diagnosis Onset Date Resolution HURST (dyspnea on exertion) acute June 14, 2024 8:58am Hemochromatosis acute May 8:58am Obesity acute June 14 8:58am Paroxysmal sinus tachycardia acute June 14, 2024 8:58am Polycythemia acute June 14, 2024 8:58am Suspected sleep apnea acute May 8:58am Syncope acute June 14 8:58am HURST (dyspnea on exertion) acute July 24, 2024 10:28am Obesity acute July 24, 2024 10:28am Paroxysmal sinus tachycardia acute July 24, 2024 10:28am Polycythemia acute July 24 10:28am Syncope acute July 24, 2024 10:28am [facility] Work Phone: 1(891) 594-243503-28-2025 Evaluation note* Diagnosis Onset Date Resolution Status Admit Date HURST (dyspnea on exertion) acute June 14, 2024 8:58am Obesity acute June 14 8:58am Paroxysmal sinus tachycardia acute June 14, 2024 8:58am Polycythemia acute June 14, 2024 8:58am Syncope acute June 14 8:58am Hemochromatosis deleted May 8:58am Suspected sleep apnea deleted May 8:58am Chronic obstructive lung disease acu te July 24, 2024 10:28am HURST (dyspnea on exertion) acute July 24, 2024 10:28am Obesity acute July 24, 2024 10:28am Paroxysmal sinus tachycardia acute July 24, 2024 10:28am Polycythemia acute July 24 10:28am Syncope acute July 24, 2024 10:28am [facility] Work Phone: 1([phone]) 336-903901-29-2025 Evaluation note* Diagnosis Onset Date Resolution Status Admit Date HURST (dyspnea on exertion) acute April 17, 2024 9:10am Obesity acute April 17, 2024 9:10am Polycythemia acute March 9:10am Syncope acute April 17, 2024 9:10am Tachycardia acute April 17, 2024 9:10am Wheezing acute April 17, 2024 9:10am Asthma deleted April 17, 2024 9:10am HURST (dyspnea on exertion) acute June 14, 2024 8:58am Obesity acute June 14 8:58am Polycythemia acute June 14, 2024 8:58am Syncope acute June 14 8:58am [facility] Work Phone: 1(718) 481-860912-04-2023 Evaluation note* Encounter Date Diagnosis Assessment Notes Treatment Notes Treatment Clinical Notes Feb, Acute bronchitis due to other specified organisms (ICD-10 - J20.8) Instructed to use Robitussin or Mucinex for cough, saline or Flonase NS for congestion, Tylenol for pain and fever. [facility] Other 06-28-2023 Evaluation note* Encounter Date Diagnosis [...] has resolved. High fiber diet, avoid straining [facility] Other 05-11-2023 Evaluation note* Encounter Date Diagnosis [...] index [BMI] 31.0-31.9, adult (ICD-10 - Z68.31) [facility] Other Evaluation + Plan note No data available for this section [facility] evaluation note* Diagnosis Onset Date Resolution Status Obesity acute Acute bronchitis due to other specified organisms noneactive Acute bronchitis due to other specified organisms noneactive [facility] Work Phone: Evaluation note* Diagnosis Onset Date Resolution Status Acute bronchitis due to other specified organisms noneactive Benign prostatic hyperplasia with lower urinary tract symptoms acute Coughing acute Screening for colon cancer a cute Screening PSA (prostate specific antigen) noneactive Wellness examination noneact dixie [facility] Work Phone: Evaluation note* Diagnosis Onset Date Resolution Status Benign prostatic hyperplasia with lower urinary tract symptoms acute Coughing acute Obesity acute Screening for colon cancer a cute Screening PSA (prostate specific antigen) noneactive Wellness examination noneact dixie Obesity acute [facility] Work Phone: Evaluation note* Diagnosis Onset Date Resolution Status Benign prostatic hyperplasia with lower urinary tract symptoms acute Coughing acute Obesity acute Screening for colon cancer a cute Screening PSA (prostate specific antigen) noneactive Wellness examination noneact dixie Coughing acute HURST (dyspnea on exertion) ac junito Obesity acute Wheezing acute Chronic obstructive pulmonar y disease with (acute) exacerbation acute Polycythemia acute [facility] Work Phone: Evaluation note* Diagnosis Onset Date Resolution Status Admit Date Chronic obstructive pulmonar y disease with (acute) exacerbation acute April 17 9:10am HURST (dyspnea on exertion) acute April 17, 2024 9:10am Polycythemia acute March 9:10am Wheezing acute April 17, 2024 9:10am [facility] Work Phone: Evaluation note* Diagnosis Chronic obstructive pulmonary disease, unspecified COPD type (CMS/HCC)- Primary Paroxysmal sinus tachycardia (CMS/HCC) Metabolic dysfunction-associated steatotic liver disease (MASLD) Benign prostatic hyperplasia with lower urinary tract symptoms, symptom details unspecified Polycythemia Polycythemia, secondary Lipid screening Screening for lipoid disorders Calculus of gallbladder without cholecystitis without obstruction Umbilical hernia without obstruction and without gangrene [facility] Diagnosis Chronic obstructive pulmonary disease, unspecified COPD type (HCC)- Primary Chronic respiratory failure with hypoxia (HCC) [facility] - Reported* Type Description Date Medical History Benign prostatic hyp erplasia with lower urinary tract symptoms Medical History Obesity due to excess calories Surgical History Open reduction and i nternal fixation (ORIF) - right ankle Hospitalization History see surgical history [facility] Other Hospital Discharge instructions No data available for this section [facility] Hospital Discharge instructionsAmbulatory Orders* Referral to Pulmonology Location: None Selected [facility] Work Phone: Progress note No data available for this section [facility] reason for visit Narrative* Consultation (Routine) - Closed Specialty Diagnoses / Procedures Referred By Jaime t Referred To Contact Pulmonary Disease / Pulmonology Diagnoses Secondary polycythemia Other forms of dyspnea Chronic obstructive pulmonary disease, unspecified (HCC) Procedures [facility] [employer] Van Méndez, DO [address] [place] [address] Phone: tel: fax: Amalia Valdez, DO [address] [place] [address] Phone: tel: fax: Referral ID Status Reason Start Date Expiration Date Visits Re quested Visits Authorized [id number] Closed 07/25/2024 01/21/2025 1 1 [facility] Summary Purpose Family History No Family History Records Found Relationship Condition Age at Onset Recorded Date/T jared father Diabetes mellitus Unknown Advance Directives No Advanced Directives Records Found Advance Directive Response Recorded Date/ Time Advance Directives No April 13, 2023 4:39pm Advance Directive Response Recorded Date/ Time Advance Directives No April 13, 2023 3:39pm Chief Complaint and Reason for Visit Chief Complaint productive cough, co ngestion - COVID NEGATIVE [phone] chest cold COVID - Reason for Visit Obesity Acute bronchitis due to other specified organisms Acute bronchitis due to other specified organisms Chief Complaint [phone] chest c old COVID - Wellness Reason [...] 8am Syncope June 14, 2024 8:5 8am Chief Complaint Admit Date 1 mo f/u med change June 14, 2024 8:5 8am follow up July 24, 2024 10:28a m Reason for Visit Admit Date HURST (dyspnea on exertion) June 14 8:58am Hemochromatosis June 14, 2024 8:5 8am Obesity June 14, 2024 8:5 8am Paroxysmal sinus tachycardia June 14, 2024 8:58am Polycythemia June 14, 2024 8:5 8am Suspected sleep apnea June 14, 2024 8 :58am Syncope June 14, 2024 8:5 8am HURST (dyspnea on exertion) July 24, 2024 10:28am Obesity July 24, 2024 10:28a m Paroxysmal sinus tachycardia July 24 10:28am Polycythemia July 24, 2024 10:28a m Syncope July 24, 2024 10:28a m Reason for Visit Admit Date HURST (dyspnea on exertion) June 14 8:58am Obesity June 14, 2024 8:5 8am Paroxysmal sinus tachycardia June 14, 2024 8:58am Polycythemia June 14, 2024 8:5 8am Syncope June 14, 2024 8:5 8am Hemochromatosis June 14, 2024 8:5 8am Suspected sleep apnea June 14, 2024 8 :58am Chronic obstructive lung disease July 10:28am HURST (dyspnea on exertion) July 24, 2024 10:28am Obesity July 24, 2024 10:28a m Paroxysmal sinus tachycardia July 24 10:28am Polycythemia July 24, 2024 10:28a m Syncope July 24, 2024 10:28a m Additional Source Comments Patient Care team informatio n (unrecognized section and content) Team Status: Active Member Role Status Nika Méndez , DO Primary Care Provider Active Team Status: Active Member Role Status Nika Méndez DO Primary Care Provide r, Attending Provider Active Start: May 07, 2024 Team Status: Active Member Role Status Nika Méndez DO Primary Care Provide r, Attending Provider Active Start: May 16, 2024 Team Status: Active Member Role Status Nika Méndez DO Primary Care Provider Active Start: June 03, 2024 Bri Tay MD Attending Provider Active St art: June 03, 2024 Team Status: Inactive Member Role Status Nika Méndez DO Primary Care Provide r, Attending Provider Active Start: June 14, 2024 End: June 14, 2024 Team Status: Active Member Role Status Nika Méndez DO Primary Care Provider Active Start: June 18, 2024 Bri Tay MD Attending Provider Active St art: June 18, 2024 Team Status: Inactive Member Role Status Nika Méndez DO Primary Care Provide r, Attending Provider Active Start: July 24, 2024 End: July 24, 2024 Team Status: Inactive Member Role Status Nika Méndez DO Primary Care Provide r, Attending Provider Active Start: May 29, 2023 End: May 29, 2023 Team Status: Inactive Member Role Status Nika Méndez DO Primary Care Provide r, Attending Provider Active Start: June 20, 2023 End: June 20, 2023 Team Status: Inactive Member Role Status Nika Méndez DO Primary Care Provide r, Attending Provider Active Start: September 18, 2023 End: September 18, 2023 Team Status: Inactive Member Role Status Nika Méndez DO Primary Care Provide r, Attending Provider Active Start: October 20, 2023 End: October 20, 2023 Team Status: Inactive Member Role Status Nika Méndez DO Primary Care Provide r, Attending Provider Active Start: November 07, 2023 End: November 07, 2023 Team Status: Inactive Member Role Status Nika Méndez DO Primary Care Provide r, Attending Provider Active Start: April 17, 2024 End: April 17, 2024 Team Status: Active Member Role Status Nika Méndez DO Primary Care Provide r, Attending Provider Active Start: April 18, 2024 Elementary Art [employer] Relationship Specialty Start Date End Date Van Méndez DO [address] [facility] [place] [address] PCP - General Internal Medicine 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 Start Date End Date Theresa Tirado DO [address] [place] [address] PCP - General Family Medicine 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 Date End Date Theresa Tirado DO [address] [place] [address] PCP - General Family Medicine 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 Date End Date Theresa Tirado DO [address] [place] [address] PCP - General Family Medicine 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 Date End Date Theresa Tirado DO [address] [place] [address] PCP - General Family Medicine 08/28/24 (unrecognized sect ion and content) No Status Records FoundNo Status Records FoundNo Status Records Found INFORMATION SOURCE (unrecogn ized section and content) DATE CREATED AUTHOR 06/26/2022 [facility] DATE CREATED AUTHOR AUTHOR'S ORGANIZ ATION 08/03/2022 [facility] DATE CREATED AUTHOR AUTHOR'S ORGANIZ ATION 09/30/2024 [facility] EPIC REASON FOR VISIT (unrecogniz ed section and content) [facility] [phone] Goals (unrecognized section and content) Goals may [...] BE BASED ON THE PRIMARY CLINICAL RECORDS. [facility]. provides no warranty or guarantee of the accuracy or completeness of information in this document.
[2024-12-23 09:45] LABS: Hematocrit 54.2 % (42.0-54.0); Hemoglobin 18.2 g/dL (14.0-18.0); Immature Granulocytes Abs Auto 0.06 10^3/uL (0.00-0.03); Immature Granulocytes Pct Auto 1.0 % (0.0-0.5); Lymphocytes Absolute Auto 2.5 10^3/uL (1.2-3.8); Mean Corpuscular HGB Conc 33.6 g/dL (29.9-35.2); Mean Corpuscular Hemoglobin 31.3 pg (25.9-34.0); Mean Corpuscular Volume 93.1 fL (80.0-94.0); Platelet Count 143 10^3/uL (150-450); Red Blood Count 5.82 10^6/uL (4.70-6.10); White Blood Count 6.2 10^3/uL (4.0-11.0)
[2024-12-23 10:06] LABS: Alanine Aminotransferase 24 U/L (16-63); Albumin Globulin Ratio 1.1; Albumin Level 3.8 g/dL (3.4-5.0); Alkaline Phosphatase 56 U/L (46-116); Anion Gap 10.9; Aspartate Amino Transferase 18 U/L (15-37); Blood Urea Nitrogen 13.0 mg/dL (7.0-18.0); Calcium 8.7 mg/dL (8.5-10.1); Carbon Dioxide 29.2 mmol/L (21.0-32.0); Chloride 106 mmol/L (98-107); Estimated GFR (African America >60 (>=60 mL/min/1.73m^2); Estimated GFR (Non-African Ame >60 (>=60 mL/min/1.73m^2); Globulin 3.6 g/dL; Glucose 94 mg/dL (74-106); Potassium 4.1 mmol/L (3.5-5.1); Sodium 142 mmol/L (136-145); Total Protein 7.4 g/dL (6.4-8.2)
[2024-12-23 10:43] LABS: Iron 89.0 ug/dL (65.0-175.0); Percent Iron Saturation 28.2 %; Total Iron Binding Capacity 316.0 ug/dL (250.0-450.0)
[2024-12-23 14:15] LABS: Ferritin 127.0 ng/mL (26.0-388.0)
== END 2024-12-23 09:19 | disposition home or self-care (01) ==
LOC: LAB 09:20
PROVIDERS: PCP Family Medicine; Visit Provider Internal Medicine Hematology & Oncology
DX: D45 Polycythemia vera (principal)
CPT/HCPCS: 36415; 80053; 82728; 83540; 83550; 85025